=== PATIENT | male | born 1965 | race Caucasian/White ===

== ENCOUNTER 2020-09-16 14:51 | Outpatient (REF) | payer OTHER, SELFPAY ==
--- NOTE | ~2020-09-16 | XR_ITS ---
EXAMINATION: XR SHOULDER, LEFT CLINICAL INFORMATION: Pain COMPARISON: None TECHNIQUE: AP external rotation, Grashey, scapular Y, and axillary views of the left shoulder. FINDINGS: Bone alignment is normal. No acute fracture or dislocation is seen. There are old left anterior first and second rib fractures. There is question of an old left distal clavicle fracture. There is arthritis at the glenohumeral and acromioclavicular joints with small osteophytes. There is increased attenuation seen projecting over the humeral head, question representing overlying soft tissue calcification or ossification. There are dense left lung nodules probably representing calcified granulomas. XR/XR shoulder LT min 2V IMPRESSION: Arthritis at the glenohumeral and acromioclavicular joints.
== END 2020-09-16 14:52 | disposition home or self-care (01) ==
LOC: HO.XRAY 14:51
PROVIDERS: Absent Provider Pediatrics; PCP Pediatrics; Visit Provider Internal Medicine
DX: M25.512 Pain in left shoulder (principal)
CPT/HCPCS: 73030

== ENCOUNTER 2020-11-06 15:00 | Outpatient (RCR) | payer MEDICARE, SELFPAY | END 2020-12-21 09:55 | disposition home or self-care (01) | LOC: HO.PT 15:00 | PROVIDERS: PCP Internal Medicine; Visit Provider Internal Medicine | DX: M25.512 Pain in left shoulder (principal) | CPT/HCPCS: 97012; 97110; 97112; 97140; 97150; 97162 ==

== ENCOUNTER → 2021-08-04 13:25 | Outpatient (RCR) | payer MEDICARE, SELFPAY | END | disposition home or self-care (01) | LOC: HO.PTCHIC 02-06 13:01 | PROVIDERS: PCP Pediatrics; Visit Provider Physician Assistant | DX: G57.03 Lesion of sciatic nerve, bilateral lower limbs (principal); M62.838 Other muscle spasm; M19.90 Unspecified osteoarthritis, unspecified site; Z98.1 Arthrodesis status | CPT/HCPCS: 97110; 97140; 97162 ==

== ENCOUNTER 2021-11-01 10:06 | Outpatient (REF) | payer OTHER, SELFPAY ==
--- NOTE | ~2021-11-01 | US_ITS ---
EXAMINATION: US ABDOMEN COMPLETE CLINICAL INFORMATION: Clinical suspicion of pancreatitis, elevated amylase/lipase. COMPARISON: None TECHNIQUE: Real-time imaging of the abdominal viscera. FINDINGS: PANCREAS: There is mild dilatation of the main pancreatic duct measuring up to 5 mm. The pancreas is otherwise unremarkable. ABDOMINAL AORTA: Normal in caliber. INFERIOR VENA CAVA: Visualized portions are normal. LIVER: The liver echotexture is increased. The liver contour is normal. The liver is enlarged. No focal hepatic lesion. There is no intrahepatic biliary duct dilatation seen. GALLBLADDER: The gallbladder is normal in size. There is question of dependent echogenic bile versus small polyps or gallstones, the largest area measuring 3 mm. COMMON BILE DUCT: Normal in caliber measuring 0.8 cm in diameter. RIGHT KIDNEY: Normal. No hydronephrosis. No renal calculi or focal parenchymal lesions. The kidney measures 12.4 cm in maximum dimension. LEFT KIDNEY: Normal. No hydronephrosis. No renal calculi or focal parenchymal lesions. The kidney measures 11.6 cm in maximum dimension. SPLEEN: There are calcifications in the spleen. The spleen measures 10.4 cm in maximum dimension. FREE FLUID: None. US/US abdomen complete IMPRESSION: Enlarged echogenic liver. Question dependent echogenic bile versus small polyps or gallstones in the gallbladder. Dilated main pancreatic duct.
== END 2021-11-01 10:07 | disposition home or self-care (01) ==
LOC: HO.HMGCX 10:06
PROVIDERS: Visit Provider Internal Medicine
DX: K85.90 Acute pancreatitis without necrosis or infection, unspecified (principal)
CPT/HCPCS: 76700

== ENCOUNTER 2021-12-09 15:06 | Outpatient (REF) | payer OTHER, SELFPAY ==
[2021-12-09 17:32] LABS: Alanine Aminotransferase 77 U/L (0-40); Albumin Level 3.9 g/dL (3.5-5.0); Alkaline Phosphatase 85 U/L (39-117); Anion Gap 15 (12-20); Aspartate Amino Transferase 127 U/L (5-37); Bilirubin Direct 0.4 mg/dL (0.0-0.5); Bilirubin Total 0.7 mg/dL (0.0-1.0); Blood Urea Nitrogen 7 mg/dL (9-16); Calcium 9.1 mg/dL (8.4-10.2); Carbon Dioxide 30 mmol/L (22-29); Chloride 100 mmol/L (96-108); Estimated Glomerular Filt Rate > 60; Glucose Random 82 mg/dL (60-115); Potassium 4.3 mmol/L (3.3-5.1); Sodium 141 mmol/L (135-145); Total Protein 7.2 g/dL (6.5-8.0)
== END 2021-12-09 15:07 | disposition home or self-care (01) ==
LOC: HO.LAB 15:06
PROVIDERS: PCP Internal Medicine; Referring Provider Internal Medicine; Visit Provider Surgery
DX: R10.9 Unspecified abdominal pain (principal); G89.29 Other chronic pain
CPT/HCPCS: 36415; 80048; 80076; 99202

== ENCOUNTER 2021-12-28 10:50 | Outpatient (REF) | payer OTHER, SELFPAY | END 2021-12-28 10:51 | disposition home or self-care (01) | LOC: HO.CT 10:50 | PROVIDERS: PCP Internal Medicine; Visit Provider Surgery | DX: R10.9 Unspecified abdominal pain (principal); G89.29 Other chronic pain | CPT/HCPCS: 74177 ==

== ENCOUNTER → 2022-01-05 10:58 | Outpatient (BNVA) | payer OTHER, SELFPAY | PROVIDERS: PCP Internal Medicine; Visit Provider Surgery | DX: R10.9 Unspecified abdominal pain (principal); G89.29 Other chronic pain | CPT/HCPCS: 99212 ==

== ENCOUNTER 2022-04-11 12:01 | Emergency (ER) | payer OTHER, SELFPAY ==
--- NOTE | ~2022-04-11 | CT_ITS ---
EXAMINATION: CT ABDOMEN AND PELVIS WITHOUT CONTRAST CLINICAL INFORMATION: Severe diffuse abdominal pain and vomiting COMPARISON: 12/28/2021 TECHNIQUE: Multidetector volumetric imaging was performed from the lung bases through the pubic symphysis. Sagittal and coronal reformatted images were obtained on the technologist workstation. This CT examination was performed using dose optimization techniques as appropriate, variously including the following: *Automated exposure control *Adjustment of mA and/or kV according to patient size (this includes techniques or standardized protocols for targeted exams where dose is matched to indication/reason for exam; i.e. extremities or head) *Use of iterative reconstruction technique FINDINGS: The lack of intravenous contrast limits evaluation of the solid visceral organs including the liver, spleen, pancreas, and kidneys. LUNG BASES: 4 mm calcified granuloma in the posterior periphery of the right lower lobe; no imaging follow-up recommended. LIVER, GALLBLADDER, AND BILIARY TREE: Liver is diffusely hypoattenuating consistent with severe diffuse hepatic steatosis. The gallbladder is unremarkable with no evidence of radiopaque gallstones, gallbladder wall thickening, or obvious pericholecystic inflammatory changes. PANCREAS: The proximal body of the pancreas is enlarged and edematous with adjacent peripancreatic fluid and fat stranding. Lack of IV contrast limits evaluation for necrosis. SPLEEN: There are calcified granulomata within the spleen. ADRENAL GLANDS: Normal; no adrenal mass. KIDNEYS AND URETERS: Limited non-contrast evaluation is normal. No hydronephrosis, hydroureter, or calculi seen. No perinephric stranding. GASTROINTESTINAL TRACT: Small bowel and colon are non-dilated. No bowel wall thickening. No pericolonic inflammatory changes to suggest colitis or diverticulitis. Normal appendix. ABDOMINAL WALL: No hernia seen. LYMPH NODES: No pathologically enlarged lymph nodes in the abdomen or pelvis. VASCULAR: Normal caliber abdominal aorta. BLADDER: Unremarkable. PELVIC VISCERA: Unremarkable. OSSEOUS STRUCTURES: Posterior spinal fusion hardware L3-L5. Grade 1 bordering on grade 2 anterolisthesis of L5 on S1. Severe degenerative disc disease at L4-L5. Sclerosis of the bilateral sacroiliac joints. CT/CT abdomen pelvis wo IV con IMPRESSION: Edematous pancreas with adjacent fluid and fat stranding, and appearance consistent with acute interstitial pancreatitis. Severe hepatic steatosis.
--- NOTE | ~2022-04-11 | XR_ITS ---
EXAMINATION: XR CHEST CLINICAL INFORMATION: Chest pain. COMPARISON: Chest x-ray 11/16/2011 TECHNIQUE: Frontal view of the chest was obtained. FINDINGS: The lungs are hyperinflated but clear of acute process. Heart size is normal. There is mild increased bilateral pulmonary vascularity but no congestion. There are 2 small nodules adjacent to each other the largest measuring 4 mm and smaller measuring 3 mm in the left midlung region overlying the ninth posterior rib.. No gross bony abnormality seen. XR/XR chest 1V IMPRESSION: Hyperinflated lungs without acute process. 2 small nodules adjacent to each other in the left midlung region. Only one nodule seen on the previous chest x-ray 05/16/2011
[2022-04-11 12:10] VITALS: BP 190/90; BP 195/80; PULSE 54; PULSE 63; RESP 18; TEMP 36.9; O2SAT 100; BMI 26.4
--- NOTE | 2022-04-11 12:12 | ECG_ITS ---
Test Reason : Epigastric Pain Blood Pressure : / mmHG Vent. Rate : 057 BPM Atrial Rate : 057 BPM P-R Int : 136 ms QRS Dur : 086 ms QT Int : 474 ms P-R-T Axes : 036 034 045 degrees QTc Int : 461 ms Sinus bradycardia Otherwise normal ECG When compared with ECG of 30-JUL-2006 09:39, Premature atrial complexes are no longer Present Referred By: Asa Kat Electronically Signed By:ALISSA MULLEN MD
--- NOTE | 2022-04-11 12:14 | ED.ABDPAIN ---
HPI - Abdominal Pain General Chief Complaint: Abdominal Pain Stated Complaint: VOMITING,ABD PAIN PER EMS Time Seen by Provider: 04/11/22 12:06 Source: patient and EMS Mode of arrival: EMS Limitations: no limitations History of Present Illness HPI narrative: 56-year-old male came in by ambulance for evaluation of abdominal pain nausea and vomiting since last night. Patient is a daily drinker he drink last night patient think that the pain is likely related to drinking. Patient feel constipated for the past week no bowel movement but passing flatus, pain is associated with nausea and vomiting with no appetite. No fever, no chills. Patient has intermittent chronic abdominal pain was seen by Dr. Johnson in the past has negative workup for his chronic abdominal pain. Related Data Home Medications Medication Instructions Recorded Confirmed buprenorphine 8 mg-naloxone 2 mg 15 mg sublingual DAILY 12/09/21 01/05/22 sublingual film bupropion HCl 300 mg 24 hr tablet, 300 mg PO DAILY PRN 12/09/21 01/05/22 extended release gabapentin 400 mg capsule 0 mg PO 12/09/21 01/05/22 ibuprofen 600 mg tablet 600 mg PO TID PRN 12/09/21 01/05/22 ondansetron 4 mg disintegrating 0 mg PO 12/09/21 01/05/22 tablet trazodone 100 mg tablet 100 mg PO BEDTIME 12/09/21 01/05/22 Allergies Allergy/AdvReac Type Severity Reaction Status Date / Time No Known Allergies Allergy Verified 01/05/22 11:10 Review of Systems Review of Systems All other systems are reviewed and are negative Constitutional: Reports as per HPI and Reports no additional constitutional complaints Eyes: Reports as per HPI and Reports no additional eye complaints Reports system reviewed and no additional complaints, except as documented Cardiovascular: Reports as per HPI and Reports no additional cardiovascular complaints Respiratory: Reports as per HPI and Reports no additional respiratory complaints Gastrointestinal: Reports as per HPI and Reports no additional gastrointestinal complaints Genitourinary: Reports no additional female genitourinary complaints Musculoskeletal: Reports no additional musculoskeletal complaints Skin/Breast: Reports system reviewed and no additional complaints, except as docu Psychiatric: Reports no additional psychiatric complaints Endocrine: Reports no additional endocrine complaints Hematologic/Lymphatic: Reports no additional hematologic/lymphatic complaints Allergic/Immunologic: Reports no additional allergic/immunologic complaints Reports system reviewed and no additional complaints, except as documented and Reports Abnormal speech present [facility] Past Medical History Medical History Buprenorphine dependence Chronic abdominal pain Surgical History History of back surgery Social History Social History Alcohol intake: current Alcohol intake frequency: a few times a week Patient Tobacco Use Status: Never used Tobacco Advance Directives: No Advance Directives Information Provided: Yes Physical Exam ED Vital Signs: Vital Signs - 24 hr 04/11/22 12:10 04/11/22 13:23 Temperature 98.4 F Pulse Rate 63 56 Respiratory Rate 18 16 Blood Pressure 195/80 H 184/78 H Pulse Oximetry 100 99 Oxygen Delivery Method Room Air Room Air BMI result Body Mass Index 26.4 Vital signs have been reviewed as appeared to be correct. Blood pressure normal. Heart rate normal. Respiration rate normal. Temperature normal. Oxygen saturation normal. Appearance: Anxious, Alert. Oriented X3. No acute distress. Head: Normal external exam. Normocephalic. Atraumatic. No Bell signs noted. No raccoon eyes noted Eyes: PERRLA. EOMI. Conjunctiva and sclera normal. Eyelids normal. ENT: TM's Normal. Pharynx normal. Uvula midline. Moist mucous membranes. No trismus noted. No drooling noted. No muffled voice noted. Neck: Normal inspection. Neck supple. FROM. No adenopathy. Thyroid Normal. No meningeal signs. No neck mass noted. CVS: Normal heart rate and rhythm. Heart sound normal. No murmurs noted. Pulses normal throughout. Respiratory: No respiratory distress. Painless inspiration. Breath sounds normal. No wheezes/rales/rhonchi noted. Chest nontender. No accessory muscle usage noted or decreased air movement noted. Abdomen: Soft, epigastric tenderness, no rebound tenderness, no guarding. Bowel sounds normal in all 4 quadrants. No distention noted. No organomegaly noted. No visible injury noted. Back: No CVA tenderness. Full range of motion noted. Skin: Skin warm and dry. Normal skin color. Normal skin turgor. No rashes/lesions/lacerations noted. Extremities: No lower extremity edema. Extremities exhibit normal range of motion. Extremities nontender. Neuro: Oriented X 3. Cranial nerve exam: II-XII are grossly intact No motor deficit. No sensory deficit. Reflexes normal. Course Course Course Narrative: 56-year-old male with chronic alcohol use came in with abdominal pain and elevated lipase patient has uncomplicated alcoholic pancreatitis patient is on Suboxone, no narcotic was used to control the patient's name due to Suboxone, patient is showing early signs of withdrawal from alcohol will start the patient on phenobarb and admit. Reevaluation(s) Reevaluation #1: Patient feels better and able to tolerate ice chips orally without vomiting, patient will be leaving against medical advise, I explained to the patient at lengthy risk of leaving with acute pancreatitis which could be a life-threatening disease causing severe dehydration and severe abdominal pain. Especially the patient is known to be chronic alcoholic. Patient still insists to go home, patient is awake, alert, oriented x3 with no SI, patient fully understood my instruction still want to be discharged AMA. Time: 14:43 Medical Decision Making Differential Diagnosis Differential Diagnoses: The differential diagnosis associated with the presentation includes Alcoholic gastritis, pancreatitis, hepatitis, acute appendicitis, colitis, gastroenteritis. Lab Data MDM Lab Attestation statement: I reviewed the patient's lab results. 04/11/22 12:22 04/11/22 12:22 Labs: Lab Results 04/11/22 04/11/22 04/11/22 Range/Units 12:22 12:22 12:22 WBC 9.0 (4.8-10.8) X10*3/uL RBC 4.97 (4.60-5.80) X10*6/uL Hgb 16.2 (14.0-18.0) g/dl Hct 44.5 (42.0-52.0) % MCV 89.5 (80.0-98.0) fL MCH 32.6 (27.0-33.0) pg MCHC 36.4 H (31.0-36.0) g/dl RDW 11.8 (11.0-16.0) % Plt Count 187 (160-400) X10*3/uL MPV 10.1 (9.4-12.4) fL Immature Gran % (Auto) 0.3 (0.0-0.4) % Neut % (Auto) 81.9 H (45-73) % Lymph % (Auto) 8.6 L (20-40) % [place] % (Auto) 8.6 (2-11) % Eos % (Auto) 0.0 (0-4) % Baso % (Auto) 0.6 (0-2) % Lymph # (Auto) 0.8 L (1.2-4.9) X10*3/uL [place] # (Auto) 0.8 (0.1-1.2) X10*3/uL Eos # (Auto) 0.0 (0.0-0.4) X10*3/uL Baso # (Auto) 0.1 (0.0-0.2) X10*3/uL Abs Immat Gran (auto) 0.03 (0.00-0.03) X10*3/uL Absolute Neuts (auto) 7.3 (2.0-8.3) x10*3/uL Absolute Nucleated RBC 0.000 (0.0-0.012) X10*3/uL Nucleated RBC % (auto) 0.0 (0.0-0.2) /100WBC Sodium 139 (135-145) mmol/L Potassium 4.0 (3.3-5.1) mmol/L Chloride 98 (96-108) mmol/L Carbon Dioxide 23 (22-29) mmol/L Anion Gap 22 H (12-20) BUN 11 (9-16) mg/dL Creatinine 0.96 (0.5-1.4) mg/dL Estim Creat Clear Calc 95.9 Estimated GFR > 60 Random Glucose 173 H (60-115) mg/dL Calcium 9.5 (8.4-10.2) mg/dL Total Bilirubin 1.1 H (0.0-1.0) mg/dL Direct Bilirubin 0.4 (0.0-0.5) mg/dL AST 107 H (5-37) U/L ALT 60 H (0-40) U/L Alkaline Phosphatase 120 H (39-117) U/L Troponin I High Sens < 3.5 (<3.5-35.0) ng/L Total Protein 7.4 (6.5-8.0) g/dL Albumin 3.8 (3.5-5.0) g/dL Lipase 712 H (8-78) U/L COVID-19 ([facility]) (Negative) COVID-19 Clin Com 04/11/22 Range/Units 12:23 WBC (4.8-10.8) X10*3/uL RBC (4.60-5.80) X10*6/uL Hgb (14.0-18.0) g/dl Hct (42.0-52.0) % MCV (80.0-98.0) fL MCH (27.0-33.0) pg MCHC (31.0-36.0) g/dl RDW (11.0-16.0) % Plt Count (160-400) X10*3/uL MPV (9.4-12.4) fL Immature Gran % (Auto) (0.0-0.4) % Neut % (Auto) (45-73) % Lymph % (Auto) (20-40) % [place] % (Auto) (2-11) % Eos % (Auto) (0-4) % Baso % (Auto) (0-2) % Lymph # (Auto) (1.2-4.9) X10*3/uL [place] # (Auto) (0.1-1.2) X10*3/uL Eos # (Auto) (0.0-0.4) X10*3/uL Baso # (Auto) (0.0-0.2) X10*3/uL Abs Immat Gran (auto) (0.00-0.03) X10*3/uL Absolute Neuts (auto) (2.0-8.3) x10*3/uL Absolute Nucleated RBC (0.0-0.012) X10*3/uL Nucleated RBC % (auto) (0.0-0.2) /100WBC Sodium (135-145) mmol/L Potassium (3.3-5.1) mmol/L Chloride (96-108) mmol/L Carbon Dioxide (22-29) mmol/L Anion Gap (12-20) BUN (9-16) mg/dL Creatinine (0.5-1.4) mg/dL Estim Creat Clear Calc Estimated GFR Random Glucose (60-115) mg/dL Calcium (8.4-10.2) mg/dL Total Bilirubin (0.0-1.0) mg/dL Direct Bilirubin (0.0-0.5) mg/dL AST (5-37) U/L ALT (0-40) U/L Alkaline Phosphatase (39-117) U/L Troponin I High Sens (<3.5-35.0) ng/L Total Protein (6.5-8.0) g/dL Albumin (3.5-5.0) g/dL Lipase (8-78) U/L COVID-19 ([facility]) Negative (Negative) COVID-19 Clin Com See Note Independent Interpretation I performed an independent interpretation of an: CT Scan (Abdomen: Acute pancreatitis) Radiology Impression Discussion of test interpretation with radiology: I have reviewed the radiologist's reading. Tests considered The following testing was considered but not selected: Admission was considered in this case but patient is signing against medical advise and declined admission. Medications Administered Discontinued Medications Generic Name Dose Route Start Last Admin Trade Name Freq PRN Reason Stop Dose Admin Al Hydroxide/Mg Hydroxide 30 ml 04/11/22 12:12 04/11/22 12:39 Magnesium Hydrox/Alum Hydrox 30 Ml Oral.Susp PO 04/11/22 12:13 Not Given ONCE ONE Famotidine 20 mg 04/11/22 12:12 04/11/22 12:32 Famotidine/Pf 20 Mg/2 Ml Vial IVPUSH 04/11/22 12:13 20 mg ONCE ONE Administration Sodium Chloride 1,000 mls @ 999 mls/hr 04/11/22 12:06 04/11/22 12:34 Ns IV 04/11/22 13:06 999 mls/hr .Q1H1M ONE Administration Ketorolac Tromethamine 30 mg 04/11/22 12:12 04/11/22 12:32 Ketorolac Tromethamine 30 Mg/Ml Vial IVPUSH 04/11/22 12:13 30 mg ONCE ONE Administration Lorazepam 2 mg 04/11/22 12:46 04/11/22 12:52 Lorazepam 2 Mg/Ml Vial IVPUSH 04/11/22 12:47 2 mg ONCE ONE Administration Ondansetron HCl 4 mg 04/11/22 12:12 04/11/22 12:32 Ondansetron Hcl 4 Mg/2 Ml Vial IVPUSH 04/11/22 12:13 4 mg ONCE ONE Administration Discharge Plan Discharge Clinical Impression: Acute alcoholic pancreatitis, Alcohol withdrawal Patient Disposition: Left Against Medical Advice Instructions: Pancreatitis (ED), Alcohol Withdrawal (ED) Prescriptions: No Action gabapentin 400 mg capsule 0 mg PO ibuprofen 600 mg tablet 600 mg PO TID PRN bupropion HCl 300 mg tablet extended release 24 hr 300 mg PO DAILY PRN ondansetron 4 mg tablet,disintegrating 0 mg PO buprenorphine-naloxone 8-2 mg film 15 mg sublingual DAILY trazodone 100 mg tablet 100 mg PO BEDTIME Referrals: Sharon Hilton MD [Primary Care Provider] -
[2022-04-11 12:27] LABS: MANUAL DIFF FLAG NO
[2022-04-11 12:30] LABS: Basophils Absolute Auto 0.1 X10*3/uL (0.0-0.2); Basophils Percent Auto 0.6 % (0-2); Hematocrit 44.5 % (42.0-52.0); Hemoglobin 16.2 g/dl (14.0-18.0); Imm Gran Abs Auto 0.03 X10*3/uL (0.00-0.03); Imm Gran Pct Auto 0.3 % (0.0-0.4); Lymphocytes Absolute Auto 0.8 X10*3/uL (1.2-4.9); Lymphocytes Percent Auto 8.6 % (20-40); Mean Corpuscular HGB Conc 36.4 g/dl (31.0-36.0); Mean Corpuscular Hemoglobin 32.6 pg (27.0-33.0); Mean Corpuscular Volume 89.5 fL (80.0-98.0); Mean Platelet Volume 10.1 fL (9.4-12.4); Monocytes Absolute Auto 0.8 X10*3/uL (0.1-1.2); Monocytes Percent Auto 8.6 % (2-11); Neutrophils Absolute Auto 7.3 x10*3/uL (2.0-8.3); Neutrophils Percent Auto 81.9 % (45-73); Platelet Count 187 X10*3/uL (160-400); Red Blood Count 4.97 X10*6/uL (4.60-5.80); Red Cell Distribution Width 11.8 % (11.0-16.0)
[2022-04-11] MEDS: Ketorolac Tromethamine 30 MG/ML VIAL IVPUSH (12:32)
[2022-04-11] MEDS: ondansetron HCL 4 MG/2 ML VIAL IVPUSH (12:32)
[2022-04-11] MEDS: Famotidine/PF 20 MG/2 ML VIAL IVPUSH (12:32)
[2022-04-11] MEDS: 0.9 % Sodium Chloride 1,000 ML 999 ML IV (12:34)
[2022-04-11 12:45] LABS: Alanine Aminotransferase 60 U/L (0-40); Albumin Level 3.8 g/dL (3.5-5.0); Alkaline Phosphatase 120 U/L (39-117); Anion Gap 22 (12-20); Aspartate Amino Transferase 107 U/L (5-37); Bilirubin Direct 0.4 mg/dL (0.0-0.5); Bilirubin Total 1.1 mg/dL (0.0-1.0); Blood Urea Nitrogen 11 mg/dL (9-16); Calcium 9.5 mg/dL (8.4-10.2); Carbon Dioxide 23 mmol/L (22-29); Chloride 98 mmol/L (96-108); Creatinine Clr Calc Pharmacy 95.9; Estimated Glomerular Filt Rate > 60; Glucose Random 173 mg/dL (60-115); Sodium 139 mmol/L (135-145); Total Protein 7.4 g/dL (6.5-8.0)
[2022-04-11 12:48] LABS: COVID-19 Test Negative (Negative); IDNOW Serial# BCCEAD1C
[2022-04-11] MEDS: LORazepam 2 MG/ML VIAL IVPUSH (12:52)
[2022-04-11 12:53] LABS: Troponin-I High Sensitivity < 3.5 ng/L (<3.5-35.0)
[2022-04-11 12:54] LABS: Lipase 712 U/L (8-78)
[2022-04-11 13:23] VITALS: BP 184/78; PULSE 56; RESP 16; O2SAT 99
== END 2022-04-11 15:12 | disposition left against medical advice (07) ==
PROVIDERS: Emergency Provider Emergency Medicine; PCP Pediatrics
DX: K85.20 Alcohol induced acute pancreatitis without necrosis or infection (principal); F10.230 Alcohol dependence with withdrawal, uncomplicated; Y90.9 Presence of alcohol in blood, level not specified; F11.20 Opioid dependence, uncomplicated; R10.9 Unspecified abdominal pain; Z20.822 Contact with and (suspected) exposure to COVID-19
CPT/HCPCS: 36415; 71045; 74176; 80048; 80076; 83690; 84484; 85025; 87635; 93005; 96374; 96375; 99284; J1885; J2060; J2405

== ENCOUNTER 2022-04-29 11:10 | Emergency (ER) | payer OTHER, SELFPAY ==
[2022-04-29 11:14] VITALS: BP 177/85; BP 180/100; PULSE 59; PULSE 70; RESP 28; O2SAT 97; O2SAT 98; BMI 25.7
--- NOTE | 2022-04-29 11:33 | ED.NAVMDI ---
HPI - Nausea/Vomiting/Diarrhea General Chief complaint: Nausea/Vomiting/Diarrhea Stated complaint: Abd pain, N/V per EMS Time Seen by Provider: 04/29/22 11:32 Source: patient Mode of arrival: EMS Limitations: no limitations History of Present Illness HPI Narrative: patient with a history of alcoholism and heroine dependence now with nausea and vomiting MD elicited complaint: nausea and vomiting Related Data Home Medications Medication Instructions Recorded Confirmed buprenorphine 8 mg-naloxone 2 mg 15 mg sublingual DAILY 12/09/21 01/05/22 sublingual film bupropion HCl 300 mg 24 hr tablet, 300 mg PO DAILY PRN 12/09/21 01/05/22 extended release gabapentin 400 mg capsule 0 mg PO 12/09/21 01/05/22 ibuprofen 600 mg tablet 600 mg PO TID PRN 12/09/21 01/05/22 ondansetron 4 mg disintegrating 0 mg PO 12/09/21 01/05/22 tablet trazodone 100 mg tablet 100 mg PO BEDTIME 12/09/21 01/05/22 Previous Rx's Medication Instructions Recorded ondansetron 4 mg disintegrating 4 mg PO Q8H 4 days #12 tabs 04/29/22 tablet pantoprazole 40 mg tablet,delayed 40 mg PO DAILY #20 tabs 04/29/22 release (Protonix) Allergies Allergy/AdvReac Type Severity Reaction Status Date / Time No Known Allergies Allergy Verified 01/05/22 11:10 Review of Systems Review of Systems: Yes all other systems are reviewed and are negative Gastrointestinal: Gastrointestinal: Reports abdominal pain and Reports vomiting Neurologic: Denies Sensory deficit (Neuro) [facility] Past Medical History Medical History Buprenorphine dependence Chronic abdominal pain Surgical History History of back surgery Social History Social History Alcohol intake: former Patient Tobacco Use Status: Never used Tobacco Smoked in Last 30 Days: No Use of substances other than those prescribed or required for medical reasons: No Advance Directives: No Advance Directives Information Provided: No Physical Exam Vital Signs: Vital Signs: Last Vital Signs Temp 97.7 F 04/29/22 14:55 Pulse 64 04/29/22 14:55 Resp 24 H 04/29/22 14:55 BP 206/88 H 04/29/22 14:55 Pulse Ox 97 04/29/22 14:55 O2 Del Method 04/29/22 14:55 BMI result Body Mass Index 25.7 Const: Other: anxious, screaming Nutritional Appearance: average body habitus Orientation/consciousness: oriented to person and patient oriented x3 Limitations: no limitations HEENT: Head: Yes normal to inspection Ears: external ears normal General nose exam: Normal external nose present Mouth: Normal oral and palatal mucosa present and oropharynx normal Throat: Yes posterior oropharynx normal Eyes: General: appearance normal, both eyes and all related structures Neck: Other: supple Neck: Yes normal visual inspection Chest: Chest palpation & inspection: normal inspection of the chest Resp: Auscultation: clear to auscultation bilaterally Cardio: Jugular venous distension: no JVD Rate: regular rate Rhythm: regular rhythm Heart sounds: S1 normal heart sound present and S2 normal heart sound present GI: Other: soft but diffusely tender Palpation (GI): Tenderness to palpation present (GI) Auscultation: normal bowel sounds : General: Yes no CVA tenderness Back/Spine/Pelvis: Back: no CVA tenderness Skin: General skin exam: no rashes or lesions noted Neuro: General: oriented to person and patient oriented x3 Cranial nerves: Yes CN's II-XII intact bilaterally Motor exam (neuro): 5/5 motor strength present throughout Sensory Exam: No Sensory deficit (Neuro) Extrem: General: Yes normal to inspection Psych: Appearance: grossly normal Course Reevaluation(s) Reevaluation #1: still vomiting will admit Time: 14:05 Reevaluation #2: patient wants to be discharged Time: 15:49 Medications Administered Discontinued Medications Generic Name Dose Route Start Last Admin Trade Name Freq PRN Reason Stop Dose Admin Buprenorphine/Naloxone 1 film 04/29/22 13:16 04/29/22 13:26 Buprenorphine/Naloxone 8/2 Mg Film SUBLINGUAL 04/29/22 13:17 1 film ONCE ONE Administration Sodium Chloride 1,000 mls @ 999 mls/hr 04/29/22 11:45 04/29/22 14:30 Ns IVCONT 04/29/22 13:45 Infused .Q1H1M JUAN Infusion Ondansetron HCl 4 mg 04/29/22 11:39 04/29/22 11:48 Ondansetron Hcl 4 Mg/2 Ml Vial IVPUSH 04/29/22 11:40 4 mg ONCE ONE Administration Pantoprazole Sodium 40 mg 04/29/22 12:53 04/29/22 13:26 Pantoprazole Sodium 40 Mg/10 Ml Vial IVPUSH 04/29/22 12:54 40 mg ONCE ONE Administration Phenobarbital Sodium 65 mg 04/29/22 11:35 04/29/22 12:09 Phenobarbital Sodium 65 Mg/Ml Vial IVPUSH 04/29/22 11:36 Not Given ONCE ONE Phenobarbital Sodium 65 mg 04/29/22 12:00 04/29/22 12:00 Phenobarbital Sodium 130 Mg/Ml Vial IVPUSH 04/29/22 12:01 65 mg ONCE ONE Administration Phenobarbital Sodium 65 mg 04/29/22 13:45 04/29/22 13:43 Phenobarbital Sodium 130 Mg/Ml Vial IVPUSH 04/29/22 13:46 65 mg ONCE ONE Administration Phenobarbital Sodium 65 mg 04/29/22 14:45 04/29/22 14:49 Phenobarbital Sodium 130 Mg/Ml Vial IVPUSH 04/29/22 14:46 65 mg ONCE ONE Administration Medical Decision Making Differential Diagnosis alcohol withdrawal, opiate withdrawal, pancreatitis, hepatitis Admission/Observation Consideration of admission/observation: Escalation of care including admission/observation considered for withdrawal and pancreatitis Lab Data 04/29/22 11:46 04/29/22 11:46 Labs: Lab Results 04/29/22 04/29/22 Range/Units 11:46 11:46 WBC 10.3 (4.8-10.8) X10*3/uL RBC 5.11 (4.60-5.80) X10*6/uL Hgb 16.6 (14.0-18.0) g/dl Hct 46.2 (42.0-52.0) % MCV 90.4 (80.0-98.0) fL MCH 32.5 (27.0-33.0) pg MCHC 35.9 (31.0-36.0) g/dl RDW 11.5 (11.0-16.0) % Plt Count 273 D (160-400) X10*3/uL MPV 10.0 (9.4-12.4) fL Immature Gran % (Auto) 0.5 H (0.0-0.4) % Neut % (Auto) 85.2 H (45-73) % Lymph % (Auto) 8.3 L (20-40) % [place] % (Auto) 5.5 (2-11) % Eos % (Auto) 0.0 (0-4) % Baso % (Auto) 0.5 (0-2) % Lymph # (Auto) 0.9 L (1.2-4.9) X10*3/uL [place] # (Auto) 0.6 (0.1-1.2) X10*3/uL Eos # (Auto) 0.0 (0.0-0.4) X10*3/uL Baso # (Auto) 0.1 (0.0-0.2) X10*3/uL Abs Immat Gran (auto) 0.05 H (0.00-0.03) X10*3/uL Absolute Neuts (auto) 8.8 H (2.0-8.3) x10*3/uL Absolute Nucleated RBC 0.000 (0.0-0.012) X10*3/uL Nucleated RBC % (auto) 0.0 (0.0-0.2) /100WBC Sodium 137 (135-145) mmol/L Potassium 4.5 (3.3-5.1) mmol/L Chloride 97 (96-108) mmol/L Carbon Dioxide 21 L (22-29) mmol/L Anion Gap 24 H (12-20) BUN 11 (9-16) mg/dL Creatinine 0.92 (0.5-1.4) mg/dL Estim Creat Clear Calc 97.2 Estimated GFR > 60 Random Glucose 177 H (60-115) mg/dL Calcium 9.4 (8.4-10.2) mg/dL Total Bilirubin 0.8 (0.0-1.0) mg/dL AST 109 H (5-37) U/L ALT 57 H (0-40) U/L Alkaline Phosphatase 99 (39-117) U/L Total Protein 7.2 (6.5-8.0) g/dL Albumin 3.5 (3.5-5.0) g/dL Lipase 598 H (8-78) U/L Independent Historian Clinical information obtained from an independent historian. History obtained from or confirmed by: Spouse and EMS Chronic Conditions alcoholism, opiate abuse Discharge Plan Discharge Clinical Impression: Drug abuse and dependence, Alcoholism, Acute pancreatitis Patient Disposition: Home, Self-Care Instructions: Pancreatitis (ED), Abuse of Alcohol (ED), Acute Nausea and Vomiting (ED), Alcohol Dependence (ED) Prescriptions: New pantoprazole [Protonix] 40 mg tablet,delayed release (DR/EC) 40 mg PO DAILY Qty: 20 0RF ondansetron 4 mg tablet,disintegrating 4 mg PO Q8H 4 Days Qty: 12 0RF No Action gabapentin 400 mg capsule 0 mg PO ibuprofen 600 mg tablet 600 mg PO TID PRN bupropion HCl 300 mg tablet extended release 24 hr 300 mg PO DAILY PRN ondansetron 4 mg tablet,disintegrating 0 mg PO buprenorphine-naloxone 8-2 mg film 15 mg sublingual DAILY trazodone 100 mg tablet 100 mg PO BEDTIME Referrals: Sharon Hilton MD [Primary Care Provider] - 3 days
[2022-04-29] MEDS: ondansetron HCL 4 MG/2 ML VIAL IVPUSH (11:48)
[2022-04-29] MEDS: 0.9 % Sodium Chloride 1,000 ML 999 ML IVCONT ×2 (11:54)
[2022-04-29 11:55] LABS: MANUAL DIFF FLAG NO
[2022-04-29 11:57] LABS: Basophils Absolute Auto 0.1 X10*3/uL (0.0-0.2); Basophils Percent Auto 0.5 % (0-2); Hematocrit 46.2 % (42.0-52.0); Hemoglobin 16.6 g/dl (14.0-18.0); Imm Gran Abs Auto 0.05 X10*3/uL (0.00-0.03); Imm Gran Pct Auto 0.5 % (0.0-0.4); Lymphocytes Absolute Auto 0.9 X10*3/uL (1.2-4.9); Lymphocytes Percent Auto 8.3 % (20-40); Mean Corpuscular HGB Conc 35.9 g/dl (31.0-36.0); Mean Corpuscular Hemoglobin 32.5 pg (27.0-33.0); Mean Corpuscular Volume 90.4 fL (80.0-98.0); Monocytes Absolute Auto 0.6 X10*3/uL (0.1-1.2); Monocytes Percent Auto 5.5 % (2-11); Neutrophils Absolute Auto 8.8 x10*3/uL (2.0-8.3); Neutrophils Percent Auto 85.2 % (45-73); Platelet Count 273 X10*3/uL (160-400); Red Blood Count 5.11 X10*6/uL (4.60-5.80); Red Cell Distribution Width 11.5 % (11.0-16.0); White Blood Count 10.3 X10*3/uL (4.8-10.8)
[2022-04-29] MEDS: PHENobarbitaL sodium 130 MG/ML VIAL 65 MG IVPUSH ×3 (12:00→14:49)
[2022-04-29 12:33] LABS: Alanine Aminotransferase 57 U/L (0-40); Albumin Level 3.5 g/dL (3.5-5.0); Alkaline Phosphatase 99 U/L (39-117); Anion Gap 24 (12-20); Aspartate Amino Transferase 109 U/L (5-37); Bilirubin Total 0.8 mg/dL (0.0-1.0); Blood Urea Nitrogen 11 mg/dL (9-16); Calcium 9.4 mg/dL (8.4-10.2); Carbon Dioxide 21 mmol/L (22-29); Chloride 97 mmol/L (96-108); Creatinine Clr Calc Pharmacy 97.2; Estimated Glomerular Filt Rate > 60; Glucose Random 177 mg/dL (60-115); Lipase 598 U/L (8-78); Potassium 4.5 mmol/L (3.3-5.1); Sodium 137 mmol/L (135-145); Total Protein 7.2 g/dL (6.5-8.0)
[2022-04-29] MEDS: Pantoprazole Sodium 40 MG/10 ML VIAL IVPUSH (13:26)
[2022-04-29] MEDS: Buprenorphine/Naloxone 8/2 mg FILM 1 FILM SUBLINGUAL (13:26)
[2022-04-29 14:55] VITALS: BP 206/88; PULSE 64; RESP 24; TEMP 36.5; O2SAT 97
== END 2022-04-29 15:59 | disposition home or self-care (01) ==
PROVIDERS: Emergency Provider Emergency Medicine; PCP Pediatrics
DX: K85.90 Acute pancreatitis without necrosis or infection, unspecified (principal); R11.2 Nausea with vomiting, unspecified; F11.20 Opioid dependence, uncomplicated; F10.20 Alcohol dependence, uncomplicated; Y90.9 Presence of alcohol in blood, level not specified; Z79.899 Other long term (current) drug therapy
CPT/HCPCS: 36415; 80053; 83690; 85025; 96361; 96374; 96375; 96376; 99284; J2405; J2560

== ENCOUNTER 2022-08-21 21:08 | Inpatient (IN) | payer OTHER, SELFPAY ==
--- NOTE | ~2022-08-21 | CT_ITS ---
EXAMINATION: CT CHEST WITHOUT CONTRAST CLINICAL INFORMATION: Pneumothorax questioned on prior CT COMPARISON: CT abdomen/pelvis dated 08/21/2022 TECHNIQUE: Multidetector volumetric CT imaging of the chest was done. Axial MIP volume rendering provided. Sagittal and coronal reformatted images were obtained. This CT examination was performed using dose optimization techniques as appropriate, variously including the following: *Automated exposure control *Adjustment of mA and/or kV according to patient size (this includes techniques or standardized protocols for targeted exams where dose is matched to indication/reason for exam; i.e. extremities or head) *Use of iterative reconstruction technique DLP: 261 mGy-cm FINDINGS: LUNGS: No acute pneumonic process.. No pneumothorax. Scattered calcified granulomata. No suspicious pulmonary nodules. There is a single punctate noncalcified nodule in the left upper lobe on series 5, image 226. MEDIASTINUM: Normal heart size. No pericardial effusion. Calcified mediastinal and bilateral hilar lymph nodes. Imaged thyroid gland unremarkable. CORONARY ARTERY CALCIFICATION: Present. PLEURA: There is no pleural effusion. No pleural mass or thickening. AXILLA: No lymphadenopathy. UPPER ABDOMEN: Findings of acute pancreatitis as previously described. Hepatic steatosis. OSSEOUS STRUCTURES: Unremarkable. CT/CT chest wo IV con IMPRESSION: * No pneumothorax. * Evidence of prior granulomatous disease with calcified mediastinal and bilateral hilar lymph nodes as well as scattered calcified granulomata. * Coronary calcifications. * Single punctate noncalcified nodule in the left upper lobe is of doubtful clinical significance. Per the 2017 revised Fleischner Society guidelines, no routine follow up is necessarily required in low-risk patients, and consideration of [address] is recommended for patients at high-risk for the development of pulmonary neoplasm. * Acute pancreatitis and hepatic steatosis as previously described.
--- NOTE | ~2022-08-21 | US_ITS ---
EXAMINATION: US ABDOMEN LIMITED CLINICAL INFORMATION: Unremarkable quadrant pain. Abnormal CT.. COMPARISON: CT performed 08/21/2022 TECHNIQUE: Real-time imaging of the biliary tree FINDINGS: GALLBLADDER: Sludge present within the gallbladder neck. No gallbladder wall thickening or pericholecystic fluid. Sonographic Chow sign is positive, however the patient has documented pancreatitis which could also result in a positive sonographic Chow sign. COMMON BILE DUCT: Mildly dilated measuring 1.1 cm. US/US abdomen limited IMPRESSION: * Sludge present within the gallbladder neck. No gallbladder wall thickening or pericholecystic fluid to suggest cholecystitis. * Sonographic Chow sign is positive, however the patient has documented pancreatitis which could also result in a positive sonographic Chow sign. * Mildly dilated common bile duct measuring 1.1 cm. Distal common bile duct not well seen on the images submitted for review. If there is concern for choledocholithiasis, we recommend MRCP.
--- NOTE | ~2022-08-21 | CT_ITS ---
EXAMINATION: CT ABDOMEN AND PELVIS WITHOUT CONTRAST CLINICAL INFORMATION: Abdominal pain. COMPARISON: CT abdomen/pelvis 04/11/2022. TECHNIQUE: Multidetector volumetric imaging was performed from the superior aspect of the liver through the pubic symphysis. Sagittal and coronal reformatted images were obtained on the technologist's workstation. This CT examination was performed using dose optimization techniques as appropriate, variously including the following: *Automated exposure control *Adjustment of mA and/or kV according to patient size (this includes techniques or standardized protocols for targeted exams where dose is matched to indication/reason for exam; i.e. extremities or head) *Use of iterative reconstruction technique DLP: 566 mGy-cm FINDINGS: The lack of intravenous contrast limits evaluation of the solid visceral organs including the liver, spleen, pancreas, and kidneys. LUNG BASES: Multiple calcified granulomas in the included portions of the lung bases. A radiolucency along the anterior pleural space of the right middle lobe (3:1) is favored to represent an artifact, however a trace pneumothorax is not excluded. LIVER, GALLBLADDER, AND BILIARY TREE: The liver is enlarged measuring 20.5 cm craniocaudally and demonstrates decreased attenuation suggesting hepatic steatosis. Focal perfusional/fatty abnormalities noted adjacent to the fissure of the falciform ligament (2:21). No focal suspicious liver lesion in this limited noncontrast examination. Hyperattenuating content in the gallbladder neck, favored to represent bile/sludge. No calcified cholelithiasis. No significant pericholecystic inflammatory changes to suspect acute cholecystitis. No biliary ductal dilatation. PANCREAS: The pancreas is enlarged and edematous with adjacent peripancreatic fluid and fat stranding. Lack of IV contrast limits evaluation for necrosis. SPLEEN: Calcified granulomas. ADRENAL GLANDS: No adrenal mass. KIDNEYS AND URETERS: Limited noncontrast examination. No nephrolithiasis or hydronephrosis. No perinephric fat stranding. BLADDER: Partially underdistended, limiting its evaluation. No significant perivesical fat stranding. GASTROINTESTINAL TRACT: The stomach and the small bowel are nondilated. Normal appendix. Diverticulosis without pericolonic inflammatory changes. No evidence of bowel obstruction. Moderate colonic stool content. ABDOMINAL WALL: No significant hernia is appreciated. LYMPH NODES: No lymphadenopathy. VASCULAR: Limited noncontrast examination. Atherosclerotic disease. Abdominal aorta normal in caliber. PELVIC VISCERA: Trace amount of free fluid in the pelvis. OSSEOUS STRUCTURES: Posterior fusion hardware from L3 through L5. Unchanged anterolisthesis of L4 on L5. Stable compression deformity at L5. Advanced intervertebral disc height loss and facet arthropathy at L4-L5 with an interdisc spacer. Ghost tract in the left proximal femur with a stable associated radiolucent observation (3:627). Stable nonspecific focal heterogeneity of the bone marrow in the posterior right iliac bone (2:52). CT/CT abdomen pelvis wo IV con IMPRESSION: 1. Edematous pancreas with surrounding fluid and fat stranding, most suggestive of acute pancreatitis. 2. Hepatomegaly and hepatic steatosis. 3. Diverticulosis but no evidence of acute diverticulitis. 4. A radiolucency along the anterior pleural space of the right middle lobe is favored to represent an artifact, however a trace pneumothorax is not excluded. Recommend clinical correlation and if indicated further evaluation with a chest radiograph. This critical result was discussed with Madeline Eric at 08/21/2022 10:54 PM and it was ascertained that the content and urgency of the report was understood at the time of direct communication.
--- NOTE | ~2022-08-21 | MR_ITS ---
EXAMINATION: MR ABDOMEN WITHOUT CONTRAST CLINICAL INFORMATION: Pain. COMPARISON: Abdomen CT from 08/21/2022 and ultrasound from 08/22/2022. TECHNIQUE: MR imaging of the abdomen performed using coronal SSFSE T2-weighted without and with fat suppression, axial T1-weighted dual echo SPGR, axial single shot FSE T2-weighted and axial fat-suppressed single shot FSE T2-weighted sequences. The medical technologist reports that the patient refused to complete the entire examination. FINDINGS: LUNG BASES: No pulmonary consolidation or pleural effusion. LIVER: Mild hepatomegaly. Diffuse hepatic steatosis is evident on opposed phase gradient echo imaging. No focal liver lesion or intrahepatic ductal dilatation. GALLBLADDER AND BILIARY TREE: The gallbladder is physiologically distended. No evidence of cholelithiasis or gallbladder wall thickening. Common bile duct is mildly dilated; it measures up to 0.9 cm diameter and has normal smooth contour. No evidence of focal duct stricture or choledocholithiasis. PANCREAS: Peripancreatic edema is present in this patient with acute pancreatitis. No organized peripancreatic collection. No pancreatic divisum, pancreatic ductal dilatation or mass. SPLEEN: The spleen is normal in size. The calcified granulomas of the spleen are not well seen visualized on this MRI. ADRENAL GLANDS: Normal. KIDNEYS: Kidneys are normal in size. No hydronephrosis. 0.9 cm simple cyst of the upper pole of the right kidney. No renal imaging follow-up recommended. BOWEL AND PERITONEUM: No dilated bowel loops. No focal bowel wall thickening is seen within the included [id number]. Small volume of free fluid is present within the abdomen. VASCULATURE: Abdominal aorta is normal in caliber. Inferior vena cava is normal for noncontrast examination. LYMPH NODES: No pathologic sized lymph nodes in the abdomen. SKELETAL: No suspicious osseous lesions. Susceptibility artifact is produced by the instrumented posterior spinal fusion of L3-L5. MR/MR MRCP IMPRESSION: * No evidence of cholelithiasis or acute cholecystitis. * Although the common bile duct is mildly dilated (0.9 cm diameter), there is no evidence of focal duct stricture or choledocholithiasis. * Acute pancreatitis with presence of peripancreatic edema. However, no organized fluid collection. * Mild hepatomegaly and diffuse hepatic steatosis. * Small volume of abdominal free fluid is present.
[2022-08-21 21:22] VITALS: BP 140/90; BP 179/75; PULSE 64; PULSE 78; RESP 22; TEMP 36.6; O2SAT 99; BMI 25.7
--- NOTE | 2022-08-21 21:52 | PC.NURSE ---
Pt presented to ER with 10/10 abd pain and nausea/vomiting starting at 9 AM. Per EMS, emesis was coffee ground. EMS placed a 20g IV in the left AC and gave 4 mg of zofran. Pt is A&Ox4, GCS 15, cool and clammy at this time. Lab have been drawn, pt has been placed on the potline monitor, CT scan has been taken. Pt waiting to be seen at this time.
[2022-08-21 21:57] LABS: MANUAL DIFF FLAG NO
[2022-08-21 21:58] LABS: Basophils Percent Auto 0.2 % (0-2); Eosinophils Percent Auto 0.1 % (0-4); Hematocrit 44.2 % (42.0-52.0); Hemoglobin 16.1 g/dl (14.0-18.0); Imm Gran Pct Auto 0.5 % (0.0-0.4); Lymphocytes Absolute Auto 0.7 X10*3/uL (1.2-4.9); Lymphocytes Percent Auto 3.5 % (20-40); Mean Corpuscular HGB Conc 36.4 g/dl (31.0-36.0); Mean Corpuscular Hemoglobin 32.9 pg (27.0-33.0); Mean Corpuscular Volume 90.2 fL (80.0-98.0); Mean Platelet Volume 9.6 fL (9.4-12.4); Monocytes Absolute Auto 1.2 X10*3/uL (0.1-1.2); Monocytes Percent Auto 6.2 % (2-11); Neutrophils Absolute Auto 17.2 x10*3/uL (2.0-8.3); Neutrophils Percent Auto 89.5 % (45-73); Platelet Count 231 X10*3/uL (160-400); Red Cell Distribution Width 12.5 % (11.0-16.0); White Blood Count 19.2 X10*3/uL (4.8-10.8)
[2022-08-21 22:24] LABS: Alanine Aminotransferase 40 U/L (0-40); Albumin Level 3.8 g/dL (3.5-5.0); Alkaline Phosphatase 85 U/L (39-117); Anion Gap 19 (12-20); Aspartate Amino Transferase 52 U/L (5-37); Bilirubin Direct 0.4 mg/dL (0.0-0.5); Bilirubin Total 1.5 mg/dL (0.0-1.0); Blood Urea Nitrogen 9 mg/dL (9-16); Calcium 9.3 mg/dL (8.4-10.2); Carbon Dioxide 22 mmol/L (22-29); Chloride 101 mmol/L (96-108); Creatinine Clr Calc Pharmacy 95.7; Estimated Glomerular Filt Rate > 60; Glucose Random 143 mg/dL (60-115); Lipase 626 U/L (8-78); Potassium 3.5 mmol/L (3.3-5.1); Sodium 138 mmol/L (135-145); Total Protein 7.1 g/dL (6.5-8.0)
--- NOTE | 2022-08-21 23:02 | ED.ABDPAIN ---
HPI - Abdominal Pain General Chief Complaint: Abdominal Pain Stated Complaint: Abd Pain with Vomiting Time Seen by Provider: 08/21/22 21:33 Source: patient Mode of arrival: EMS History of Present Illness HPI narrative: 57-year-old male who presents via EMS for 01/03 abdominal epigastric pain that started approximately 0 900 this morning after multiple episodes of nausea and vomiting and endorsing that he was drinking alcohol yesterday. In addition, EMS reports that they noted patient had coffee-ground emesis. Related Data Home Medications Medication Instructions Recorded Confirmed buprenorphine 8 mg-naloxone 2 mg 15 mg sublingual DAILY 12/09/21 01/05/22 sublingual film bupropion HCl 300 mg 24 hr tablet, 300 mg PO DAILY PRN 12/09/21 01/05/22 extended release gabapentin 400 mg capsule 0 mg PO 12/09/21 01/05/22 ibuprofen 600 mg tablet 600 mg PO TID PRN 12/09/21 01/05/22 ondansetron 4 mg disintegrating 0 mg PO 12/09/21 01/05/22 tablet trazodone 100 mg tablet 100 mg PO BEDTIME 12/09/21 01/05/22 Previous Rx's Medication Instructions Recorded ondansetron 4 mg disintegrating 4 mg PO Q8H 4 days #12 tabs 04/29/22 tablet pantoprazole 40 mg tablet,delayed 40 mg PO DAILY #20 tabs 04/29/22 release (Protonix) Allergies Allergy/AdvReac Type Severity Reaction Status Date / Time No Known Allergies Allergy Verified 01/05/22 11:10 Review of Systems Review of Systems Pertinent positives and negatives as stated in HPI PMFSH Past Medical History Source: nursing notes reviewed Medical History Buprenorphine dependence Chronic abdominal pain Surgical History History of back surgery Social History Social History Alcohol intake: current Alcohol intake frequency: holidays/special occasions only Alcohol type: beer Patient Tobacco Use Status: Never used Tobacco Smoked in Last 30 Days: No Use of substances other than those prescribed or required for medical reasons: No Advance Directives: No Advance Directives Information Provided: No Physical Exam ED Vital Signs: Vital Signs - 24 hr 08/21/22 21:22 Temperature 97.8 F Pulse Rate 78 Respiratory Rate 22 H Blood Pressure 179/75 H Pulse Oximetry 99 Oxygen Delivery Method Room Air BMI result Body Mass Index 25.7 VITAL SIGNS: Reviewed. GENERAL: Well developed, well nourished, in no acute distress. HEAD: Normocephalic/atraumatic EYES: PERRLA, EOMI EARS: Ext canals without abnormality NOSE: Nares patent bilateral OROPHARYNX: no oral lesions noted, posterior pharynx clear NECK: Supple, no adenopathy LUNGS: Normal breath sounds. No adventitious sounds or accessory muscle use. SpO2<99> CARDIOVASCULAR: Regular rate and rhythm without noted murmurs ABDOMEN: Soft, diffuse abdominal tenderness with maximal tenderness to palpation at the epigastric area, non-distended with bowel sounds. MUSCULOSKELETAL: No tenderness, deformities, or effusions noted on gross inspection. EXTREMITIES: No cyanosis, clubbing or edema. SKIN: Inspection of the skin reveals no rashes NEUROLOGIC: Alert and oriented x 4. Strength and sensation to light touch were grossly intact x 4. Medical Decision Making Medical Decision Making MDM Narrative: 57-year-old male with history and clinical presentation after review of all investigations my interpretation is this patient has suffered from alcoholic gastritis and has acute pancreatitis with dehydration and hypomagnesemia. Patient received IV fluid hydration, Zofran, pain medication, and I discussed the case with the inpatient hospitalist who accepts admission. Although I have lower clinical suspicion for gallbladder etiology will proceed with ultrasound to further evaluate. The noted leukocytosis that is observed is stress/inflammatory related and I do not suspect acute infection. In addition, the noted elevation of the bilirubin is likely stress/alcohol related. Patient received 1 g of magnesium sulfate. Differential Diagnosis Please see the discussion above Consult Healthcare Provider Management of the patient was discussed with: Hospitalist Please see the discussion above Lab Data Please see the discussion above 08/21/22 21:53 08/21/22 21:53 Labs: Lab Results 08/21/22 08/21/22 Range/Units 21:53 21:53 WBC 19.2 H (4.8-10.8) X10*3/uL RBC 4.90 (4.60-5.80) X10*6/uL Hgb 16.1 (14.0-18.0) g/dl Hct 44.2 (42.0-52.0) % MCV 90.2 (80.0-98.0) fL MCH 32.9 (27.0-33.0) pg MCHC 36.4 H (31.0-36.0) g/dl RDW 12.5 (11.0-16.0) % Plt Count 231 (160-400) X10*3/uL MPV 9.6 (9.4-12.4) fL Immature Gran % (Auto) 0.5 H (0.0-0.4) % Neut % (Auto) 89.5 H (45-73) % Lymph % (Auto) 3.5 L (20-40) % [place] % (Auto) 6.2 (2-11) % Eos % (Auto) 0.1 (0-4) % Baso % (Auto) 0.2 (0-2) % Lymph # (Auto) 0.7 L (1.2-4.9) X10*3/uL [place] # (Auto) 1.2 (0.1-1.2) X10*3/uL Eos # (Auto) 0.0 (0.0-0.4) X10*3/uL Baso # (Auto) 0.0 (0.0-0.2) X10*3/uL Abs Immat Gran (auto) 0.10 H (0.00-0.03) X10*3/uL Absolute Neuts (auto) 17.2 H (2.0-8.3) x10*3/uL Absolute Nucleated RBC 0.000 (0.0-0.012) X10*3/uL Nucleated RBC % (auto) 0.0 (0.0-0.2) /100WBC Sodium 138 (135-145) mmol/L Potassium 3.5 D (3.3-5.1) mmol/L Chloride 101 (96-108) mmol/L Carbon Dioxide 22 (22-29) mmol/L Anion Gap 19 (12-20) BUN 9 (9-16) mg/dL Creatinine 0.95 (0.5-1.4) mg/dL Estim Creat Clear Calc 95.7 Estimated GFR > 60 Random Glucose 143 H (60-115) mg/dL Calcium 9.3 (8.4-10.2) mg/dL Magnesium 1.5 L (1.6-2.6) mg/dL Total Bilirubin 1.5 H (0.0-1.0) mg/dL Direct Bilirubin 0.4 (0.0-0.5) mg/dL AST 52 H (5-37) U/L ALT 40 (0-40) U/L Alkaline Phosphatase 85 (39-117) U/L Total Protein 7.1 (6.5-8.0) g/dL Albumin 3.8 (3.5-5.0) g/dL Lipase 626 H (8-78) U/L Independent Interpretation I performed an independent interpretation of an: EKG Radiology Impression Radiologist Impression: My interpretation is in agreement with radiology's impression. Medications Administered Generic Name Dose Route Start Last Admin Trade Name Freq PRN Reason Stop Dose Admin Sodium Chloride 2,000 mls @ 999 mls/hr 08/21/22 23:15 08/21/22 23:10 Ns IV 08/22/22 01:15 999 mls/hr .Q2H1M JUAN Administration Discontinued Medications Generic Name Dose Route Start Last Admin Trade Name Freq PRN Reason Stop Dose Admin Hydromorphone HCl 0.5 mg 08/21/22 23:03 08/21/22 23:10 Hydromorphone Hcl 0.5 Mg/0.5 Ml Syringe IVPUSH 08/21/22 23:04 0.5 mg ONCE ONE Administration Protocol Discharge Plan Discharge Clinical Impression: Alcohol use, Alcoholic gastritis, Acute pancreatitis, Dehydration, Hypomagnesemia Patient Disposition: Admitted As Inpatient
[2022-08-21] MEDS: 0.9 % Sodium Chloride 2,000 ML 999 ML IV (23:10)
[2022-08-21] MEDS: HYDROmorphone HCl 0.5 MG/0.5 ML SYRINGE IVPUSH (23:10)
[2022-08-22 00:03] LABS: Magnesium 1.5 mg/dL (1.6-2.6)
[2022-08-22 00:36] VITALS: BP 157/67; PULSE 69; RESP 17; TEMP 36.4; O2SAT 96
[2022-08-22 00:50] LABS: Appearance Urine Clear; Color Urine Dark Yellow; Glucose Urine UA Negative (Negative); Leukocyte Esterase Urine Trace (Negative); Nitrite Urine Negative (Negative); PH 6.5 (5.0-9.0); Specific Gravity - Urine >= 1.030 (1.005-1.025); UMIC TRIGGER UACC YES; Urine Blood Negative (Negative); Urine Ketones 40 mg/dL (Negative); Urine Protein 30 (1+) mg/dL (Neg-Trace)
--- NOTE | 2022-08-22 00:53 | PC.NURSE ---
Pt had an episode of brown coffe-ground emesis, post ultrasound. Pt has increased pain and nausea upon position changes.
[2022-08-22] MEDS: Magnesium Sulfate/D5W 1 GM/100 ML PIGGYBACK IV (00:58)
[2022-08-22] MEDS: HYDROmorphone HCl 0.5 MG/0.5 ML SYRINGE IVPUSH (00:58)
[2022-08-22] MEDS: ondansetron HCL 4 MG/2 ML VIAL IVPUSH ×3 (00:58→14:15)
[2022-08-22 01:00] LABS: Bacteria Urine None Seen (None Seen); Squamous Epithelial Cell Urine 0-2 /HPF (0-2); WBC Urine 0-5 /HPF (0-5)
--- NOTE | 2022-08-22 01:08 | PM.IMHP ---
History of Present Illness Date of Service: 08/22/22 Chief Complaint: Abdominal Pain This is a 57-year-old male with pertinent history of mood disorder, opioid use disorder on Suboxone, alcohol use disorder who presents to the emergency department for evaluation of abdominal pain. Patient states he had sudden onset of epigastric pain that started at 09:00 this morning. It was constant, nonradiating and without any relieving factors. Patient had multiple episodes nonbloody emesis with nausea associated with it. Had 1 episode of coffee-ground emesis. Patient endorses that he takes 3-4 drinks per day. He was drinking alcohol yesterday. Has had episodes of alcohol induced pancreatitis in the past. No history of alcohol use disorder. He denies fever, chills, chest discomfort, palpitations, shortness of breath, changes in urinary habits In the emergency department, imaging concerning for acute pancreatitis and lipase was found to be elevated Review of Systems Constitutional: Constitutional: Reports chills, Reports fatigue and Reports malaise Cardiovascular: Cardiovascular: Reports no additional cardiovascular complaints Respiratory: Respiratory: Reports no additional respiratory complaints Gastrointestinal: Gastrointestinal: Reports abdominal pain, Reports coffee ground emesis, Reports nausea and Reports vomiting Genitourinary: Genitourinary: Reports no additional male genitourinary complaints Endocrine: Endocrine: Reports fatigue PMFSH Medical History Buprenorphine dependence Chronic abdominal pain Pertinent family history: No family history of early CAD Surgical History History of back surgery Social History Household Members: None Housing: House Alcohol intake: current Alcohol intake frequency: holidays/special occasions only Alcohol type: beer Patient Tobacco Use Status: Never used Tobacco Smoked in Last 30 Days: No Use of substances other than those prescribed or required for medical reasons: Yes Substance Use Type: Marijuana Substance Use Frequency: Socially Last Used Substance: Unknown Currently Displaying Signs/Symptoms of Drug Intoxication Withdrawal: No Any prior treatment program specific to substance use: No Have you been hit, kicked, punched, or otherwise hurt by someone within the past year? If so, by whom?: No Do you feel safe in your current relationship?: Yes Is there a partner from a previous relationship who is making you feel unsafe now?: No Are you made to feel afraid or neglected: No Advance Directives: No Advance Directives Information Provided: No Do you have thoughts of harming others: None Recently lost weight without trying: No Nutrition Risks: No Nutritional Risk Meds Allergies Allergy/AdvReac Type Severity Reaction Status Date / Time No Known Allergies Allergy Verified 01/05/22 11:10 Active Medications: Current Medications Sodium Chloride (Ns) 2,000 mls @ 999 mls/hr IV .Q2H1M JUAN Stop: 08/22/22 01:15 Last Admin: 08/21/22 23:10 Dose: 999 mls/hr Home Medications Medication Instructions Recorded Confirmed Last Taken Type buprenorphine 8 mg-naloxone 2 mg 15 mg sublingual DAILY 12/09/21 01/05/22 Unknown History sublingual film bupropion HCl 300 mg 24 hr tablet, 300 mg PO DAILY PRN 12/09/21 01/05/22 Unknown History extended release gabapentin 400 mg capsule 0 mg PO 12/09/21 01/05/22 Unknown History ibuprofen 600 mg tablet 600 mg PO TID PRN 12/09/21 01/05/22 Unknown History ondansetron 4 mg disintegrating 0 mg PO 12/09/21 01/05/22 Unknown History tablet trazodone 100 mg tablet 100 mg PO BEDTIME 12/09/21 01/05/22 Unknown History Physical Exam Vital Signs and Narrative: Vital Signs: Last Vital Signs Temp 97.6 F 08/22/22 00:36 Pulse 69 08/22/22 00:36 Resp 17 08/22/22 00:36 BP 157/67 H 08/22/22 00:36 Pulse Ox 96 08/22/22 00:36 O2 Del Method Room Air 08/22/22 00:36 BMI result Body Mass Index 25.7 Middle-aged male lying in bed in mild distress Neck supple, no JVD Regular rate and rhythm, S1-S2 heard Regular breath sounds bilaterally, no wheezing or crackles appreciated Abdomen with epigastric tenderness, no guarding, no rigidity, no rebound tenderness Patient is awake, alert and oriented to self, place, time and person ; no focal motor deficit Psych: Normal mood No pedal edema Results Labs 08/21/22 21:53 08/21/22 21:53 Labs: Laboratory Results - last 24 hr 08/21/22 08/21/22 08/22/22 21:53 21:53 00:44 MCV 90.2 MCH 32.9 MCHC 36.4 H RDW 12.5 Plt Count 231 MPV 9.6 Immature Gran % (Auto) 0.5 H Neut % (Auto) 89.5 H Lymph % (Auto) 3.5 L [place] % (Auto) 6.2 Eos % (Auto) 0.1 Baso % (Auto) 0.2 Lymph # (Auto) 0.7 L [place] # (Auto) 1.2 Eos # (Auto) 0.0 Baso # (Auto) 0.0 Abs Immat Gran (auto) 0.10 H Absolute Neuts (auto) 17.2 H Absolute Nucleated RBC 0.000 Nucleated RBC % (auto) 0.0 Anion Gap 19 Estim Creat Clear Calc 95.7 Estimated GFR > 60 Random Glucose 143 H Calcium 9.3 Magnesium 1.5 L Total Bilirubin 1.5 H Direct Bilirubin 0.4 AST 52 H ALT 40 Alkaline Phosphatase 85 Total Protein 7.1 Albumin 3.8 Lipase 626 H Urine Color Dark Yellow Urine Appearance Clear Urine pH 6.5 Ur Specific [place] >= 1.030 H Urine Protein 30 (1+) H Urine Glucose (UA) Negative Urine Ketones 40 Urine Blood Negative Urine Nitrite Negative Ur Leukocyte Esterase Trace H Urine RBC 3-5 H Urine WBC 0-5 Ur Squamous Epith Cells 0-2 Urine Bacteria None Seen Hyaline Casts 6-10 Imaging Radiologist's Impressions: Impressions Abdomen/Pelvis CT 08/21/22 21:48 IMPRESSION: 1. Edematous pancreas with surrounding fluid and fat stranding, most suggestive of acute pancreatitis. 2. Hepatomegaly and hepatic steatosis. 3. Diverticulosis but no evidence of acute diverticulitis. 4. A radiolucency along the anterior pleural space of the right middle lobe is favored to represent an artifact, however a trace pneumothorax is not excluded. Recommend clinical correlation and if indicated further evaluation with a chest radiograph. This critical result was discussed with Madeline Eric at 08/21/2022 10:54 PM and it was ascertained that the content and urgency of the report was understood at the time of direct communication. Chest CT 08/22/22 00:15 IMPRESSION: * No pneumothorax. * Evidence of prior granulomatous disease with calcified mediastinal and bilateral hilar lymph nodes as well as scattered calcified granulomata. * Coronary calcifications. * Single punctate noncalcified nodule in the left upper lobe is of doubtful clinical significance. Per the 2017 revised Fleischner Society guidelines, no routine follow up is necessarily required in low-risk patients, and consideration of [address] is recommended for patients at high-risk for the development of pulmonary neoplasm. * Acute pancreatitis and hepatic steatosis as previously described. Assessment and Plan (1) Acute pancreatitis: Status: Acute Plan This is a 57-year-old male with pertinent history of mood disorder, opioid use disorder on Suboxone, alcohol use disorder who presents to the emergency department for evaluation of abdominal pain. #. Acute pancreatitis. Will admit patient and continue IV fluid resuscitation. IV opioid p.r.n. pain relief. NPO for bowel rest. Does have sludge within gallbladder neck and mildly dilated common bile duct. Consulting general surgery for possible cholecystectomy before discharge and obtaining MRCP #. Coffee-ground emesis. Administered IV Protonix. Consulting GI. Patient NPO as above #. Alcohol use disorder. Administering IV thiamine. Addiction team consulted. Monitor CIWA #. Hypomagnesemia due to alcohol use disorder. Repleted #. Mood disorder. Continue home mood stabilizers #. Opioid use disorder on Suboxone Med rec pending DVT prophylaxis: SCDs NPO Full code Admit as inpatient and will require two night minimum hospital stay for treatment of acute pancreatitis. Specialist consult pending Time Spent With Patient Time: Total time managing care of this patient today ____ minutes. Quality Stroke Does the patient have a stroke diagnosis?: No VTE Prior VTE?: No VTE Risk Level:: Medical - moderate - high VTE Device Contraindication: N/A - Device Ordered VTE Drug Contraindication: Treatment Not Indicated
--- NOTE | 2022-08-22 01:09 | PC.NURSE ---
Pt resting on his right side, reporting 9/10 pain in his upper abdomen. Pt stated he feels like he has to burp but if he burps, he'll throw up. Pt medicated per MAR.
[2022-08-22 01:45] LABS: Ethanol < 10 mg/dL
[2022-08-22] MEDS: Enoxaparin Sodium 40 MG/0.4 ML SYRINGE SUBCUT (01:45)
--- NOTE | 2022-08-22 01:54 | PC.NURSE ---
I attempted to call report at [phone]. RN stated she will call back in 10 minutes.
[2022-08-22] MEDS: Morphine Sulfate 4 MG/ML CARTRIDGE IVPUSH ×6 (02:31→23:34)
[2022-08-22 02:39] VITALS: BMI 26.5
[2022-08-22 04:38] VITALS: BP 171/77; PULSE 78; RESP 18; TEMP 38.5; O2SAT 97
[2022-08-22] MEDS: HYDROmorphone HCl 1 MG/ML SYRINGE IVPUSH (04:43)
[2022-08-22] MEDS: 0.9 % Sodium Chloride Flush 3 ML SYRINGE IVFLUSH ×2 (04:44→23:34)
[2022-08-22 06:27] LABS: MANUAL DIFF FLAG NO
[2022-08-22 06:37] LABS: Basophils Percent Auto 0.1 % (0-2); Hematocrit 43.2 % (42.0-52.0); Hemoglobin 15.2 g/dl (14.0-18.0); Imm Gran Abs Auto 0.06 X10*3/uL (0.00-0.03); Imm Gran Pct Auto 0.4 % (0.0-0.4); Lymphocytes Percent Auto 6.3 % (20-40); Mean Corpuscular HGB Conc 35.2 g/dl (31.0-36.0); Mean Corpuscular Hemoglobin 32.5 pg (27.0-33.0); Mean Corpuscular Volume 92.3 fL (80.0-98.0); Mean Platelet Volume 10.3 fL (9.4-12.4); Monocytes Absolute Auto 0.8 X10*3/uL (0.1-1.2); Monocytes Percent Auto 5.3 % (2-11); Neutrophils Absolute Auto 13.8 x10*3/uL (2.0-8.3); Neutrophils Percent Auto 87.9 % (45-73); Platelet Count 206 X10*3/uL (160-400); Red Blood Count 4.68 X10*6/uL (4.60-5.80); Red Cell Distribution Width 12.7 % (11.0-16.0); White Blood Count 15.8 X10*3/uL (4.8-10.8)
[2022-08-22] MEDS: 0.9 % Sodium Chloride 1,000 ML 200 ML IVCONT ×2 (06:44→14:00)
[2022-08-22] MEDS: Pantoprazole Sodium 40 MG/10 ML VIAL 80 MG IVPUSH (07:00)
[2022-08-22 07:03] LABS: Anion Gap 13 (12-20); Blood Urea Nitrogen 7 mg/dL (9-16); Calcium 8.6 mg/dL (8.4-10.2); Carbon Dioxide 25 mmol/L (22-29); Chloride 106 mmol/L (96-108); Creatinine Clr Calc Pharmacy 110.9; Estimated Glomerular Filt Rate > 60; Glucose Random 118 mg/dL (60-115); Sodium 140 mmol/L (135-145)
[2022-08-22 08:03] VITALS: BP 160/78; PULSE 53; RESP 20; TEMP 36.1; O2SAT 97
--- NOTE | 2022-08-22 08:37 | PHA.MEDREC ---
MED REC COMPLETE, SPOKE WITH PATIENT AND COMPARED WITH INSURANCE CLAIM HISTORY Pharmacy Consult ? Medication Reconciliation Pharmacy has completed the medication reconciliation.
--- NOTE | 2022-08-22 09:06 | P.CONGS_ITS ---
History of Present Illness Consult details Consult date: 08/22/22 Narrative: 57-year-old male admitted yesterday for acute alcoholic pancreatitis. He says that he had onset of severe epigastric pain yesterday. He says that this was constant. He admits to daily heavy alcohol use, especially vodka. He denies any fever or chills. He describe some nausea. He denies any bloody stools. He also has a history of narcotic abuse and is on Buprenorphine. Review of Systems Constitutional: Constitutional: Denies chills and Denies fever(s) Cardiovascular: Cardiovascular: Denies chest pain, Denies dyspnea and Denies dyspnea on exertion Respiratory: Respiratory: Denies cough, Denies dyspnea and Denies dyspnea on exertion Gastrointestinal: Gastrointestinal: Denies hematochezia and Denies change in bowel habits Genitourinary: Genitourinary: Denies hematuria and Denies difficulty urinating Musculoskeletal: Musculoskeletal: Denies back pain and Denies limited range of motion Neurologic: Denies focal weakness and Denies convulsions Psychiatric: Psychiatric: Reports anxiety, Denies depression and Denies mood swings PMFSH Past Medical History Medical History Buprenorphine dependence Chronic abdominal pain Surgical History Surgical History History of back surgery Social History Social History Household Members: None Housing: House Alcohol intake: current Alcohol intake frequency: holidays/special occasions only Alcohol type: beer Patient Tobacco Use Status: Never used Tobacco Substance Use Type: Marijuana service: No Current occupational status: unemployed Meds Allergies Allergy/AdvReac Type Severity Reaction Status Date / Time No Known Allergies Allergy Verified 01/05/22 11:10 Active Medications: Current Medications Acetaminophen (Acetaminophen 325 Mg Tablet) 650 mg PO Q6H PRN PRN Reason: Pain, Mild (Pain Scale 1-3) Amlodipine Besylate (Amlodipine Besylate 5 Mg Tablet) 5 mg PO DAILY JUAN; Protocol Sodium Chloride (Ns) 1,000 mls @ 200 mls/hr IVCONT .Q5H JUAN Stop: 08/22/22 15:29 Last Admin: 08/22/22 06:44 Dose: 200 mls/hr Thiamine HCl 100 mg/ Sodium (Chloride) 101 mls @ 202 mls/hr IV DAILY JUAN Melatonin (Melatonin 3 Mg Tablet) 6 mg PO BEDTIME PRN PRN Reason: Insomnia Morphine Sulfate (Morphine Sulfate 4 Mg/Ml Cartridge) 4 mg IVPUSH Q4H PRN; Protocol PRN Reason: Pain, Severe (Pain Scale 7-10) Last Admin: 08/22/22 06:40 Dose: 4 mg Ondansetron HCl (Ondansetron Hcl 4 Mg/2 Ml Vial) 4 mg IVPUSH Q8H PRN PRN Reason: Nausea and Vomiting Pharmacy Consult (Consult Rx Perform Med Rec) 1 each MISCELLANE ONCE PRN PRN Reason: Consult order Pharmacy Consult (Consult Rx Etoh Phenob Po Only) 1 each MISCELLANE ONCE PRN; Protocol PRN Reason: Consult order Phenobarbital 200 mg/Phenobarbital 30 mg/Phenobarbital 15 mg 245 mg PO Q3H [facility]; Protocol Stop: 08/22/22 15:01 Phenobarbital (Phenobarbital 30 Mg Tablet) 60 mg PO BID [facility]; Protocol Stop: 08/24/22 09:01 Phenobarbital (Phenobarbital 30 Mg Tablet) 30 mg PO BID [facility] Stop: 08/26/22 09:01 Phenobarbital (Phenobarbital 30 Mg Tablet) 30 mg PO DAILY [facility]; Protocol Stop: 08/28/22 09:01 Sodium Chloride (0.9 % Sodium Chloride Flush 3 Ml Syringe) [facility] Last Admin: 08/22/22 04:44 Dose: 3 ml Home Medications Medication Instructions Recorded Confirmed Last Taken Type bupropion HCl 300 mg 24 hr tablet, 300 mg PO DAILY 12/09/21 08/22/22 Unknown History extended release gabapentin 400 mg capsule 800 mg PO TID PRN Alcohol 12/09/21 08/22/22 Unknown History Withdrawal trazodone 100 mg tablet 100 mg PO BEDTIME 12/09/21 08/22/22 Unknown History buprenorphine 4 mg-naloxone 1 mg 1 film buccal Q24H 08/22/22 08/22/22 Unknown History sublingual film ondansetron 4 mg disintegrating 4 mg PO Q8H PRN Nausea And Vomiting 08/22/22 08/22/22 Unknown History tablet Physical Exam Vital Signs: Vital Signs: Last Vital Signs Temp 97.0 F 08/22/22 08:03 Pulse 53 05/29/23 08:03 Resp 20 08/22/22 08:03 BP 160/78 H 08/22/22 08:03 Pulse Ox 97 08/22/22 08:03 O2 Del Method Room Air 08/22/22 08:03 BMI result Body Mass Index 26.5 Const: General: comfortable and no acute distress Orientation/con sciousness: patient oriented x3 Neck: Neck: Yes no lymphadenopathy Resp: Auscultation: clear to auscultation bilaterally Cardio: Rhythm: regular rhythm GI: Other: tender on the upper abdomen Inspection: No distended Palpation (GI): Soft to palpation, Tenderness to palpation present (GI) and no guarding Neuro: General: patient oriented x3 Results Labs 08/22/22 05:57 08/22/22 05:57 Labs: Abnormal lab results 08/21/22 08/21/22 08/22/22 Range/Units 21:53 21:53 00:44 WBC 19.2 H (4.8-10.8) X10*3/uL MCHC 36.4 H (31.0-36.0) g/dl Immature Gran % (Auto) 0.5 H (0.0-0.4) % Neut % (Auto) 89.5 H (45-73) % Lymph % (Auto) 3.5 L (20-40) % Lymph # (Auto) 0.7 L (1.2-4.9) X10*3/uL Abs Immat Gran (auto) 0.10 H (0.00-0.03) X10*3/uL Absolute Neuts (auto) 17.2 H (2.0-8.3) x10*3/uL BUN (9-16) mg/dL Random Glucose 143 H (60-115) mg/dL Magnesium 1.5 L (1.6-2.6) mg/dL Total Bilirubin 1.5 H (0.0-1.0) mg/dL AST 52 H (5-37) U/L Lipase 626 H (8-78) U/L Ur Specific [place] >= 1.030 H (1.005-1.025) Urine Protein 30 (1+) H (Neg-Trace) mg/dL Ur Leukocyte Esterase Trace H (Negative) Urine RBC 3-5 H (0-2) /HPF 05/29/23 05/29/23 Range/Units 05:57 05:57 WBC 15.8 H (4.8-10.8) X10*3/uL MCHC (31.0-36.0) g/dl Immature Gran % (Auto) (0.0-0.4) % Neut % (Auto) 87.9 H (45-73) % Lymph % (Auto) 6.3 L (20-40) % Lymph # (Auto) 1.0 L (1.2-4.9) X10*3/uL Abs Immat Gran (auto) 0.06 H (0.00-0.03) X10*3/uL Absolute Neuts (auto) 13.8 H (2.0-8.3) x10*3/uL BUN 7 L (9-16) mg/dL Random Glucose 118 H (60-115) mg/dL Magnesium (1.6-2.6) mg/dL Total Bilirubin (0.0-1.0) mg/dL AST (5-37) U/L Lipase (8-78) U/L Ur Specific [place] (1.005-1.025) Urine Protein (Neg-Trace) mg/dL Ur Leukocyte Esterase (Negative) Urine RBC (0-2) /HPF Short CBC 08/21/22 08/22/22 Range/Units 21:53 05:57 WBC 19.2 H 15.8 H (4.8-10.8) X10*3/uL Hgb 16.1 15.2 (14.0-18.0) g/dl Hct 44.2 43.2 (42.0-52.0) % Plt Count 231 206 (160-400) X10*3/uL BMP 08/21/22 08/22/22 21:53 05:57 Sodium 138 140 Potassium 3.5 D 4.0 Chloride 101 106 Carbon Dioxide 22 25 BUN 9 7 L Creatinine 0.95 0.82 Calcium 9.3 8.6 D Liver Function 08/21/22 Range/Units 21:53 Total Bilirubin 1.5 H (0.0-1.0) mg/dL Direct Bilirubin 0.4 (0.0-0.5) mg/dL AST 52 H (5-37) U/L ALT 40 (0-40) U/L Alkaline Phosphatase 85 (39-117) U/L Albumin 3.8 (3.5-5.0) g/dL Urine 08/22/22 Range/Units 00:44 Urine Color Dark Yellow Urine Appearance Clear Urine pH 6.5 (5.0-9.0) Ur Specific [place] >= 1.030 H (1.005-1.025) Urine Protein 30 (1+) H (Neg-Trace) mg/dL Urine Glucose (UA) Negative (Negative) mg/dL All other labs normal. Laboratory Results WBC 15.8 X10*3/uL (4.8-10.8) H 08/22/22 05:57 RBC 4.68 X10*6/uL (4.60-5.80) 08/22/22 05:57 Hgb 15.2 g/dl (14.0-18.0) 08/22/22 05:57 Hct 43.2 % (42.0-52.0) 08/22/22 05:57 MCV 92.3 fL (80.0-98.0) 08/22/22 05:57 MCH 32.5 pg (27.0-33.0) 08/22/22 05:57 MCHC 35.2 g/dl (31.0-36.0) 08/22/22 05:57 RDW 12.7 % (11.0-16.0) 08/22/22 05:57 Plt Count 206 X10*3/uL (160-400) 08/22/22 05:57 MPV 10.3 fL (9.4-12.4) 08/22/22 05:57 Immature Gran % (Auto) 0.4 % (0.0-0.4) 08/22/22 05:57 Neut % (Auto) 87.9 % (45-73) H 08/22/22 05:57 Lymph % (Auto) 6.3 % (20-40) L 08/22/22 05:57 [place] % (Auto) 5.3 % (2-11) 08/22/22 05:57 Eos % (Auto) 0.0 % (0-4) 08/22/22 05:57 Baso % (Auto) 0.1 % (0-2) 08/22/22 05:57 Lymph # (Auto) 1.0 X10*3/uL (1.2-4.9) L 08/22/22 05:57 [place] # (Auto) 0.8 X10*3/uL (0.1-1.2) 08/22/22 05:57 Eos # (Auto) 0.0 X10*3/uL (0.0-0.4) 08/22/22 05:57 Baso # (Auto) 0.0 X10*3/uL (0.0-0.2) 08/22/22 05:57 Abs Immat Gran (auto) 0.06 X10*3/uL (0.00-0.03) H 08/22/22 05:57 Absolute Neuts (auto) 13.8 x10*3/uL (2.0-8.3) H 08/22/22 05:57 Absolute Nucleated RBC 0.000 X10*3/uL (0.0-0.012) 08/22/22 05:57 Nucleated RBC % (auto) 0.0 /100WBC (0.0-0.2) 08/22/22 05:57 Sodium 140 mmol/L (135-145) 08/22/22 05:57 Potassium 4.0 mmol/L (3.3-5.1) 08/22/22 05:57 Chloride 106 mmol/L (96-108) 08/22/22 05:57 Carbon Dioxide 25 mmol/L (22-29) 08/22/22 05:57 Anion Gap 13 (12-20) 08/22/22 05:57 BUN 7 mg/dL (9-16) L 08/22/22 05:57 Creatinine 0.82 mg/dL (0.5-1.4) 08/22/22 05:57 Estim Creat Clear Calc 110.9 08/22/22 05:57 Estimated GFR > 60 08/22/22 05:57 Random Glucose 118 mg/dL (60-115) H 08/22/22 05:57 Calcium 8.6 mg/dL (8.4-10.2) D 08/22/22 05:57 Magnesium 2.0 mg/dL (1.6-2.6) 08/22/22 05:57 Total Bilirubin 1.5 mg/dL (0.0-1.0) H 08/21/22 21:53 Direct Bilirubin 0.4 mg/dL (0.0-0.5) 08/21/22 21:53 AST 52 U/L (5-37) H 08/21/22 21:53 ALT 40 U/L (0-40) 08/21/22 21:53 Alkaline Phosphatase 85 U/L (39-117) 08/21/22 21:53 Total Protein 7.1 g/dL (6.5-8.0) 08/21/22 21:53 Albumin 3.8 g/dL (3.5-5.0) 08/21/22 21:53 Lipase 626 U/L (8-78) H 08/21/22 21:53 Urine Color Dark Yellow 08/22/22 00:44 Urine Appearance Clear 08/22/22 00:44 Urine pH 6.5 (5.0-9.0) 08/22/22 00:44 Ur Specific [place] >= 1.030 (1.005-1.025) H 08/22/22 00:44 Urine Protein 30 (1+) mg/dL (Neg-Trace) H 08/22/22 00:44 Urine Glucose (UA) Negative mg/dL (Negative) 08/22/22 00:44 Urine Ketones 40 mg/dL (Negative) 08/22/22 00:44 Urine Blood Negative (Negative) 08/22/22 00:44 Urine Nitrite Negative (Negative) 08/22/22 00:44 Ur Leukocyte Esterase Trace (Negative) H 08/22/22 00:44 Urine RBC 3-5 /HPF (0-2) H 08/22/22 00:44 Urine WBC 0-5 /HPF (0-5) 08/22/22 00:44 Ur Squamous Epith Cells 0-2 /HPF (0-2) 08/22/22 00:44 Urine Bacteria None Seen (None Seen) 08/22/22 00:44 Hyaline Casts 6-10 /LPF (0-2) 08/22/22 00:44 Ethyl Alcohol < 10 mg/dL 08/22/22 01:18 Impressions Abdomen/Pelvis CT 08/21/22 21:48 IMPRESSION: 1. Edematous pancreas with surrounding fluid and fat stranding, most suggestive of acute pancreatitis. 2. Hepatomegaly and hepatic steatosis. 3. Diverticulosis but no evidence of acute diverticulitis. 4. A radiolucency along the anterior pleural space of the right middle lobe is favored to represent an artifact, however a trace pneumothorax is not excluded. Recommend clinical correlation and if indicated further evaluation with a chest radiograph. This critical result was discussed with Madeline Eric at 08/21/2022 10:54 PM and it was ascertained that the content and urgency of the report was understood at the time of direct communication. Chest CT 08/22/22 00:15 IMPRESSION: * No pneumothorax. * Evidence of prior granulomatous disease with calcified mediastinal and bilateral hilar lymph nodes as well as scattered calcified granulomata. * Coronary calcifications. * Single punctate noncalcified nodule in the left upper lobe is of doubtful clinical significance. Per the 2017 revised Fleischner Society guidelines, no routine follow up is necessarily required in low-risk patients, and consideration of [address] is recommended for patients at high-risk for the development of pulmonary neoplasm. * Acute pancreatitis and hepatic steatosis as previously described. Abdomen Ultrasound 08/22/22 00:41 IMPRESSION: * Sludge present within the gallbladder neck. No gallbladder wall thickening or pericholecystic fluid to suggest cholecystitis. * Sonographic Chow sign is positive, however the patient has documented pancreatitis which could also result in a positive sonographic Chow sign. * Mildly dilated common bile duct measuring 1.1 cm. Distal common bile duct not well seen on the images submitted for review. If there is concern for choledocholithiasis, we recommend MRCP. Assessment and Plan (1) Acute pancreatitis: Status: Acute he was admitted for upper abdominal pain. I have reviewed his CAT scan and this is considered with alcoholic pancreatitis, with note of edema and fluid. There are no gallstones noted on imaging studies. I agree with supportive therapy for now with IV fluids, and pain management. He should be on precautions for alcohol withdrawal. I discussed with the patient the above. He seems to understand situation at this time. He does state that he is planning on alcohol cessation after this episode. We will follow along while he is in the hospital. Time Spent With Patient Time: Total time managing care of this patient today ____ minutes. Procedures Date of Service Date of Service: 08/26/22
[2022-08-22] MEDS: Thiamine HCL 100 MG in 0.9 % Sodium Chloride 100 ML 202 MG IV (09:31)
[2022-08-22] MEDS: amLODIPine Besylate 5 MG TABLET PO (09:35)
[2022-08-22] MEDS: PHENobarbitaL sodium 130 MG/ML IM ONCE 319 MG IM (11:39)
[2022-08-22] MEDS: Famotidine/PF 20 MG/2 ML VIAL IVPUSH ×2 (11:40→19:51)
--- NOTE | 2022-08-22 12:39 | P.PNIM_ITS ---
Subjective Subjective Date of Service: 08/22/22 Physical Exam Vital Signs: Vital Signs: Last Vital Signs Temp 97.0 F 08/22/22 08:03 Pulse 53 08/22/22 08:03 Resp 20 08/22/22 08:03 BP 160/78 H 08/22/22 08:03 Pulse Ox 97 08/22/22 08:03 O2 Del Method Room Air 08/22/22 08:03 BMI result Body Mass Index 26.5 Objective Data Active Medications Acetaminophen (Acetaminophen 325 Mg Tablet) 650 mg PO Q6H PRN PRN Reason: Pain, Mild (Pain Scale 1-3) Amlodipine Besylate (Amlodipine Besylate 5 Mg Tablet) 5 mg PO DAILY [facility]; Protocol Last Admin: 08/22/22 09:35 Dose: 5 mg Documented By: MANJULA Famotidine (Famotidine/Pf 20 Mg/2 Ml Vial) 20 mg IVPUSH BID [facility] Last Admin: 08/22/22 11:40 Dose: 20 mg Documented By: MANJULA Sodium Chloride (Ns) 1,000 mls @ 200 mls/hr IVCONT .Q5H [facility] Stop: 08/22/22 15:29 Last Admin: 08/22/22 06:44 Dose: 200 mls/hr Documented By: ANSHU Thiamine HCl 100 mg/ Sodium (Chloride) 101 mls @ 202 mls/hr IV DAILY [facility] Last Infusion: 08/22/22 10:24 Dose: 0 mls/hr Documented By: MANJULA Melatonin (Melatonin 3 Mg Tablet) 6 mg PO BEDTIME PRN PRN Reason: Insomnia Morphine Sulfate (Morphine Sulfate 4 Mg/Ml Cartridge) 4 mg IVPUSH Q4H PRN; Protocol PRN Reason: Pain, Severe (Pain Scale 7-10) Last Admin: 08/22/22 11:39 Dose: 4 mg Documented By: MANJULA Ondansetron HCl (Ondansetron Hcl 4 Mg/2 Ml Vial) 4 mg IVPUSH Q6H PRN PRN Reason: Nausea and Vomiting Pharmacy Consult (Consult Rx Perform Med Rec) 1 each MISCELLANE ONCE PRN PRN Reason: Consult order Pharmacy Consult (Consult Rx Etoh Phenob Po Only) 1 each MISCELLANE ONCE PRN; Protocol PRN Reason: Consult order Phenobarbital (Phenobarbital 30 Mg Tablet) 60 mg PO BID [facility] Stop: 08/24/22 21:01 Phenobarbital (Phenobarbital 30 Mg Tablet) 30 mg PO BID [facility] Stop: 08/26/22 21:01 Phenobarbital (Phenobarbital 30 Mg Tablet) 30 mg PO DAILY [facility] Stop: 08/28/22 09:01 Phenobarbital Sodium (Phenobarbital Sodium 130 Mg/Ml Vial Im Q3hx2) 240 mg IM 1400,1700 [facility] Stop: 08/22/22 17:01 Sodium Chloride (0.9 % Sodium Chloride Flush 3 Ml Syringe) 3 ml IVFLUSH QSHIFT [facility] Last Admin: 08/22/22 04:44 Dose: 3 ml Documented By: ANSHU Labs 08/22/22 05:57 08/22/22 05:57 Labs: Laboratory Results - last 24 hr 08/21/22 08/21/22 08/22/22 21:53 21:53 00:44 MCV 90.2 MCH 32.9 MCHC 36.4 H RDW 12.5 Plt Count 231 MPV 9.6 Immature Gran % (Auto) 0.5 H Neut % (Auto) 89.5 H Lymph % (Auto) 3.5 L [place] % (Auto) 6.2 Eos % (Auto) 0.1 Baso % (Auto) 0.2 Lymph # (Auto) 0.7 L [place] # (Auto) 1.2 Eos # (Auto) 0.0 Baso # (Auto) 0.0 Abs Immat Gran (auto) 0.10 H Absolute Neuts (auto) 17.2 H Absolute Nucleated RBC 0.000 Nucleated RBC % (auto) 0.0 Anion Gap 19 Estim Creat Clear Calc 95.7 Estimated GFR > 60 Random Glucose 143 H Calcium 9.3 Magnesium 1.5 L Total Bilirubin 1.5 H Direct Bilirubin 0.4 AST 52 H ALT 40 Alkaline Phosphatase 85 Total Protein 7.1 Albumin 3.8 Lipase 626 H Urine Color Dark Yellow Urine Appearance Clear Urine pH 6.5 Ur Specific [place] >= 1.030 H Urine Protein 30 (1+) H Urine Glucose (UA) Negative Urine Ketones 40 Urine Blood Negative Urine Nitrite Negative Ur Leukocyte Esterase Trace H Urine RBC 3-5 H Urine WBC 0-5 Ur Squamous Epith Cells 0-2 Urine Bacteria None Seen Hyaline Casts 6-10 Ethyl Alcohol 08/22/22 08/22/22 08/22/22 01:18 05:57 05:57 MCV 92.3 MCH 32.5 MCHC 35.2 RDW 12.7 Plt Count 206 MPV 10.3 Immature Gran % (Auto) 0.4 Neut % (Auto) 87.9 H Lymph % (Auto) 6.3 L [place] % (Auto) 5.3 Eos % (Auto) 0.0 Baso % (Auto) 0.1 Lymph # (Auto) 1.0 L [place] # (Auto) 0.8 Eos # (Auto) 0.0 Baso # (Auto) 0.0 Abs Immat Gran (auto) 0.06 H Absolute Neuts (auto) 13.8 H Absolute Nucleated RBC 0.000 Nucleated RBC % (auto) 0.0 Anion Gap 13 Estim Creat Clear Calc 110.9 Estimated GFR > 60 Random Glucose 118 H Calcium 8.6 D Magnesium Total Bilirubin Direct Bilirubin AST ALT Alkaline Phosphatase Total Protein Albumin Lipase Urine Color Urine Appearance Urine pH Ur Specific [place] Urine Protein Urine Glucose (UA) Urine Ketones Urine Blood Urine Nitrite Ur Leukocyte Esterase Urine RBC Urine WBC Ur Squamous Epith Cells Urine Bacteria Hyaline Casts Ethyl Alcohol < 10 08/22/22 05:57 MCV MCH MCHC RDW Plt Count MPV Immature Gran % (Auto) Neut % (Auto) Lymph % (Auto) [place] % (Auto) Eos % (Auto) Baso % (Auto) Lymph # (Auto) [place] # (Auto) Eos # (Auto) Baso # (Auto) Abs Immat Gran (auto) Absolute Neuts (auto) Absolute Nucleated RBC Nucleated RBC % (auto) Anion Gap Estim Creat Clear Calc Estimated GFR Random Glucose Calcium Magnesium 2.0 Total Bilirubin Direct Bilirubin AST ALT Alkaline Phosphatase Total Protein Albumin Lipase Urine Color Urine Appearance Urine pH Ur Specific [place] Urine Protein Urine Glucose (UA) Urine Ketones Urine Blood Urine Nitrite Ur Leukocyte Esterase Urine RBC Urine WBC Ur Squamous Epith Cells Urine Bacteria Hyaline Casts Ethyl Alcohol Assessment and Plan (1) Alcoholic gastritis: Status: Acute Plan 57-year-old male with pertinent history of mood disorder, opioid use disorder on Suboxone, alcohol use disorder who presents to the emergency department for evaluation of abdominal pain. Acute pancreatitis.? continue IV fluid resuscitation.? IV opioid p.r.n. pain relief.? IV pepcid NPO for bowel rest.? Seen by general surgery> no surgical intervention at this time Coffee-ground emesis. likely some degree of gastritis Administered IV Protonix.? GI consult pending NPO Alcohol use disorder.? Administering IV thiamine.? Addiction team consulted.? phenobarb protocol Monitor CIWA Hypomagnesemia due to alcohol use disorder.? Repleted Mood disorder.? Continue home mood stabilizers Opioid use disorder on Suboxone DVT prophylaxis:? SCDs Attending Dr. Reynoso NPO Full code continued hospital stay for treatment of acute pancreatitis.? Specialist consult pending Time Spent With Patient Time: Total time managing care of this patient today ____ minutes. Quality Stroke Does the patient have a stroke diagnosis?: No VTE Prior VTE?: No VTE Risk Level:: Medical - moderate - high VTE Device Contraindication: N/A - Device Ordered VTE Drug Contraindication: Treatment Not Indicated
[2022-08-22] MEDS: PHENobarbitaL sodium 130 MG/ML VIAL IM Q3Hx2 240 MG IM ×2 (14:08→17:14)
--- NOTE | 2022-08-22 14:52 | MHC.CM.PN ---
CM ATTEMPTED TO MEET W/PT HOWEVER PT OFF UNIT FOR MRI, CM TO REVISIT.
[2022-08-22 15:31] VITALS: BP 174/83; PULSE 71; RESP 18; TEMP 37.1; O2SAT 96
--- NOTE | 2022-08-22 17:04 | PM.EVENT ---
Event Note Date of Service: 08/22/22 Event Note: GI Consult-Full note dictated Imp/Recs: 1. Pancreatitis. I suspect this is due to EtOH given the clinical history. I doubt a biliary source of pancreatitis given just minimally elevated LFT's, most likely from EtOH. Clinically stable with improving symptoms, although still having some abdominal discomfort. Does not appear toxic and CT is without any worrisome findings. Continue supportive care with IV fluids and analgesics. F/U labs. I agree with obtaining the MRCP to R/O a CBD stone/sludge given report of dilated CBD on the U/S. He had the MRCP but could not complete the exam so we'll see if they can see get any information from it. If not, I would follow things clinically and hold off on ERCP. If the MRCP needs to be repeated he would need some sedation. 2. Report of coffee grounds emesis and he describes intermittent dysphagia to pills and solids. Suspect esophagitis/gastritis, but need to R/O significant esophageal disease such as a stricture or neoplasm given his risk factor of EtOH use. I would recommend an EGD with possible dilation tomorrow with me or Dr. Young. Full consent obtained from him for this, including risks of bleeding and perforation. Continue PPI. F/U Hgb. I advised patient of the need to eliminate alcohol residential and he is aware of that as well. Discussed the above plan with patient in detail and he is currently comfortable with that. Thanks Time Spent With Patient Time: Total time managing care of this patient today ____ minutes.
--- NOTE | 2022-08-22 17:19 | MHC.SHP ---
Pre-Procedural Eval Section A Date of Service: 08/23/22 The patient is an INPATIENT: Yes The History & Physical has been completed within 30 days and I have reviewed it.: Yes Section B Chief Complaint: Abdominal Pain Allergies: Allergies Allergy/AdvReac Type Severity Reaction Status Date / Time No Known Allergies Allergy Verified 01/05/22 11:10 Plan I have reviewed the history and physical and performed a pertinent physical examination on my patient. No changes have occurred unless specified. Time Spent With Patient Time: Total time managing care of this patient today ____ minutes.
[2022-08-22 19:22] LABS: CDiff Gene PCR NEGATIVE (Negative)
[2022-08-22] MEDS: traZODone HCL 100 MG TABLET PO (19:51)
[2022-08-22] MEDS: Melatonin 3 MG TABLET 6 MG PO (19:51)
[2022-08-22] MEDS: Gabapentin 400 MG CAPSULE 800 MG PO (19:53)
--- NOTE | 2022-08-22 20:35 | CONS_ITS ---
DATE OF SERVICE: 08/22/2022 REASON FOR CONSULTATION: Pancreatitis, coffee-grounds emesis, and dysphagia. HISTORY OF PRESENT ILLNESS: This has been obtained from the patient and the medical record. The patient is a 57-year-old male with a history of alcohol abuse and previous pancreatitis, who presents yesterday with the onset of abdominal pain, nausea, and vomiting. He describes multiple episodes of vomiting, some of which had some coffee-grounds material, but no bright red blood nor blood clots. The patient had been drinking up until the admission. The patient appears to have had an episode of pancreatitis earlier this year during an ER visit in April, but was not admitted. He describes episodes of pancreatitis prior to that as well. He denies any history of liver disease in relation to his alcohol abuse as far as he knows. Prior to the development of his pain yesterday, he reports he was feeling fairly well from a GI standpoint. He does have intermittent reflux and describes intermittent dysphagia to pills and solid food that requires him to drink water to have the food or pills go down. He denies any weight loss nor anorexia. He has never had an upper endoscopy. He did have a colonoscopy about 8 years ago that was negative by Dr. Altman in [place]. He does not take any medications such as a daily PPI nor H2 amara at home. Since admission here, he does report that his abdominal pain has improved, although he is still having some discomfort. He has been able to tolerate some liquids. He did begin having some loose bowel movements here, but without melena nor hematochezia. He reports that prior to becoming ill, his bowel movements had been fairly normal at home without any bleeding. He denies any recent signs of jaundice. He denies any weight loss. His appetite has usually been good. He does not use any chronic NSAIDs. He smokes occasional marijuana but denies any other drug use. He is on Suboxone in relation to a distant history of heroin use from which he has been abstinent for about a dozen years by his report. MEDICATIONS: At home, Suboxone, bupropion, gabapentin, trazodone. His medications here in the hospital include IV famotidine, amlodipine, morphine p.r.n., Zofran p.r.n., phenobarbital, and thiamine. PAST MEDICAL HISTORY: He has had back surgeries, surgical repair of a broken hip, surgical repair of a broken right lower leg, and foot surgery. He has chronic back pain. He denies any history of medical problems such as heart disease, diabetes, or stroke. SOCIAL HISTORY: He is single. He does not smoke cigarettes. He smokes occasional marijuana. Alcohol abuse. He does not work and is on disability. Former drug abuse as above. FAMILY HISTORY: Noncontributory. REVIEW OF SYSTEMS: CONSTITUTIONAL: Up until becoming acutely ill yesterday, he reports he was feeling fairly well. Appetite had been good. SKIN: No rash. No pruritus. CARDIAC: No chest pain. PULMONARY: No cough. No hemoptysis. GI: As above. URINARY: No dysuria. No hematuria. NEUROLOGIC: No headache or seizures. PSYCHIATRIC: Mood disorder according to the medical record. PHYSICAL EXAMINATION: GENERAL: He is pleasant, alert, well-appearing male. He is in no distress. SKIN: Warm and dry. Nonjaundiced. Anicteric sclerae. NECK: Supple. CHEST: Clear. CARDIAC: S1, S2. ABDOMEN: Soft, nondistended with normal bowel sounds. He does have some upper abdominal tenderness to palpation without palpable mass, rebound, or guarding. EXTREMITIES: Without edema. NEUROLOGICAL: He is alert and oriented. LABORATORY DATA: Normal electrolytes. BUN 7, creatinine 0.8. Magnesium 2.0. LFTs on admission, total bilirubin 1.5, direct bilirubin 0.4, AST 52, ALT 40, alkaline phosphatase 85, albumin 3.8. Lipase 626 on admission. Lipase of 598 back in April. His white blood cell count on admission was 19.2 and today is 15.8. Hemoglobin 16.1 on admission, 15.2 today. Platelets 206,000. His alcohol level was nondetectable on admission. He did have an abdominal ultrasound describing some sludge in the gallbladder but no sign of cholecystitis. No gallstones are described. The bile duct measured 1.[address] of his abdomen and pelvis describes some hepatomegaly and fatty liver, but without any liver mass. There was no sign of any biliary obstruction. The pancreas was consistent with pancreatitis with some enlargement and edema with adjacent peripancreatic fluid and fat stranding. There was no obvious necrosis, although there was no IV contrast. There was no splenomegaly nor ascites. He did have a CT of his chest to rule out pneumothorax and this was negative in that regard. There was no acute mediastinal disease nor pulmonary disease. He did have a MRCP. The result is pending, but he describes that he was only able to be in the scan for relatively short time as he became claustrophobic and agitated. IMPRESSION: The patient is a 57-year-old male with history of alcohol abuse, presenting with acute pancreatitis most likely due to alcohol. I doubt this represents a biliary source of pancreatitis given just the minimally elevated LFTs, which most likely are from alcohol consumption. I think an MRCP is a good idea given the finding of sludge in the gallbladder and the somewhat dilated bile duct on the ultrasound. If the MRCP is not able to give information regarding the bile duct due to an incomplete exam, then I would not recommend an ERCP at this point. I would recommend observation. If there is any concern about biliary disease, then I would recommend a repeat MRCP with sedation. My suspicion for biliary disease is low. I suspect the mildly dilated bile duct on the ultrasound was probably from pancreatic head edema from the pancreatitis. I would otherwise continue supportive care and check followup laboratories in the morning including liver profile and lipase. In regard to the report of coffee-ground emesis and intermittent dysphagia, I did advise the patient I would recommend upper endoscopy while he is here to rule out significant esophagitis, gastritis, and esophageal disease such as esophageal stricture or even neoplasm given his risk factor of chronic alcohol use. I advised him that if need be, we could perform balloon dilation at that time. The procedure will be done with monitored anesthesia care. The procedure will be done either by myself or Dr. Young. Full consent is obtained for the upper endoscopy with possible dilation, including risks of bleeding and perforation. In the meantime, I would continue his acid suppression and followup hemoglobin tomorrow. I did review with the patient the need to eliminate alcohol completely from his lifestyle long-term and he is aware of that as well. This has all been discussed in detail with the patient and he is currently comfortable with the plan. Thanks for consultation. MD ÓSCAR Alba/MARCO / [phone] ZANE
[2022-08-22 23:11] VITALS: BP 118/65; PULSE 70; RESP 20; TEMP 37.7; O2SAT 96
[2022-08-23] MEDS: Morphine Sulfate 4 MG/ML CARTRIDGE IVPUSH ×3 (03:27→12:57)
[2022-08-23 06:57] LABS: MANUAL DIFF FLAG NO
[2022-08-23 06:59] LABS: Basophils Percent Auto 0.4 % (0-2); Eosinophils Absolute Auto 0.3 X10*3/uL (0.0-0.4); Eosinophils Percent Auto 2.9 % (0-4); Hematocrit 35.7 % (42.0-52.0); Hemoglobin 12.7 g/dl (14.0-18.0); Imm Gran Abs Auto 0.04 X10*3/uL (0.00-0.03); Imm Gran Pct Auto 0.4 % (0.0-0.4); Lymphocytes Absolute Auto 1.5 X10*3/uL (1.2-4.9); Lymphocytes Percent Auto 15.7 % (20-40); Mean Corpuscular HGB Conc 35.6 g/dl (31.0-36.0); Mean Corpuscular Hemoglobin 33.2 pg (27.0-33.0); Mean Corpuscular Volume 93.2 fL (80.0-98.0); Mean Platelet Volume 10.1 fL (9.4-12.4); Monocytes Absolute Auto 0.6 X10*3/uL (0.1-1.2); Monocytes Percent Auto 5.8 % (2-11); Neutrophils Absolute Auto 7.3 x10*3/uL (2.0-8.3); Neutrophils Percent Auto 74.8 % (45-73); Platelet Count 143 X10*3/uL (160-400); Red Blood Count 3.83 X10*6/uL (4.60-5.80); Red Cell Distribution Width 12.8 % (11.0-16.0); White Blood Count 9.7 X10*3/uL (4.8-10.8)
[2022-08-23 07:18] LABS: Alanine Aminotransferase 23 U/L (0-40); Alkaline Phosphatase 53 U/L (39-117); Aspartate Amino Transferase 37 U/L (5-37); Bilirubin Direct 0.3 mg/dL (0.0-0.5); Bilirubin Total 1.1 mg/dL (0.0-1.0); Magnesium 1.7 mg/dL (1.6-2.6); Total Protein 5.3 g/dL (6.5-8.0)
[2022-08-23 07:19] LABS: Blood Urea Nitrogen 4 mg/dL (9-16); Calcium 8.2 mg/dL (8.4-10.2); Creatinine Clr Calc Pharmacy 119.7; Estimated Glomerular Filt Rate > 60; Glucose Random 126 mg/dL (60-115)
[2022-08-23 07:26] LABS: Anion Gap 11 (12-20); Carbon Dioxide 25 mmol/L (22-29); Chloride 104 mmol/L (96-108); Lipase 538 U/L (8-78); Potassium 2.9 mmol/L (3.3-5.1); Sodium 137 mmol/L (135-145)
[2022-08-23] MEDS: Thiamine HCL 100 MG in 0.9 % Sodium Chloride 100 ML 202 MG IV (07:59)
[2022-08-23 08:00] VITALS: BP 169/80; PULSE 73; RESP 16; TEMP 36.9; O2SAT 95
[2022-08-23] MEDS: Potassium Chloride ER 20 MEQ TAB.ER.PRT 40 MEQ PO (08:01)
[2022-08-23] MEDS: PHENobarbitaL 30 MG TABLET 60 MG PO (08:01)
[2022-08-23] MEDS: Famotidine/PF 20 MG/2 ML VIAL IVPUSH (08:02)
[2022-08-23] MEDS: buPROPion HCl XL 300 MG TAB.ER.24H PO (08:02)
[2022-08-23] MEDS: amLODIPine Besylate 5 MG TABLET PO (08:02)
[2022-08-23] MEDS: 0.9 % Sodium Chloride Flush 3 ML SYRINGE IVFLUSH (08:03)
[2022-08-23] MEDS: Magnesium Sulfate/H2O 2 GM/50 ML PIGGYBACK IV (08:31)
--- NOTE | 2022-08-23 09:10 | MHC.CM.PN ---
PT REPORTS HE LIVES ALONE AND IS INDEPENDENT WITH CARE HE HAS NO DME AND NO HOME SERVICES PT DECLINES TO COMPLETE A HCP PCP: [facility] IMM DELIVERED DCP: HOME NO SERVICES VIA PRIVATE TRANSPORT
--- NOTE | 2022-08-23 11:51 | P.DS_ITS ---
DS: Providers Provider Date of Service: 08/23/22 Date of admission: 08/22/22 01:06 Primary care physician: Sharon Hilton MD Consults: 08/22/22 05:24 Consult to Gastroenterology Routine Consulting Provider: Patrick Mendez Reason for consultation: coffee ground emesis 08/22/22 05:25 Addiction Medicine Routine Consulting Provider: Addiction Covering Reason for consultation: alcohol use disorder 08/22/22 05:33 Consult to General Surgery Routine Consulting Provider: [facility] [place] [facility] [place] [facility] Reason for consultation: Gallbladder sludge and acute pancreatitis DS: Diagnosis Discharge Diagnosis (1) Alcoholic gastritis: Status: Acute DS: Summary Hospital Course Hospital Course: HP as per admitting provider. This is a 57-year-old male with pertinent history of mood disorder, opioid use disorder on Suboxone, alcohol use disorder who presents to the emergency department for evaluation of abdominal pain.? Patient states he had sudden onset of epigastric pain that started at 09:00 this mornin g.? It was constant, nonradiating and without any relieving factors.? Patient had multiple episodes nonbloody emesis with nausea associated with it.? Had 1 episode of coffee-ground emesis.? Patient endorses that he takes 3-4 drinks per day.? He was drinking alcohol yesterday.? Has had episodes of alcohol induced pancreatitis in the past.? No history of alcohol use disorder.? He denies fever, chills, chest discomfort, palpitations, shortness of breath, changes in urinary habits. In the emergency department, imaging concerning for acute pancreatitis and lipase was found to be elevated LEFT AGAINST MEDICAL ADVISE. Alert and oriented x3, aware that he did not complete treatment for pancreatitis and admitted to still having abdominal pain radiating to his back. His potassium was also low at 2.9 and he declined to stay for redraw. he is aware of the consequence of leaving and agreed to sign out AMA Acute pancreatitis.?treated with IV fluids, pain medications, IV pepcid, bowel rest. Seen by general surgery>MRCP not showing acute cholecystitis. no surgical intervention at this time Hypokalemia. 2.9 repleted. declined to have recheck Coffee-ground emesis. hx of heavy alcohol use. ERCP ordered as per GI, patient declined to go through with procedure. Requested a full diet Alcohol use disorder.?Treated with IV thiamine, phenobarbitol protocol. Patient should stop drinking alcohol. Hypomagnesemia. due to alcohol use disorder.?Repleted Mood disorder.?Continue home mood stabilizers Opioid use disorder on Suboxone Time Spent with Patient Time attestation: Total time managing care of this patient today ____ minutes. Discharge coordination time: Greater than 30 minutes Quality: Safe Use of Opioids Does Pt have an Active Cancer Diagnosis on the Problem List?: No Quality: Stroke Does the patient have a stroke diagnosis?: No Physical Exam Vital Signs: Vital Signs: Last Vital Signs Temp 98.5 F 08/23/22 08:00 Pulse 73 08/23/22 08:00 Resp 16 08/23/22 08:00 BP 169/80 H 08/23/22 08:00 Pulse Ox 95 08/23/22 08:00 O2 Del Method Room Air 08/23/22 08:00 BMI result Body Mass Index 26.5 Left AMA DS: Data Data Completed and Pending Labs on day of discharge: Laboratory Results - last 24 hr 08/22/22 08/23/22 08/23/22 17:30 06:38 06:38 WBC RBC Hgb Hct MCV MCH MCHC RDW Plt Count MPV Immature Gran % (Auto) Neut % (Auto) Lymph % (Auto) [place] % (Auto) Eos % (Auto) Baso % (Auto) Lymph # (Auto) [place] # (Auto) Eos # (Auto) Baso # (Auto) Abs Immat Gran (auto) Absolute Neuts (auto) Absolute Nucleated RBC Nucleated RBC % (auto) Sodium 137 Potassium 2.9 L D Chloride 104 Carbon Dioxide 25 Anion Gap 11 L BUN 4 L Creatinine 0.76 Estim Creat Clear Calc 119.7 Estimated GFR > 60 Random Glucose 126 H Calcium 8.2 L Magnesium 1.7 Total Bilirubin 1.1 H Direct Bilirubin 0.3 AST 37 ALT 23 Alkaline Phosphatase 53 Total Protein 5.3 L Albumin 3.0 L Lipase 538 H C. difficile Tox B Gene NEGATIVE 08/23/22 06:38 WBC 9.7 RBC 3.83 L Hgb 12.7 L Hct 35.7 L MCV 93.2 MCH 33.2 H MCHC 35.6 RDW 12.8 Plt Count 143 L D MPV 10.1 Immature Gran % (Auto) 0.4 Neut % (Auto) 74.8 H Lymph % (Auto) 15.7 L [place] % (Auto) 5.8 Eos % (Auto) 2.9 Baso % (Auto) 0.4 Lymph # (Auto) 1.5 [place] # (Auto) 0.6 Eos # (Auto) 0.3 Baso # (Auto) 0.0 Abs Immat Gran (auto) 0.04 H Absolute Neuts (auto) 7.3 Absolute Nucleated RBC 0.000 Nucleated RBC % (auto) 0.0 Sodium Potassium Chloride Carbon Dioxide Anion Gap BUN Creatinine Estim Creat Clear Calc Estimated GFR Random Glucose Calcium Magnesium Total Bilirubin Direct Bilirubin AST ALT Alkaline Phosphatase Total Protein Albumin Lipase C. difficile Tox B Gene Discharge Plan Discharge Anticipated Discharge Date/Time: 08/23/22 13:10 Patient Disposition: Left Against Medical Advice Discharge Diagnosis: Pancreatitis hypokalemia Referrals: Sharon Hilton MD [Primary Care Provider] - 1 Week Discharge Medications: New amlodipine 5 mg Tablet 5 mg PO DAILY Qty: 30 0RF Protocol: Hold for SBP< HOLD for SBP < : 90 Continued buprenorphine-naloxone 4-1 mg Film 1 film BUCCAL Q24H Rx Instructions: place 1 strip/tab under (each) side of tongue ondansetron 4 mg tablet,disintegrating 4 mg PO Q8H PRN (Reason: Nausea And Vomiting) gabapentin 400 mg capsule 800 mg PO TID PRN (Reason: Alcohol Withdrawal) bupropion HCl 300 mg tablet extended release 24 hr 300 mg PO DAILY trazodone 100 mg tablet 100 mg PO BEDTIME Discharge Orders: Discharge Order (Routine); Ordered 08/23/22 Ordered By: Cleopatra Nava Diet: Advance to usual diet Activity on Discharge: As tolerated Care Plan Goals: Stop drinking alcohol Health Concerns: Pancreatitis hypokalemia Plan of Treatment: Left against medical advice Take all medications as prescribed Follow up with primary care provider as needed Assessment: See discharge summary
--- NOTE | 2022-08-23 12:20 | HO.ADDICT_ITS ---
History of Present Illness Date of Service: 08/23/2022 Chief Complaint: Abdominal Pain Reason for Consult: AUD HPI Narrative: Patient currently medically admitted with pancreatitis secondary to alcohol use. Seen in room 462, awake, alert, grimacing during interview. Patient reporting he is just going to stop . 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 He is engaged in treatment at [facility]. 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 Thank you anyway Interview concluded. Review of Systems Constitutional: Reports as per HPI Diagnostics Vital Signs (24Hr): Vital Signs - 24 hr 08/22/22 15:31 08/22/22 23:11 08/23/22 08:00 Temperature 98.8 F 99.8 F 98.5 F Pulse Rate 71 70 73 Respiratory Rate 18 20 16 Blood Pressure 174/83 H 118/65 169/80 H Pulse Oximetry 96 96 95 Oxygen Delivery Method Room Air Room Air Room Air BMI result Body Mass Index 26.5 Labs 08/23/22 06:38 08/23/22 06:38 Labs: Laboratory Results - last 48 hr 08/21/22 08/21/22 08/22/22 21:53 21:53 00:44 WBC 19.2 H RBC 4.90 Hgb 16.1 Hct 44.2 MCV 90.2 MCH 32.9 MCHC 36.4 H RDW 12.5 Plt Count 231 MPV 9.6 Immature Gran % (Auto) 0.5 H Neut % (Auto) 89.5 H Lymph % (Auto) 3.5 L [place] % (Auto) 6.2 Eos % (Auto) 0.1 Baso % (Auto) 0.2 Lymph # (Auto) 0.7 L [place] # (Auto) 1.2 Eos # (Auto) 0.0 Baso # (Auto) 0.0 Abs Immat Gran (auto) 0.10 H Absolute Neuts (auto) 17.2 H Absolute Nucleated RBC 0.000 Nucleated RBC % (auto) 0.0 Sodium 138 Potassium 3.5 D Chloride 101 Carbon Dioxide 22 Anion Gap 19 BUN 9 Creatinine 0.95 Estim Creat Clear Calc 95.7 Estimated GFR > 60 Random Glucose 143 H Calcium 9.3 Magnesium 1.5 L Total Bilirubin 1.5 H Direct Bilirubin 0.4 AST 52 H ALT 40 Alkaline Phosphatase 85 Total Protein 7.1 Albumin 3.8 Lipase 626 H Urine Color Dark Yellow Urine Appearance Clear Urine pH 6.5 Ur Specific [place] >= 1.030 H Urine Protein 30 (1+) H Urine Glucose (UA) Negative Urine Ketones 40 Urine Blood Negative Urine Nitrite Negative Ur Leukocyte Esterase Trace H Urine RBC 3-5 H Urine WBC 0-5 Ur Squamous Epith Cells 0-2 Urine Bacteria None Seen Hyaline Casts 6-10 Ethyl Alcohol C. difficile Tox B Gene 08/22/22 08/22/22 08/22/22 01:18 05:57 05:57 WBC 15.8 H RBC 4.68 Hgb 15.2 Hct 43.2 MCV 92.3 MCH 32.5 MCHC 35.2 RDW 12.7 Plt Count 206 MPV 10.3 Immature Gran % (Auto) 0.4 Neut % (Auto) 87.9 H Lymph % (Auto) 6.3 L [place] % (Auto) 5.3 Eos % (Auto) 0.0 Baso % (Auto) 0.1 Lymph # (Auto) 1.0 L [place] # (Auto) 0.8 Eos # (Auto) 0.0 Baso # (Auto) 0.0 Abs Immat Gran (auto) 0.06 H Absolute Neuts (auto) 13.8 H Absolute Nucleated RBC 0.000 Nucleated RBC % (auto) 0.0 Sodium 140 Potassium 4.0 Chloride 106 Carbon Dioxide 25 Anion Gap 13 BUN 7 L Creatinine 0.82 Estim Creat Clear Calc 110.9 Estimated GFR > 60 Random Glucose 118 H Calcium 8.6 D Magnesium Total Bilirubin Direct Bilirubin AST ALT Alkaline Phosphatase Total Protein Albumin Lipase Urine Color Urine Appearance Urine pH Ur Specific [place] Urine Protein Urine Glucose (UA) Urine Ketones Urine Blood Urine Nitrite Ur Leukocyte Esterase Urine RBC Urine WBC Ur Squamous Epith Cells Urine Bacteria Hyaline Casts Ethyl Alcohol < 10 C. difficile Tox B Gene 08/22/22 08/22/22 08/23/22 05:57 17:30 06:38 WBC RBC Hgb Hct MCV MCH MCHC RDW Plt Count MPV Immature Gran % (Auto) Neut % (Auto) Lymph % (Auto) [place] % (Auto) Eos % (Auto) Baso % (Auto) Lymph # (Auto) [place] # (Auto) Eos # (Auto) Baso # (Auto) Abs Immat Gran (auto) Absolute Neuts (auto) Absolute Nucleated RBC Nucleated RBC % (auto) Sodium 137 Potassium 2.9 L D Chloride 104 Carbon Dioxide 25 Anion Gap 11 L BUN 4 L Creatinine 0.76 Estim Creat Clear Calc 119.7 Estimated GFR > 60 Random Glucose 126 H Calcium 8.2 L Magnesium 2.0 Total Bilirubin Direct Bilirubin AST ALT Alkaline Phosphatase Total Protein Albumin Lipase Urine Color Urine Appearance Urine pH Ur Specific [place] Urine Protein Urine Glucose (UA) Urine Ketones Urine Blood Urine Nitrite Ur Leukocyte Esterase Urine RBC Urine WBC Ur Squamous Epith Cells Urine Bacteria Hyaline Casts Ethyl Alcohol C. difficile Tox B Gene NEGATIVE 08/23/22 08/23/22 06:38 06:38 WBC 9.7 RBC 3.83 L Hgb 12.7 L Hct 35.7 L MCV 93.2 MCH 33.2 H MCHC 35.6 RDW 12.8 Plt Count 143 L D MPV 10.1 Immature Gran % (Auto) 0.4 Neut % (Auto) 74.8 H Lymph % (Auto) 15.7 L [place] % (Auto) 5.8 Eos % (Auto) 2.9 Baso % (Auto) 0.4 Lymph # (Auto) 1.5 [place] # (Auto) 0.6 Eos # (Auto) 0.3 Baso # (Auto) 0.0 Abs Immat Gran (auto) 0.04 H Absolute Neuts (auto) 7.3 Absolute Nucleated RBC 0.000 Nucleated RBC % (auto) 0.0 Sodium Potassium Chloride Carbon Dioxide Anion Gap BUN Creatinine Estim Creat Clear Calc Estimated GFR Random Glucose Calcium Magnesium 1.7 Total Bilirubin 1.1 H Direct Bilirubin 0.3 AST 37 ALT 23 Alkaline Phosphatase 53 Total Protein 5.3 L Albumin 3.0 L Lipase 538 H Urine Color Urine Appearance Urine pH Ur Specific [place] Urine Protein Urine Glucose (UA) Urine Ketones Urine Blood Urine Nitrite Ur Leukocyte Esterase Urine RBC Urine WBC Ur Squamous Epith Cells Urine Bacteria Hyaline Casts Ethyl Alcohol C. difficile Tox B Gene Imaging Radiology Impressions: ITS Impressions Abdomen/Pelvis CT 08/21/22 21:48 IMPRESSION: 1. Edematous pancreas with surrounding fluid and fat stranding, most suggestive of acute pancreatitis. 2. Hepatomegaly and hepatic steatosis. 3. Diverticulosis but no evidence of acute diverticulitis. 4. A radiolucency along the anterior pleural space of the right middle lobe is favored to represent an artifact, however a trace pneumothorax is not excluded. Recommend clinical correlation and if indicated further evaluation with a chest radiograph. This critical result was discussed with Madeline Eric at 08/21/2022 10:54 PM and it was ascertained that the content and urgency of the report was understood at the time of direct communication. Chest CT 08/22/22 00:15 IMPRESSION: * No pneumothorax. * Evidence of prior granulomatous disease with calcified mediastinal and bilateral hilar lymph nodes as well as scattered calcified granulomata. * Coronary calcifications. * Single punctate noncalcified nodule in the left upper lobe is of doubtful clinical significance. Per the 2017 revised Fleischner Society guidelines, no routine follow up is necessarily required in low-risk patients, and consideration of [address] is recommended for patients at high-risk for the development of pulmonary neoplasm. * Acute pancreatitis and hepatic steatosis as previously described. Abdomen Ultrasound 08/22/22 00:41 IMPRESSION: * Sludge present within the gallbladder neck. No gallbladder wall thickening or pericholecystic fluid to suggest cholecystitis. * Sonographic Chow sign is positive, however the patient has documented pancreatitis which could also result in a positive sonographic Chow sign. * Mildly dilated common bile duct measuring 1.1 cm. Distal common bile duct not well seen on the images submitted for review. If there is concern for choledocholithiasis, we recommend MRCP. Cholangiopancreatography MRI 08/22/22 13:38 IMPRESSION: * No evidence of cholelithiasis or acute cholecystitis. * Although the common bile duct is mildly dilated (0.9 cm diameter), there is no evidence of focal duct stricture or choledocholithiasis. * Acute pancreatitis with presence of peripancreatic edema. However, no organized fluid collection. * Mild hepatomegaly and diffuse hepatic steatosis. * Small volume of abdominal free fluid is present. Mental Status Exam Mental Status Exam Patient Appearance: Appropriate Level of Consciousness: Awake and Alert Patient Behavior: Guarded Affect Description: Blunted Judgement: Fair Medications Medications Current Medications Acetaminophen (Acetaminophen 325 Mg Tablet) 650 mg PO Q6H PRN PRN Reason: Pain, Mild (Pain Scale 1-3) Amlodipine Besylate (Amlodipine Besylate 5 Mg Tablet) 5 mg PO DAILY JUAN; Protocol Last Admin: 08/23/22 08:02 Dose: 5 mg Buprenorphine/Naloxone (Buprenorphine/Naloxone 4/1 Mg Film) 1 film BUCCAL DAILY JUAN Last Admin: 08/23/22 08:02 Dose: Not Given Bupropion HCl (Bupropion Hcl Xl 300 Mg Tab.Er.24h) 300 mg PO DAILY [facility] Last Admin: 08/23/22 08:02 Dose: 300 mg Famotidine (Famotidine/Pf 20 Mg/2 Ml Vial) 20 mg IVPUSH BID [facility] Last Admin: 08/23/22 08:02 Dose: 20 mg Gabapentin (Gabapentin 400 Mg Capsule) 800 mg PO TID PRN PRN Reason: Alcohol Withdrawal Last Admin: 08/22/22 19:53 Dose: 800 mg Thiamine HCl 100 mg/ Sodium (Chloride) 101 mls @ 202 mls/hr IV DAILY [facility] Last Infusion: 08/23/22 08:32 Dose: Infused Melatonin (Melatonin 3 Mg Tablet) 6 mg PO BEDTIME PRN PRN Reason: Insomnia Last Admin: 08/22/22 19:51 Dose: 6 mg Morphine Sulfate (Morphine Sulfate 4 Mg/Ml Cartridge) 4 mg IVPUSH Q4H PRN; Protocol PRN Reason: Pain, Severe (Pain Scale 7-10) Last Admin: 08/23/22 08:06 Dose: 4 mg Ondansetron HCl (Ondansetron Hcl 4 Mg/2 Ml Vial) 4 mg IVPUSH Q6H PRN PRN Reason: Nausea and Vomiting Last Admin: 08/22/22 14:15 Dose: 4 mg Pharmacy Consult (Consult Rx Perform Med Rec) 1 each MISCELLANE ONCE PRN PRN Reason: Consult order Pharmacy Consult (Consult Rx Etoh Phenob Po Only) 1 each MISCELLANE ONCE PRN; P rotocol PRN Reason: Consult order Phenobarbital (Phenobarbital 30 Mg Tablet) 60 mg PO BID [facility] Stop: 08/24/22 21:01 Last Admin: 08/23/22 08:01 Dose: 60 mg Phenobarbital (Phenobarbital 30 Mg Tablet) 30 mg PO BID [facility] Stop: 08/26/22 21:01 Phenobarbital (Phenobarbital 30 Mg Tablet) 30 mg PO DAILY [facility] Stop: 08/28/22 09:01 Sodium Chloride (0.9 % Sodium Chloride Flush 3 Ml Syringe) 3 ml IVFLUSH QSHIFT [facility] Last Admin: 08/23/22 08:03 Dose: 3 ml Trazodone HCl (Trazodone Hcl 100 Mg Tablet) 100 mg PO BEDTIME [facility] Last Admin: 08/22/22 19:51 Dose: 100 mg Allergies Allergies Allergy/AdvReac Type Severity Reaction Status Date / Time No Known Allergies Allergy Verified 01/05/22 11:10 Assessment & Plan Assessment & Plan (1) Alcohol use: Status: Acute Code(s): Z78.9 - Other specified health status Assessment and Plan: * unable to gather pertinent history to determine AUD * encouraged patient to follow up with [facility] provider Total time managing care of this patient today _15___ minutes. PMFSH Past Medical History Medical History Buprenorphine dependence Chronic abdominal pain Surgical History Surgical History History of back surgery Social History Social History Household Members: None Housing: House Alcohol intake: current Alcohol intake frequency: holidays/special occasions only Alcohol type: beer Patient Tobacco Use Status: Never used Tobacco Substance Use Type: Marijuana service: No Current occupational status: unemployed
--- NOTE | 2022-08-23 13:15 | MHC.CM.PN ---
CM met with Patient at bedside. Patient states that he has a ride picking him up at 2:45 PM; CM confirmed with [employer]PERATOR/Cleopatra that this will be AMA.
== END 2022-08-23 14:31 | disposition left against medical advice (07) | DRG 439 ==
LOC: HO.ED 23:41 → HO.EDOVER 08-22 01:15 → HO.IMC 08-22 01:46
PROVIDERS: Internal Medicine; Admitting Provider Student in an Organized Health Care Education/Training Program; Emergency Provider Student in an Organized Health Care Education/Training Program; PCP Pediatrics; Visit Provider Nurse Practitioner Acute Care
DX: K85.20 Alcohol induced acute pancreatitis without necrosis or infection (principal); F11.20 Opioid dependence, uncomplicated; E87.6 Hypokalemia; K29.70 Gastritis, unspecified, without bleeding; E83.42 Hypomagnesemia; F10.10 Alcohol abuse, uncomplicated; F39 Unspecified mood [affective] disorder; Z79.899 Other long term (current) drug therapy
CPT/HCPCS: 36415; 71250; 74176; 74181; 76705; 80048; 80076; 80307; 81001; 83690; 83735; 85025; 87493; 99285; J1170; J1650; J2270; J2405; J2560; J3411; J3475

== ENCOUNTER 2022-11-06 17:06 | Inpatient (IN) | payer OTHER, SELFPAY ==
[2022-11-06] VITALS (9 sets, daily range): BP systolic 163–192; BP diastolic 67–97; PULSE 49–67; RESP 14–26; TEMP 36.5–36.8; O2SAT 93–98; BMI 27.0
--- NOTE | 2022-11-06 | ECG_ITS ---
Test Reason : ABD PAIN Blood Pressure : / mmHG Vent. Rate : 050 BPM Atrial Rate : 050 BPM P-R Int : 132 ms QRS Dur : 076 ms QT Int : 484 ms P-R-T Axes : 052 042 038 degrees QTc Int : 441 ms Sinus bradycardia Otherwise normal ECG When compared with ECG of 11-APR-2022 13:12, No significant change was found Referred By: Generic ED Physician Electronically Signed By:ALISSA MULLEN MD
--- NOTE | ~2022-11-06 | CT_ITS ---
EXAMINATION: CT ABDOMEN AND PELVIS WITH CONTRAST CLINICAL INFORMATION: Pancreatitis with question of pseudocyst COMPARISON: Ultrasound abdomen 08/22/2022, CT abdomen pelvis 08/21/2022, MRCP 08/22/2022 TECHNIQUE: Multidetector volumetric images were obtained from the superior aspect of the liver through the pubic symphysis following administration 85 mL of Omnipaque 350 intravenous contrast. Sagittal and coronal reformatted images were obtained on the technologist's workstation. Oral contrast: No This CT examination was performed using dose optimization techniques as appropriate, variously including the following: *Automated exposure control *Adjustment of mA and/or kV according to patient size (this includes techniques or standardized protocols for targeted exams where dose is matched to indication/reason for exam; i.e. extremities or head) *Use of iterative reconstruction technique DLP: 758 mGy-cm FINDINGS: LUNG BASES: The visualized lung bases are unremarkable. LIVER, GALLBLADDER, AND BILIARY TREE: The liver is enlarged at almost 21 cm in cephalocaudad dimension and demonstrates decreased attenuation consistent with hepatic steatosis. A focal perfusional abnormalities again noted adjacent to the falciform ligament (2:19). No worrisome focal hepatic lesion or intrahepatic biliary ductal dilatation is present. The common bile duct is again noted to be mildly dilated at 1 cm. The gallbladder is unremarkable with no evidence of radiopaque gallstones, gallbladder wall thickening, or obvious pericholecystic inflammatory changes. PANCREAS: Edematous changes are present surrounding the pancreas most prominent in the tail and body. No discrete drainable fluid collections are seen. When comparison is made to the prior CT exam, appearances are slightly worse. SPLEEN: Punctate splenic granulomas are present. ADRENAL GLANDS: Unremarkable. KIDNEYS AND URETERS: The kidneys are normal in size, shape, and attenuation. No hydronephrosis, hydroureter, or calculi seen. No perinephric stranding. BLADDER: Unremarkable. GASTROINTESTINAL TRACT: The small and large bowel are unremarkable. The appendix is unremarkable. ABDOMINAL WALL: No significant hernia is appreciated. LYMPH NODES: Normal. VASCULAR: Unremarkable. PELVIC VISCERA: The prostate and seminal vesicles are unremarkable. OSSEOUS STRUCTURES: Again noted is posterior fusion hardware from L3 through L5 and unchanged anterolisthesis of L4 on L5 and compression deformity at L5. Mixed sclerotic and lytic area in the posterior right iliac bone is unchanged (2:59). CT/CT abdomen pelvis w IV con IMPRESSION: 1. Findings consistent with acute pancreatitis. No drainable fluid collections are seen. Similar findings were present in July 2022 and findings appears minimally worse on today's study. 2. Incidental note made of an enlarged fatty liver and mild dilatation of the common bile duct at 1 cm along with other findings described above Fleischner guidelines were followed.
[2022-11-06 17:27] LABS: MANUAL DIFF FLAG NO
[2022-11-06 17:29] LABS: Basophils Absolute Auto 0.1 X10*3/uL (0.0-0.2); Basophils Percent Auto 0.4 % (0-2); Eosinophils Percent Auto 0.2 % (0-4); Hemoglobin 17.2 g/dl (14.0-18.0); Imm Gran Abs Auto 0.04 X10*3/uL (0.00-0.03); Imm Gran Pct Auto 0.3 % (0.0-0.4); Lymphocytes Absolute Auto 2.6 X10*3/uL (1.2-4.9); Lymphocytes Percent Auto 22.1 % (20-40); Mean Corpuscular HGB Conc 37.4 g/dl (31.0-36.0); Mean Corpuscular Hemoglobin 33.5 pg (27.0-33.0); Mean Corpuscular Volume 89.7 fL (80.0-98.0); Mean Platelet Volume 9.6 fL (9.4-12.4); Monocytes Absolute Auto 0.6 X10*3/uL (0.1-1.2); Monocytes Percent Auto 5.2 % (2-11); Neutrophils Absolute Auto 8.6 x10*3/uL (2.0-8.3); Neutrophils Percent Auto 71.8 % (45-73); Platelet Count 236 X10*3/uL (160-400); Red Blood Count 5.13 X10*6/uL (4.60-5.80); Red Cell Distribution Width 12.6 % (11.0-16.0)
--- NOTE | 2022-11-06 17:47 | PC.NURSE ---
pt arrived via ambulance, upon arrival patient pulled IV out. Bleeding controlled. Pt placed on monitor, second IV placed, blood work obtained, EKG obtained. Pt demanding pain medications. this RN educated the patient that the doctor has to see the patient first in order to get medications. Pt demanding this RN to get him blankets because he is cold. Pt provided with a blanket. Pt refusing to get temperature taken under tongue
[2022-11-06] MEDS: ondansetron HCL 4 MG/2 ML VIAL IVPUSH ×2 (18:05→19:50)
--- NOTE | 2022-11-06 18:14 | ED_ITS ---
HPI - Abdominal Pain General Chief Complaint: Abdominal Pain Stated Complaint: ABD PAIN VOMITING HYPERTENSIVE Time Seen by Provider: 11/06/22 18:06 Source: patient Mode of arrival: EMS Limitations: no limitations History of Present Illness HPI narrative: Patient's history of recurrent pancreatitis with history of alcohol use been drinking for last 1 week noticed pain for last 2 days got worse today with vomiting and nausea unable to eat much Related Data Home Medications Medication Instructions Recorded Confirmed bupropion HCl 300 mg 24 hr tablet, 300 mg PO DAILY 12/09/21 11/06/22 extended release gabapentin 400 mg capsule 800 mg PO TID PRN Alcohol 12/09/21 11/06/22 Withdrawal trazodone 100 mg tablet 100 mg PO BEDTIME 12/09/21 11/06/22 buprenorphine 4 mg-naloxone 1 mg 1 film buccal Q24H 08/22/22 11/06/22 sublingual film ondansetron 4 mg disintegrating 4 mg PO Q8H PRN Nausea And Vomiting 08/22/22 11/06/22 tablet Allergies Allergy/AdvReac Type Severity Reaction Status Date / Time No Known Allergies Allergy Verified 11/06/22 17:27 Review of Systems Review of Systems Yes all other systems are reviewed and are negative [facility] Past Medical History Medical History Buprenorphine dependence Chronic abdominal pain Surgical History History of back surgery Social History Social History Household Members: None Housing: House Alcohol intake: current Alcohol intake frequency: a few times a week Alcohol type: beer Patient Tobacco Use Status: Never used Tobacco Smoked in Last 30 Days: No Use of substances other than those prescribed or required for medical reasons: No Substance Use Type: Marijuana Advance Directives: No Advance Directives Information Provided: No Nutrition Risks: No Nutritional Risk service: No Current occupational status: unemployed Physical Exam ED Vital Signs: Vital Signs - 24 hr 11/06/22 17:24 11/06/22 17:28 11/06/22 17:42 Temperature 97.7 F Pulse Rate 54 52 49 L Respiratory Rate 26 H 26 H Blood Pressure 192/92 H 163/67 H Pulse Oximetry 98 97 Oxygen Delivery Method Room Air Room Air 11/06/22 18:37 11/06/22 18:50 11/06/22 19:20 Temperature Pulse Rate 54 58 65 Respiratory Rate 16 20 16 Blood Pressure 173/79 H 167/70 H Pulse Oximetry 97 93 96 Oxygen Delivery Method Room Air Room Air Room Air 11/06/22 19:56 11/06/22 20:50 11/06/22 22:49 Temperature 98.2 F 98.1 F Pulse Rate 67 65 67 Respiratory Rate 18 14 17 Blood Pressure 178/77 H 181/96 H 168/82 H Pulse Oximetry 96 97 98 Oxygen Delivery Method Room Air Room Air Room Air BMI result Body Mass Index 27.0 Appearance: Alert. Oriented X3. In moderate distress Eyes: PERRLA, No Nystagmus ENT: Pharynx normal. Oral Mucosa moist Neck: Normal inspection. Neck supple. CVS: Normal heart rate and rhythm. Pulses normal. Respiratory: No respiratory distress. Equal air entry bilateral, no wheezing/rales/rhonchi Abdomen: Soft , tenderness mid abdomen with guarding no rebound tenderness. Bowel sounds are present, no mass palpable, no CVA tenderness Skin: Skin warm and dry. Normal skin color. Normal skin turgor. Extremities: No lower extremity edema. No calf tenderness Neuro: Oriented X 3. No motor deficit. Medical Decision Making Medical Decision Making MDM Narrative: Patient with alcoholic pancreatitis with elevated lipase CT scan showed inflammation around the pancreas no drainable fluid. Will admit patient for uncomplicated pancreatitis secondary to alcohol use Differential Diagnosis Differential Diagnoses: The differential diagnosis associated with the presentation includes Pancreatitis/gastritis/SBO Consult Healthcare Provider Management of the patient was discussed with: Hospitalist Lab Data [facility] Lab Attestation statement: I reviewed the patient's lab results. 11/06/22 17:23 11/06/22 17:23 Labs: Lab Results 11/06/22 11/06/22 Range/Units 17:23 17:23 WBC 12.0 H (4.8-10.8) X10*3/uL RBC 5.13 D (4.60-5.80) X10*6/uL Hgb 17.2 D (14.0-18.0) g/dl Hct 46.0 D (42.0-52.0) % MCV 89.7 (80.0-98.0) fL MCH 33.5 H (27.0-33.0) pg MCHC 37.4 H (31.0-36.0) g/dl RDW 12.6 (11.0-16.0) % Plt Count 236 D (160-400) X10*3/uL MPV 9.6 (9.4-12.4) fL Immature Gran % (Auto) 0.3 (0.0-0.4) % Neut % (Auto) 71.8 (45-73) % Lymph % (Auto) 22.1 (20-40) % [place] % (Auto) 5.2 (2-11) % Eos % (Auto) 0.2 (0-4) % Baso % (Auto) 0.4 (0-2) % Lymph # (Auto) 2.6 (1.2-4.9) X10*3/uL [place] # (Auto) 0.6 (0.1-1.2) X10*3/uL Eos # (Auto) 0.0 (0.0-0.4) X10*3/uL Baso # (Auto) 0.1 (0.0-0.2) X10*3/uL Abs Immat Gran (auto) 0.04 H (0.00-0.03) X10*3/uL Absolute Neuts (auto) 8.6 H (2.0-8.3) x10*3/uL Absolute Nucleated RBC 0.000 (0.0-0.012) X10*3/uL Nucleated RBC % (auto) 0.0 (0.0-0.2) /100WBC Sodium 142 (135-145) mmol/L Potassium 4.0 D (3.3-5.1) mmol/L Chloride 102 (96-108) mmol/L Carbon Dioxide 18 L (22-29) mmol/L Anion Gap 26 H (12-20) BUN 6 L (9-16) mg/dL Creatinine 0.95 (0.5-1.4) mg/dL Estim Creat Clear Calc 95.7 Estimated GFR > 60 Random Glucose 160 H (60-115) mg/dL Calcium 10.0 D (8.4-10.2) mg/dL Total Bilirubin 1.4 H (0.0-1.0) mg/dL Direct Bilirubin 0.3 (0.0-0.5) mg/dL AST 61 H (5-37) U/L ALT 42 H (0-40) U/L Alkaline Phosphatase 121 H (39-117) U/L Total Protein 8.1 H (6.5-8.0) g/dL Albumin 4.2 (3.5-5.0) g/dL Triglycerides 1233 mg/dL Lipase 292 H (8-78) U/L Ethyl Alcohol < 10 mg/dL Radiology Impression Discussion of test interpretation with radiology: I have reviewed the radiologist's reading. Radiologist Impression: CT/CT abdomen pelvis w IV con IMPRESSION: 1.? Findings consistent with acute pancreatitis. No drainable fluid collections are seen. Similar findings were present in July 2022 and findings appears minimally worse on today's study. 2.? Incidental note made of an enlarged fatty liver and mild dilatation of the common bile duct at 1 cm along with other findings described above ? Fleischner guidelines were followe Medications Administered Generic Name Dose Route Start Last Admin Trade Name Freq PRN Reason Stop Dose Admin Lactated Ringer's 1,000 mls @ 200 mls/hr 11/06/22 23:45 11/07/22 00:25 Lr IVCONT 200 mls/hr .Q5H JUAN Administration Morphine Sulfate 4 mg 11/06/22 23:47 11/07/22 00:25 Morphine Sulfate 4 Mg/Ml Cartridge IVPUSH 4 mg Q4H PRN Administration Pain, Severe (Pain Scale 7-10) Protocol Ondansetron HCl 4 mg 11/06/22 23:47 11/07/22 00:25 Ondansetron Hcl 4 Mg/2 Ml Vial IVPUSH 4 mg Q8H PRN Administration Nausea and Vomiting Sodium Chloride 3 ml 11/07/22 00:00 11/07/22 00:25 0.9 % Sodium Chloride Flush 3 Ml Syringe IVFLUSH Not Given QSHIFT JUAN Discontinued Medications Generic Name Dose Route Start Last Admin Trade Name Freq PRN Reason Stop Dose Admin Famotidine 20 mg 11/06/22 19:38 11/06/22 19:50 Famotidine/Pf 20 Mg/2 Ml Vial IVPUSH 11/06/22 19:39 20 mg ONCE ONE Administration Hydromorphone HCl 2 mg 11/06/22 22:17 11/06/22 22:40 Hydromorphone Hcl 2 Mg/Ml Vial IVPUSH 11/06/22 22:18 2 mg ONCE ONE Administration Protocol Sodium Chloride 1,000 mls @ 999 mls/hr 11/06/22 18:15 11/06/22 19:20 Ns IV 11/06/22 19:15 Infused .Q1H1M ONE Infusion Sodium Chloride 1,000 mls @ 999 mls/hr 11/06/22 20:44 11/06/22 22:03 Ns IV 11/06/22 21:44 Infused .Q1H1M ONE Infusion Iohexol 100 ml 11/06/22 22:08 11/06/22 22:08 Iohexol 350 Mg/Ml 100 Ml Infus..Btl IV 11/06/22 22:09 85 ml ONCE ONE Administration Lorazepam 2 mg 11/06/22 18:24 11/06/22 18:30 Lorazepam 2 Mg/Ml Vial IVPUSH 11/06/22 18:25 2 mg ONCE ONE Administration Morphine Sulfate 4 mg 11/06/22 18:24 11/06/22 18:30 Morphine Sulfate 4 Mg/Ml Cartridge IVPUSH 11/06/22 18:25 4 mg ONCE ONE Administration Protocol Morphine Sulfate 4 mg 11/06/22 19:38 11/06/22 19:50 Morphine Sulfate 4 Mg/Ml Cartridge IVPUSH 11/06/22 19:39 4 mg ONCE ONE Administration Protocol Ondansetron HCl 4 mg 11/06/22 18:02 11/06/22 18:05 Ondansetron Hcl 4 Mg/2 Ml Vial IVPUSH 11/06/22 18:03 4 mg ONCE ONE Administration Ondansetron HCl 4 mg 11/06/22 19:38 11/06/22 19:50 Ondansetron Hcl 4 Mg/2 Ml Vial IVPUSH 11/06/22 19:39 4 mg ONCE ONE Administration Discharge Plan Discharge Clinical Impression: Acute pancreatitis Patient Disposition: Admitted As Inpatient
[2022-11-06 18:19] LABS: Alanine Aminotransferase 42 U/L (0-40); Albumin Level 4.2 g/dL (3.5-5.0); Alkaline Phosphatase 121 U/L (39-117); Anion Gap 26 (12-20); Aspartate Amino Transferase 61 U/L (5-37); Bilirubin Direct 0.3 mg/dL (0.0-0.5); Bilirubin Total 1.4 mg/dL (0.0-1.0); Blood Urea Nitrogen 6 mg/dL (9-16); Carbon Dioxide 18 mmol/L (22-29); Chloride 102 mmol/L (96-108); Creatinine Clr Calc Pharmacy 95.7; Estimated Glomerular Filt Rate > 60; Ethanol < 10 mg/dL; Glucose Random 160 mg/dL (60-115); Lipase 292 U/L (8-78); Sodium 142 mmol/L (135-145); Total Protein 8.1 g/dL (6.5-8.0)
[2022-11-06] MEDS: 0.9 % Sodium Chloride 1,000 ML 999 ML IV ×2 (18:19→20:49)
--- NOTE | 2022-11-06 18:27 | PC.NURSE ---
Pt vomited green bile, medicated with Zofran. Pt very fidgety and restless, unable to sit still. MD at bedside
[2022-11-06] MEDS: LORazepam 2 MG/ML VIAL IVPUSH (18:30)
[2022-11-06] MEDS: Morphine Sulfate 4 MG/ML CARTRIDGE IVPUSH ×2 (18:30→19:50)
--- NOTE | 2022-11-06 18:50 | PC.NURSE ---
pt sleeping. respirations even and unlabored.
--- NOTE | 2022-11-06 18:56 | PC.NURSE ---
pt medicated per MAY, now resting comfortably no apparent distress at this time
[2022-11-06] MEDS: Famotidine/PF 20 MG/2 ML VIAL IVPUSH (19:50)
[2022-11-06] MEDS: iohexoL 350 MG/ML 100 ML INFUS..BTL IV (22:08)
[2022-11-06] MEDS: HYDROmorphone HCl 2 MG/ML VIAL IVPUSH (22:40)
[2022-11-06 23:25] LABS: Triglycerides 1233 mg/dL
--- NOTE | 2022-11-06 23:49 | PM.IMHP ---
History of Present Illness Date of Service: 11/06/22 Chief Complaint: abdominal pain 57-year-old male with past medical history of alcohol abuse, history of pancreatitis, comes into the hospital with epigastric abdominal pain that started today. Pain is 10/10, radiating to the back, constant, associated with significant nausea, some diarrhea, no fever or chills, no chest pain, no shortness of breath, no urinary symptoms and no lower extremity edema. Patient reports he drinks about 3 hard liquor the day, last drink was 1 day ago. Reports a history of withdrawals. On arrival to the ED patient hemodynamically stable with slightly elevated BP Labs are significant for WBC count of 12, bicarb of 18, AST of 61, ALT of 42, alk-phos of 121, lipase of 292, urine drug screen positive for opioids, and marijuana Abdomen pelvic CT shows findings consistent with acute pancreatitis, enlarged fatty liver and mild dilatation of the common bile duct consistent with hepatic steatosis, Triglycerides pending Review of Systems Review of Systems: Yes all other systems are reviewed and are negative [facility] Medical History Alcohol use Buprenorphine dependence Chronic abdominal pain History of pancreatitis Surgical History History of back surgery Social History Household Members: None Housing: House Alcohol intake: current Alcohol intake frequency: a few times a week Alcohol type: beer Patient Tobacco Use Status: Never used Tobacco Smoked in Last 30 Days: No Use of substances other than those prescribed or required for medical reasons: No Substance Use Type: Marijuana Advance Directives: No Advance Directives Information Provided: No Nutrition Risks: No Nutritional Risk service: No Current occupational status: unemployed Meds Allergies Allergy/AdvReac Type Severity Reaction Status Date / Time No Known Allergies Allergy Verified 11/06/22 17:27 Home Medications Medication Instructions Recorded Confirmed Last Taken Type bupropion HCl 300 mg 24 hr tablet, 300 mg PO DAILY 12/09/21 11/06/22 11/05/22 History extended release gabapentin 400 mg capsule 800 mg PO TID PRN Alcohol 12/09/21 11/06/22 11/05/22 History Withdrawal trazodone 100 mg tablet 100 mg PO BEDTIME 12/09/21 11/06/22 11/05/22 History buprenorphine 4 mg-naloxone 1 mg 1 film buccal Q24H 08/22/22 11/06/22 11/03/22 History sublingual film ondansetron 4 mg disintegrating 4 mg PO Q8H PRN Nausea And Vomiting 08/22/22 11/06/22 Unknown History tablet Physical Exam Vital Signs and Narrative: Vital Signs: Last Vital Signs Temp 98.1 F 11/06/22 22:49 Pulse 67 11/06/22 22:49 Resp 17 11/06/22 22:49 BP 168/82 H 11/06/22 22:49 Pulse Ox 98 11/06/22 22:49 O2 Del Method Room Air 11/06/22 22:49 BMI result Body Mass Index 27.0 Const: Other: Ill appear General: cooperative Orientation/consciousness: patient oriented x3 Eyes: General: appearance normal, both eyes and all related structures Pupils: Equal, round and reactive pupils present Resp: Effort & Inspection: normal respiratory effort Auscultation: clear to auscultation bilaterally Cardio: Rate: regular rate Rhythm: regular rhythm GI: Other: Tenderness in the epigastric region, some rebound and guarding Palpation (GI): Soft to palpation Auscultation: normal bowel sounds Skin: General skin exam: no rashes or lesions noted Neuro: General: patient oriented x3 Cranial nerves: Yes Equal, round and reactive pupils present Cognition (Neuro): normal cognition Extrem: General: Yes normal to inspection and Yes no pedal edema Results Labs 11/06/22 17:23 11/06/22 17:23 Labs: Laboratory Results - last 24 hr 11/06/22 11/06/22 17:23 17:23 MCV 89.7 MCH 33.5 H MCHC 37.4 H RDW 12.6 Plt Count 236 D MPV 9.6 Immature Gran % (Auto) 0.3 Neut % (Auto) 71.8 Lymph % (Auto) 22.1 [place] % (Auto) 5.2 Eos % (Auto) 0.2 Baso % (Auto) 0.4 Lymph # (Auto) 2.6 [place] # (Auto) 0.6 Eos # (Auto) 0.0 Baso # (Auto) 0.1 Abs Immat Gran (auto) 0.04 H Absolute Neuts (auto) 8.6 H Absolute Nucleated RBC 0.000 Nucleated RBC % (auto) 0.0 Anion Gap 26 H Estim Creat Clear Calc 95.7 Estimated GFR > 60 Random Glucose 160 H Calcium 10.0 D Total Bilirubin 1.4 H Direct Bilirubin 0.3 AST 61 H ALT 42 H Alkaline Phosphatase 121 H Total Protein 8.1 H Albumin 4.2 Triglycerides 1233 Lipase 292 H Ethyl Alcohol < 10 Assessment and Plan (1) Acute pancreatitis: Qualifiers: Pancreatitis type: alcohol induced Acute pancreatitis complication: no infection or necrosis Qualified Code(s): K85.20 - Alcohol induced acute pancreatitis without necrosis or infection Status: Acute (2) Alcohol abuse with withdrawal: Status: Acute Plan 57-year-old male past medical history of alcohol abuse presents the hospital with complaints of epigastric abdominal pain found to have acute pancreatitis # acute pancreatitis - coulee secondary to alcohol abuse - question of 1 cm dilation of CBD - triglycerides pending - at this time waiting for triglycerides but will start him on IV fluids, pain control, NPO # alcohol abuse with withdrawal - started on phenobarb protocol - once able to take p.o. can start him on supplement thiamine and folic acid DVT prophylaxis: Lovenox Given patient's need for IV hydration in the setting of acute pancreatitis patient require minimum 2 nights inpatient hospital stay for further management and monitoring Time Spent With Patient Time: Total time managing care of this patient today ____ minutes. Quality Stroke Does the patient have a stroke diagnosis?: No VTE Prior VTE?: No VTE Risk Level:: Medical - moderate - high VTE Device Contraindication: Treatment Not Indicated VTE Drug Contraindication: N/A - Med Ordered
[2022-11-07] VITALS (10 sets, daily range): BP systolic 135–169; BP diastolic 62–88; PULSE 20–89; RESP 12–20; TEMP 36.6–37.2; O2SAT 93–98
[2022-11-07] MEDS: Morphine Sulfate 4 MG/ML CARTRIDGE IVPUSH ×2 (00:25→05:33)
[2022-11-07] MEDS: Lactated Ringers 1,000 ML 200 ML IVCONT (00:25)
[2022-11-07] MEDS: ondansetron HCL 4 MG/2 ML VIAL IVPUSH (00:25)
[2022-11-07 02:52] LABS: Amphetamine Screen Urine Not Detected (Not Detect); Barbiturates, Urine Not Detected (Not Detect); Benzodiazepines Screen Urine Not Detected (Not Detect); Cannabinoid Screen Urine POSITIVE (Not Detect); Cocaine Screen Urine Not Detected (Not Detect); Fentanyl, urine Not Detected (Not Detect); Opiate Screen Urine POSITIVE (Not Detect); Phencyclidine Screen Urine Not Detected (Not Detect)
[2022-11-07 02:59] LABS: Appearance Urine Clear; Color Urine Yellow; Glucose Urine UA Negative (Negative); Leukocyte Esterase Urine Negative (Negative); Nitrite Urine Negative (Negative); PH 5.5 (5.0-9.0); Specific Gravity - Urine >= 1.030 (1.005-1.025); Urine Blood Negative (Negative); Urine Ketones Negative (Negative); Urine Protein Negative (Neg-Trace)
--- NOTE | 2022-11-07 03:00 | PC.NURSE ---
Late Entry: pt reporting continues nausea, MD Hernandez aware, order for compazine in at this time
--- NOTE | 2022-11-07 03:01 | PC.NURSE ---
pt reporting nausea, MD Ewelina caro
[2022-11-07] MEDS: Prochlorperazine Edisylate 10 MG/2 ML VIAL 5 MG IVPUSH (03:21)
[2022-11-07 04:00] LABS: Glucose, Whole Blood 160 mg/dL (60-115)
[2022-11-07] MEDS: PHENobarbitaL sodium 130 MG/ML IM ONCE 320 MG IM (04:05)
--- NOTE | 2022-11-07 04:12 | PM.EVENT ---
Documented by User: Rica Bush NP 11/07/22 04:17 Event Note Date of Service: 11/07/22 Event Note: 57-year-old male past medical history of alcohol abuse admitted for acute pancreatitis found to have hypertriglyceridemia, transferred to ICU for further management with insulin gtt. Time Spent With Patient Time: Total time managing care of this patient today ____ minutes. Documented by User: Damion Flores MD 11/07/22 13:26 Event Note Date of Service: 11/07/22
[2022-11-07] MEDS: Dextrose 5 % and Lactated Ring 1,000 ML 200 ML IVCONT ×2 (04:22→08:42)
[2022-11-07] MEDS: Insulin Regular/NS 100 UNIT/100 ML PLAST..BAG 9 UNIT IVCONT (04:28)
--- NOTE | 2022-11-07 04:37 | PC.NURSE ---
Verbal order via ICU PA, start insulin drip at 9u/hr (9ml/hr), instead of per glucose guidelines. Insulin drip has been started. Patient has two IV access points 20g IV in LW and 22g in RH. Insulin going through 22g and D5LR going through 20g Pt is alert and oriented x4, endorsing 6/10 pain in abdomen, respirations equal and unlabored, skin pwd, speaking in clear full sentences, aware of plan to move to ICU for further monitoring
[2022-11-07 05:32] LABS: Glucose, Whole Blood 144 mg/dL (60-115)
[2022-11-07 06:15] LABS: Glucose, Whole Blood 92 mg/dL (60-115)
--- NOTE | 2022-11-07 06:28 | PC.NURSE ---
This RN brought patient to ICU at 0600. Assisted with patient transfer. Since ICU nurse was tied up in another room, this RN took patients blood glucose. Result of 92 was obtained, Orthodontist Vice President PA aware, verbal order for this RN to stop insulin infusion and to re-check in one hour. This RN paused the insulin at 0614, PA and RN are aware
[2022-11-07] MEDS: 0.9 % Sodium Chloride Flush 3 ML SYRINGE IVFLUSH (06:54)
[2022-11-07] MEDS: PHENobarbitaL sodium 130 MG/ML VIAL IM Q3Hx2 240 MG IM ×2 (06:54→09:34)
[2022-11-07 07:14] LABS: Glucose, Whole Blood 113 mg/dL (60-115)
[2022-11-07 07:24] LABS: VBG Base Excess 1.8 mmol/L; VBG HCO3 26 mmol/L (22-26); VBG pCO2 39 mmHg; VBG pH 7.42 (7.32-7.43); VBG pO2 62 mmHg
[2022-11-07 07:42] LABS: MANUAL DIFF FLAG NO
[2022-11-07 07:50] LABS: Basophils Percent Auto 0.2 % (0-2); Eosinophils Percent Auto 0.1 % (0-4); Hematocrit 41.1 % (42.0-52.0); Imm Gran Pct Auto 0.6 % (0.0-0.4); Lymphocytes Absolute Auto 1.3 X10*3/uL (1.2-4.9); Lymphocytes Percent Auto 7.6 % (20-40); Mean Corpuscular HGB Conc 36.5 g/dl (31.0-36.0); Mean Corpuscular Hemoglobin 33.6 pg (27.0-33.0); Mean Corpuscular Volume 92.2 fL (80.0-98.0); Mean Platelet Volume 10.6 fL (9.4-12.4); Monocytes Absolute Auto 1.3 X10*3/uL (0.1-1.2); Monocytes Percent Auto 7.9 % (2-11); Neutrophils Absolute Auto 13.9 x10*3/uL (2.0-8.3); Neutrophils Percent Auto 83.6 % (45-73); Platelet Count 200 X10*3/uL (160-400); Red Blood Count 4.46 X10*6/uL (4.60-5.80); Red Cell Distribution Width 12.9 % (11.0-16.0); White Blood Count 16.6 X10*3/uL (4.8-10.8)
[2022-11-07 08:07] LABS: Glucose, Whole Blood 151 mg/dL (60-115)
[2022-11-07] MEDS: Enoxaparin Sodium 40 MG/0.4 ML SYRINGE SUBCUT (08:43)
[2022-11-07 08:44] LABS: Albumin Level 3.7 g/dL (3.5-5.0); Magnesium 1.6 mg/dL (1.6-2.6); Phosphorus 1.8 mg/dL (2.7-4.5)
[2022-11-07 09:11] LABS: Glucose, Whole Blood 162 mg/dL (60-115)
[2022-11-07 09:18] LABS: Anion Gap 14 (12-20); Blood Urea Nitrogen 6 mg/dL (9-16); Calcium 9.2 mg/dL (8.4-10.2); Carbon Dioxide 25 mmol/L (22-29); Chloride 105 mmol/L (96-108); Creatinine Clr Calc Pharmacy 105.8; Estimated Glomerular Filt Rate > 60; Glucose Random 115 mg/dL (60-115); Potassium 3.2 mmol/L (3.3-5.1); Sodium 141 mmol/L (135-145)
[2022-11-07 10:03] LABS: Glucose, Whole Blood 186 mg/dL (60-115)
[2022-11-07] MEDS: dexmedeTOMIDidine HCL/NS 400 MCG/100 ML INFUS..BTL 23.25 MCG IVCONT (10:06)
[2022-11-07 10:27] LABS: Venous Blood Gas Refer to POC result
[2022-11-07] MEDS: Midazolam HCl/PF 2 MG/2 ML VIAL IVPUSH ×2 (10:40→13:06)
--- NOTE | 2022-11-07 10:40 | MHC.CM.PN ---
This lyric writer attempted to meet with pt x2- unable to completed CM assessment d/t pt agitation. Will attempt later in day.
[2022-11-07 11:09] LABS: Glucose, Whole Blood 140 mg/dL (60-115)
--- NOTE | 2022-11-07 11:23 | PHA.MEDREC ---
Pharmacy Consult ? Medication Reconciliation Pharmacy has completed the medication reconciliation. reviewed med rec done by nursing and confirmed suboxone with patient.
[2022-11-07 12:04] LABS: Glucose, Whole Blood 137 mg/dL (60-115)
[2022-11-07 13:25] LABS: Glucose, Whole Blood 124 mg/dL (60-115)
--- NOTE | 2022-11-07 13:26 | PM.CCPN ---
Subjective Subjective Date of Service: 11/07/22 Interval History: 57-year-old gentleman with underlying history of alcohol abuse, recent admission for pancreatitis, opioid dependence admitted on 11/06/2022 with acute pancreatitis and alcohol withdrawal, initially to general medical [facility]. However, laboratory studies showed significant hypertriglyceridemia and patient was started on insulin drip and transferred to the intensive care unit. Overnight with waxing and waning delirium tremens symptoms, now requiring Precedex drip. Critical Care Time (minutes): 0 Physical Exam Vital Signs: Vital Signs: Last Vital Signs Temp 98.5 F 11/07/22 12:00 Pulse 53 11/07/22 13:00 Resp 20 11/07/22 13:00 BP 169/88 H 11/07/22 13:00 Pulse Ox 94 11/07/22 13:00 O2 Del Method Room Air 11/07/22 13:00 BMI result Body Mass Index 27.0 Const: General: no acute distress, alert and awake Eyes: Sclerae: sclerae normal EOM: EOMs intact bilaterally Neck: Neck: Yes no lymphadenopathy, Yes trachea midline and Yes supple Resp: Effort & Inspection: normal respiratory effort and no respiratory distress Auscultation: clear to auscultation bilaterally Cardio: Rate: regular rate Rhythm: regular rhythm Heart sounds: no gallops, no murmurs and no rubs GI: Palpation (GI): Soft to palpation and Other GI palpation findings present ( Nontender) Auscultation: normal bowel sounds Extrem: General: Yes no pedal edema, No clubbing and No cyanosis Objective Data Labs 11/07/22 07:18 11/07/22 07:18 Labs: Laboratory Results - last 24 hr 11/06/22 11/06/22 11/07/22 17:23 17:23 02:35 WBC 12.0 H RBC 5.13 D Hgb 17.2 D Hct 46.0 D MCV 89.7 MCH 33.5 H MCHC 37.4 H RDW 12.6 Plt Count 236 D MPV 9.6 Immature Gran % (Auto) 0.3 Neut % (Auto) 71.8 Lymph % (Auto) 22.1 [place] % (Auto) 5.2 Eos % (Auto) 0.2 Baso % (Auto) 0.4 Lymph # (Auto) 2.6 [place] # (Auto) 0.6 Eos # (Auto) 0.0 Baso # (Auto) 0.1 Abs Immat Gran (auto) 0.04 H Absolute Neuts (auto) 8.6 H Absolute Nucleated RBC 0.000 Nucleated RBC % (auto) 0.0 VBG pH VBG pCO2 VBG pO2 VBG HCO3 VBG O2 Saturation VBG Base Excess Sodium 142 Potassium 4.0 D Chloride 102 Carbon Dioxide 18 L Anion Gap 26 H BUN 6 L Creatinine 0.95 Estim Creat Clear Calc 95.7 Estimated GFR > 60 POC Glucose Random Glucose 160 H Calcium 10.0 D Phosphorus Magnesium Total Bilirubin 1.4 H Direct Bilirubin 0.3 AST 61 H ALT 42 H Alkaline Phosphatase 121 H Total Protein 8.1 H Albumin 4.2 Triglycerides 1233 Lipase 292 H Urine Color Urine Appearance Urine pH Ur Specific [place] Urine Protein Urine Glucose (UA) Urine Ketones Urine Blood Urine Nitrite Ur Leukocyte Esterase Urine Opiates Screen POSITIVE H Urine Fentanyl Screen Not Detected Ur Barbiturates Screen Not Detected Ur Phencyclidine Scrn Not Detected Ur Amphetamines Screen Not Detected U Benzodiazepines Scrn Not Detected Urine Cocaine Screen Not Detected U Marijuana (THC) Screen POSITIVE H Ethyl Alcohol < 10 11/07/22 11/07/22 11/07/22 02:35 03:55 05:26 WBC RBC Hgb Hct MCV MCH MCHC RDW Plt Count MPV Immature Gran % (Auto) Neut % (Auto) Lymph % (Auto) [place] % (Auto) Eos % (Auto) Baso % (Auto) Lymph # (Auto) [place] # (Auto) Eos # (Auto) Baso # (Auto) Abs Immat Gran (auto) Absolute Neuts (auto) Absolute Nucleated RBC Nucleated RBC % (auto) VBG pH VBG pCO2 VBG pO2 VBG HCO3 VBG O2 Saturation VBG Base Excess Sodium Potassium Chloride Carbon Dioxide Anion Gap BUN Creatinine Estim Creat Clear Calc Estimated GFR POC Glucose 160 H 144 H Random Glucose Calcium Phosphorus Magnesium Total Bilirubin Direct Bilirubin AST ALT Alkaline Phosphatase Total Protein Albumin Triglycerides Lipase Urine Color Yellow Urine Appearance Clear Urine pH 5.5 Ur Specific [place] >= 1.030 H Urine Protein Negative Urine Glucose (UA) Negative Urine Ketones Negative Urine Blood Negative Urine Nitrite Negative Ur Leukocyte Esterase Negative Urine Opiates Screen Urine Fentanyl Screen Ur Barbiturates Screen Ur Phencyclidine Scrn Ur Amphetamines Screen U Benzodiazepines Scrn Urine Cocaine Screen U Marijuana (THC) Screen Ethyl Alcohol 11/07/22 11/07/22 11/07/22 06:11 07:08 07:14 WBC RBC Hgb Hct MCV MCH MCHC RDW Plt Count MPV Immature Gran % (Auto) Neut % (Auto) Lymph % (Auto) [place] % (Auto) Eos % (Auto) Baso % (Auto) Lymph # (Auto) [place] # (Auto) Eos # (Auto) Baso # (Auto) Abs Immat Gran (auto) Absolute Neuts (auto) Absolute Nucleated RBC Nucleated RBC % (auto) VBG pH 7.42 VBG pCO2 39 VBG pO2 62 VBG HCO3 26 VBG O2 Saturation 91.0 VBG Base Excess 1.8 Sodium Potassium Chloride Carbon Dioxide Anion Gap BUN Creatinine Estim Creat Clear Calc Estimated GFR POC Glucose 92 113 Random Glucose Calcium Phosphorus Magnesium Total Bilirubin Direct Bilirubin AST ALT Alkaline Phosphatase Total Protein Albumin Triglycerides Lipase Urine Color Urine Appearance Urine pH Ur Specific [place] Urine Protein Urine Glucose (UA) Urine Ketones Urine Blood Urine Nitrite Ur Leukocyte Esterase Urine Opiates Screen Urine Fentanyl Screen Ur Barbiturates Screen Ur Phencyclidine Scrn Ur Amphetamines Screen U Benzodiazepines Scrn Urine Cocaine Screen U Marijuana (THC) Screen Ethyl Alcohol 11/07/22 11/07/22 11/07/22 07:18 07:18 07:18 WBC 16.6 H RBC 4.46 L Hgb 15.0 Hct 41.1 L MCV 92.2 MCH 33.6 H MCHC 36.5 H RDW 12.9 Plt Count 200 MPV 10.6 Immature Gran % (Auto) 0.6 H Neut % (Auto) 83.6 H Lymph % (Auto) 7.6 L [place] % (Auto) 7.9 Eos % (Auto) 0.1 Baso % (Auto) 0.2 Lymph # (Auto) 1.3 [place] # (Auto) 1.3 H Eos # (Auto) 0.0 Baso # (Auto) 0.0 Abs Immat Gran (auto) 0.10 H Absolute Neuts (auto) 13.9 H Absolute Nucleated RBC 0.000 Nucleated RBC % (auto) 0.0 VBG pH VBG pCO2 VBG pO2 VBG HCO3 VBG O2 Saturation VBG Base Excess Sodium 141 Potassium 3.2 L Chloride 105 Carbon Dioxide 25 Anion Gap 14 BUN 6 L Creatinine 0.86 Estim Creat Clear Calc 105.8 Estimated GFR > 60 POC Glucose Random Glucose 115 Calcium 9.2 D Phosphorus 1.8 L Magnesium 1.6 Total Bilirubin Direct Bilirubin AST ALT Alkaline Phosphatase Total Protein Albumin 3.7 Triglycerides Lipase Urine Color Urine Appearance Urine pH Ur Specific [place] Urine Protein Urine Glucose (UA) Urine Ketones Urine Blood Urine Nitrite Ur Leukocyte Esterase Urine Opiates Screen Urine Fentanyl Screen Ur Barbiturates Screen Ur Phencyclidine Scrn Ur Amphetamines Screen U Benzodiazepines Scrn Urine Cocaine Screen U Marijuana (THC) Screen Ethyl Alcohol 11/07/22 11/07/22 11/07/22 08:01 09:07 10:00 WBC RBC Hgb Hct MCV MCH MCHC RDW Plt Count MPV Immature Gran % (Auto) Neut % (Auto) Lymph % (Auto) [place] % (Auto) Eos % (Auto) Baso % (Auto) Lymph # (Auto) [place] # (Auto) Eos # (Auto) Baso # (Auto) Abs Immat Gran (auto) Absolute Neuts (auto) Absolute Nucleated RBC Nucleated RBC % (auto) VBG pH VBG pCO2 VBG pO2 VBG HCO3 VBG O2 Saturation VBG Base Excess Sodium Potassium Chloride Carbon Dioxide Anion Gap BUN Creatinine Estim Creat Clear Calc Estimated GFR POC Glucose 151 H 162 H 186 H Random Glucose Calcium Phosphorus Magnesium Total Bilirubin Direct Bilirubin AST ALT Alkaline Phosphatase Total Protein Albumin Triglycerides Lipase Urine Color Urine Appearance Urine pH Ur Specific [place] Urine Protein Urine Glucose (UA) Urine Ketones Urine Blood Urine Nitrite Ur Leukocyte Esterase Urine Opiates Screen Urine Fentanyl Screen Ur Barbiturates Screen Ur Phencyclidine Scrn Ur Amphetamines Screen U Benzodiazepines Scrn Urine Cocaine Screen U Marijuana (THC) Screen Ethyl Alcohol 11/07/22 11/07/22 11/07/22 11:06 12:01 13:22 WBC RBC Hgb Hct MCV MCH MCHC RDW Plt Count MPV Immature Gran % (Auto) Neut % (Auto) Lymph % (Auto) [place] % (Auto) Eos % (Auto) Baso % (Auto) Lymph # (Auto) [place] # (Auto) Eos # (Auto) Baso # (Auto) Abs Immat Gran (auto) Absolute Neuts (auto) Absolute Nucleated RBC Nucleated RBC % (auto) VBG pH VBG pCO2 VBG pO2 VBG HCO3 VBG O2 Saturation VBG Base Excess Sodium Potassium Chloride Carbon Dioxide Anion Gap BUN Creatinine Estim Creat Clear Calc Estimated GFR POC Glucose 140 H 137 H 124 H Random Glucose Calcium Phosphorus Magnesium Total Bilirubin Direct Bilirubin AST ALT Alkaline Phosphatase Total Protein Albumin Triglycerides Lipase Urine Color Urine Appearance Urine pH Ur Specific [place] Urine Protein Urine Glucose (UA) Urine Ketones Urine Blood Urine Nitrite Ur Leukocyte Esterase Urine Opiates Screen Urine Fentanyl Screen Ur Barbiturates Screen Ur Phencyclidine Scrn Ur Amphetamines Screen U Benzodiazepines Scrn Urine Cocaine Screen U Marijuana (THC) Screen Ethyl Alcohol Progress Note: A&P Assessment and plan (1) Alcohol abuse with withdrawal: Status: Acute (2) Acute pancreatitis: Status: Acute Plan Assessment: 57-year-old gentleman admitted with alcoholic pancreatitis with hypertriglyceridemia and delirium tremens Plan: Neuro: Delirium tremens, titrate off Precedex drip as tolerated. Cardiac: No acute issues. Pulmonary: No acute issues. Renal: No acute issues. Endo: Recurrent acute pancreatitis secondary to alcohol is min hypertriglyceridemia. Continue on insulin drip until triglycerides under 1000. GI: Acute pancreatitis with CT abdomen showing no drainable fluid collection. ID: No acute issues Heme/Onc: No acute issues. Psych: No acute issues. Miscellaneous: No acute issues. Prophylaxis: Heparin Diet: NPO Quality Stroke Does the patient have a stroke diagnosis?: No VTE Prior VTE?: No VTE Risk Level:: Medical - moderate - high VTE Device Contraindication: Treatment Not Indicated VTE Drug Contraindication: N/A - Med Ordered
--- NOTE | 2022-11-07 14:10 | P.DS_ITS ---
DS: Providers Provider Date of Service: 11/07/22 Date of admission: 11/06/22 23:47 Primary care physician: Unknown Physician DS: Diagnosis Discharge Diagnosis (1) Alcohol abuse with withdrawal: Status: Acute (2) Acute pancreatitis: Status: Acute (3) Hypertriglyceridemia: Status: Acute DS: Summary Hospital Course Hospital Course: 57-year-old gentleman with underlying history of alcohol abuse, recent admission for pancreatitis, opioid dependence admitted on 11/06/2022 with acute pancreatitis and alcohol withdrawal, initially to general medical [facility]. However, laboratory studies showed significant hypertriglyceridemia and patient was started on insulin drip and transferred to the intensive care unit. Patient cantankerous with care and requested to leave against medical advice. patient has been explained that he could secondary to under treated pancreatitis and alcohol withdrawal. Patient verbalized understanding and decided to leave against medical advice. Time Spent with Patient Time attestation: Total time managing care of this patient today ____ minutes. Discharge coordination time: Less than 30 minutes Quality: Safe Use of Opioids Does Pt have an Active Cancer Diagnosis on the Problem List?: No Quality: Stroke Does the patient have a stroke diagnosis?: No Physical Exam Vital Signs: Vital Signs: Last Vital Signs Temp 98.5 F 11/07/22 12:00 Pulse 53 11/07/22 13:00 Resp 20 11/07/22 13:00 BP 169/88 H 11/07/22 13:00 Pulse Ox 94 11/07/22 13:00 O2 Del Method Room Air 11/07/22 13:00 BMI result Body Mass Index 27.0 Const: General: no acute distress, alert and awake Eyes: Sclerae: sclerae normal EOM: EOMs intact bilaterally Neck: Neck: Yes no lymphadenopathy, Yes trachea midline and Yes supple Resp: Effort & Inspection: normal respiratory effort and no respiratory distress Auscultation: clear to auscultation bilaterally Cardio: Rate: regular rate Rhythm: regular rhythm Heart sounds: no gallops, no murmurs and no rubs GI: Palpation (GI): Soft to palpation and Other GI palpation findings present ( Nontender) Auscultation: normal bowel sounds Extrem: General: Yes no pedal edema, No clubbing and No cyanosis DS: Data Data Completed and Pending Labs on day of discharge: Laboratory Results - last 24 hr 11/06/22 11/06/22 11/07/22 17:23 17:23 02:35 WBC 12.0 H RBC 5.13 D Hgb 17.2 D Hct 46.0 D MCV 89.7 MCH 33.5 H MCHC 37.4 H RDW 12.6 Plt Count 236 D MPV 9.6 Immature Gran % (Auto) 0.3 Neut % (Auto) 71.8 Lymph % (Auto) 22.1 [place] % (Auto) 5.2 Eos % (Auto) 0.2 Baso % (Auto) 0.4 Lymph # (Auto) 2.6 [place] # (Auto) 0.6 Eos # (Auto) 0.0 Baso # (Auto) 0.1 Abs Immat Gran (auto) 0.04 H Absolute Neuts (auto) 8.6 H Absolute Nucleated RBC 0.000 Nucleated RBC % (auto) 0.0 VBG pH VBG pCO2 VBG pO2 VBG HCO3 VBG O2 Saturation VBG Base Excess Sodium 142 Potassium 4.0 D Chloride 102 Carbon Dioxide 18 L Anion Gap 26 H BUN 6 L Creatinine 0.95 Estim Creat Clear Calc 95.7 Estimated GFR > 60 POC Glucose Random Glucose 160 H Calcium 10.0 D Phosphorus Magnesium Total Bilirubin 1.4 H Direct Bilirubin 0.3 AST 61 H ALT 42 H Alkaline Phosphatase 121 H Total Protein 8.1 H Albumin 4.2 Triglycerides 1233 Lipase 292 H Urine Color Urine Appearance Urine pH Ur Specific [place] Urine Protein Urine Glucose (UA) Urine Ketones Urine Blood Urine Nitrite Ur Leukocyte Esterase Urine Opiates Screen POSITIVE H Urine Fentanyl Screen Not Detected Ur Barbiturates Screen Not Detected Ur Phencyclidine Scrn Not Detected Ur Amphetamines Screen Not Detected U Benzodiazepines Scrn Not Detected Urine Cocaine Screen Not Detected U Marijuana (THC) Screen POSITIVE H Ethyl Alcohol < 10 11/07/22 11/07/22 11/07/22 02:35 03:55 05:26 WBC RBC Hgb Hct MCV MCH MCHC RDW Plt Count MPV Immature Gran % (Auto) Neut % (Auto) Lymph % (Auto) [place] % (Auto) Eos % (Auto) Baso % (Auto) Lymph # (Auto) [place] # (Auto) Eos # (Auto) Baso # (Auto) Abs Immat Gran (auto) Absolute Neuts (auto) Absolute Nucleated RBC Nucleated RBC % (auto) VBG pH VBG pCO2 VBG pO2 VBG HCO3 VBG O2 Saturation VBG Base Excess Sodium Potassium Chloride Carbon Dioxide Anion Gap BUN Creatinine Estim Creat Clear Calc Estimated GFR POC Glucose 160 H 144 H Random Glucose Calcium Phosphorus Magnesium Total Bilirubin Direct Bilirubin AST ALT Alkaline Phosphatase Total Protein Albumin Triglycerides Lipase Urine Color Yellow Urine Appearance Clear Urine pH 5.5 Ur Specific [place] >= 1.030 H Urine Protein Negative Urine Glucose (UA) Negative Urine Ketones Negative Urine Blood Negative Urine Nitrite Negative Ur Leukocyte Esterase Negative Urine Opiates Screen Urine Fentanyl Screen Ur Barbiturates Screen Ur Phencyclidine Scrn Ur Amphetamines Screen U Benzodiazepines Scrn Urine Cocaine Screen U Marijuana (THC) Screen Ethyl Alcohol 11/07/22 11/07/22 11/07/22 06:11 07:08 07:14 WBC RBC Hgb Hct MCV MCH MCHC RDW Plt Count MPV Immature Gran % (Auto) Neut % (Auto) Lymph % (Auto) [place] % (Auto) Eos % (Auto) Baso % (Auto) Lymph # (Auto) [place] # (Auto) Eos # (Auto) Baso # (Auto) Abs Immat Gran (auto) Absolute Neuts (auto) Absolute Nucleated RBC Nucleated RBC % (auto) VBG pH 7.42 VBG pCO2 39 VBG pO2 62 VBG HCO3 26 VBG O2 Saturation 91.0 VBG Base Excess 1.8 Sodium Potassium Chloride Carbon Dioxide Anion Gap BUN Creatinine Estim Creat Clear Calc Estimated GFR POC Glucose 92 113 Random Glucose Calcium Phosphorus Magnesium Total Bilirubin Direct Bilirubin AST ALT Alkaline Phosphatase Total Protein Albumin Triglycerides Lipase Urine Color Urine Appearance Urine pH Ur Specific [place] Urine Protein Urine Glucose (UA) Urine Ketones Urine Blood Urine Nitrite Ur Leukocyte Esterase Urine Opiates Screen Urine Fentanyl Screen Ur Barbiturates Screen Ur Phencyclidine Scrn Ur Amphetamines Screen U Benzodiazepines Scrn Urine Cocaine Screen U Marijuana (THC) Screen Ethyl Alcohol 11/07/22 11/07/22 11/07/22 07:18 07:18 07:18 WBC 16.6 H RBC 4.46 L Hgb 15.0 Hct 41.1 L MCV 92.2 MCH 33.6 H MCHC 36.5 H RDW 12.9 Plt Count 200 MPV 10.6 Immature Gran % (Auto) 0.6 H Neut % (Auto) 83.6 H Lymph % (Auto) 7.6 L [place] % (Auto) 7.9 Eos % (Auto) 0.1 Baso % (Auto) 0.2 Lymph # (Auto) 1.3 [place] # (Auto) 1.3 H Eos # (Auto) 0.0 Baso # (Auto) 0.0 Abs Immat Gran (auto) 0.10 H Absolute Neuts (auto) 13.9 H Absolute Nucleated RBC 0.000 Nucleated RBC % (auto) 0.0 VBG pH VBG pCO2 VBG pO2 VBG HCO3 VBG O2 Saturation VBG Base Excess Sodium 141 Potassium 3.2 L Chloride 105 Carbon Dioxide 25 Anion Gap 14 BUN 6 L Creatinine 0.86 Estim Creat Clear Calc 105.8 Estimated GFR > 60 POC Glucose Random Glucose 115 Calcium 9.2 D Phosphorus 1.8 L Magnesium 1.6 Total Bilirubin Direct Bilirubin AST ALT Alkaline Phosphatase Total Protein Albumin 3.7 Triglycerides Lipase Urine Color Urine Appearance Urine pH Ur Specific [place] Urine Protein Urine Glucose (UA) Urine Ketones Urine Blood Urine Nitrite Ur Leukocyte Esterase Urine Opiates Screen Urine Fentanyl Screen Ur Barbiturates Screen Ur Phencyclidine Scrn Ur Amphetamines Screen U Benzodiazepines Scrn Urine Cocaine Screen U Marijuana (THC) Screen Ethyl Alcohol 11/07/22 11/07/22 11/07/22 08:01 09:07 10:00 WBC RBC Hgb Hct MCV MCH MCHC RDW Plt Count MPV Immature Gran % (Auto) Neut % (Auto) Lymph % (Auto) [place] % (Auto) Eos % (Auto) Baso % (Auto) Lymph # (Auto) [place] # (Auto) Eos # (Auto) Baso # (Auto) Abs Immat Gran (auto) Absolute Neuts (auto) Absolute Nucleated RBC Nucleated RBC % (auto) VBG pH VBG pCO2 VBG pO2 VBG HCO3 VBG O2 Saturation VBG Base Excess Sodium Potassium Chloride Carbon Dioxide Anion Gap BUN Creatinine Estim Creat Clear Calc Estimated GFR POC Glucose 151 H 162 H 186 H Random Glucose Calcium Phosphorus Magnesium Total Bilirubin Direct Bilirubin AST ALT Alkaline Phosphatase Total Protein Albumin Triglycerides Lipase Urine Color Urine Appearance Urine pH Ur Specific [place] Urine Protein Urine Glucose (UA) Urine Ketones Urine Blood Urine Nitrite Ur Leukocyte Esterase Urine Opiates Screen Urine Fentanyl Screen Ur Barbiturates Screen Ur Phencyclidine Scrn Ur Amphetamines Screen U Benzodiazepines Scrn Urine Cocaine Screen U Marijuana (THC) Screen Ethyl Alcohol 11/07/22 11/07/22 11/07/22 11:06 12:01 13:22 WBC RBC Hgb Hct MCV MCH MCHC RDW Plt Count MPV Immature Gran % (Auto) Neut % (Auto) Lymph % (Auto) [place] % (Auto) Eos % (Auto) Baso % (Auto) Lymph # (Auto) [place] # (Auto) Eos # (Auto) Baso # (Auto) Abs Immat Gran (auto) Absolute Neuts (auto) Absolute Nucleated RBC Nucleated RBC % (auto) VBG pH VBG pCO2 VBG pO2 VBG HCO3 VBG O2 Saturation VBG Base Excess Sodium Potassium Chloride Carbon Dioxide Anion Gap BUN Creatinine Estim Creat Clear Calc Estimated GFR POC Glucose 140 H 137 H 124 H Random Glucose Calcium Phosphorus Magnesium Total Bilirubin Direct Bilirubin AST ALT Alkaline Phosphatase Total Protein Albumin Triglycerides Lipase Urine Color Urine Appearance Urine pH Ur Specific [place] Urine Protein Urine Glucose (UA) Urine Ketones Urine Blood Urine Nitrite Ur Leukocyte Esterase Urine Opiates Screen Urine Fentanyl Screen Ur Barbiturates Screen Ur Phencyclidine Scrn Ur Amphetamines Screen U Benzodiazepines Scrn Urine Cocaine Screen U Marijuana (THC) Screen Ethyl Alcohol Discharge Plan Discharge Patient Disposition: Left Against Medical Advice Discharge Diagnosis: Acute pancreatitis, alcohol withdrawal. Referrals: Physician,Unknown J [Primary Care Provider] - 1 Week Discharge Medications: No Action buprenorphine-naloxone 4-1 mg Film 1 film BUCCAL Q24H Rx Instructions: place 1 strip/tab under (each) side of tongue ondansetron 4 mg tablet,disintegrating 4 mg PO Q8H PRN (Reason: Nausea And Vomiting) gabapentin 400 mg capsule 800 mg PO TID PRN (Reason: Alcohol Withdrawal) bupropion HCl 300 mg tablet extended release 24 hr 300 mg PO DAILY trazodone 100 mg tablet 100 mg PO BEDTIME Discharge Orders: Discharge Order (Routine); Ordered 11/07/22 Ordered By: Damion Flores Care Plan Goals: Patient left against medical advice. Health Concerns: Ongoing pancreatitis and alcohol withdrawal. Plan of Treatment: Patient left against medical advice. Assessment: Ongoing pancreatitis and alcohol withdrawal.
--- NOTE | 2022-11-07 14:45 | PC.NURSE ---
Assumed care of patient 06:35 Pt insulin gtt paused per protocol. 07:00 POC 113, continued to hold per protocol. 0800 POC 151, insulin gtt resumed @1unit/hr and titrated per protocol with Q1H POC glucose checks. 07:00-10:00 Pheno protocol continued with IM doses of 240 mg pheno x2. Pt CIWA 11. 10:30 Patient states he wants to leave the hospital. Education provided on insulin gtt and health status of high triglycerides and pancreatitis. Pt became increasingly agitated, yelling get out of here. Security called. 10:40 Per MD, pt given 2 mg versed IVP once. Positive effect, RN assisted pt to lay down in bed. Precedex gtt started @1. Pt resting comfortably, decreased CIWA score 10:40-13:00 13:06 RN attempted to add additional IV access for pt. Pt refused IV. Pt became agitated and states he wants to leave the hospital, asked to be disconnected from lines. PRN versed 2mg given IVP. MD notified. Per MD states precedex paused. Insulin gtt paused. 14:00 Pt signed AMA form, education provided. 14:15 Pt escorted via wheel chair to main exit by security.
--- NOTE | 2022-11-08 14:07 | PC.NURSE ---
Medication discrepancy resolved per [employer] [facility] Event. This RN was contacted regarding a missing medication administration. Versed 2mg IVP given once per MD verbal order at bedside 11/07/22 at 10:40 for patient agitation and restlessness, witnessed by 2nd RN. Versed 2mg vial was obtained via override in [facility]. Med not scanned at this time due to waiting for provider order to be entered in MAR. See previous nurse note from 01/07/23. 01/08/23 14:10 discrepancy fixed by reflecting PRN Versed 2mg IVP was administered at 10:40 for this patient.
== END 2022-11-07 14:15 | disposition left against medical advice (07) | DRG 642 ==
LOC: HO.ED 18:06 → HO.EDOVER 23:50 → HO.ICU 11-07 03:35
PROVIDERS: Nurse Practitioner Family; Admitting Provider Internal Medicine; Emergency Provider Internal Medicine; Visit Provider Internal Medicine Pulmonary Disease
DX: E78.1 Pure hyperglyceridemia (principal); K85.20 Alcohol induced acute pancreatitis without necrosis or infection; F10.139 Alcohol abuse with withdrawal, unspecified; F11.20 Opioid dependence, uncomplicated; K76.0 Fatty (change of) liver, not elsewhere classified; K83.8 Other specified diseases of biliary tract; Z87.891 Personal history of nicotine dependence; Z79.899 Other long term (current) drug therapy
CPT/HCPCS: 36415; 74177; 80048; 80053; 80307; 81003; 82040; 82248; 82803; 82947; 83690; 83735; 84100; 84478; 85025; 93005; 99285; J1170; J1650; J2060; J2250; J2270; J2405; J2560; Q9967

== ENCOUNTER → 2022-11-06 17:38 | Outpatient (BNV) | payer OTHER, SELFPAY | PROVIDERS: Admitting Provider Internal Medicine; Emergency Provider Internal Medicine; Visit Provider Internal Medicine Cardiovascular Disease | DX: R00.1 Bradycardia, unspecified (principal) | CPT/HCPCS: 93010 ==

== ENCOUNTER → 2022-11-06 23:47 | Outpatient (BNV) | payer OTHER, SELFPAY | PROVIDERS: Admitting Provider Internal Medicine; Emergency Provider Internal Medicine; Visit Provider Internal Medicine | DX: K85.20 Alcohol induced acute pancreatitis without necrosis or infection (principal); F10.139 Alcohol abuse with withdrawal, unspecified | CPT/HCPCS: 99223 ==

== ENCOUNTER → 2022-11-06 23:47 | Outpatient (BNV) | payer OTHER, SELFPAY | PROVIDERS: Admitting Provider Internal Medicine; Emergency Provider Internal Medicine; Visit Provider Internal Medicine Pulmonary Disease | DX: K85.20 Alcohol induced acute pancreatitis without necrosis or infection (principal); F10.139 Alcohol abuse with withdrawal, unspecified; E78.1 Pure hyperglyceridemia | CPT/HCPCS: 99238 ==

== ENCOUNTER 2023-05-30 17:54 | Inpatient (IN) | payer OTHER, SELFPAY ==
--- NOTE | ~2023-05-30 | XR_ITS ---
EXAMINATION: XR CHEST CLINICAL INFORMATION: Chest pain COMPARISON: 04/11/22 TECHNIQUE: Frontal portable view of the chest was obtained. FINDINGS: Devices overlie the patient. No hilar mass. No edema. There are scattered calcified nodules. There is no pleural fluid or pneumothorax. XR/XR chest 1V IMPRESSION: No pneumonia or edema.
--- NOTE | ~2023-05-30 | CT_ITS ---
EXAMINATION: CT ABDOMEN AND PELVIS WITH CONTRAST CLINICAL INFORMATION: Abdominal pain, nausea, vomiting, history of alcohol use. COMPARISON: CT abdomen/pelvis 11/06/2022. TECHNIQUE: Multidetector volumetric images were obtained from the superior aspect of the liver through the pubic symphysis following administration 85 mL of Omnipaque 350 intravenous contrast. Sagittal and coronal reformatted images were obtained on the technologist's workstation. Oral contrast: No This CT examination was performed using dose optimization techniques as appropriate, variously including the following: *Automated exposure control *Adjustment of mA and/or kV according to patient size (this includes techniques or standardized protocols for targeted exams where dose is matched to indication/reason for exam; i.e. extremities or head) *Use of iterative reconstruction technique DLP: 636 mGy-cm FINDINGS: LUNG BASES: No focal consolidation or pleural effusion. Scattered calcified granulomas. LIVER, GALLBLADDER, AND BILIARY TREE: Enlarged liver measuring 21 cm craniocaudally with decreased parenchymal attenuation consistent with hepatic steatosis. There is suggestion of a subtle nodular contour of the liver best visualized on coronal images, that raises concern for underlying cirrhosis. Redemonstration of a few regions of low attenuation with no mass effect adjacent to the fissure of the falciform ligament and gallbladder fossa, favoring to represent areas of differential focal fatty infiltration. A discrete liver mass is not seen, although evaluation is limited in view of the degree of hepatic steatosis. No calcified cholelithiasis. No significant gallbladder wall thickening or pericholecystic inflammatory changes to suspect acute cholecystitis. Stable nonspecific extrahepatic biliary ductal dilatation, common bile duct measures up to 1 cm. No significant intrahepatic biliary ductal dilatation. PANCREAS: Diffuse peripancreatic fat stranding/free fluid most consistent with acute pancreatitis. The main pancreatic duct is mildly dilated up to 0.5 cm, slightly increased compared to most recent prior. No organized collection. No foci of air. No significant parenchymal or peripancreatic heterogeneity to suspect necrosis at this time. SPLEEN: Again noted granulomas. ADRENAL GLANDS: Unremarkable. KIDNEYS AND URETERS: The kidneys are normal in size, shape, and attenuation. Too small to characterize cortical hypodensity in the upper right kidney (8:90) favored to represent a simple cyst for which no imaging follow-up is recommended. No hydronephrosis, hydroureter, or calculi seen. No perinephric stranding. BLADDER: Unremarkable. GASTROINTESTINAL TRACT: The stomach and the small bowel are nondilated. Normal appendix. Colonic diverticulosis without significant pericolonic inflammatory changes. No evidence of bowel obstruction. ABDOMINAL WALL: No significant hernia is appreciated. LYMPH NODES: No lymphadenopathy. VASCULAR: Moderate to severe atherosclerotic disease. Normal caliber abdominal aorta. Main portal vein is patent. PELVIC VISCERA: Unremarkable. OSSEOUS STRUCTURES: Posterior fusion hardware from L3 through L5 with interdisc spacer at L4-L5. Stable ventral body fracture at L5 with unchanged approximately 0.8 cm of retropulsion into the spinal canal. Ghost tract in the left femur from prior hardware. Stable mixed lucent and sclerotic osseous lesion in the posterior right iliac bone (3:56). CT/CT abdomen pelvis w IV con IMPRESSION: 1. Edematous pancreas with surrounding inflammatory changes most consistent with acute interstitial pancreatitis. 2. Slightly increased nonspecific dilatation of the main pancreatic duct which could represent sequela of chronic pancreatitis. Further characterization with abdominal MRI pancreas protocol/MRCP would be beneficial for evaluation of stricture, internal calculi or any other obstructive abnormality. 3. Hepatomegaly and hepatic steatosis with suggestion of a subtle nodular contour of the liver raising the possibility of underlying cirrhosis. Further evaluation for HCC at the time of imaging of the pancreatic MRI is recommended.
[2023-05-30 18:13] VITALS: BP 142/106; BP 186/98; PULSE 63; PULSE 65; RESP 18; TEMP 36.4; O2SAT 100; O2SAT 99; BMI 26.6
--- NOTE | 2023-05-30 18:23 | ECG_ITS ---
Test Reason : NAUSEA/VOMITING Blood Pressure : / mmHG Vent. Rate : 060 BPM Atrial Rate : 060 BPM P-R Int : 144 ms QRS Dur : 072 ms QT Int : 458 ms P-R-T Axes : 028 030 030 degrees QTc Int : 458 ms Normal sinus rhythm Normal ECG When compared with ECG of 06-NOV-2022 17:38, No significant change was found Referred By: Leonel Ernst Electronically Signed By:Keith Camacho
[2023-05-30] MEDS: HYDROmorphone HCl 1 MG/ML SYRINGE IVPUSH ×3 (18:37→22:31)
[2023-05-30] MEDS: diphenhydrAMINE HCL 50 MG/ML VIAL 25 MG IVPUSH ×2 (18:39→22:30)
[2023-05-30] MEDS: 0.9 % Sodium Chloride 1,000 ML 999 ML IV (18:44)
[2023-05-30] MEDS: Metoclopramide HCl 10 MG/2 ML VIAL IVPUSH (18:46)
[2023-05-30 19:34] VITALS: BP 164/73; PULSE 62; RESP 16; TEMP 36.6; O2SAT 97
[2023-05-30 19:36] LABS: MANUAL DIFF FLAG NO
[2023-05-30 19:38] LABS: Basophils Percent Auto 0.3 % (0-2); Hematocrit 44.1 % (42.0-52.0); Hemoglobin 16.3 g/dl (14.0-18.0); Imm Gran Abs Auto 0.03 X10*3/uL (0.00-0.03); Imm Gran Pct Auto 0.3 % (0.0-0.4); Lymphocytes Absolute Auto 0.5 X10*3/uL (1.2-4.9); Lymphocytes Percent Auto 3.9 % (20-40); Mean Corpuscular Hemoglobin 33.3 pg (27.0-33.0); Mean Corpuscular Volume 90.2 fL (80.0-98.0); Mean Platelet Volume 9.9 fL (9.4-12.4); Monocytes Absolute Auto 0.7 X10*3/uL (0.1-1.2); Neutrophils Absolute Auto 10.7 x10*3/uL (2.0-8.3); Neutrophils Percent Auto 89.5 % (45-73); Platelet Count 178 X10*3/uL (160-400); Red Blood Count 4.89 X10*6/uL (4.60-5.80); Red Cell Distribution Width 12.5 % (11.0-16.0); White Blood Count 11.9 X10*3/uL (4.8-10.8)
--- NOTE | 2023-05-30 19:40 | MHC.EDTECH ---
PATIENT WAS BIBA FROM HOME ,PATIENT WAS CHANGE INTO HOSPITAL [facility] ,VITALS TAKEN ,BLOOD DRAWN AND RSV/COVID TAKEN AND SENT TO LAB ,EKG TAKEN AND WAS READ BY PROVIDER ,PATIENT WAS HOOKED UP TO SERVICE DESK SPECIALIST .
[2023-05-30 19:46] LABS: Partial Thromboplastin Time 27.9 SEC (26.0-36.8)
--- NOTE | 2023-05-30 19:50 | ED.ABDPAIN ---
HPI - Abdominal Pain General Chief Complaint: Nausea/Vomiting/Diarrhea Stated Complaint: N/V/CP PER EMS Time Seen by Provider: 05/30/23 17:58 Source: patient Mode of arrival: ambulatory Limitations: no limitations History of Present Illness HPI narrative: 57-year-old male with a history of pancreatitis, alcohol use disorder, buprenorphine dependence, chronic abdominal pain who presents emergency department for evaluation of abdominal pain, chest pain, nausea, vomiting and hematemesis. Patient states that he does drink alcohol and that he had at least 5 years and 2 nips of whiskey yesterday with his last drink being at 21:00 hours yesterday. Today he developed abdominal pain with nausea and vomiting. He states that he vomited multiple times and after several episodes of vomiting he did vomit up bright red blood, proximally 1/2-1 cup full of blood. He states that he has severe abdominal pain in the points to his epigastric area when asked to localize the pain. He states that it feels similar to his pancreatitis pain that he has had in the past. Patient had subjective fever and chills, he denied rhinorrhea, sore throat, cough, , shortness of breath or dyspnea on exertion. Patient states that he has never had delirium tremors or alcohol withdrawal seizures but he does get tremulous when he stops drinking. Paramedics did give the patient Zofran 4 mg IV, aspirin 324 mg to chew and 1 nitroglycerin sublingually prior to coming to the emergency department Related Data Home Medications Medication Instructions Recorded Confirmed bupropion HCl 300 mg 24 hr tablet, 300 mg PO DAILY 12/09/21 11/06/22 extended release gabapentin 400 mg capsule 800 mg PO TID PRN Alcohol 12/09/21 11/06/22 Withdrawal trazodone 100 mg tablet 100 mg PO BEDTIME 12/09/21 11/06/22 buprenorphine 4 mg-naloxone 1 mg 1 film buccal Q24H 08/22/22 11/06/22 sublingual film ondansetron 4 mg disintegrating 4 mg PO Q8H PRN Nausea And Vomiting 08/22/22 11/06/22 tablet Allergies Allergy/AdvReac Type Severity Reaction Status Date / Time No Known Allergies Allergy Verified 11/06/22 17:27 Review of Systems Review of Systems Yes all other systems are reviewed and are negative [facility] Past Medical History [facility] Narrative: Social history: He denies tobacco use. He does smoke cigarettes daily. He denies drug use. Medical History Alcohol use Buprenorphine dependence Chronic abdominal pain History of pancreatitis Surgical History History of back surgery Social History Social History Household Members: None Housing: Apartment Do you presently have visiting nurse or other home services: No Alcohol intake: current Alcohol intake frequency: 3 or more drinks per day Alcohol type: beer and hard liquor Patient Tobacco Use Status: Former Tobacco user Tobacco use type: Cigarette Smoked in Last 30 Days: No e-Cigarette/Vaping Use: Never Used Second Hand Smoke Exposure: No Use of substances other than those prescribed or required for medical reasons: No Substance Use Type: Marijuana and Other Advance Directives: No Advance Directives Information Provided: No service: No Current occupational status: unemployed Physical Exam ED Vital Signs: Vital Signs - 24 hr 05/30/23 18:13 05/30/23 19:34 05/30/23 21:45 Temperature 97.5 F 97.8 F 97.8 F Pulse Rate 63 62 73 Respiratory Rate 18 16 16 Blood Pressure 142/106 H 164/73 H 169/74 H Pulse Oximetry 99 97 97 Oxygen Delivery Method Room Air Room Air Room Air BMI result Body Mass Index 26.6 Vital signs revealed an elevated blood pressure of 142/106 otherwise unremarkable Exam: General: Awake, with active nausea and vomiting, appears to be in distress secondary to his abdominal pain Head: Normocephalic, atraumatic EENT: PERRL, Lids normal, sclera normal, conjunctiva normal, nose normal , ears normal, throat without erythema or exudates Neck: Supple, no adenopathy Lung: breath sounds symmetric, no wheezing, rales or rhonchi Chest: symmetric movement, nontender Heart: regular rate and rhythm, normal S1, S2 no murmurs or rubs Abdomen: soft, moderate to severe epigastric tenderness, moderate diffuse abdominal tenderness, nondistended, normal bowel sounds Extremities: no deformities, moves all extremities symmetrically Neuro: Awake, alert, oriented, normal speech, cranial nerves intact, moves all extremities symmetrically Medical Decision Making Medical Decision Making MDM Narrative: 57-year-old male with a history of pancreatitis, alcohol use disorder, buprenorphine dependence, chronic abdominal pain who presents emergency department for evaluation of abdominal pain, chest pain, nausea, vomiting and hematemesis with symptoms starting this morning. Patient reports 1 episode of hematemesis after multiple episodes of vomiting, he estimated approximate 1/2-1 cup of bright red blood in his emesis. Patient continues to drink alcohol and was drinking yesterday his last drink being at 19:00 hours. Patient states his pain feels similar to his pancreatitis pain. Vital signs revealed an elevated blood pressure. Patient was actively vomiting while he was in the emergency department. Exam did reveal moderate to severe epigastric tenderness as well as moderate diffuse abdominal tenderness. Differential diagnosis: ?Includes but is not limited to pancreatitis, gastritis, esophagitis, Alesha-Mendez tear, electrolyte abnormalities, anemia Following evaluation was ordered: CBC, CMP, lactic acid, lipase, ethanol level, troponin, BNP, urinalysis, COVID-19, influenza, RSV, EKG, chest x-ray one view, CT scan abdomen pelvis with IV and oral contrast Patient was initially treated with the following: IV insert, normal saline x1 L, Dilaudid 1 mg IV, Benadryl 25 mg IV, Zofran 4 mg IV Course: 22:02 Patient required a 2nd dose of Dilaudid 1 mg IV for pain and Reglan 10 mg with 25 mg of Benadryl IV for persistent nausea. My interpretation patient's laboratory evaluation is as follows: CBC was normal. AST, ALT and alkaline phosphatase were elevated 95, 83 and 128. Glucose elevated 136. Lactic acid elevated 2.4. Lipase was elevated at 377 which is 4-[address] scan of the abdomen pelvis with IV contrast is consistent with acute on chronic pancreatitis with possible cirrhosis of the liver. Patient will need to be admitted for further management of his pancreatitis I did discuss admission over tiger text with the covering hospitalist, Dr. Inderjit Wilkinson and the patient will be admitted for further management. Lab Data 05/30/23 19:28 05/30/23 19:28 Labs: Lab Results 05/30/23 05/30/23 Range/Units 19:28 21:44 WBC 11.9 H (4.8-10.8) X10*3/uL RBC 4.89 (4.60-5.80) X10*6/uL Hgb 16.3 (14.0-18.0) g/dl Hct 44.1 (42.0-52.0) % MCV 90.2 (80.0-98.0) fL MCH 33.3 H (27.0-33.0) pg MCHC 37.0 H (31.0-36.0) g/dl RDW 12.5 (11.0-16.0) % Plt Count 178 (160-400) X10*3/uL MPV 9.9 (9.4-12.4) fL Immature Gran % (Auto) 0.3 (0.0-0.4) % Neut % (Auto) 89.5 H (45-73) % Lymph % (Auto) 3.9 L (20-40) % [place] % (Auto) 6.0 (2-11) % Eos % (Auto) 0.0 (0-4) % Baso % (Auto) 0.3 (0-2) % Lymph # (Auto) 0.5 L (1.2-4.9) X10*3/uL [place] # (Auto) 0.7 (0.1-1.2) X10*3/uL Eos # (Auto) 0.0 (0.0-0.4) X10*3/uL Baso # (Auto) 0.0 (0.0-0.2) X10*3/uL Abs Immat Gran (auto) 0.03 (0.00-0.03) X10*3/uL Absolute Neuts (auto) 10.7 H (2.0-8.3) x10*3/uL Absolute Nucleated RBC 0.000 (0.0-0.012) X10*3/uL Nucleated RBC % (auto) 0.0 (0.0-0.2) /100WBC APTT 27.9 (26.0-36.8) SEC Sodium 138 (135-145) mmol/L Potassium 3.7 (3.3-5.1) mmol/L Chloride 102 (96-108) mmol/L Carbon Dioxide 27 (22-29) mmol/L Anion Gap 13 (12-20) BUN 6 L (9-16) mg/dL Creatinine 0.89 (0.5-1.4) mg/dL Estim Creat Clear Calc 102.2 Estimated GFR > 60 Random Glucose 136 H (60-115) mg/dL Lactic Acid 2.4 H* (0.5-2.0) mmol/L Lactic Acid F/U @ 2Hr 1.2 (0.5-2.0) mmol/L Calcium 9.4 (8.4-10.2) mg/dL Total Bilirubin 1.2 H (0.0-1.0) mg/dL AST 95 H (5-37) U/L ALT 83 H (0-40) U/L Alkaline Phosphatase 128 H (39-117) U/L Troponin I High Sens < 2.7 (<3.5-35.0) ng/L B-Natriuretic Peptide 77 (<100) pg/mL Total Protein 7.2 (6.5-8.0) g/dL Albumin 3.9 (3.5-5.0) g/dL Lipase 377 H (8-78) U/L Ethyl Alcohol < 10 mg/dL Influenza Type A (PCR) NEGATIVE (Negative) Influenza Type B (PCR) NEGATIVE (Negative) RSV RNA Qual (PCR) NEGATIVE (Negative) SARS-CoV-2 RNA (RT-PCR) NEGATIVE (Negative) Independent Interpretation I performed an independent interpretation of an: Plain X-Ray Interpretation: My interpretation patient's one-view chest x-ray is as follows: No acute disease My interpretation patient's 12 EKG done at 19:08 hours is as follows: Normal sinus rhythm rate of 60, normal NM interval, QRS duration QTC interval, no ST segment elevation, no ST segment depression, no significant T-wave abnormalities, no PACs, no PVCs-this is a normal EKG Radiology Impression Discussion of test interpretation with radiology: I have reviewed the radiologist's reading. Radiologist Impression: CT abdomen pelvis w IV con IMPRESSION: 1. Edematous pancreas with surrounding inflammatory changes most consistent with acute interstitial pancreatitis. 2. Slightly increased nonspecific dilatation of the main pancreatic duct which could represent sequela of chronic pancreatitis. Further characterization with abdominal MRI pancreas protocol/MRCP would be beneficial for evaluation of stricture, internal calculi or any other obstructive abnormality. 3. Hepatomegaly and hepatic steatosis with suggestion of a subtle nodular contour of the liver raising the possibility of underlying cirrhosis. Further evaluation for HCC at the time of imaging of the pancreatic MRI is recommended. Dictated By: Radha Rubio Medications Administered Discontinued Medications Generic Name Dose Route Start Last Admin Trade Name Freq PRN Reason Stop Dose Admin Diphenhydramine HCl 25 mg 05/30/23 18:29 05/30/23 18:39 Diphenhydramine Hcl 50 Mg/Ml Vial IVPUSH 05/30/23 18:30 25 mg ONCE ONE Administration Hydromorphone HCl 1 mg 05/30/23 18:29 05/30/23 18:37 Hydromorphone Hcl 1 Mg/Ml Syringe IVPUSH 05/30/23 18:30 1 mg ONCE STA Administration Protocol Hydromorphone HCl 1 mg 05/30/23 19:59 05/30/23 20:05 Hydromorphone Hcl 1 Mg/Ml Syringe IVPUSH 05/30/23 20:00 1 mg ONCE STA Administration Protocol Sodium Chloride 1,000 mls @ 999 mls/hr 05/30/23 18:23 05/30/23 20:01 Ns IV 05/30/23 19:23 Infused .Q1H1M STA Infusion Iohexol 100 ml 05/30/23 20:35 05/30/23 20:35 Iohexol 350 Mg/Ml 100 Ml Infus..Btl IV 05/30/23 20:36 85 ml ONCE ONE Administration Metoclopramide HCl 10 mg 05/30/23 18:29 05/30/23 18:46 Metoclopramide Hcl 10 Mg/2 Ml Vial IVPUSH 05/30/23 18:30 10 mg ONCE STA Administration Critical Care Time Critical Care Time Critical Care Time: Yes Total Critical Care Time: 45 Attestation: Critical Care: The patient was critically ill with a high probability of imminent or life threatening deterioration. I spent greater than 30 minutes of discontinuous time evaluating the patient,delivering critical care at the bedside, discussing and evaluating pertinent data with consultants. Critical care time does not include time spent performing separately billable procedures or teaching. Total time spent performing critical care was 45 minutes. Discharge Plan Discharge Patient Disposition: Admitted As Inpatient Prescriptions: No Action buprenorphine-naloxone 4-1 mg Film 1 film BUCCAL Q24H Rx Instructions: place 1 strip/tab under (each) side of tongue ondansetron 4 mg tablet,disintegrating 4 mg PO Q8H PRN (Reason: Nausea And Vomiting) gabapentin 400 mg capsule 800 mg PO TID PRN (Reason: Alcohol Withdrawal) bupropion HCl 300 mg tablet extended release 24 hr 300 mg PO DAILY trazodone 100 mg tablet 100 mg PO BEDTIME
[2023-05-30 19:58] LABS: B Type Natriuretic Peptide 77 pg/mL (<100)
[2023-05-30 20:07] LABS: Alanine Aminotransferase 83 U/L (0-40); Albumin Level 3.9 g/dL (3.5-5.0); Alkaline Phosphatase 128 U/L (39-117); Anion Gap 13 (12-20); Aspartate Amino Transferase 95 U/L (5-37); Bilirubin Total 1.2 mg/dL (0.0-1.0); Blood Urea Nitrogen 6 mg/dL (9-16); Calcium 9.4 mg/dL (8.4-10.2); Carbon Dioxide 27 mmol/L (22-29); Chloride 102 mmol/L (96-108); Creatinine Clr Calc Pharmacy 102.2; Estimated Glomerular Filt Rate > 60; Ethanol < 10 mg/dL; Glucose Random 136 mg/dL (60-115); Potassium 3.7 mmol/L (3.3-5.1); Sodium 138 mmol/L (135-145); Total Protein 7.2 g/dL (6.5-8.0); Troponin-I High Sensitivity < 2.7 ng/L (<3.5-35.0)
[2023-05-30 20:16] LABS: Influenza A PCR NEGATIVE (Negative); Influenza B PCR NEGATIVE (Negative); Resp Syncy Virus RNA Qual PCR NEGATIVE (Negative); SARS COV2 PCR INHOUSE NEGATIVE (Negative)
[2023-05-30 20:22] LABS: Lipase 377 U/L (8-78)
[2023-05-30] MEDS: iohexoL 350 MG/ML 100 ML INFUS..BTL IV (20:35)
[2023-05-30 21:34] LABS: Reflex Lactate? Lactic Acid Added
[2023-05-30 21:45] VITALS: BP 169/74; PULSE 73; RESP 16; TEMP 36.6; O2SAT 97
--- NOTE | 2023-05-30 21:46 | MHC.EDTECH ---
2200 vitals taken and 2nd lactic acid drawn and sent to lab .
[2023-05-30 22:02] LABS: ~Lactic Acid-LAB USE ONLY 1.2 mmol/L (0.5-2.0)
[2023-05-30] MEDS: ondansetron HCL 4 MG/2 ML VIAL IVPUSH (22:30)
[2023-05-30] MEDS: Lactated Ringers 1,000 ML 150 ML IVCONT (22:31)
[2023-05-30] MEDS: Lactated Ringers 1,000 ML 999 ML IV (22:32)
--- NOTE | 2023-05-30 22:55 | PM.IMHP ---
History of Present Illness Date of Service: 05/30/23 Attending physician on admission: Calvin Wilkinson Chief Complaint: Abdominal pain Josh Emery is a 57 years old man with past medical history is significant for alcohol abuse, opioid dependence on Suboxone and previous episode of pancreatitis presents to the emergency department complaining of upper abdominal pain associated with multiple events of violent vomiting. He had an event of bloody vomiting (bright red blood). He denies diarrhea, fever or chills. He did not report any headache, palpitations or dizziness. He denies shortness or breath, cough or chest pain. He drinks daily (about 4 alcoholic drinks -last 1 was last night). He denied tobacco smoking or illicit drug use. He has not been using new medications. In the ED, he was found to have mild tachycardia and elevated blood pressure, last BP is 176/89. Blood workup is remarkable for mild leukocytosis, 11.9. Lipase is 377. LFTs are elevated. Lipase was initially elevated 2.9 with normalized after IV fluids given. Viral testing for influenza, COVID-19 RSV is negative. ED tx: NS 1 L bolus, Dilaudid (3 mg IV total), Reglan 10 mg IV, Benadryl 50 mg IV, Zofran 4 mg IV Review of Systems Review of Systems: All 12 systems were reviewed and normal except as noted in HPI. [facility] Medical History Alcohol use Buprenorphine dependence Chronic abdominal pain History of pancreatitis Surgical History History of back surgery Social History Household Members: None Housing: Apartment Do you presently have visiting nurse or other home services: No Alcohol intake: current Alcohol intake frequency: 3 or more drinks per day Alcohol type: beer and hard liquor Patient Tobacco Use Status: Former Tobacco user Tobacco use type: Cigarette Smoked in Last 30 Days: No e-Cigarette/Vaping Use: Never Used Second Hand Smoke Exposure: No Use of substances other than those prescribed or required for medical reasons: No Substance Use Type: Marijuana and Other Advance Directives: No Advance Directives Information Provided: No service: No Current occupational status: unemployed Meds Allergies Allergy/AdvReac Type Severity Reaction Status Date / Time No Known Allergies Allergy Verified 11/06/22 17:27 Active Medications: Current Medications Heparin Sodium (Porcine) (Heparin Sodium,Porcine 5,000 Unit/Ml Vial) 5,000 unit SUBCUT Q8H [facility] Hydromorphone HCl (Hydromorphone Hcl 1 Mg/Ml Syringe) 1 mg IVPUSH Q4H PRN; Protocol PRN Reason: Pain, Severe (Pain Scale 7-10) Lactated Ringer's (Lr) 1,000 mls @ 150 mls/hr IVCONT .Q6H40M [facility] Last Admin: 05/30/23 22:31 Dose: 150 mls/hr Lactated Ringer's (Lr) 1,000 mls @ 999 mls/hr IV .Q1H1M [facility] Stop: 05/30/23 23:30 Last Admin: 05/30/23 22:32 Dose: 999 mls/hr Thiamine HCl 100 mg/ Sodium (Chloride) 101 mls @ 202 mls/hr IV DAILY [facility] Ondansetron HCl (Ondansetron Hcl 4 Mg/2 Ml Vial) 4 mg IVPUSH Q6H PRN PRN Reason: Nausea and Vomiting Pantoprazole Sodium (Pantoprazole Sodium 40 Mg/10 Ml Vial) 40 mg IVPUSH BID [facility] Sodium Chloride (0.9 % Sodium Chloride Flush 3 Ml Syringe) 3 ml IVFLUSH QSHIFT [facility] Home Medications Medication Instructions Recorded Confirmed Last Taken Type bupropion HCl 300 mg 24 hr tablet, 300 mg PO DAILY 12/09/21 11/06/22 11/05/22 History extended release gabapentin 400 mg capsule 800 mg PO TID PRN Alcohol 12/09/21 11/06/22 11/05/22 History Withdrawal trazodone 100 mg tablet 100 mg PO BEDTIME 12/09/21 11/06/22 11/05/22 History buprenorphine 4 mg-naloxone 1 mg 1 film buccal Q24H 08/22/22 11/06/22 11/03/22 History sublingual film ondansetron 4 mg disintegrating 4 mg PO Q8H PRN Nausea And Vomiting 08/22/22 11/06/22 Unknown History tablet Physical Exam Vital Signs and Narrative: Vital Signs: Last Vital Signs Temp 97.8 F 05/30/23 21:45 Pulse 73 03/05/24 21:45 Resp 16 05/30/23 21:45 BP 169/74 H 05/30/23 21:45 Pulse Ox 97 05/30/23 21:45 O2 Del Method Room Air 05/30/23 21:45 BMI result Body Mass Index 26.6 Constitutional - Awake and Alert, No apparent distress. Cooperative. HEENT - Pupils equally round, normal sclerae. Dry oral mucosa. Heart - tachycardia. Regular rhythm. No murmurs. Lungs - Normal lung expansion, Normal respiratory effort, No respiratory distress, CTA bilaterally Gastrointestinal - +BS; no distention. Epigastrium: Tenderness with rebound. Extremities - no calf tenderness bilaterally, no swelling Musculoskeletal - Normal inspection, normal ROM Skin - Warm/Dry Neurological - Alert & oriented x3. No focal weakness grossly noted. Normal speech. Psychological - Appropriate affect Results Labs 05/30/23 19:28 05/30/23 19:28 Labs: Laboratory Results - last 24 hr 05/30/23 05/30/23 19:28 21:44 MCV 90.2 MCH 33.3 H MCHC 37.0 H RDW 12.5 Plt Count 178 MPV 9.9 Immature Gran % (Auto) 0.3 Neut % (Auto) 89.5 H Lymph % (Auto) 3.9 L [place] % (Auto) 6.0 Eos % (Auto) 0.0 Baso % (Auto) 0.3 Lymph # (Auto) 0.5 L [place] # (Auto) 0.7 Eos # (Auto) 0.0 Baso # (Auto) 0.0 Abs Immat Gran (auto) 0.03 Absolute Neuts (auto) 10.7 H Absolute Nucleated RBC 0.000 Nucleated RBC % (auto) 0.0 APTT 27.9 Anion Gap 13 Estim Creat Clear Calc 102.2 Estimated GFR > 60 Random Glucose 136 H Lactic Acid 2.4 H* Lactic Acid F/U @ 2Hr 1.2 Calcium 9.4 Total Bilirubin 1.2 H AST 95 H ALT 83 H Alkaline Phosphatase 128 H Troponin I High Sens < 2.7 B-Natriuretic Peptide 77 Total Protein 7.2 Albumin 3.9 Lipase 377 H Ethyl Alcohol < 10 Influenza Type A (PCR) NEGATIVE Influenza Type B (PCR) NEGATIVE RSV RNA Qual (PCR) NEGATIVE SARS-CoV-2 RNA (RT-PCR) NEGATIVE Imaging Radiologist's Impressions: Impressions Chest X-Ray 05/30/23 19:05 IMPRESSION: No pneumonia or edema. Abdomen/Pelvis CT 05/30/23 20:42 IMPRESSION: 1. Edematous pancreas with surrounding inflammatory changes most consistent with acute interstitial pancreatitis. 2. Slightly increased nonspecific dilatation of the main pancreatic duct which could represent sequela of chronic pancreatitis. Further characterization with abdominal MRI pancreas protocol/MRCP would be beneficial for evaluation of stricture, internal calculi or any other obstructive abnormality. 3. Hepatomegaly and hepatic steatosis with suggestion of a subtle nodular contour of the liver raising the possibility of underlying cirrhosis. Further evaluation for HCC at the time of imaging of the pancreatic MRI is recommended. Assessment and Plan (1) Alcohol use disorder: Status: Acute (2) Alcoholic gastritis: Qualifiers: Chronicity: acute Status: Acute (3) Acute pancreatitis: Qualifiers: Acute pancreatitis complication: no infection or necrosis Pancreatitis type: alcohol induced Qualified Code(s): K85.20 - Alcohol induced acute pancreatitis without necrosis or infection Status: Acute (4) Hematemesis of fresh blood: Status: Acute Plan Josh Emery is a 57 years old man admitted with: Alcoholic pancreatitis likely associated with acute gastritis. Admit to hospitalist service. Keep NPO. Continue IV hydration. Pain control with Dilaudid IV. Antiemetic therapy IV as needed. Protonix 40 mg IV twice daily Continue to monitor LFTs. Check CRP. Alcohol abuse. [facility] protocol. Thiamine IV. Folic acid and multivitamins when able to take p.o. Social work/case management consult. Hematemesis, likely Alesha-Mendez tear, esophagitis. No hx of portal hypertension/varices. Continue Protonix 40 mg IV twice daily. Monitor H&H. GI consult. Lactic acidosis likely secondary to alcohol abuse. Resolved. Opiate dependence. Continue Suboxone. DVT prophylaxis: heparin subcut Code status: Full Patient will need hospitalization for at least 2 midnight for alcoholic pancreatitis treatment with IV fluids, IV pain medications as well as antiemetic therapy. Quality Stroke Does the patient have a stroke diagnosis?: No VTE Prior VTE?: No VTE Risk Level:: Medical - moderate - high VTE Device Contraindication: Treatment Not Indicated VTE Drug Contraindication: N/A - Med Ordered
[2023-05-30 23:02] VITALS: BP 176/89; PULSE 101; RESP 18; TEMP 36.4; O2SAT 98
[2023-05-30] MEDS: Thiamine HCL 100 MG in 0.9 % Sodium Chloride 100 ML 202 MG IV (23:15)
[2023-05-30] MEDS: Pantoprazole Sodium 40 MG/10 ML VIAL IVPUSH (23:15)
[2023-05-30 23:23] LABS: Lactic Acid 2.4 mmol/L (0.5-2.0)
[2023-05-30 23:24] LABS: Appearance Urine Clear; Color Urine Yellow; Glucose Urine UA Negative (Negative); Leukocyte Esterase Urine Negative (Negative); Nitrite Urine Negative (Negative); PH 8.5 (5.0-9.0); Specific Gravity - Urine >= 1.030 (1.005-1.025); Urine Blood Negative (Negative); Urine Ketones Trace mg/dL (Negative); Urine Protein Negative (Neg-Trace)
[2023-05-30 23:31] LABS: Amphetamine Screen Urine Not Detected (Not Detect); Barbiturates, Urine Not Detected (Not Detect); Benzodiazepines Screen Urine Not Detected (Not Detect); Cannabinoid Screen Urine POSITIVE (Not Detect); Cocaine Screen Urine Not Detected (Not Detect); Fentanyl, urine Not Detected (Not Detect); Opiate Screen Urine Not Detected (Not Detect); Phencyclidine Screen Urine Not Detected (Not Detect)
--- NOTE | 2023-05-30 23:34 | MHC.EDTECH ---
Patient awake talking on his cell Phone ,urine sample collected and repeated blood drawn and sent to lab ,Patient belonging list done ,Patient refused to change his jeans ,This pct offer patient to change into hospital pants ,but Patient refused ,RN Jovanna aware .
[2023-05-30 23:44] LABS: Lipase 408 U/L (8-78)
[2023-05-31] VITALS (7 sets, daily range): BP systolic 168–221; BP diastolic 84–99; PULSE 57–73; RESP 12–16; TEMP 36.3–37; O2SAT 96–98
[2023-05-31] MEDS: HYDROmorphone HCl 1 MG/ML SYRINGE IVPUSH ×7 (03:05→23:19)
[2023-05-31] MEDS: Lactated Ringers 1,000 ML 150 ML IVCONT ×3 (04:59→19:44)
--- NOTE | 2023-05-31 05:10 | PC.NURSE ---
pt comes in with alcohol induced pancreatitis acute and chronic per CT scan. Pancreatic MRI recommended. wbc-11.9 lactic 2.4, lipase 377. Pt last drink was yesterday 3/4 in the afternoon and states drinks 5-6 beers a night . Pt denies ever withdrawing however placed on CIWA and scoring 0. Pt is NPO and has Dilaudid for pain PRN q 4 hours. Casemgnt/ social service, GI consult. 20 in L hand.
[2023-05-31] MEDS: ondansetron HCL 4 MG/2 ML VIAL IVPUSH ×3 (06:28→20:15)
[2023-05-31 06:45] LABS: MANUAL DIFF FLAG NO
[2023-05-31 06:48] LABS: Basophils Percent Auto 0.2 % (0-2); Eosinophils Percent Auto 0.3 % (0-4); Hematocrit 42.8 % (42.0-52.0); Hemoglobin 15.5 g/dl (14.0-18.0); Imm Gran Abs Auto 0.05 X10*3/uL (0.00-0.03); Imm Gran Pct Auto 0.4 % (0.0-0.4); Lymphocytes Absolute Auto 1.1 X10*3/uL (1.2-4.9); Lymphocytes Percent Auto 9.4 % (20-40); Mean Corpuscular HGB Conc 36.2 g/dl (31.0-36.0); Mean Corpuscular Hemoglobin 33.7 pg (27.0-33.0); Mean Platelet Volume 10.4 fL (9.4-12.4); Monocytes Absolute Auto 0.9 X10*3/uL (0.1-1.2); Monocytes Percent Auto 8.1 % (2-11); Neutrophils Absolute Auto 9.3 x10*3/uL (2.0-8.3); Neutrophils Percent Auto 81.6 % (45-73); Platelet Count 175 X10*3/uL (160-400); Red Cell Distribution Width 12.7 % (11.0-16.0); White Blood Count 11.3 X10*3/uL (4.8-10.8)
[2023-05-31 07:08] LABS: Alanine Aminotransferase 64 U/L (0-40); Albumin Level 3.4 g/dL (3.5-5.0); Alkaline Phosphatase 117 U/L (39-117); Anion Gap 11 (12-20); Aspartate Amino Transferase 72 U/L (5-37); Bilirubin Total 1.1 mg/dL (0.0-1.0); Blood Urea Nitrogen 6 mg/dL (9-16); Calcium 8.7 mg/dL (8.4-10.2); Carbon Dioxide 27 mmol/L (22-29); Chloride 104 mmol/L (96-108); Creatinine Clr Calc Pharmacy 112.3; Estimated Glomerular Filt Rate > 60; Glucose Random 113 mg/dL (60-115); Magnesium 1.8 mg/dL (1.6-2.6); Potassium 3.6 mmol/L (3.3-5.1); Sodium 138 mmol/L (135-145); Total Protein 6.5 g/dL (6.5-8.0)
[2023-05-31] MEDS: Pantoprazole Sodium 40 MG/10 ML VIAL IVPUSH ×2 (07:39→21:18)
[2023-05-31] MEDS: Heparin Sodium,Porcine 5,000 UNIT/ML VIAL 5000 UNIT SUBCUT ×2 (07:39→17:00)
[2023-05-31] MEDS: Thiamine HCL 100 MG in 0.9 % Sodium Chloride 100 ML 202 MG IV (07:40)
--- NOTE | 2023-05-31 08:52 | PHA.MEDREC ---
Pharmacy Consult ? Medication Reconciliation Pharmacy has completed the medication reconciliation. Confirmed medications with patient and through claim history. Patient reports that he takes 8mg Suboxone in the morning and 4mg Suboxone in the evening. Also reports that he has not taken the Suboxone since Monday but it is still a current prescription for him.
--- NOTE | 2023-05-31 09:21 | HO.PM.IMPN ---
Subjective Subjective Date of Service: 05/31/23 Interval History: Seen and evaluated this morning complaining of pain scoring 11 on CIWA no more hematemesis for 24 hours stable H&H Review of Systems Review of Systems: Yes all other systems are reviewed and are negative Physical Exam Vital Signs: Vital Signs: Last Vital Signs Temp 97.4 F 05/31/23 07:54 Pulse 62 05/31/23 07:54 Resp 12 05/31/23 07:54 BP 197/98 H 05/31/23 07:54 Pulse Ox 96 05/31/23 07:54 O2 Del Method Room Air 05/31/23 07:54 BMI result Body Mass Index 26.6 Const: Other: Constitutional : Awake, interactive, not in distress Neck : Normal inspection, Supple Cardiovascular : RRR, no JVP, no lower extremity edema Respiratory : good bilateral air entry, no crackles, wheezes or rhonchi Gastrointestinal: soft, lax, Normal bowel sounds, epigastric tenderness Skin : Warm, Dry Neurological : Alert & oriented x3, No focal deficit , CN 2-12 within normal, mildly anxious Objective Data Active Medications Heparin Sodium (Porcine) (Heparin Sodium,Porcine 5,000 Unit/Ml Vial) 5,000 unit SUBCUT Q8H FORMERLY [facility], 1928–1983 Last Admin: 05/31/23 07:39 Dose: 5,000 unit Documented By: LUZ Hydromorphone HCl (Hydromorphone Hcl 1 Mg/Ml Syringe) 1 mg IVPUSH Q4H PRN; Protocol PRN Reason: Pain, Severe (Pain Scale 7-10) Last Admin: 05/31/23 07:35 Dose: 1 mg Documented By: LUZ Lactated Ringer's (Lr) 1,000 mls @ 150 mls/hr IVCONT .Q6H40M FOR[facility]LY [facility], 1928–1983 Last Admin: 05/31/23 04:59 Dose: 150 mls/hr Documented By: VIVIAN Thiamine HCl 100 mg/ Sodium (Chloride) 101 mls @ 202 mls/hr IV DAILY FORMERLY [facility], [facility]–1983 Last Admin: 05/31/23 07:40 Dose: 202 mls/hr Documented By: LUZ Ondansetron HCl (Ondansetron Hcl 4 Mg/2 Ml Vial) 4 mg IVPUSH Q6H PRN PRN Reason: Nausea and Vomiting Last Admin: 03/06/24 06:28 Dose: 4 mg Documented By: VIVIAN Pantoprazole Sodium (Pantoprazole Sodium 40 Mg/10 Ml Vial) 40 mg IVPUSH BID FOR[facility]LY [facility], 1928–1983 Last Admin: 05/31/23 07:39 Dose: 40 mg Documented By: LUZ Pharmacy Consult (Consult Rx Etoh Phenob Im/Po) 1 each MISCELLANE ONCE PRN; Protocol PRN Reason: Consult order Sodium Chloride (0.9 % Sodium Chloride Flush 3 Ml Syringe) 3 ml IVFLUSH QSHIFT FOR[facility], [facility]1983 Last Admin: 05/31/23 07:50 Dose: Not Given Documented By: LUZ Non-Admin Reason: IV Running Labs 05/31/23 05:38 05/31/23 05:38 Labs: Laboratory Results - last 24 hr 05/30/23 05/30/23 05/30/23 19:28 21:44 23:12 MCV 90.2 MCH 33.3 H MCHC 37.0 H RDW 12.5 Plt Count 178 MPV 9.9 Immature Gran % (Auto) 0.3 Neut % (Auto) 89.5 H Lymph % (Auto) 3.9 L [place] % (Auto) 6.0 Eos % (Auto) 0.0 Baso % (Auto) 0.3 Lymph # (Auto) 0.5 L [place] # (Auto) 0.7 Eos # (Auto) 0.0 Baso # (Auto) 0.0 Abs Immat Gran (auto) 0.03 Absolute Neuts (auto) 10.7 H Absolute Nucleated RBC 0.000 Nucleated RBC % (auto) 0.0 APTT 27.9 Anion Gap 13 Estim Creat Clear Calc 102.2 Estimated GFR > 60 Random Glucose 136 H Lactic Acid 2.4 H* Lactic Acid F/U @ 2Hr 1.2 Calcium 9.4 Magnesium Total Bilirubin 1.2 H AST 95 H ALT 83 H Alkaline Phosphatase 128 H Troponin I High Sens < 2.7 B-Natriuretic Peptide 77 Total Protein 7.2 Albumin 3.9 Lipase 377 H Urine Color Yellow Urine Appearance Clear Urine pH 8.5 Ur Specific [place] >= 1.030 H Urine Protein Negative Urine Glucose (UA) Negative Urine Ketones Trace Urine Blood Negative Urine Nitrite Negative Ur Leukocyte Esterase Negative Urine Opiates Screen Not Detected Urine Fentanyl Screen Not Detected Ur Barbiturates Screen Not Detected Ur Phencyclidine Scrn Not Detected Ur Amphetamines Screen Not Detected U Benzodiazepines Scrn Not Detected Urine Cocaine Screen Not Detected U Marijuana (THC) Screen POSITIVE H Ethyl Alcohol < 10 Influenza Type A (PCR) NEGATIVE Influenza Type B (PCR) NEGATIVE RSV RNA Qual (PCR) NEGATIVE SARS-CoV-2 RNA (RT-PCR) NEGATIVE 05/30/23 05/31/23 23:16 05:38 MCV 93.0 MCH 33.7 H MCHC 36.2 H RDW 12.7 Plt Count 175 MPV 10.4 Immature Gran % (Auto) 0.4 Neut % (Auto) 81.6 H Lymph % (Auto) 9.4 L [place] % (Auto) 8.1 Eos % (Auto) 0.3 Baso % (Auto) 0.2 Lymph # (Auto) 1.1 L [place] # (Auto) 0.9 Eos # (Auto) 0.0 Baso # (Auto) 0.0 Abs Immat Gran (auto) 0.05 H Absolute Neuts (auto) 9.3 H Absolute Nucleated RBC 0.000 Nucleated RBC % (auto) 0.0 APTT Anion Gap 11 L Estim Creat Clear Calc 112.3 Estimated GFR > 60 Random Glucose 113 Lactic Acid Lactic Acid F/U @ 2Hr Calcium 8.7 D Magnesium 1.8 Total Bilirubin 1.1 H AST 72 H ALT 64 H Alkaline Phosphatase 117 Troponin I High Sens B-Natriuretic Peptide Total Protein 6.5 Albumin 3.4 L Lipase 408 H Urine Color Urine Appearance Urine pH Ur Specific [place] Urine Protein Urine Glucose (UA) Urine Ketones Urine Blood Urine Nitrite Ur Leukocyte Esterase Urine Opiates Screen Urine Fentanyl Screen Ur Barbiturates Screen Ur Phencyclidine Scrn Ur Amphetamines Screen U Benzodiazepines Scrn Urine Cocaine Screen U Marijuana (THC) Screen Ethyl Alcohol Influenza Type A (PCR) Influenza Type B (PCR) RSV RNA Qual (PCR) SARS-CoV-2 RNA (RT-PCR) Assessment and Plan (1) Alesha-Mendez tear: Status: Acute (2) Hematemesis of fresh blood: Status: Acute (3) Acute pancreatitis: Status: Acute (4) Alcohol abuse with withdrawal: Status: Acute Plan Josh Emery is a 57 years old man admitted with: # Alcoholic pancreatitis likely associated with acute gastritis. Keep NPO. Continue IV hydration. Dilaudid IV. Antiemetic therapy IV as needed. Protonix 40 mg IV twice daily Continue to monitor LFTs.. # Alcohol abuse and withdrawal. [facility] protocol. Thiamine IV. Folic acid and multivitamins when able to take p.o. Social work/case management consult. # Hematemesis, likely Alesha-Mendez tear, esophagitis. No hx of portal hypertension/varices. Continue Protonix 40 mg IV twice daily. Monitor H&H. GI consult. # Lactic acidosis likely secondary to alcohol abuse. Resolved. # Opiate dependence. Continue Suboxone. DVT prophylaxis: heparin subcut Code status: Full Patient will need hospitalization for at least 2 midnight for alcoholic pancreatitis treatment with IV fluids, IV pain medications as well as antiemetic therapy. Quality Stroke Does the patient have a stroke diagnosis?: No VTE Prior VTE?: No VTE Risk Level:: Medical - moderate - high VTE Device Contraindication: Treatment Not Indicated VTE Drug Contraindication: N/A - Med Ordered
--- NOTE | 2023-05-31 09:41 | PC.NURSE ---
patient becoming increasingly agitated, patient redirected and educated on appropriate behaviors while in the hospital, patient appears to be starting to go into alcohol WD, CIWA 11, inpatient provider notified. patient has hx of alcohol DTs. patient moved closer to nurses station for safety. patient on tele monitor, LR running at 150 ml/hr. patient in hospital bed for comfort. respirations equal and unlabored, skin cool, clammy but intact.
[2023-05-31] MEDS: PHENobarbitaL sodium 65 MG/ML VIAL 288 MG IM (10:14)
[2023-05-31] MEDS: Gabapentin 400 MG CAPSULE PO ×3 (10:15→21:18)
--- NOTE | 2023-05-31 10:58 | MHC.CM.PN ---
PT REPORTS HE LIVES ALONE AND IS INDEPENDENT WITH CARE HE HAS NO DME AND NO SERVICES PT DECLINES TO COMPLETE A HCP PCP: HEYDI SERRANO IMM DELIVERED DCP: HOME NO SERVICES PT UNSURE IF HE WILL HAVE A RIDE
[2023-05-31] MEDS: amLODIPine Besylate 5 MG TABLET PO (13:09)
[2023-05-31] MEDS: hydrALAZINE HCl 20 MG/ML VIAL 10 MG IVPUSH (13:11)
[2023-05-31] MEDS: HYDROmorphone HCl 0.5 MG/0.5 ML SYRINGE IVPUSH (14:04)
[2023-05-31] MEDS: PHENobarbitaL sodium 65 MG/ML VIAL 216 MG IM ×2 (14:17→16:54)
--- NOTE | 2023-05-31 14:39 | PC.NURSE ---
patient resting quietly in bed, phenobarb protocal started and medicated per mar, patient states he does not feel like he has as severe withdrawal symptoms, patients primary concern is pain management. respirations equal and unlabored
--- NOTE | 2023-05-31 19:16 | PC.NURSE ---
this rn assumed care of pt. pt ambulated to bathroom with steady gait, pt reporting constant abdominal pain without relief. pt sitting in stretcher, no acute distress noted.
--- NOTE | 2023-05-31 19:46 | PC.NURSE ---
pt lactated ringer begun at this time, 150ml/hr.
--- NOTE | 2023-05-31 20:19 | PC.NURSE ---
pt medciated per mar for 10/10 bilateral rib pain. pt reporting nausea at this time and given zofran.
[2023-05-31] MEDS: PHENobarbitaL 30 MG TABLET 60 MG PO (21:17)
[2023-05-31] MEDS: traZODone HCL 100 MG TABLET PO (21:18)
[2023-06-01] MEDS: HYDROmorphone HCl 1 MG/ML SYRINGE IVPUSH ×4 (02:20→14:54)
[2023-06-01] MEDS: ondansetron HCL 4 MG/2 ML VIAL IVPUSH ×3 (02:34→14:54)
[2023-06-01] MEDS: Lactated Ringers 1,000 ML 150 ML IVCONT ×3 (03:14→10:32)
[2023-06-01 03:21] LABS: Glucose, Whole Blood 93 mg/dL (60-115)
--- NOTE | 2023-06-01 04:20 | PC.NURSE ---
pt allowed to sleep, respirations even and unlabored.
[2023-06-01 05:25] LABS: PLT CLUMP 1; Red Cell Distribution Width 12.6 % (11.0-16.0)
--- NOTE | 2023-06-01 05:25 | PC.NURSE ---
pt reporting he no longer wants to be NPO, explained importance and aware. reports waiting for AM labs to result.
[2023-06-01 05:26] LABS: Hematocrit 41.4 % (42.0-52.0); Mean Corpuscular HGB Conc 36.2 g/dl (31.0-36.0); Mean Corpuscular Hemoglobin 33.2 pg (27.0-33.0); Mean Corpuscular Volume 91.6 fL (80.0-98.0); Red Blood Count 4.52 X10*6/uL (4.60-5.80)
[2023-06-01 05:28] LABS: Platelet Count 136 X10*3/uL (160-400); White Blood Count 8.9 X10*3/uL (4.8-10.8)
[2023-06-01 05:41] LABS: Anion Gap 13 (12-20); Blood Urea Nitrogen 5 mg/dL (9-16); Calcium 8.7 mg/dL (8.4-10.2); Carbon Dioxide 26 mmol/L (22-29); Chloride 99 mmol/L (96-108); Creatinine Clr Calc Pharmacy 131.8; Estimated Glomerular Filt Rate > 60; Glucose Random 92 mg/dL (60-115); Potassium 3.8 mmol/L (3.3-5.1); Sodium 134 mmol/L (135-145)
[2023-06-01 07:08] LABS: Lipase 680 U/L (8-78)
[2023-06-01 08:28] VITALS: BP 186/151; PULSE 73; RESP 18; TEMP 37.1; O2SAT 98
[2023-06-01] MEDS: Thiamine HCL 100 MG in 0.9 % Sodium Chloride 100 ML 200 MG IV (08:29)
[2023-06-01] MEDS: Pantoprazole Sodium 40 MG/10 ML VIAL IVPUSH (08:30)
[2023-06-01] MEDS: amLODIPine Besylate 10 MG TABLET PO (08:31)
[2023-06-01] MEDS: Gabapentin 400 MG CAPSULE PO ×2 (08:31→14:53)
[2023-06-01] MEDS: 0.9 % Sodium Chloride Flush 3 ML SYRINGE IVFLUSH (08:31)
[2023-06-01] MEDS: PHENobarbitaL 30 MG TABLET 60 MG PO (08:31)
[2023-06-01 09:16] VITALS: BP 158/96; PULSE 72; RESP 20; TEMP 36.2; O2SAT 97
[2023-06-01] MEDS: buPROPion HCl XL 300 MG TAB.ER.24H PO (09:25)
[2023-06-01 10:58] VITALS: BP 158/82; PULSE 71; RESP 18; TEMP 36.5; O2SAT 97
--- NOTE | 2023-06-01 13:49 | P.EN_ITS ---
Event Note Date of Service: 06/01/23 Event Note: GI Consult-Full note dictated Imp/Recs: 1. Very limited UGI bleed in the setting of a lot of N/V/retching in relation to his EtOH-induced pancreatitis. This is very c/w a Alesha Mendez tear. I did offer to have him undergo an EGD in relation to this, as well as his underlying probable cirrhosis, but he refused. I would continue his PPI and follow his Hgb. 2. EtOH-induced pancreatitis and cirrhosis. 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 I would keep him NPO for at least another 24 hours, continue supportive care, and follow up labs in the AM. Based on his CT results, I would obtain a MRI with MRCP for maximal visualization of the pancreas, biliary tree, and the liver. D/W patient in detail and he is comfortable with this plan. Thanks Time Spent With Patient Time: Total time managing care of this patient today ____ minutes.
--- NOTE | 2023-06-01 14:39 | MHC.CM.PN ---
Patient has been medically cleared for dc to home today, self care. Last IMM addressed yesterday.
--- NOTE | 2023-06-01 14:55 | P.DS_ITS ---
DS: Providers Provider Date of Service: 06/01/23 Date of admission: 05/30/23 22:46 Primary care physician: Sharon Hilton MD Consults: 05/30/23 23:17 Consult to Gastroenterology Routine Consulting Provider: Patrick Mendez Reason for consultation: Alcoholic pancreatitis, hematemesis (possible Alesha-Mendez tear) 06/01/23 07:49 Addiction Medicine Routine Consulting Provider: Addiction Covering Reason for consultation: Alcohol abuse for eval and rec. DS: Diagnosis Discharge Diagnosis (1) Alesha-Mendez tear: Status: Acute (2) Hematemesis of fresh blood: Status: Acute (3) Acute pancreatitis: Status: Acute (4) Alcohol abuse with withdrawal: Status: Acute (5) Alcohol use disorder: Status: Acute DS: Summary Hospital Course Hospital Course: Admission note HPI Josh Emery is a 57 years old man with past medical history is significant for alcohol abuse, opioid dependence on Suboxone and previous episode of pancreatitis presents to the emergency department complaining of upper abdominal pain associated with multiple events of violent vomiting. He had an event of bloody vomiting (bright red blood). He denies diarrhea, fever or chills. He did not report any headache, palpitations or dizziness. He denies shortness or breath, cough or chest pain. He drinks daily (about 4 alcoholic drinks -last 1 was last night). He denied tobacco smoking or illicit drug use. He has not been using new medications. In the ED, he was found to have mild tachycardia and elevated blood pressure, last BP is 176/89. Blood workup is remarkable for mild leukocytosis, 11.9. Lipase is 377. LFTs are elevated. Lipase was initially elevated 2.9 with normalized after IV fluids given. Viral testing for influenza, COVID-19 RSV is negative. ED tx: NS 1 L bolus, Dilaudid (3 mg IV total), Reglan 10 mg IV, Benadryl 50 mg IV, Zofran 4 mg IV Hospital course # Alcoholic pancreatitis likely associated with acute gastritis with Lactic acidosis likely secondary to alcohol abuse. The patient was admitted for IV hydration and pain control with Dilaudid IV along with Antiemetic therapy IV as needed with good response over the course of hospital stay as he tolerated diet well with no reported nausea or vomiting. # Hx Alcohol abuse and withdrawal. Started on Phenobarbital protocol with good response along with supplement with Thiamine IV with fair response over hospital stay as he was able to ambulate steadily on his feet. advised for complete abstinence from alcohol and to take Thiamine supplement at home. # Hematemesis, No recurrence of same incident for 48 hours inpatient. likely Alesha-Mendez tear, esophagitis or gastritis. started on Protonix 40 mg IV twice daily. and evaluated by clock and watch assembler dr Mendez who recommended EGD which the patient refused. he also suggested an MRCP but the patient refused doing it stating he can not lay on his back. will be discharged home on Omeprazole. can follow with GI as outpatient as needed. We advise you complete abstinence from alcohol Take Thiamine as prescribed Omeprazole daily Start Amlodipine 10 mg daily for hypertension; monitor blood pressure readings for 1 week and review with your PCP for further adjustments Time Attestation Discharge Coordination Time (in mins): 42 Quality: Safe Use of Opioids Does Pt have an Active Cancer Diagnosis on the Problem List?: No Quality: Stroke Does the patient have a stroke diagnosis?: No Physical Exam Vital Signs: Vital Signs: Last Vital Signs Temp 97.7 F 06/01/23 10:58 Pulse 71 06/01/23 10:58 Resp 18 06/01/23 10:58 BP 158/82 H 06/01/23 10:58 Pulse Ox 97 06/01/23 10:58 O2 Del Method Room Air 06/01/23 10:58 BMI result Body Mass Index 26.6 Const: Other: Constitutional : Awake, interactive, not in distress Neck : Normal inspection, Supple Cardiovascular : RRR, no JVP, no lower extremity edema Respiratory : good bilateral air entry, no crackles, wheezes or rhonchi Gastrointestinal: soft, lax, Normal bowel sounds, no epigastric tenderness Skin : Warm, Dry Neurological : Alert & oriented x3, No focal deficit DS: Data Data Completed and Pending Completed studies during hospitalization [Text1]: Procedures Detoxification Services for Substance Abuse Treatment (11/06/22) Labs on day of discharge: Laboratory Results - last 24 hr 06/01/23 06/01/23 03:17 05:04 WBC 8.9 RBC 4.52 L Hgb 15.0 Hct 41.4 L MCV 91.6 MCH 33.2 H MCHC 36.2 H RDW 12.6 Plt Count 136 L MPV 10.0 Absolute Nucleated RBC 0.000 Nucleated RBC % (auto) 0.0 Sodium 134 L Potassium 3.8 Chloride 99 Carbon Dioxide 26 Anion Gap 13 BUN 5 L Creatinine 0.69 Estim Creat Clear Calc 131.8 Estimated GFR > 60 POC Glucose 93 Random Glucose 92 Calcium 8.7 Lipase 680 H Imaging Chest x-ray: Radiologist's impression: ITS Impressions Chest X-Ray 05/30/23 19:05 IMPRESSION: No pneumonia or edema. Abdomen/Pelvis CT 05/30/23 20:42 IMPRESSION: 1. Edematous pancreas with surrounding inflammatory changes most consistent with acute interstitial pancreatitis. 2. Slightly increased nonspecific dilatation of the main pancreatic duct which could represent sequela of chronic pancreatitis. Further characterization with abdominal MRI pancreas protocol/MRCP would be beneficial for evaluation of stricture, internal calculi or any other obstructive abnormality. 3. Hepatomegaly and hepatic steatosis with suggestion of a subtle nodular contour of the liver raising the possibility of underlying cirrhosis. Further evaluation for HCC at the time of imaging of the pancreatic MRI is recommended. Discharge Plan Discharge Anticipated Discharge Date/Time: 06/01/23 14:32 Patient Disposition: Home, Self-Care Discharge Diagnosis: Acute pancreatitis Alcohol abuse and withdrawal Referrals: Sharon Hilton MD [Primary Care Provider] - 1 Week Discharge Medications: New amlodipine 10 mg Tablet 10 mg PO DAILY Qty: 30 0RF Protocol: Hold for SBP< HOLD for SBP < : 90 thiamine HCl (vitamin B1) 100 mg tablet 100 mg PO DAILY Qty: 90 0RF omeprazole 40 mg capsule,delayed release(DR/EC) 40 mg PO DAILY Qty: 90 0RF Continued buprenorphine-naloxone 8-2 mg film 1 film sublingual DAILY ondansetron 4 mg tablet,disintegrating 4 mg PO Q8H PRN (Reason: Nausea And Vomiting) Qty: 20 0RF buprenorphine-naloxone 4-1 mg Film 1 film BUCCAL QPM Rx Instructions: place 1 strip/tab under (each) side of tongue gabapentin 400 mg capsule 800 mg PO TID PRN (Reason: Alcohol Withdrawal) bupropion HCl 300 mg tablet extended release 24 hr 300 mg PO DAILY trazodone 100 mg tablet 100 mg PO BEDTIME Discharge Orders: Discharge Order (Routine); Ordered 06/01/23 Ordered By: Aidan Campos Diet: Advance to usual diet Activity on Discharge: As tolerated Stand Alone Forms: Patient Portal Discharge page Care Plan Goals: Read below Health Concerns: Read below Plan of Treatment: Read below Assessment: We advise you complete abstinence from alcohol Take Thiamine as prescribed Omeprazole daily Start Amlodipine 10 mg daily for hypertension; monitor blood pressure readings for 1 week and review with your PCP for further adjustments
[2023-06-01 17:04] LABS: CRP High Sensitivity 3.3 mg/L
--- NOTE | 2023-06-01 22:08 | CONS_ITS ---
DATE OF SERVICE: 06/01/2023 REASON FOR CONSULTATION: Pancreatitis and hematemesis. HISTORY OF PRESENT ILLNESS: The patient is a 57-year-old male I met in July of 2022 for evaluation of pancreatitis. He unfortunately has a longstanding history of alcohol abuse and has continued to do so. When I saw him in July of 2022, he was admitted for pancreatitis. We had recommended an upper endoscopy at that time for evaluation of some dysphagia, but he ultimately left against medical advice. He was readmitted here earlier this week for recurrent abdominal pain and vomiting. He describes that he continues to drink alcohol daily. When his pain started 2 days ago he had associated nausea and vomiting. He describes a lot of retching and violent vomiting. After several episodes of that, he did have vomiting associated with 1 small blood clot. However, he had no further bleeding since then. He denies any coffee-grounds emesis. Since being in the ER, he has had no further vomiting. He denies any sign of melena nor hematochezia, but he still has abdominal pain in relation to his pancreatitis. He does not smoke cigarettes. He has not been experiencing any dysphagia, nor significant heartburn. MEDICATIONS: At home include; bupropion, gabapentin, trazodone, Suboxone, Zofran. His current medications include; amlodipine, bupropion, gabapentin, subcu heparin, hydralazine, Dilaudid p.r.n., IV Protonix, phenobarbital, thiamine, and trazodone. PAST MEDICAL HISTORY: Chronic alcohol abuse with associated pancreatitis. He denies any history of OR, stroke or diabetes. He has had back surgeries, surgery on his left broken hip, surgery on his right leg and foot surgery. He does have chronic back pain as well. SOCIAL HISTORY: He is single. He does not smoke. Chronic alcohol abuse as above. FAMILY HISTORY: Noncontributory. REVIEW OF SYSTEMS: CONSTITUTIONAL: He describes a fairly good appetite and he was feeling fairly well up until becoming acutely ill 2 days ago. CARDIAC: No chest pain. PULMONARY: No cough or hemoptysis. GI: As above. URINARY: No dysuria. No hematuria. NEUROLOGIC: No headache or seizures. PHYSICAL EXAMINATION: GENERAL: The patient is a pleasant, alert, comfortable appearing male. SKIN: Warm and dry. Anicteric sclerae. NECK: Supple without lymphadenopathy. CHEST: Clear. CARDIAC: Normal S1, S2. ABDOMEN: Soft, nondistended with normal bowel sounds. He does have some mild diffuse tenderness without palpable mass nor organomegaly. EXTREMITIES: Without edema. NEUROLOGIC: He is alert and oriented. LABORATORY DATA: Hemoglobin on admission was 16.3 and repeat this morning was 15.0. MCV 92, platelets 136,000. Laboratories on admission revealed normal chemistries and renal function. Total bilirubin was 1.2, AST 95, ALT 83, alkaline phosphatase 128, albumin 3.9, and lipase 377. Laboratories from today revealed a lipase of 680 and normal electrolytes. He had a CT scan of the abdomen and pelvis on the day of admission describing hepatomegaly and probable cirrhosis. There were some areas of low attenuation, but no definitive mass. The pancreas had changes consistent with pancreatitis and a mildly dilated pancreatic duct of 5 mm. There is no description of GI tract abnormality, ascites, nor splenomegaly. IMPRESSION: In regard to the patient's acute pancreatitis, this seems to be stable. However, he does continue to have some abdominal pain and his lipase has risen. The remainder of his abdominal exam is benign with good bowel sounds and he is passing flatus. However, I would recommend keeping him n.p.o. for at least another 24 hours and repeating his laboratories tomorrow before advancing the diet just to be sure things are stable and his pancreatitis has not worsened. We did have a detailed discussion today with him in regard to his need to abstain from alcohol long-term. We also reviewed the underlying liver disease and his alcohol use as well, and again the need to remain abstinent long-term. Lastly, the single episode of the small amount of hematemesis seems very consistent with a transient bleed, in relation to a Alesha-Mendez tear, in relation to his vomiting and retching. I did talk to him about an upper endoscopy to inspect both for that and any esophageal varices due to his liver disease, but at this point he refused that. I would recommend continuing his PPI. Once his diet is advanced, he can be switched to an oral PPI. I would recommend an eventual MRI with MRCP for further evaluation of the liver and pancreatic duct as well. He did have a very limited MRCP in July of 2022, which was negative for any obvious abnormalities such as common duct stone, or a pancreatic or liver mass. This has all been discussed in detail with the patient and he is comfortable with the plan. Thank you for the consultation. MD ÓSCAR Alba/MARCO / [id number] MTDD
== END 2023-06-01 15:30 | disposition home or self-care (01) | DRG 438 ==
LOC: HO.ED 22:32 → HO.EDOVER 22:56 → HO.IMC 06-01 07:47
PROVIDERS: Admitting Provider Internal Medicine; Emergency Provider Emergency Medicine Emergency Medical Services; PCP Pediatrics; Visit Provider Student in an Organized Health Care Education/Training Program
DX: K85.20 Alcohol induced acute pancreatitis without necrosis or infection (principal); K22.6 Gastro-esophageal laceration-hemorrhage syndrome; K29.21 Alcoholic gastritis with bleeding; F11.20 Opioid dependence, uncomplicated; E87.20 Acidosis, unspecified; K70.30 Alcoholic cirrhosis of liver without ascites; F10.10 Alcohol abuse, uncomplicated; Z20.822 Contact with and (suspected) exposure to COVID-19; Z87.891 Personal history of nicotine dependence; Z79.899 Other long term (current) drug therapy
CPT/HCPCS: 0241U; 36415; 71045; 74177; 80048; 80053; 80307; 81003; 82947; 83605; 83690; 83735; 83880; 84484; 85025; 85027; 85730; 86141; 93005; 99285; C9113; J0360; J1170; J1200; J1644; J2405; J2560; J2765; J3411; J7120; Q9967

== ENCOUNTER → 2023-05-30 18:23 | Outpatient (BNV) | payer OTHER, SELFPAY | PROVIDERS: Admitting Provider Internal Medicine; Emergency Provider Emergency Medicine Emergency Medical Services; PCP Pediatrics; Visit Provider Internal Medicine Cardiovascular Disease | DX: R11.2 Nausea with vomiting, unspecified (principal) | CPT/HCPCS: 93010 ==

== ENCOUNTER → 2023-05-30 22:46 | Outpatient (BNV) | payer OTHER, SELFPAY | PROVIDERS: Admitting Provider Internal Medicine; Emergency Provider Emergency Medicine Emergency Medical Services; PCP Pediatrics; Visit Provider Internal Medicine | DX: K22.6 Gastro-esophageal laceration-hemorrhage syndrome (principal); K92.0 Hematemesis; K85.20 Alcohol induced acute pancreatitis without necrosis or infection; F10.139 Alcohol abuse with withdrawal, unspecified | CPT/HCPCS: 99223; 99233; 99239 ==

== ENCOUNTER 2023-12-09 15:59 | Outpatient (REF) | payer OTHER, SELFPAY ==
--- NOTE | ~2023-12-09 | MR_ITS ---
EXAMINATION: MR LUMBAR SPINE WITHOUT AND WITH CONTRAST CLINICAL INFORMATION: Low back pain with bilateral lower extremity radiation. COMPARISON: CT abdomen targeting the lumbar spine from 05/30/2023. TECHNIQUE: Multiplanar, multisequence imaging was obtained. Intravenous contrast: Gadavist 9 mL. FINDINGS: VERTEBRAL BODIES AND PARASPINAL STRUCTURES: The patient is status post posterior lumbar fusion with hardware instrumentation from the L3 to the L5 levels with interbody prosthesis at the L4-L5 level. Solid arthrodesis delineated on prior CT imaging. Anterior subluxation at L4-L5 is stable with chronic postlaminectomy changes. There are no compression fractures visible. Mild leftward lumbar spinal curvature evident. No paraspinal soft tissue fluid collections are seen. There are partial fusion changes across the sacroiliac joints. CONUS MEDULLARIS AND CAUDA EQUINE: The distal cord, conus tip, and cauda equina nerve roots appear normal, though are somewhat obscured by hardware artifacts. No pathologic enhancement is identified. SPINAL LEVELS: L1-L2: Mild diffuse disc bulge small central disc protrusion with hypertrophic facet arthropathy resulting in mild central canal stenosis. No significant foraminal narrowing. L2-L3: Mild posterior subluxation and broad-based disc bulge with a superimposed central disc protrusion, exuberant facet arthropathy, and thickening of the ligamentum flavum resulting in high-grade central canal stenosis and thecal sac compression. Severe left foraminal narrowing with mild distortion of the exiting left L2 nerve root. L3-L4: Mild posterior subluxation and exuberant facet arthropathy and mild central canal stenosis. Disc bulge and endplate spurring with mild bilateral foraminal encroachment. At the level of the superior endplate of L4, there is moderate canal narrowing and thecal sac distortion due to hypertrophic bony changes in the articular processes posteriorly. L4-L5: Anterolisthesis and decompressive laminectomy with facet arthropathy and interbody prostheses in place. Significant foraminal narrowing due to osseous encroachment, as on prior CT imaging. L5-S1: Significant facet arthropathy with a retrolisthesis, posterior disc bulge, and endplate spurring resulting in mild central canal stenosis. Moderate to severe foraminal narrowing, worse on the right side with bulging disc and osseous spurring distorting the exiting right L5 nerve root. MR/MR lumbar spine wo/w con IMPRESSION: Severe junctional central canal stenosis at the L2-L3 level with thecal sac distortion. Significant left foraminal narrowing and compression of the left L2 nerve root. Status post posterior lumbar instrumentation fusion from the L3 through the L5 levels with interbody fusion changes at L4-L5 where there is a stable anterolisthesis and significant bilateral foraminal narrowing due to bony encroachment. Exuberant facet arthropathy and mild central canal stenosis at the L3-L4 level with moderate narrowing of the central canal at the level of the superior endplate of L4 due to hypertrophic bony changes in the articular processes. Moderate to severe foraminal narrowing, more so on the right side at the L5-S1 level with bulging disc and significant facet arthropathy distorting the exiting right L5 nerve root. Electronically signed by: Lorenzo Gomez MD 12/12/2023 03:27 PM EDT
[2023-12-09] MEDS: gadobutroL 10 ML VIAL IVPUSH (16:54)
== END 2023-12-09 16:00 | disposition home or self-care (01) ==
LOC: HO.MRI 15:59
PROVIDERS: PCP Pediatrics; Visit Provider Internal Medicine
DX: M48.061 Spinal stenosis, lumbar region without neurogenic claudication (principal)
CPT/HCPCS: 72158; A9585

== ENCOUNTER 2024-05-07 14:00 | Outpatient (RCR) | payer OTHER, SELFPAY | END 2024-05-09 13:14 | disposition home or self-care (01) | LOC: HO.PTCHIC 14:00 | PROVIDERS: PCP Pediatrics; Visit Provider Pediatrics | DX: M54.2 Cervicalgia (principal) | CPT/HCPCS: 97110; 97162 ==

== ENCOUNTER 2024-06-20 14:58 | Outpatient (REF) | payer OTHER, SELFPAY ==
[2024-06-20 18:00] LABS: MANUAL DIFF FLAG NO
[2024-06-20 18:04] LABS: Basophils Percent Auto 0.6 % (0-2); Eosinophils Absolute Auto 0.1 X10*3/uL (0.0-0.4); Eosinophils Percent Auto 1.2 % (0-4); Hematocrit 42.1 % (42.0-52.0); Hemoglobin 14.9 g/dl (14.0-18.0); Imm Gran Abs Auto 0.02 X10*3/uL (0.00-0.03); Imm Gran Pct Auto 0.3 % (0.0-0.4); Lymphocytes Absolute Auto 1.5 X10*3/uL (1.2-4.9); Lymphocytes Percent Auto 22.9 % (20-40); Mean Corpuscular HGB Conc 35.4 g/dl (31.0-36.0); Mean Corpuscular Hemoglobin 33.3 pg (27.0-33.0); Mean Platelet Volume 10.9 fL (9.4-12.4); Monocytes Absolute Auto 0.6 X10*3/uL (0.1-1.2); Monocytes Percent Auto 9.2 % (2-11); Neutrophils Absolute Auto 4.2 x10*3/uL (2.0-8.3); Neutrophils Percent Auto 65.8 % (45-73); Platelet Count 213 X10*3/uL (160-400); Red Blood Count 4.48 X10*6/uL (4.60-5.80); Red Cell Distribution Width 12.4 % (11.0-16.0); White Blood Count 6.4 X10*3/uL (4.8-10.8)
[2024-06-20 18:23] LABS: Anion Gap 11 (12-20); Blood Urea Nitrogen 6 mg/dL (9-16); Calcium 9.3 mg/dL (8.4-10.2); Carbon Dioxide 32 mmol/L (22-29); Chloride 102 mmol/L (96-108); Estimated Glomerular Filt Rate > 60; Glucose Random 89 mg/dL (60-115); Lipase 12 U/L (8-78); Potassium 4.1 mmol/L (3.3-5.1); Sodium 141 mmol/L (135-145)
[2024-06-20 18:40] LABS: TSH reflex Free T4 0.85 uIU/mL (0.32-4.0)
[2024-06-20 18:50] LABS: Folate 3.8 ng/mL (> or = 4.0); Prostate Specific Antigen Scr 1.04 ng/mL (<0.05-4.0); Vitamin B12 204 pg/mL (200-900)
== END 2024-06-20 14:59 | disposition home or self-care (01) ==
LOC: HO.CHCLDS 14:58
PROVIDERS: Visit Provider Pediatrics
DX: R35.1 Nocturia (principal); F10.20 Alcohol dependence, uncomplicated; Z12.5 Encounter for screening for malignant neoplasm of prostate
CPT/HCPCS: 36415; 80048; 82607; 82746; 83690; 84153; 84443; 85025

== ENCOUNTER 2024-09-27 16:07 | Inpatient (IN) | payer OTHER, SELFPAY ==
[2024-09-27] VITALS (8 sets, daily range): BP systolic 132–220; BP diastolic 70–180; PULSE 56–80; RESP 14–20; TEMP 36.4–37.2; O2SAT 95–99; BMI 26.4; BMI 26.5
--- NOTE | ~2024-09-27 | CT_ITS ---
CLINICAL HISTORY: abd pain CT abdomen and pelvis with contrast Comparison: CT/SR - CT ABDOMEN PELVIS W IV CON - 05/30/23 20:26 EST Findings: No consolidation or effusion. Spleen is normal in size. There are punctate calcifications within the spleen consistent with granulomata. There is diffuse fatty infiltration of the liver. Gallbladder, adrenal glands, and kidneys are unremarkable. No hydronephrosis. There is diffuse stranding around the pancreatic head and proximal body of the pancreas. There are punctate calcifications within the inferior head of the pancreas. No peripancreatic fluid collection or abscess. Pancreatic gland enhances throughout. No bowel obstruction, pneumoperitoneum, or pneumatosis. Abdominal aorta is normal caliber. Pelvic contents unremarkable. Normal appendix. L3 through L5 posterior fusion. Intervertebral disc fusion at L4-5. IMPRESSION: Interstitial edematous pancreatitis. Diffuse fatty infiltration of the liver. This document has been electronically signed by: Nabeel Escamilla MD on 09/27/2024 19:04:29
--- NOTE | 2024-09-27 16:24 | ED_ITS ---
HPI - General Adult General Chief complaint: Abdominal Pain Stated complaint: extrem pain all over, n/v 100mcg fentanyl Time Seen by Provider: 09/27/24 16:24 Source: patient and EMS Mode of arrival: EMS Limitations: no limitations History of Present Illness ED Provider: Yun Diaz PA-C HPI narrative: Patient is a 59 year old assigned male at with a history of buprenorphine dependence, chronic abdominal pain, alcohol use, and pancreatitis presenting to the emergency department today with abdominal pain, nausea, and vomiting. Patient states that he drank alcohol a couple of days ago and he has been having abdominal pain, nausea, and vomiting since 10pm on 09/26/2024. Patient denies any dizziness, lightheadedness, fever, chills, blurry vision, double vision, loss of vision, chest pain, difficulty breathing, shortness of breath, back pain, night sweats, pain with urination, increased urinary frequency, increased urinary urgency, blood in his urine or stool, syncope or a near syncopal episode, recent trauma or falls, bowel incontinence, bladder incontinence, or any other complaints at this time. Onset (ago): hour(s) Location: abdomen Relieving factors: none Exacerbating factors: none Associated symptoms: nausea/vomiting Treatments prior to arrival: none Related Data Home Medications ?Medication ?Instructions ?Recorded ?Confirmed bupropion HCl 300 mg 24 hr tablet, 300 mg PO DAILY 05/31/23 extended release gabapentin 400 mg capsule 800 mg PO TID PRN Alcohol 05/31/23 Withdrawal trazodone 100 mg tablet 100 mg PO BEDTIME 12/09/21 0 05/31/23 buprenorphine 4 mg-naloxone 1 mg 1 film buccal QPM 05/31/23 sublingual film buprenorphine 8 mg-naloxone 2 mg 1 film sublingual SHERICE LY 05/31/23 05/31/23 sublingual film Previous Rx's ?Medication ?Instructions ?Recorded amlodipine 10 mg tablet 10 mg PO DAILY #30 tabs 10/17 omeprazole 40 mg capsule,delayed 40 mg PO DAILY #90 ca ps 06/01/23 release ondansetron 4 mg disintegrating 4 mg PO Q8H PRN Nausea And 06/01/23 tablet Vomiting #20 tabs thiamine HCl (vitamin B1) 100 mg 100 mg PO DAILY #90 t abs 06/01/23 tablet Allergies Allergy/AdvReac Type Severity Reaction Status Date / Time No Known Allergies Allergy Verified 09/27/24 16:21 Review of Systems 2 Constitutional: Constitutional: Reports no additional constitutional complaints, Denies chills, Denies fever(s) and Denies night sweats Eyes: Eyes: Reports no additional eye complaints, Denies blurry vision, Denies change in vision, Denies diplopia, Denies eye discharge, Denies loss of vision and Denies eye pain ENT: Denies dizziness Cardiovascular: Cardiovascular: Reports no additional cardiovascular complaints, Denies chest pain, Denies lightheadedness, Denies Loss of Consciousness and Denies dyspnea Respiratory: Respiratory: Reports no additional respiratory complaints and Denies dyspnea Gastrointestinal: Gastrointestinal: Reports no additional gastrointestinal complaints, Reports abdominal pain, Denies melena, Denies hematochezia, Denies change in bowel habits, Denies change in stool character, Reports nausea and Reports vomiting Genitourinary: Genitourinary: Reports no additional male genitourinary complaints, Denies hematuria, Denies oliguria, Denies difficulty urinating, Denies dysuria, Denies urinary frequency, Denies urinary hesitancy, Denies urinary incontinence and Denies urinary urgency Musculoskeletal: Musculoskeletal: Reports no additional musculoskeletal complaints, Denies numbness and Denies tingling Neurologic: Denies dizziness, Denies loss of vision, Denies numbness and Denies tingling Psychiatric: Psychiatric: Reports no additional psychiatric complaints Endocrine: Endocrine: Reports no additional endocrine complaints Hematologic/Lymphatic: Hematologic/Lymphatic: Reports no additional hematologic/lymphatic complaints Allergic/Immunologic: Allergic/Immunologic: Reports no additional allergic/immunologic complaints [facility] Past Medical History Attestation statement: The following information was validated with the patient. Source: old records reviewed and nursing notes reviewed Medical History Alcohol use disorder History of pancreatitis Alcohol use Buprenorphine dependence Chronic abdominal pain Surgical History History of back surgery Social History Social History Household Members: None Housing: Apartment Do you presently have visiting nurse or other home services: No Alcohol intake: current Alcohol intake frequency: a few times a month Alcohol type: beer and hard liquor Patient Tobacco Use Status: Former Tobacco user Tobacco use type: Cigarette Smoked in Last 30 Days: No e-Cigarette/Vaping Use: Never Used Second Hand Smoke Exposure: No Use of substances other than those prescribed or required for medical reasons: No Substance Use Type: Marijuana and Other Advance Directives: No Advance Directives Information Provided: No Do you have a plan to hurt others: No Plan service: No Current occupational status: unemployed Physical Exam ED Vital Signs: Vital Signs - 24 hr 09/27/24 16:20 09/27/24 17:08 09/27/24 18:30 Temperature 98.3 F Pulse Rate 56 78 74 Respiratory Rate 16 14 14 Blood Pressure 193/76 H 132/103 H 178/96 H Pulse Oximetry 98 95 99 Oxygen Delivery Method Room Air Room Air Room Air BMI result Body Mass Index 26.4 Const General: cooperative, no acute distress, alert and awake Nutritional Appearance: well nourished Orientation/consciousness: patient oriented x3 HENMT Head: Yes normal to inspection and Yes atraumatic Ears: hearing grossly normal bilaterally and external ears normal General nose exam: Normal external nose present, no nasal discharge noted and no epistaxis Face and sinus: Yes normal facial exam, No abrasion and No laceration Mouth: Normal oral and palatal mucosa present, no drooling and no muffled voice Eyes General: appearance normal, both eyes and all related structures Periorbital: periorbital findings normal Eyelids: Yes eyelids normal Conjunctivae: conjunctivae normal Pupils: Equal, round and reactive pupils present EOM: EOMs intact bilaterally Neck Neck: Yes normal visual inspection, Yes full ROM and Yes no lymphadenopathy Resp Effort & Inspection: normal respiratory effort and able to speak in complete sentences GI Palpation (GI): Soft to palpation, not firm, Tenderness to palpation present (GI), no guarding and not rigid Neuro General: patient oriented x3, moves all extremities and CN's II-XI intact bilaterally Cranial nerves: Yes Equal, round and reactive pupils present Cognition (Neuro): normal cognition Extrem General: Yes normal to inspection, Yes full ROM and Yes capillary refill normal Psych Appearance: grossly normal Mental Status: mental status grossly normal Affect: normal affect Attitude: cooperative Thought process: Normal thought process present Thought content: Normal thought content present Insight: Good insight present (Psych) Medications Administered Generic Name Dose Route Start Last Admin Trade Name Freq PRN Reason Stop Dose Admin Enoxaparin Sodium 40 mg 09/27/24 20:00 09/27/24 19:32 Enoxaparin Sodium 40 Mg/0.4 Ml Syringe SUBCUT Not Given Q24H JUAN Gabapentin 300 mg 09/27/24 21:00 09/27/24 19:32 Gabapentin 300 Mg Capsule PO Not Given TID JUAN Magnesium Sulfate 2 gm in 50 mls @ 25 mls/hr 09/27/24 17:57 09/27/24 18:29 Magnesium Sulfate/H2o IV 09/27/24 19:56 25 mls/hr ONCE ONE Administration Sodium Chloride 1,000 mls @ 999 mls/hr 09/27/24 18:45 09/27/24 18:53 Ns IV 09/27/24 19:45 999 mls/hr .Q1H1M JUAN Administration Dextrose/Sodium Chloride 1,000 mls @ 100 mls/hr 09/27/24 19:15 09/27/24 19:32 D51/2ns IVCONT 100 mls/hr .Q10H JUAN Administration Discontinued Medications Generic Name Dose Route Start Last Admin Trade Name Frank PRN Reason Stop Dose Admin Diazepam 5 mg 09/27/24 17:01 09/27/24 17:05 Diazepam 10 Mg/2 Ml Cartridge IVPUSH 09/27/24 17:02 5 mg STAT STA Administration Droperidol 1.25 mg 09/27/24 17:01 09/27/24 17:05 Droperidol 5 Mg/2 Ml Vial IVPUSH 09/27/24 17:02 1.25 mg ONCE ONE Administration Gabapentin 600 mg 09/27/24 19:25 09/27/24 19:30 Gabapentin 600 Mg Tablet PO 09/27/24 19:26 600 mg ONCE ONE Administration Hydromorphone HCl 1 mg 09/27/24 16:24 09/27/24 16:46 Hydromorphone Hcl 1 Mg/Ml Syringe IVPUSH 09/27/24 16:25 1 mg ONCE ONE Administration Protocol Hydromorphone HCl 1 mg 09/27/24 18:22 09/27/24 18:29 Hydromorphone Hcl 1 Mg/Ml Syringe IVPUSH 09/27/24 18:23 1 mg ONCE ONE Administration Protocol Iohexol 85 ml 09/27/24 18:21 09/27/24 18:21 Iohexol 350 Mg/Ml 100 Ml Infus..Btl IV 09/27/24 18:22 85 ml ONCE ONE Administration Metoclopramide HCl 10 mg 09/27/24 16:24 09/27/24 16:46 Metoclopramide Hcl 10 Mg/2 Ml Vial IVPUSH 09/27/24 16:25 10 mg ONCE ONE Administration Medical Decision Making Medical Decision Making [facility] Narrative: Patient is a 59 year old assigned male at with a history of buprenorphine dependence, chronic abdominal pain, alcohol use, and pancreatitis presenting to the emergency department today with abdominal pain, nausea, and vomiting. Patient's physical exam was as noted in the physical exam portion of this note. Patient's blood work showed an elevated WBC count of 12.2 and lipase of 437. Patient's EKG showed a prolonged QTC. Patient's CT abd/pelvis showed evidence of pancreatitis. I explained my physical exam findings as well as all test results to the patient. I answered all questions asked by the patient. Patient received IV dilaudid, fluids, Magnesium, valium, droperidol, reglan, and PO gabapentin which, upon re-evaluation, he stated it helped his pain some. I spoke with the hospitalist team who agreed to admission.Patient verbalized agreement and understanding with this treatment plan and admission. Differential Diagnosis Differential Diagnoses: The differential diagnosis associated with the presentation includes Pancreatitis Acute on chronic abdominal pain Nausea Vomiting Admission/Observation Consideration of admission/observation: Escalation of care including admission/observation considered Patient admitted as noted in the MDM Rationale portion of this note. Consult Healthcare Provider Management of the patient was discussed with: Hospitalist (agreed to admission as noted in the MDM Rationale portion of this note. ) Lab Data [facility] Lab Attestation statement: I reviewed the patient's lab results. My interpretation of these results are in the MDM Rationale portion of this note. 09/27/24 16:43 09/27/24 16:43 Labs: Lab Results 09/27/24 Range/Units 16:43 WBC 12.2 H (4.8-10.8) X10*3/uL RBC 5.19 (4.60-5.80) X10*6/uL Hgb 16.8 (14.0-18.0) g/dl Hct 45.1 (42.0-52.0) % MCV 86.9 (80.0-98.0) fL MCH 32.4 (27.0-33.0) pg MCHC 37.3 H (31.0-36.0) g/dl RDW 11.6 (11.0-16.0) % Plt Count 226 (160-400) X10*3/uL MPV 9.8 (9.4-12.4) fL Immature Gran % (Auto) 0.3 (0.0-0.4) % Neut % (Auto) 88.9 H (45-73) % Lymph % (Auto) 5.9 L (20-40) % [place] % (Auto) 4.6 (2-11) % Eos % (Auto) 0.1 (0-4) % Baso % (Auto) 0.2 (0-2) % Lymph # (Auto) 0.7 L (1.2-4.9) X10*3/uL [place] # (Auto) 0.6 (0.1-1.2) X10*3/uL Eos # (Auto) 0.0 (0.0-0.4) X10*3/uL Baso # (Auto) 0.0 (0.0-0.2) X10*3/uL Abs Immat Gran (auto) 0.04 H (0.00-0.03) X10*3/uL Absolute Neuts (auto) 10.9 H (2.0-8.3) x10*3/uL Absolute Nucleated RBC 0.000 (0.0-0.012) X10*3/uL Nucleated RBC % (auto) 0.0 (0.0-0.2) /100WBC PT 12.2 (10.9-12.4) SEC INR 1.1 (0.9-1.1) Sodium 140 (135-145) mmol/L Potassium 4.3 (3.3-5.1) mmol/L Chloride 100 (96-108) mmol/L Carbon Dioxide 23 (22-29) mmol/L Anion Gap 21 H (12-20) BUN 10 (9-16) mg/dL Creatinine 1.04 (0.5-1.4) mg/dL Estim Creat Clear Calc 85.3 Estimated GFR > 60 Random Glucose 157 H (60-115) mg/dL Calcium 9.4 (8.4-10.2) mg/dL Magnesium 1.7 (1.6-2.6) mg/dL Total Bilirubin 1.3 H (0.0-1.0) mg/dL AST 77 H (5-37) U/L ALT 57 H (0-40) U/L Alkaline Phosphatase 100 (39-117) U/L Troponin I High Sens 7.0 D (<3.5-35.0) ng/L Total Protein 8.0 (6.5-8.0) g/dL Albumin 4.4 (3.5-5.0) g/dL Lipase 437 H (8-78) U/L Influenza Type A (PCR) NEGATIVE (Negative) Influenza Type B (PCR) NEGATIVE (Negative) RSV RNA Qual (PCR) NEGATIVE (Negative) SARS-CoV-2 RNA (RT-PCR) NEGATIVE (Negative) Independent Interpretation I performed an independent interpretation of an: EKG and CT Scan Interpretation: My interpretation is in agreement with the radiologist's impression of this imaging study. L Report Number: [id number]: Total DLP = 569.00 mGy-cm CLINICAL HISTORY: abd pain CT abdomen and pelvis with contrast Comparison: CT/SR - CT ABDOMEN PELVIS W IV CON - 05/30/23 20:26 EST Findings: No consolidation or effusion. Spleen is normal in size. There are punctate calcifications within the spleen consistent with granulomata. There is diffuse fatty infiltration of the liver. Gallbladder, adrenal glands, and kidneys are unremarkable. No hydronephrosis. There is diffuse stranding around the pancreatic head and proximal body of the pancreas. There are punctate calcifications within the inferior head of the pancreas. No peripancreatic fluid collection or abscess. Pancreatic gland enhances throughout. No bowel obstruction, pneumoperitoneum, or pneumatosis. Abdominal aorta is normal caliber. Pelvic contents unremarkable. Normal appendix. L3 through L5 posterior fusion. Intervertebral disc fusion at L4-5. IMPRESSION: Interstitial edematous pancreatitis. Diffuse fatty infiltration of the liver. This document has been electronically signed by: Nabeel Escamilla MD on 09/27/2024 19:04:29 Dictated By: Nabeel Escamilla MD Signed By: Electronically signed by Nabeel Escamilla MD 09/27/24 [id number] I independently interpreted this EKG and am in agreement with the below findings: Vent. Rate: 58 BPM Atrial Rate: 58 BPM P-R Int: 134 ms QRS Dur: 80 ms QT Int: 578 ms P-R-T Axes: 68 30 56 degrees QTcB Int: 567 ms Sinus bradycardia Prolonged QT When compared with ECG of 30-May-2023 19:08, QT has lengthened DD/ [id number] Radiology Impression Discussion of test interpretation with radiology: I have reviewed the radiologist's reading. Independent Historian Clinical information obtained from an independent historian. History obtained from or confirmed by: EMS (EMS provided additional history and confirmed the history provided by the patient. ) Critical Care Time Critical Care Time Critical Care Time: Yes Total Critical Care Time: 48 Attestation: I spent 48 minutes of Critical Care Time with this patient. This does not include time spent on separately reported billable procedures. Discharge Plan Discharge Clinical Impression: Pancreatitis Patient Disposition: Admitted As Inpatient Interventions: Admission Worksheet (ED) Last Done: 09/27/24 19:17
--- NOTE | 2024-09-27 16:25 | ECG_ITS ---
Test Reason : ABD PAIN Blood Pressure : */* mmHG Vent. Rate : 58 BPM Atrial Rate : 58 BPM P-R Int : 134 ms QRS Dur : 80 ms QT Int : 578 ms P-R-T Axes : 68 30 56 degrees QTcB Int : 567 ms Sinus bradycardia Prolonged QT Abnormal ECG When compared with ECG of 30-May-2023 19:08, QT has lengthened Referred By: Yun Diaz Electronically Signed By: ALISSA MULLEN MD
--- NOTE | 2024-09-27 16:37 | MHC.EDTECH ---
Vanessa Tapia stated to walk to be medicated to complete the task assigned, RN aware to notify me when pt is medicated.
[2024-09-27 16:47] LABS: MANUAL DIFF FLAG NO
[2024-09-27 16:48] LABS: Hematocrit 45.1 % (42.0-52.0); Hemoglobin 16.8 g/dl (14.0-18.0); Imm Gran Abs Auto 0.04 X10*3/uL (0.00-0.03); Imm Gran Pct Auto 0.3 % (0.0-0.4); Lymphocytes Absolute Auto 0.7 X10*3/uL (1.2-4.9); Mean Corpuscular HGB Conc 37.3 g/dl (31.0-36.0); Mean Corpuscular Hemoglobin 32.4 pg (27.0-33.0); Mean Corpuscular Volume 86.9 fL (80.0-98.0); NRBC Abs Auto 0.000 X10*3/uL (0.0-0.012); NRBC Pct Auto 0.0 /100WBC (0.0-0.2); Platelet Count 226 X10*3/uL (160-400); Red Blood Count 5.19 X10*6/uL (4.60-5.80); White Blood Count 12.2 X10*3/uL (4.8-10.8)
[2024-09-27 16:53] LABS: INTERNATIONAL NORM RATIO 1.1 (0.9-1.1); Prothrombin Time 12.2 SEC (10.9-12.4)
[2024-09-27] MEDS: diazePAM 10 MG/2 ML CARTRIDGE 5 MG IVPUSH ×2 (17:05→19:58)
[2024-09-27 17:06] LABS: Alanine Aminotransferase 57 U/L (0-40); Albumin Level 4.4 g/dL (3.5-5.0); Alkaline Phosphatase 100 U/L (39-117); Anion Gap 21 (12-20); Aspartate Amino Transferase 77 U/L (5-37); Blood Urea Nitrogen 10 mg/dL (9-16); Calcium 9.4 mg/dL (8.4-10.2); Carbon Dioxide 23 mmol/L (22-29); Chloride 100 mmol/L (96-108); Creatinine Clr Calc Pharmacy 85.3; Estimated Glomerular Filt Rate > 60; Magnesium 1.7 mg/dL (1.6-2.6); Potassium 4.3 mmol/L (3.3-5.1); Sodium 140 mmol/L (135-145); Total Protein 8.0 g/dL (6.5-8.0)
[2024-09-27 17:11] LABS: Troponin-I High Sensitivity 7.0 ng/L (<3.5-35.0)
[2024-09-27 17:13] LABS: Lipase 437 U/L (8-78)
[2024-09-27 17:26] LABS: Resp Syncy Virus RNA Qual PCR NEGATIVE (Negative); SARS COV2 PCR INHOUSE NEGATIVE (Negative)
[2024-09-27] MEDS: iohexoL 350 MG/ML 100 ML INFUS..BTL 85 ML IV (18:21)
[2024-09-27] MEDS: Magnesium Sulfate/H2O 2 GM/50 ML PIGGYBACK IV (18:29)
--- NOTE | 2024-09-27 18:56 | PC.NURSE ---
Patient hostile and argumentative with staff, demanding water and pain meds constantly, yelling out profanity at will. Patient told by provider Yun he cannot have anything to drink at this time d/t possible need of surgery/ waiting for CT to result. Patient complaining about comfort of stretcher. Informed patient that he is in the process of being admitted to the hospital, apologized for the lack of comfort on the stretcher, informed patient constantly yelling profanity is not an acceptable behavior. Patient verbalized understanding.
--- NOTE | 2024-09-27 19:09 | PM.IMHP ---
History of Present Illness Date of Service: 09/27/24 Chief Complaint: abd pain 59-year-old male with a past medical history of alcohol use disorder, opiate dependence on buprenorphine, history of pancreatitis; presented to the hospital with a chief complaint of abdominal pain. Patient reports over the past 2-3 days he has been having abdominal pain located in the epigastrium, some nausea and vomiting. Denies any blood in the vomitus. Reports he has been drinking alcohol-last drink was about 2 days ago. Denies any chest pain or palpitations. Denies any urinary symptoms. Review of all other systems is negative except mentioned above ER course: Per ER team, patient noted abdominal tenderness; no guarding or rigidity; lipase elevated to 437; has mild transaminitis-similar to prior numbers. CT abdomen pelvis showed interstitial edematous pancreatitis. [facility] Medical History Alcohol use disorder History of pancreatitis Alcohol use Buprenorphine dependence Chronic abdominal pain Surgical History History of back surgery Social History Household Members: None Housing: Apartment Do you presently have visiting nurse or other home services: No Alcohol intake: current Alcohol intake frequency: a few times a month Alcohol type: beer and hard liquor Patient Tobacco Use Status: Former Tobacco user Tobacco use type: Cigarette Smoked in Last 30 Days: No e-Cigarette/Vaping Use: Never Used Second Hand Smoke Exposure: No Use of substances other than those prescribed or required for medical reasons: No Substance Use Type: Marijuana and Other Have you been hit, kicked, punched, or otherwise hurt by someone within the past year? If so, by whom?: No Do you feel safe in your current relationship?: No Current Relationship Is there a partner from a previous relationship who is making you feel unsafe now?: No Are you made to feel afraid or neglected: No Advance Directives: No Advance Directives Information Provided: No Do you have a plan to hurt others: No Plan Recently lost weight without trying: No How much weight loss: Not applicable Eating poorly because of decreased appetite: No Nutrition screen score: 0 Nutrition Risks: No Nutritional Risk Poor oral hygiene: No service: No Current occupational status: unemployed Meds Allergies Allergy/AdvReac Type Severity Reaction Status Date / Time No Known Allergies Allergy Verified 09/27/24 16:21 Active Medications: Current Medications Magnesium Sulfate (Magnesium Sulfate/H2o) 2 gm in 50 mls @ 25 mls/hr IV ONCE ONE Stop: 09/27/24 19:56 Last Admin: 09/27/24 18:29 Dose: 25 mls/hr Sodium Chloride (Ns) 1,000 mls @ 999 mls/hr IV .Q1H1M JUAN Stop: 09/27/24 19:45 Last Admin: 09/27/24 18:53 Dose: 999 mls/hr Home Medications ?Medication ?Instructions ?Recorded ?Confirmed ?Last Taken ?Type bupropion HCl 300 mg 24 hr tablet, 300 mg PO DAILY 12/09/21 05/31/23 11/05/22 History extended release gabapentin 400 mg capsule 800 mg PO TID PRN Alcohol 12/09/21 05/31/23 11/05/22 History Withdrawal trazodone 100 mg tablet 100 mg PO BEDTIME 12/09/21 05/31/23 11/05/22 History buprenorphine 4 mg-naloxone 1 mg 1 film buccal QPM 08/22/22 05/31/23 05/27/23 History sublingual film buprenorphine 8 mg-naloxone 2 mg 1 film sublingual TID 05/31/23 05/31/23 05/27/23 History sublingual film clobetasol 0.05 % topical ointment 1 appl topical 2XW 09/28/24 Unknown History cyanocobalamin (vitamin B-12) 1,000 mcg IM QMONTH 09/28/24 09/28/24 Unknown History 1,000 mcg/mL injection solution folic acid 1 mg tablet 1 mg PO DAILY 09/28/24 Unknown History hydrocortisone 2.5 % topical cream 1 appl topical BID 09/28/24 Unknown History sennosides 8.6 mg-docusate sodium 1 tab PO DAILY 09/28/24 Unknown History 50 mg tablet (Stimulant Laxative Plus) Physical Exam Vital Signs and Narrative: Vital Signs: Last Vital Signs Temp 98.3 F 09/27/24 16:20 Pulse 74 09/27/24 18:30 Resp 14 09/27/24 18:30 BP 178/96 H 09/27/24 18:30 Pulse Ox 99 09/27/24 18:30 O2 Del Method Room Air 09/27/24 18:30 BMI result Body Mass Index 26.4 Gen: Appears be in no acute distress HEENT: NCAT, Moist mucosa. Pulmonary: Vesicular breath sounds, fair air entry CVS: Normal S1-S2 Abdomen: BS+, Soft, tender in the epigastrium Extremities: Warm well perfused Neuro: Alert and awake. Results Labs 09/28/24 06:34 09/28/24 06:34 Labs: Laboratory Results - last 24 hr 09/27/24 16:43 MCV 86.9 MCH 32.4 MCHC 37.3 H RDW 11.6 Plt Count 226 MPV 9.8 Immature Gran % (Auto) 0.3 Neut % (Auto) 88.9 H Lymph % (Auto) 5.9 L [place] % (Auto) 4.6 Eos % (Auto) 0.1 Baso % (Auto) 0.2 Lymph # (Auto) 0.7 L [place] # (Auto) 0.6 Eos # (Auto) 0.0 Baso # (Auto) 0.0 Abs Immat Gran (auto) 0.04 H Absolute Neuts (auto) 10.9 H Absolute Nucleated RBC 0.000 Nucleated RBC % (auto) 0.0 PT 12.2 INR 1.1 Anion Gap 21 H Estim Creat Clear Calc 85.3 Estimated GFR > 60 Random Glucose 157 H Calcium 9.4 Magnesium 1.7 Total Bilirubin 1.3 H AST 77 H ALT 57 H Alkaline Phosphatase 100 Troponin I High Sens 7.0 D Total Protein 8.0 Albumin 4.4 Lipase 437 H Influenza Type A (PCR) NEGATIVE Influenza Type B (PCR) NEGATIVE RSV RNA Qual (PCR) NEGATIVE SARS-CoV-2 RNA (RT-PCR) NEGATIVE Assessment and Plan (1) Pancreatitis: Qualifiers: Pancreatitis type: other Acute pancreatitis complication: unspecified Chronicity: acute Qualified Code(s): K85.80 - Other acute pancreatitis without necrosis or infection Status: Acute Plan 59-year-old male with a past medical history of alcohol use disorder, opiate dependence on buprenorphine, history of pancreatitis; presented to the hospital with a chief complaint of abdominal pain. Noted to have acute pancreatitis. Acute pancreatitis: Likely in setting of alcohol use. Patient has prior history of pancreatitis. CT abdomen pelvis showed acute interstitial pancreatitis. Pain control IV fluids Advanced diet as tolerated Alcohol use disorder: Monitor on CIWA protocol. Thiamine folate and multivitamins. Opiate dependence: Patient on buprenorphine-to be resumed once confirmed by pharmacy in a.m.. Med reconciliation: We will continue home medications pending med reconciliation by pharmacy in a.m.. DVT prophylaxis: Lovenox Code status: Full code Quality Stroke Does the patient have a stroke diagnosis?: No VTE Prior VTE?: No VTE Risk Level:: Medical - moderate - high VTE Device Contraindication: Treatment Not Indicated VTE Drug Contraindication: N/A - Med Ordered
[2024-09-27] MEDS: Dextrose 5 % and 0.45 % NaCl 1,000 ML 100 ML IVCONT (19:32)
--- NOTE | 2024-09-27 19:56 | MHC.EDTECH ---
This pct assumed care of Patient at 1844 ,vitals taken ,RN Vanessa aware of Patient high blood Pressure ,Patient was moved into a hospital bed for comfort ,Patient belongings list done ,Patient refused to change out of his clothing and shoes ,RN gordo
--- NOTE | 2024-09-28 03:03 | PC.NURSE ---
at 0247 patient had 10 beats of VTach, was sleeping at that time. Dr Davalos notified.
[2024-09-28 03:10] VITALS: BP 125/93; PULSE 71; RESP 18; TEMP 36.7; O2SAT 95
[2024-09-28 04:27] LABS: Appearance Urine Clear; Glucose Urine UA Negative (Negative); PH 5.5 (5.0-9.0); Specific Gravity - Urine 1.025 (1.005-1.025)
[2024-09-28] MEDS: Dextrose 5 % and 0.45 % NaCl 1,000 ML 100 ML IVCONT (05:27)
[2024-09-28 06:49] LABS: MANUAL DIFF FLAG NO
[2024-09-28 07:15] VITALS: BP 145/80; PULSE 65; RESP 17; TEMP 36.3; O2SAT 95
[2024-09-28 07:20] LABS: Hematocrit 41.6 % (42.0-52.0); Hemoglobin 15.2 g/dl (14.0-18.0); Imm Gran Abs Auto 0.05 X10*3/uL (0.00-0.03); Imm Gran Pct Auto 0.4 % (0.0-0.4); Lymphocytes Absolute Auto 1.3 X10*3/uL (1.2-4.9); Mean Corpuscular HGB Conc 36.5 g/dl (31.0-36.0); Mean Corpuscular Hemoglobin 32.3 pg (27.0-33.0); Mean Corpuscular Volume 88.3 fL (80.0-98.0); NRBC Abs Auto 0.000 X10*3/uL (0.0-0.012); NRBC Pct Auto 0.0 /100WBC (0.0-0.2); Platelet Count 172 X10*3/uL (160-400); Red Blood Count 4.71 X10*6/uL (4.60-5.80); White Blood Count 11.5 X10*3/uL (4.8-10.8)
[2024-09-28 07:51] LABS: Alanine Aminotransferase 43 U/L (0-40); Albumin Level 3.7 g/dL (3.5-5.0); Alkaline Phosphatase 82 U/L (39-117); Anion Gap 13 (12-20); Aspartate Amino Transferase 55 U/L (5-37); Blood Urea Nitrogen 7 mg/dL (9-16); Calcium 8.3 mg/dL (8.4-10.2); Carbon Dioxide 25 mmol/L (22-29); Chloride 103 mmol/L (96-108); Creatinine Clr Calc Pharmacy 98.6; Estimated Glomerular Filt Rate > 60; Potassium 3.4 mmol/L (3.3-5.1); Sodium 138 mmol/L (135-145); Total Protein 6.5 g/dL (6.5-8.0)
--- NOTE | 2024-09-28 08:08 | PM.DS ---
DS: Providers Provider Date of Service: 09/28/24 Date of admission: 09/27/24 19:07 Date of discharge: 09/28/24 Primary care physician: Sharon Hilton MD DS: Summary Hospital Course Hospital Course: from initial hpi: 59-year-old male with a past medical history of alcohol use disorder, opiate dependence on buprenorphine, history of pancreatitis; presented to the hospital with a chief complaint of abdominal pain. Patient reports over the past 2-3 days he has been having abdominal pain located in the epigastrium, some nausea and vomiting. Denies any blood in the vomitus. Reports he has been drinking alcohol-last drink was about 2 days ago. Denies any chest pain or palpitations. Denies any urinary symptoms. Review of all other systems is negative except mentioned above ER course: Per ER team, patient noted abdominal tenderness; no guarding or rigidity; lipase elevated to 437; has mild transaminitis-similar to prior numbers. CT abdomen pelvis showed interstitial edematous pancreatitis. hospital course: Patient was admitted for acute alcoholic pancreatitis. Was treated with IV fluids and pain meds. Course also complicated by alcohol dependence with withdrawal. Patient has decided to leave against medical advice. He was able to demonstrate understanding of the risks of doing so including from alcohol withdrawal and worsening of pancreatitis with alcohol use. For opiate dependence we will continue on Suboxone. Time Attestation Discharge Coordination Time (in mins): 34 Quality: Safe Use of Opioids Does Pt have an Active Cancer Diagnosis on the Problem List?: No Quality: Stroke Does the patient have a stroke diagnosis?: No Physical Exam Vital Signs: Vital Signs: Last Vital Signs Temp 97.4 F 09/28/24 07:15 Pulse 65 09/28/24 07:15 Resp 17 09/28/24 07:15 BP 145/80 H 09/28/24 07:15 Pulse Ox 95 09/28/24 07:15 O2 Del Method Room Air 09/28/24 07:15 BMI result Body Mass Index 26.5 General: AO X 3, anxious Resp: CTA bilateral, no accessory muscles used CVS: S1,S2,RRR GI: soft, mild tender, non distended Neuro: motor grossly intact, alert, tremulous Psych: appropriate insight DS: Data Data Completed and Pending Completed studies during hospitalization [Text1]: Procedures Detoxification Services for Substance Abuse Treatment (11/06/22) Labs on day of discharge: Laboratory Results - last 24 hr 09/27/24 09/28/24 09/28/24 16:43 04:09 06:34 WBC 12.2 H 11.5 H RBC 5.19 4.71 Hgb 16.8 15.2 Hct 45.1 41.6 L MCV 86.9 88.3 MCH 32.4 32.3 MCHC 37.3 H 36.5 H RDW 11.6 11.7 Plt Count 226 172 MPV 9.8 10.5 Immature Gran % (Auto) 0.3 0.4 Neut % (Auto) 88.9 H 77.5 H Lymph % (Auto) 5.9 L 11.4 L [place] % (Auto) 4.6 9.8 Eos % (Auto) 0.1 0.6 Baso % (Auto) 0.2 0.3 Lymph # (Auto) 0.7 L 1.3 [place] # (Auto) 0.6 1.1 Eos # (Auto) 0.0 0.1 Baso # (Auto) 0.0 0.0 Abs Immat Gran (auto) 0.04 H 0.05 H Absolute Neuts (auto) 10.9 H 8.9 H Absolute Nucleated RBC 0.000 0.000 Nucleated RBC % (auto) 0.0 0.0 PT 12.2 INR 1.1 Sodium 140 138 Potassium 4.3 3.4 D Chloride 100 103 Carbon Dioxide 23 25 Anion Gap 21 H 13 BUN 10 7 L Creatinine 1.04 0.90 Estim Creat Clear Calc 85.3 98.6 Estimated GFR > 60 > 60 Random Glucose 157 H 148 H Calcium 9.4 8.3 L D Magnesium 1.7 Total Bilirubin 1.3 H 1.1 H AST 77 H 55 H ALT 57 H 43 H Alkaline Phosphatase 100 82 Troponin I High Sens 7.0 D Total Protein 8.0 6.5 Albumin 4.4 3.7 Lipase 437 H Urine Color Yellow Urine Appearance Clear Urine pH 5.5 Ur Specific [place] 1.025 Urine Protein Negative Urine Glucose (UA) Negative Urine Ketones Negative Urine Blood Negative Urine Nitrite Negative Ur Leukocyte Esterase Negative Influenza Type A (PCR) NEGATIVE Influenza Type B (PCR) NEGATIVE RSV RNA Qual (PCR) NEGATIVE SARS-CoV-2 RNA (RT-PCR) NEGATIVE Discharge Plan Discharge Anticipated Discharge Date/Time: 09/28/24 08:06 Patient Disposition: Left Against Medical Advice Discharge Diagnosis: etoh withdrawal, pancreatitis Referrals: Sharon Hilton MD [Primary Care Provider, Medical] - 1 Week Discharge Medications: No Action buprenorphine-naloxone 8-2 mg film 1 film sublingual TID amlodipine 10 mg Tablet 10 mg PO DAILY Qty: 30 0RF Protocol: Hold for SBP< HOLD for SBP < : 90 thiamine HCl (vitamin B1) 100 mg tablet 100 mg PO DAILY Qty: 90 0RF omeprazole 40 mg capsule,delayed release(DR/EC) 40 mg PO DAILY Qty: 90 0RF ondansetron 4 mg tablet,disintegrating 4 mg PO Q8H PRN (Reason: Nausea And Vomiting) Qty: 20 0RF buprenorphine-naloxone 4-1 mg Film 1 film BUCCAL QPM Rx Instructions: place 1 strip/tab under (each) side of tongue sennosides-docusate sodium [Stimulant Laxative Plus] 8.6-50 mg tablet 1 tab PO DAILY cyanocobalamin (vitamin B-12) 1,000 mcg/mL solution 1,000 mcg IM QMONTH folic acid 1 mg tablet 1 mg PO DAILY hydrocortisone 2.5 % cream 1 appl topical BID clobetasol 0.05 % ointment 1 appl topical 2XW gabapentin 400 mg capsule 800 mg PO TID PRN (Reason: Alcohol Withdrawal) bupropion HCl 300 mg tablet extended release 24 hr 300 mg PO DAILY trazodone 100 mg tablet 100 mg PO BEDTIME Discharge Orders: Discharge Order (Routine); Ordered 09/28/24 Ordered By: Devon Lewis Diet: Advance to usual diet Activity on Discharge: As tolerated Print Language: Bahamian Care Plan Goals: recovery Health Concerns: etoh withdrawal, pancreatitis Plan of Treatment: at risk for from alcohol withdrawal, if continue to drink alcohol will worsen pancreatitis recommend staying in hospital to complete treatment Assessment: see above
--- NOTE | 2024-09-28 08:22 | PC.NURSE ---
Pt agitated this am swearing wanting to leave asking for pain medication. Per pt even if to get more pain medication plans to leave ama. Dr Lewis notiifed at bedside to speak with patient about risks of leaving ama, Pt able to understand risk of leaving. Per Dr Lewis ok to give dilaudid IV prior to leaving for pain. Pt medicated per MD order. IV and tele removed pt states I left multiple times prior AMA Pt signed form and was transported off unit via wheelchair to [facility].
--- NOTE | 2024-09-28 10:22 | MHC.CM.PN ---
Patient left the hospital AMA prior to being seen by case management.
== END 2024-09-28 08:28 | disposition left against medical advice (07) | DRG 439 ==
LOC: HO.ED 19:17 → HO.EDOVER 19:33 → HO.IMC 21:15 → HO.S3 21:43 → HO.IMC 21:45
PROVIDERS: Physician Assistant Medical; Admitting Provider Hospitalist; Emergency Provider Emergency Medicine Emergency Medical Services; PCP Pediatrics; Visit Provider Internal Medicine
DX: K85.20 Alcohol induced acute pancreatitis without necrosis or infection (principal); F11.20 Opioid dependence, uncomplicated; F10.10 Alcohol abuse, uncomplicated; Z20.822 Contact with and (suspected) exposure to COVID-19; Z79.899 Other long term (current) drug therapy
CPT/HCPCS: 36415; 74177; 80053; 81003; 83690; 83735; 84484; 85025; 85610; 87637; 93005; 99285; J1171; J1790; J2765; J3360; J3475; Q9967

== ENCOUNTER → 2024-09-27 16:25 | Outpatient (BNV) | payer OTHER, SELFPAY | PROVIDERS: Admitting Provider Hospitalist; Emergency Provider Emergency Medicine Emergency Medical Services; PCP Pediatrics; Visit Provider Internal Medicine Cardiovascular Disease | DX: R00.1 Bradycardia, unspecified (principal) | CPT/HCPCS: 93010 ==

== ENCOUNTER → 2024-09-27 17:46 | Outpatient (BNV) | payer OTHER, SELFPAY | PROVIDERS: Admitting Provider Hospitalist; Emergency Provider Emergency Medicine Emergency Medical Services; PCP Pediatrics; Visit Provider Radiology Diagnostic Radiology | DX: K85.90 Acute pancreatitis without necrosis or infection, unspecified (principal); K83.8 Other specified diseases of biliary tract | CPT/HCPCS: 74177 ==

== ENCOUNTER → 2024-09-27 19:07 | Outpatient (BNV) | payer OTHER, SELFPAY | PROVIDERS: Admitting Provider Hospitalist; Emergency Provider Emergency Medicine Emergency Medical Services; PCP Pediatrics; Visit Provider Internal Medicine | DX: K85.80 Other acute pancreatitis without necrosis or infection (principal) | CPT/HCPCS: 99223; 99239 ==

== ENCOUNTER 2024-10-01 19:08 | Inpatient (IN) | payer OTHER, SELFPAY ==
--- NOTE | ~2024-10-01 | CT_ITS ---
CLINICAL HISTORY: pancreatitis CT abdomen and pelvis with contrast Comparison: CT/SR - CT ABDOMEN PELVIS W IV CON - 09/27/24 18:16 EDT Findings: Calcified granulomas in the lungs. Calcified granulomas in the spleen. Hepatomegaly with steatosis Regional hypoattenuation noted along the falciform region of the liver, likely focal fatty deposition. Distended gallbladder. Improving pancreatitis with decreasing peripancreatic inflammatory changes. No peripancreatic collections. Prominent main pancreatic duct and extrahepatic bile ducts measuring 6 mm and 10 mm respectively. No obvious bile or pancreatic duct stones. Thickening of the left adrenal gland, nonspecific. No urolithiasis. Large colonic stool burden proximally. Mildly diffuse small bowel mural thickening with mucosal hyperemia. Distal colon demonstrates mural thickening more so at the sigmoid level. No bowel obstruction. Fat containing inguinal hernias. Circumferential bladder wall thickening. Osteo PSF hardware at L3-L5 grade 1 anterolisthesis at L4-L5. Osteopenia with diffuse multilevel spondylosis. IMPRESSION: 1. Improving pancreatitis. 2. Pancreatic and biliary ductal dilatation without obstructive stone identified. This may be further evaluated with MRCP/ERCP. 3. Circumferential bladder wall thickening may be related to degree of underdistention or mild cystitis. 4. Question mildly diffuse enteritis and distal colitis. This document has been electronically signed by: Ashish Maya MD on 10/02/2024 02:14:33
--- NOTE | ~2024-10-01 | MR_ITS ---
EXAMINATION: MRCP HISTORY: abd pain, duct dilation COMPARISON: Comparison is made with the prior examination dated 08/22/2022. Correlation is also made with a CT of the abdomen with contrast performed earlier in the day. TECHNIQUE: Axial gradient echo in and out of phase T1, axial T2 and fat suppressed T2, and coronal haste T2 with fat saturation images were obtained through the abdomen. 3D MRCP Reconstructed images and thick slab imaging of the biliary tree were obtained. FINDINGS: There is mild loss of signal intensity within the liver on opposed phase imaging, compatible with steatosis. There is mild intrahepatic biliary ductal dilatation, particularly in the left lobe. The gallbladder is distended. There may be tiny intraluminal calculi. The common bile duct is dilated, measuring up to 12 mm in diameter. There is tapering of the common bile duct at the ampulla. No filling defects are identified. There is moderate dilatation of the pancreatic duct. These findings were present on the prior MRI although they are more prominent on the current study. Minimal peripancreatic inflammatory stranding is seen consistent with the history of acute pancreatitis. There is no peripancreatic loculated fluid collection. The spleen, adrenals, and left kidney are unremarkable. There is a 10 mm cyst at the upper pole of the right kidney. No retroperitoneal lymphadenopathy or ascites is identified in the upper abdomen. The patient is status post lower lumbar fusion. MR/MR MRCP IMPRESSION: 1. Resolving acute pancreatitis. 2. Intra and extrahepatic biliary ductal dilatation with dilatation of the common bile duct and pancreatic duct. No intraluminal filling defects are identified to suggest choledocholithiasis. 3. Hepatic steatosis. 4. Possible cholelithiasis. Electronically signed by: Patrick Welch MD 10/02/2024 03:47 PM EDT
[2024-10-01 19:19] VITALS: BP 171/123; PULSE 82; RESP 18; TEMP 36.4; O2SAT 95; BMI 25.4
--- NOTE | 2024-10-01 19:22 | ECG_ITS ---
Test Reason : ABD PAIN Blood Pressure : */* mmHG Vent. Rate : 67 BPM Atrial Rate : 67 BPM P-R Int : 144 ms QRS Dur : 78 ms QT Int : 422 ms P-R-T Axes : 49 20 32 degrees QTcB Int : 445 ms Normal sinus rhythm Septal infarct , age undetermined Abnormal ECG When compared with ECG of 27-Sep-2024 17:14, Septal infarct is now Present QT has shortened Referred By: Pankaj Kong Electronically Signed By: Keith Camacho
--- NOTE | 2024-10-01 19:23 | ED.GENADULT ---
HPI - General Adult General Chief complaint: Abdominal Pain Stated complaint: Abd pain Time Seen by Provider: 10/01/24 22:06 Source: patient Mode of arrival: ambulatory Limitations: no limitations History of Present Illness ED Provider: HPI narrative: Patient's history of hypertriglyceridemia and alcohol use with a history of recurrent pancreatitis still drinks alcohol comes here for abdominal pain which started last week patient was seen here 3 days ago 09/27 admitted and patient's left against medical advice next day comes back as patient is still having the abdominal pain with distention with nausea unable to eat much patient is a last drink on 09/26 Related Data Home Medications ?Medication ?Instructions ?Recorded ?Confirmed bupropion HCl 300 mg 24 hr tablet, 300 mg PO DAILY 12/09/21 10/02/24 extended release gabapentin 400 mg capsule 800 mg PO TID PRN Alcohol 12/09/21 10/02/24 Withdrawal trazodone 100 mg tablet 100 mg PO BEDTIME 12/09/21 10/02/24 cyanocobalamin (vitamin B-12) 1,000 mcg IM QMONTH 09/28/24 10/02/24 1,000 mcg/mL injection solution folic acid 1 mg tablet 1 mg PO DAILY 09/28/24 10/02/24 hydrocortisone 2.5 % topical cream 1 appl topical BID 09/28/24 10/02/24 sennosides 8.6 mg-docusate sodium 1 tab PO DAILY 09/28/24 10/02/24 50 mg tablet (Stimulant Laxative Plus) Previous Rx's ?Medication ?Instructions ?Recorded thiamine HCl (vitamin B1) 100 mg 100 mg PO DAILY #90 tabs 06/01/23 tablet Allergies Allergy/AdvReac Type Severity Reaction Status Date / Time No Known Allergies Allergy Verified 10/01/24 19:23 Review of Systems Review of Systems: Yes all other systems are reviewed and are negative [facility] Past Medical History Medical History (Updated 10/02/24 @ 16:50 by Tasha August CNP) Alcohol use disorder History of pancreatitis Alcohol use Buprenorphine dependence Chronic abdominal pain Surgical History History of back surgery Social History Social History Household Members: None Household Members Other:: lives with dog Housing: Apartment Do you presently have visiting nurse or other home services: No Alcohol intake: current Alcohol intake frequency: a few times a month Alcohol type: beer and hard liquor Comment: Pt refusing bed alarms and seizure pads Patient Tobacco Use Status: Tobacco use Unknown Tobacco use type: Cigarette Smoked in Last 30 Days: No e-Cigarette/Vaping Use: Never Used Second Hand Smoke Exposure: No Use of substances other than those prescribed or required for medical reasons: No Substance Use Type: Marijuana and Other Currently Displaying Signs/Symptoms of Drug Intoxication Withdrawal: No Have you been hit, kicked, punched, or otherwise hurt by someone within the past year? If so, by whom?: No Do you feel safe in your current relationship?: No Current Relationship Is there a partner from a previous relationship who is making you feel unsafe now?: No Are you made to feel afraid or neglected: No Advance Directives: No Advance Directives Information Provided: No Do you have a plan to hurt others: No Plan Recently lost weight without trying: Yes How much weight loss: 2-13 pounds Eating poorly because of decreased appetite: Yes Nutrition screen score: 4 Nutrition Risks: Difficulty chewing service: No Current occupational status: unemployed Physical Exam ED Vital Signs: Vital Signs - 24 hr 10/01/24 19:19 10/01/24 22:39 10/02/24 01:01 Temperature 97.5 F Pulse Rate 82 72 Respiratory Rate 18 18 16 Blood Pressure 171/123 H 197/96 H Pulse Oximetry 95 95 Oxygen Delivery Method Room Air Room Air BMI result Body Mass Index 25.4 Appearance: Alert. Oriented X3. In moderate distress Eyes: PERRLA, No Nystagmus ENT: Pharynx normal. Oral Mucosa moist Neck: Normal inspection. Neck supple. CVS: Normal heart rate and rhythm. Pulses normal. Respiratory: No respiratory distress. Equal air entry bilateral, no wheezing/rales/rhonchi Abdomen: Soft and diffuse tenderness mid abdomen with sluggish bowels, no mass palpable, no CVA tenderness Skin: Skin warm and dry. Normal skin color. Normal skin turgor. Extremities: No lower extremity edema. No calf tenderness Neuro: Oriented X 3. No motor deficit. No sensory deficit.No cerebellar signs , cranial nerves II-XII intact Course Course Course Narrative: RME: 59-year-old male presents to for pancreatitis flare-up. Patient has history of pancreatitis been ED for epigastric abdominal pain not generalized sharp stabbing radiating to the back. Labs EKG ordered Medications Administered Discontinued Medications Generic Name Dose Route Start Last Admin Trade Name Frank PRN Reason Stop Dose Admin Acetaminophen 975 mg 10/02/24 13:45 10/02/24 15:28 Acetaminophen 325 Mg Tablet PO Not Given Q8H JUAN Diazepam 5 mg 10/02/24 03:35 10/02/24 03:43 Diazepam 10 Mg/2 Ml Cartridge IVPUSH 10/02/24 03:36 5 mg STAT STA Administration Enoxaparin Sodium 40 mg 10/02/24 02:30 10/02/24 03:05 Enoxaparin Sodium 40 Mg/0.4 Ml Syringe SUBCUT 40 mg BEDTIME JUAN Administration Hydromorphone HCl 1 mg 10/02/24 12:23 10/02/24 13:41 Hydromorphone Hcl 1 Mg/Ml Syringe IVPUSH 10/02/24 12:24 1 mg ONCE ONE Administration Protocol Hydromorphone HCl 0.5 mg 10/02/24 13:41 10/02/24 15:35 Hydromorphone Hcl 0.5 Mg/0.5 Ml Syringe IVPUSH 10/02/24 13:42 0.5 mg ONCE ONE Administration Protocol Sodium Chloride 1,000 mls @ 999 mls/hr 10/01/24 22:26 10/02/24 02:46 Ns IV 10/01/24 23:26 Infused .Q1H1M ONE Infusion Lactated Ringer's 1,000 mls @ 100 mls/hr 10/02/24 02:30 10/02/24 15:40 Lr IVCONT 10/02/24 12:29 Infused .Q10H JUAN Infusion Iohexol 85 ml 10/02/24 00:07 10/02/24 00:08 Iohexol 350 Mg/Ml 100 Ml Infus..Btl IV 10/02/24 00:08 85 ml ONCE ONE Administration Morphine Sulfate 4 mg 10/01/24 22:26 10/01/24 22:39 Morphine Sulfate 4 Mg/Ml Cartridge IVPUSH 10/01/24 22:27 4 mg ONCE ONE Administration Protocol Morphine Sulfate 4 mg 10/02/24 00:39 10/02/24 01:01 Morphine Sulfate 4 Mg/Ml Cartridge IVPUSH 10/02/24 00:40 4 mg ONCE ONE Administration Protocol Morphine Sulfate 4 mg 10/02/24 02:29 10/02/24 10:45 Morphine Sulfate 4 Mg/Ml Cartridge IVPUSH 4 mg Q4H PRN Administration Pain, Severe (Pain Scale 7-10) Protocol Ondansetron HCl 4 mg 10/01/24 22:26 10/01/24 22:39 Ondansetron Hcl 4 Mg/2 Ml Vial IVPUSH 10/01/24 22:27 4 mg ONCE ONE Administration Ondansetron HCl 4 mg 10/02/24 02:29 10/02/24 03:16 Ondansetron Hcl 4 Mg/2 Ml Vial IVPUSH 4 mg Q8H PRN Administration Nausea and Vomiting Phenobarbital Sodium 320 mg 10/02/24 09:00 10/02/24 09:52 Phenobarbital Sodium 130 Mg/Ml Im Once IM 10/02/24 09:01 320 mg ONCE ONE Administration Protocol Phenobarbital Sodium 240 mg 10/02/24 12:00 10/02/24 15:27 Phenobarbital Sodium 130 Mg/Ml Vial Im Q3hx2 IM 10/02/24 15:01 240 mg Q3H JUAN Administration Protocol Sodium Chloride 3 ml 10/02/24 08:00 10/02/24 08:23 0.9 % Sodium Chloride Flush 3 Ml Syringe IVFLUSH Not Given QSHIFT [facility] Medical Decision Making Medical Decision Making [facility] Narrative: Patient's hypertriglyceridemia and alcohol use with recurrent pancreatitis will admit patient for pain control and IV hydration Differential Diagnosis Differential Diagnoses: The differential diagnosis associated with the presentation includes Admission/Observation Consideration of admission/observation: Escalation of care including admission/observation considered Consult Healthcare Provider Management of the patient was discussed with: Hospitalist Lab Data [facility] Lab Attestation statement: I reviewed the patient's lab results. 10/02/24 04:01 10/02/24 09:03 Labs: Lab Results 10/01/24 10/01/24 Range/Units 20:15 22:38 WBC 8.6 (4.8-10.8) X10*3/uL RBC 4.61 (4.60-5.80) X10*6/uL Hgb 15.0 (14.0-18.0) g/dl Hct 40.8 L (42.0-52.0) % MCV 88.5 (80.0-98.0) fL MCH 32.5 (27.0-33.0) pg MCHC 36.8 H (31.0-36.0) g/dl RDW 11.7 (11.0-16.0) % Plt Count 202 (160-400) X10*3/uL MPV 9.8 (9.4-12.4) fL Immature Gran % (Auto) 0.3 (0.0-0.4) % Neut % (Auto) 64.4 (45-73) % Lymph % (Auto) 21.3 (20-40) % [place] % (Auto) 10.6 (2-11) % Eos % (Auto) 2.7 (0-4) % Baso % (Auto) 0.7 (0-2) % Lymph # (Auto) 1.8 (1.2-4.9) X10*3/uL [place] # (Auto) 0.9 (0.1-1.2) X10*3/uL Eos # (Auto) 0.2 (0.0-0.4) X10*3/uL Baso # (Auto) 0.1 (0.0-0.2) X10*3/uL Abs Immat Gran (auto) 0.03 (0.00-0.03) X10*3/uL Absolute Neuts (auto) 5.5 (2.0-8.3) x10*3/uL Absolute Nucleated RBC 0.000 (0.0-0.012) X10*3/uL Nucleated RBC % (auto) 0.0 (0.0-0.2) /100WBC Sodium 137 (135-145) mmol/L Potassium 3.9 (3.3-5.1) mmol/L Chloride 99 (96-108) mmol/L Carbon Dioxide 28 (22-29) mmol/L Anion Gap 14 (12-20) BUN 7 L (9-16) mg/dL Creatinine 0.88 (0.5-1.4) mg/dL Estim Creat Clear Calc 100.8 Estimated GFR > 60 Random Glucose 104 (60-115) mg/dL Calcium 9.4 D (8.4-10.2) mg/dL Total Bilirubin 0.8 (0.0-1.0) mg/dL AST 58 H (5-37) U/L ALT 53 H (0-40) U/L Alkaline Phosphatase 71 (39-117) U/L Troponin I High Sens 5.2 (<3.5-35.0) ng/L Total Protein 7.6 (6.5-8.0) g/dL Albumin 4.4 (3.5-5.0) g/dL Triglycerides 127 (<150) mg/dL Lipase 339 H (8-78) U/L Independent Interpretation I performed an independent interpretation of an: CT Scan Discharge Plan Discharge Clinical Impression: Acute appendicitis Patient Disposition: Admitted As Inpatient Interventions: Admission Worksheet (ED) Last Done: 10/02/24 05:07 Discharge Date/Time: 10/02/24 05:51
[2024-10-01 20:20] LABS: MANUAL DIFF FLAG NO
[2024-10-01 20:32] LABS: Hematocrit 40.8 % (42.0-52.0); Hemoglobin 15.0 g/dl (14.0-18.0); Imm Gran Abs Auto 0.03 X10*3/uL (0.00-0.03); Imm Gran Pct Auto 0.3 % (0.0-0.4); Lymphocytes Absolute Auto 1.8 X10*3/uL (1.2-4.9); Mean Corpuscular HGB Conc 36.8 g/dl (31.0-36.0); Mean Corpuscular Hemoglobin 32.5 pg (27.0-33.0); Mean Corpuscular Volume 88.5 fL (80.0-98.0); NRBC Abs Auto 0.000 X10*3/uL (0.0-0.012); NRBC Pct Auto 0.0 /100WBC (0.0-0.2); Platelet Count 202 X10*3/uL (160-400); Red Blood Count 4.61 X10*6/uL (4.60-5.80); White Blood Count 8.6 X10*3/uL (4.8-10.8)
[2024-10-01 20:37] LABS: Alanine Aminotransferase 53 U/L (0-40); Albumin Level 4.4 g/dL (3.5-5.0); Alkaline Phosphatase 71 U/L (39-117); Anion Gap 14 (12-20); Aspartate Amino Transferase 58 U/L (5-37); Blood Urea Nitrogen 7 mg/dL (9-16); Calcium 9.4 mg/dL (8.4-10.2); Carbon Dioxide 28 mmol/L (22-29); Chloride 99 mmol/L (96-108); Creatinine Clr Calc Pharmacy 100.8; Estimated Glomerular Filt Rate > 60; Potassium 3.9 mmol/L (3.3-5.1); Sodium 137 mmol/L (135-145); Total Protein 7.6 g/dL (6.5-8.0)
[2024-10-01 20:41] LABS: Troponin-I High Sensitivity 5.2 ng/L (<3.5-35.0)
[2024-10-01 20:43] LABS: Lipase 339 U/L (8-78)
--- OUTSIDE RECORDS SUMMARY | 2024-10-01 22:15 | XMS_ITS | Clinical Summary ---
Author Organization [address] [facility] Address [address] [place] [address] Phone Care Team Providers Care Vascular Manager Name Role Phone Sharon Hilton MD Primary Care Provider [phone] Allergies No known active allergies Medications acetaminophen (TYLENOL) 500 mg tablet Take 1 Tablet by mouth every 6 hours as needed. Active gabapentin (NEURONTIN) 400 mg capsule TAKE TWO CAPSULES THREE TIMES DAILY NEEDED 10/27/2023 Active omeprazole (PriLOSEC) [address] capsule TAKE ONE CAPSULE DAILY Active senna-docusate (PERICOLACE) 8.6-50 mg per tablet Take 1 Tablet by mouth. 12/06/2023 12/06/19 25 Active POLYETHYLENE GLYCOL 3350 ORAL Mix 1 cap full in 4 oz of juice or water and drink daily 12/06/2023 Active oxyCODONE (ROXICODONE) 5 mg immediate release tablet 1-2 tabs PO Q6-8h hr prn severe pain Active amLODIPine (NORVASC) 10 mg tablet Take 1 tablet (10 mg total) by mouth 1 (one) time each day. Active buPROPion XL (WELLBUTRIN XL) 300 mg 24 hr tablet Take 1 tablet (300 mg total) by mouth 1 (one) time each day. Active docusate sodium (COLACE) 100 mg capsule TAKE ONE CAPSULE TWICE DAILY FOR 10 DAYS Active Mobic 15 mg tablet Take 1 tablet (15 mg total) by mouth daily. 10/02/2023 10/02/19 25 Active traZODone (DESYREL) 100 mg tablet Take 1 tablet (100 mg total) by mouth. 09/22/2023 Active buprenorphine-n aloxone (SUBOXONE) 8-2 mg per SL film DISSOLVE 1 FILM UNDER THE TONGUE DAILY Active ondansetron (ZOFRAN) 4 mg tablet Take 1 tablet (4 mg total) by mouth every 8 (eight) hours if needed. 02/19/2024 Active Active Problems Problem Noted Date Diagnosed Date Neck pain 02/23/2024 Assessment & Plan (02/23/2024 2:00 PM EST): Mr. Franklin has had episodes of neck pain flaring up over the years but this current episode has gotten significantly worse in the past week and he is quite miserable. He has a difficult time looking over his left shoulder. The x-rays show multilevel DDD with endplate spurring and facet arthropathy though I do not see severe foraminal stenosis. This can be reviewed at the pain management but I would then obtain a cervical MRI if no progress is made. Lumbar stenosis with neurogenic claudication Assessment & Plan (02/23/2024 1:57 PM EST): I discussed the x-rays with Mr. Franklin and the Coflex is holding in good position. He is not describing any hip or groin pain and is walking with a cane. I think I can infer that some part of this got better with surgery. It is the persistent sacral pain and coccydynia that bothers him every day. He is sitting on pillows but I suggested a donut may be better for him. He receives a limited number of 5 mg oxycodone every week and he states that taking 1 at a time does nothing for him but 2 at a time will take the edge off. Unfortunately, that means that his prescription runs out early every week. I am going to refer him to pain management where they may have more options for treatment and he would be willing to enter a pain contract if necessary. Degeneration of intervertebr al disc of lumbar region with discogenic back pain 11/24/2023 Overview (01/18/2024): Last Assessment & Plan: Mr. Franklin is 2 days status post L2-3 decompression with placement of a Coflex fixation device. He came in today because of some concerns about his incision. He has been having some bleeding and wanted it checked out. He had a lot of pain yesterday but feels much better today. He still has incisional pain that is significant. He denies any fevers, shakes, or chills. He is able to stand on his toes and his heels and he walks gingerly but without difficulty. Examination of his incision revealed that it was closed with indu. There was no erythema and no heat emanating from the incision. There was a little bit of bleeding from the cephalad pole of the incision. I placed a compression dressing and gave him some materials so he could change the dressing tomorrow. He will follow-up with us at his regularly scheduled visit next week. Elevated BP without diagnosis of hypertension Alcohol-induced acute pancreatitis 05/02/2022 Hypertensive disorder 11/17/2021 Pancreatitis 09/22/2021 Tendinitis of right elbow 07/14/2017 Anxiety 02/07/2017 Cheilitis 11/03/2016 Tobacco use disorder, continuous 11/25/2011 Depression, recurrent ([facility] V24) 11/02/2011 Opioid type dependence, cont inuous ([facility] V24, [facility] V28) 06/28/2011 Immunizations Name Administration Dates Next Due COVID-19 (Moderna/Spikevax) 12yo and older 01/12/2022 Influenza Quadravalent, MDCK , 0.5ml, preservative free (Flucelvax) 6mo and older 02/27/2021 Influenza trivalent, 0.5mL, preservative free (Fluarix; FluLaval; Fluzone) ages 6mo and older (Afluria) 3 years and older 12/06/2023,12/27/2022,01/10/2022,2019,01/28/2019,06/04/2018,12/13/2016,1 05/10/2015,04/06/2015,01/23/2013, 013 Influenza trivalent, with preservative (Fluzone; Afluria) 6mo and older 01/23/2014 Tdap Tetanus diptheria acell ular pertussis (Boostrix; Adacel) 7yo and older 03/09/2016 Zoster recombinant (Shingrix ) 19yo and older 04/18/2022,02/15/2022 Surgical History Surgery Date Site/Laterality Comments OTHER SURGICAL HISTORY 01/2013 PROCEDURE: HISTORY OTHER; COMMENT: Revision L4-5 fusion with placement of internal bone growth stimulator, Dr. Espinoza OTHER SURGICAL HISTORY 01/2014 PROCEDURE: HISTORY OTHER; COMMENT: Bone growth stimulator removed, Dr. Espinoza BACK SURGERY 04/2016 PROCEDURE: HISTORICAL BACK SURGERY; COMMENT: L3-4 decompression, exploration and fusion extension L3-5, Dr. Eid BACK SURGERY 06/20/2017 PROCEDURE: HISTORICAL BACK SURGERY; COMMENT: Exploration and revision of L3-5 fusion, Dr. Eid. OTHER SURGICAL HISTORY 2003 Right PROCEDURE: HISTORY OTHER; COMMENT: tibia fracture ORIF OTHER SURGICAL HISTORY 2003 Right PROCEDURE: HISTORY OTHER; COMMENT: foot surgery (injury to toes) BACK SURGERY 01/01/2024 PROCEDURE: HISTORICAL BACK SURGERY; COMMENT: L2-3 decompression and placement of Coflex device, Dr. Eid Medical History Medical History Date Comments Depression DX:Depression Arthritis DX:Arthritis Joint pain DX:Joint pain Leg pain DX:Leg pain IBS (irritable bowel syndrome) D X:IBS (irritable bowel syndrome) History of rib fracture DX:Histo ry of rib fracture; COMMENT: multiple fractures, also as child fx right arm, tailbone, etc Social History Tobacco Use Types Packs/Day Years Used Date Smoking Tobacco: Former Cigarettes Q uit: 03/27/2008 Smokeless Tobacco: Never Sex and Gender Information Value Date Recorded Sex Assigned at Male 02/23/2024 12:29 PM EST Legal Sex Male 11:59 PM EST Gender Identity Male 02/23/2024 12:29 PM EST Sexual Orientation Straight 02/23/2024 12 :29 PM EST Obstetrics History Last Filed Vital Signs Vital Sign Reading Time Taken Comments Blood Pressure - - Pulse - - Temperature - - Respiratory Rate - - Oxygen Saturation - - Inhaled Oxygen Concentration - - Weight 93 kg (205 lb) 01/11/2024 11:18 AM EDT Height 185.4 cm (6' 1 ) 01/11/2024 11:18 AM EDT Body Mass Index 27.05 01/11/2024 11:18 AM EDT Plan of Treatment Upcoming Encounters Date Type Department Care Team (Late st Contact Info) Description 10/30/2024 1:30 PM EDT Consult Orthopedic Surgery - [place] [address] [facility] [address] [place] [id number] Anders Owens, DPM [address] [facility] [place] [address] [place] [address] Health Maintenance Due Date Last Done Comments Hepatitis A Vaccines (1 of 2 - Risk 2-dose series) 06/15/1983 Pneumococcal Vaccine: 50+ Years (1 of 1 - PCV) 2014 Cholesterol Screening (Lipid Panel) 02/27/2022 Colorectal Cancer Screening: Colonoscopy 02/27/2022 Medicare Annual Wellness Visit 02/27/2022 Social Influencers of Health Screening 02/27/2022 COVID-19 Vaccine ( season) 2023 01/12/2022, 02/27/2021, 08/06/2020, Additional history exists Hypertension/CHF/CAD Annual BMP Blood Test 05/29/2024 05/30/2023 Depression Screening 06/15/2024 06/16/2023 Influenza Vaccine (#1) 2024 , 12/27/2022, 01/10/2022, Additional history exists DTaP,Tdap,and Td Vaccines (2 - Td or Tdap) 03/09/2026 03/09/2016 RSV Immunization Adult Patients (1 - 1-dose 75+ series) 06/15/2039 HIV Screening Completed 09/21/2021, 09/21/2021 Hepatitis C Screening Completed 09/21/2021 Zoster Vaccines Completed 04/18/2022, 02/15/2022 HIB Vaccines Aged Out No longer eligi ble based on patient's age to complete this topic HPV Vaccines Aged Out No longer eligi ble based on patient's age to complete this topic Hepatitis B Vaccines Aged Out No long er eligible based on patient's age to complete this topic IPV Vaccines Aged Out No longer eligi ble based on patient's age to complete this topic MMR Vaccines Aged Out No longer eligi ble based on patient's age to complete this topic Meningococcal ACWY Vaccine Aged Out N o longer eligible based on patient's age to complete this topic Meningococcal B Vaccine Aged Out No l onger eligible based on patient's age to complete this topic Pneumococcal Vaccine: Pediatrics (0 to 5 Years) and At-Risk Patients (6 to 49 Years) Aged Out No longer eligible based on patient's age to complete this topic RSV Immunization Patients Under 20 months Aged Out No longer eligible based on patient's age to complete this topic Varicella Vaccines Aged Out No longer eligible based on patient's age to complete this topic Procedures Procedure Name Priority Date/Time Associated Diagnosis Comments ANNUAL BMP BLOOD TEST Routine 05/30/2023 HEPATITIS C SCREENING Routine 09/21/2021 HIV SCREENING Routine 09/21/2021 from Last 3 Months or Most Recently Relevant to Health Maintenance Results * Annual BMP Blood Test (05/30/2023) Annual BMP Blood Test Abstracted [facility] Provider MD HEALTH MAINTENANCE Final Result * HIV Screening (09/21/2021) Pathologist [facility] HIV Screening Abstracted [facility] Provider MD HEALTH MAINTENANCE Final Result * Hepatitis C Screening (09/21/2021) Pathologist [facility] Hepatitis C Screening Abstracted [facility] Provider MD HEALTH MAINTENANCE Final Result from Last 3 Months or Most Recently Relevant to Health Maintenance Insurance [facility] MEDICARE Member Subscriber Plan / Payer (Ef fective 2018-Present) Name:Josh Franklin Relation to Subscriber:Self Name:Josh Franklin Payer ID:[id number] Group ID:[id number] Type:Not on file Address: [address] [place] [address] Care Teams Vascular Manager Relationship Specialty Start Date End Date Sharon Hilton MD [address] [place] [phone] PCP - General Pediatrics 04/14/16
--- OUTSIDE RECORDS SUMMARY | 2024-10-01 22:16 | XMS_ITS | Clinical Summary ---
Author Organization [facility] Address [address] [place] [address] Care Team Providers Care Business Administration Program Chair Name Role Phone Sharon Hilton MD Primary Care Provider [phone] Social History Tobacco Use Types Packs/Day Years Used Date Smoking Tobacco: Never Assessed Sex and Gender Information Value Date Recorded Sex Assigned at Not on file Gender Identity Not on file Sexual Orientation Not on file Job Start Date Occupation Industry Not on file Not on file Not on file Plan of Treatment Health Maintenance Due Date Last Done Comments Hepatitis C Screening 1964 COVID-19 Vaccine (#1) 1964 Depression Screening 1976 Preventative Health Evaluation 1982 DTap / Tdap / Td (1 - Tdap) 06/15/1983 Colon Cancer Screening (Colonoscopy) 2009 Shingrix-Zoster Vaccine (1 of 2) 2014 Influenza Vaccine (#1) 2024 RSV Adult > 60+ Yrs or Pregn ant (1 - 1-dose 75+ series) 06/15/2039 Hepatitis B Vaccines Aged Out No long er eligible based on patient's age to complete this topic Pneumococcal Vaccine Aged Out No long er eligible based on patient's age to complete this topic RSV Ped < 20 months Aged Out No longe r eligible based on patient's age to complete this topic Care Teams Business Administration Program Chair Relationship Specialty Start Date End Date Sharon Hilton MD [address] [place] [address] PCP - General Pediatrics 04/14/16
--- OUTSIDE RECORDS SUMMARY | 2024-10-01 22:16 | XMS_ITS | Data Portability ---
Author Organization [facility], [facility] Address [address] [place] [address] Care Team Providers Care Interpretive Naturalist Name Role Phone HIM [facility] OTHER [facility] OTHER Assessment Encounter Date Assessment Date Assessment LastModified by Organization Details LastModified Time 07/28/2023 07/28/2023 I provided real -time medical direction via phone for this encounter and was available for additional phone-based assistance as needed. I have reviewed and agree with the Assessment and Plan as documented by the Safety Equipment Testing Specialist. Patient given the opportunity to ask questions. Our service contacted for an assessment of: ? tick bite As per above, patient had the pictures associated with this visit and then found ticks crawling on him but not attached. States the middle section was red then became a lower elwha and then filled into a blood blister. Not painful. Denies h/o Lyme disease. Per hogshead mat assembler on the scene, [place], see up loaded pictures. Impression: ? Tick bites as he found ticks crawling on him but never found a tick at the ? bite site that is up-loaded in the pictures. Additionally the ? target-lesion is small and quickly evolves into a blood blister. And there was no tick found embedded into the bite, nor a head present. Plan: Out of an abundance of caution, will treat for Lyme proph with Doxy 200 mg times one. He is in an area that typically sees an increased incidence of Lyme therefore offered to have him keep Doxy at home to be used with bites within 72 hours and we reviewed red flags and incdication for usage. We discussed the diagnostic uncertainty of home visits and the risk associated with this. In this case, the patient and I felt this to be an acceptable and reasonable amount of risk given the benefit of avoiding an ED visit. We discussed the need to seek care urgently/emergentl y in the setting of any new or worsening serious symptoms, particularly fever chills lightheadedness altered mental status [email or web address] Not available 07/28/2023 20:53:55 Plan of Treatment Reminders Order Date Submit Date Provider Last Modified By Organization Details Last Modified Time Details Appointments None recorded. Lab None recorded. Referral None recorded. Procedures None recorded. Surgeries None recorded. Imaging None recorded. Medication Orders doxycycline hyclate 100 mg capsule 2023 024 [facility], [address] [place] [address], [place], [place], [phone], 15:11:03 Patient TargetsNo targets recorded. Patient InstructionsNo instructions recorded. Reason for Referral None Reported. Medical Equipment None Reported. Medications Name Sig Start Date Stop Date Status Note LastModified by Organization Details LastModified Time betamethason e valerate 0.1 % topical ointment APPLY TO THE AFFECTED AREA(S) TWICE DAILY IN THE MORNING AND AT BEDTIME FOR dryness active Not Available Not Available Not Available doxycycline hyclate 100 mg capsule Take 2 capsule(s) as needed by oral route as directed for 1 day. active Not Available Not Available N ot Available ketoconazole 2 % shampoo APPLY TO DRY SCALP FOR 10 MINUTES, lather AND FOLLOWING with moisturizin g shampoo TWICE A WEEK, USE DAILY as a face wash active Not Available Not Available No t Available ondansetron HCl 4 mg tablet TAKE ONE TABLET BY MOUTH EVERY EIGHT HOURS NEEDED FOR NAUSEA AND VOMITING active Not Available Not Available No t Available gabapentin 400 mg capsule TAKE TWO CAPSULES THREE TIMES DAILY NEEDED active Not Available Not Available No t Available thiamine HCl (vitamin B1) 100 mg tablet TAKE 1 TABLET DAILY active Not Available Not Available No t Available Enema Disposable 19 gram-7 gram/118 mL USE ONE ENEMA RECTALLY DIRECTED active Not Available Not Available No t Available omeprazole 40 mg capsule,mayelin yed release TAKE ONE CAPSULE DAILY active Not Available Not Available No t Available trazodone 100 mg tablet TAKE ONE TABLET BY MOUTH AT BEDTIME active Not Available Not Available No t Available amlodipine 10 mg tablet TAKE ONE TABLET DAILY active Not Available Not Available No t Available econazole nitrate 1 % topical cream APPLY TO THE AFFECTED AREA(S) ON face TWICE DAILY active Not Available Not Available No t Available docusate sodium 100 mg capsule TAKE ONE CAPSULE TWICE DAILY FOR 10 DAYS active Not Available Not Available Not Available hydrocortiso ne 2.5 % topical cream APPLY TO THE AFFECTED AREA(S) TWICE DAILY active Not Available Not Available Not Available ondansetron 4 mg disintegrati ng tablet PLACE ONE TABLET ON TONGUE EVERY 8 HOURS NEEDED FOR NAUSEA AND VOMITING active Not Available Not Available No t Available bupropion HCl XL 300 mg 24 hr tablet, extended release TAKE ONE TABLET EVERY DAY active Not Available Not Available No t Available fluocinolone 0.01 % scalp oil and shower cap Apply to scalp twice a week active Not Available Not Available No t Available buprenorphin e 8 mg-naloxone 2 mg sublingual film DISSOLVE 1 FILM UNDER THE TONGUE DAILY active Not Available Not Available No t Available buprenorphin e 4 mg-naloxone 1 mg sublingual film DISSOLVE 1 FILM UNDER THE TONGUE DAILY active Not Available Not Available No t Available Vitals Date Recorded Heart rate Respiratory rate Oxygen saturation Oxygen saturation in Arterial blood by Pulse oximetry Body temperature Systolic And Diastolic Provider Name and Address Organization Details Last Updated DateTime 4 86 /min 16 /min 98 % 98 % 97.3 [degF] 150/94 mm[Hg] Not Available [facility] - production 4 20:42:53 Social History None recorded. Functional Status None recorded. Mental Status None recorded. Family History Nothing Reported. Medical History No medical history recorded. Past Encounters Encounter ID Performer Location Encounter Start Date Encounter Closed Date Diagnosis/Indication Diagnosis SNOMED-CT Code Diagnosis ICD10 Code Diagnosis Note [id number] Petty Finch MD [facility] [address] [place] [phone] 07/28/2023 20:42:40 07/26/2024 11:14:24 Bite of tick [id number] W57.XXXA Health Concerns Section Related Observation LastModified by Organization Detai ls LastModified Time None Recorded Concern Status LastModified by Organization Details LastModified Time None Recorded Advance Directives Directive None Recorded Payers Insurance Date Sequence Insurance Name Policy Number Policy Siu Covered Member ID Siu Member ID Guarantor Name 07/26/2024 1 [facility] - DOS ON OR AFTER 2022 - DUAL ELIGIBLE - CARE HOME OPTIONS AND ONE CARE (MEDICARE REPLACEMENT/ADV ANTAGE - HMO) Josh Franklin [id number] Josh Franklin Notes Date Note Type Note Provider Name and Address Organization Details Recorded Time 07/28/2023 text/html HPI: Hx; PancreatitisNoted tick on skin 4 days ago. Not imbedded when noted. Has two separate areas on back of calf that are red getting larger by the day with bulls eye appearance as described by patient. No noted attached tick to those areas. Now with warmth and tenderness to both calves. ...................... ...................... ...................... ...................... ...................... ...................... ......... [facility] Nurse Triage Notes (Deborah Rebollar): Comments: CRC RN DID NOT NEED FURTHER INFO ...................... ...................... ...................... ...................... ...................... ...................... ......... Safety Equipment Testing Specialist Note From Glenn Corbett: Dispatched to the call address for a patient who believed he had tick bites. pt. was found alert and oriented x3 walking around apartment. pt. noted two small red tang bilaterally on both his shins indicated by two red tang that changed appearance over the last day and started 3 days ago. pt. noted he would occasionally walk the dog by the siegel and that he found a larger tick on him but noted it was not embedded in his skin on either leg. pt. denied any symptoms. pt. vitals assessed. [facility] contacted and photos sent with vitals. pt. denied any fever, pain, tenderness, chest pain, dizziness, blurred vision, headache, abd pain, nvd. [facility] noted the potential for lyme disease and ordered 200 mg on time dose of Doxycycline PO and would call in a prescription to have at his house for any further potential exposures to insect bites. pt. was advised of possible side effects and red flag warnings and instructed that if he noticed another bite he had 3 days to take the medication or else it would be ineffective.all times are approx.report completed by lele corbett. ...................... ...................... ...................... ...................... ...................... ...................... ......... Disposition: Fulfilled Petty Finch MD [address] [facility],[address], [place], [address], [facility] [employer] 07/28/2023 20:56:59
[2024-10-01 22:39] VITALS: BP 197/96; PULSE 72; RESP 18; O2SAT 95
[2024-10-01 23:00] LABS: Triglycerides 127 mg/dL (<150)
[2024-10-02] VITALS (8 sets, daily range): BP systolic 155–188; BP diastolic 82–95; PULSE 59–71; RESP 16–20; TEMP 36.6; O2SAT 95–97; BMI 25.7
[2024-10-02] MEDS: iohexoL 350 MG/ML 100 ML INFUS..BTL 85 ML IV (00:08)
--- NOTE | 2024-10-02 02:30 | PM.IMHP ---
History of Present Illness Date of Service: 10/02/24 Chief Complaint: Abdominal pain This is a 59-year-old male with pertinent history of alcohol use disorder with history of alcoholic pancreatitis, opiate use disorder on Suboxone, mood disorder, hypertension who presents to the emergency department for evaluation of abdominal pain. Patient was admitted on 09/27 with a acute alcoholic pancreatitis but left AMA on 09/28. Patient returns due to ongoing abdominal pain. States he has constant epigastric pain which radiates to the back and which is without any relieving factors. Also is having associated nausea. Denies alcohol use since he left AMA on 09/28. No concern for alcohol withdrawal. Denies vomiting, fever or chills. No chest pain, palpitations, shortness of breath, changes in urinary or bowel habits. In the emergency department, lipase found to be elevated and imaging concerning for acute pancreatitis. Review of Systems Constitutional: Constitutional: Reports weakness Cardiovascular: Cardiovascular: Reports no additional cardiovascular complaints Respiratory: Respiratory: Reports no additional respiratory complaints Gastrointestinal: Gastrointestinal: Reports abdominal pain and Reports nausea Neurologic: Reports weakness [facility] Medical History Alcohol use disorder History of pancreatitis Alcohol use Buprenorphine dependence Chronic abdominal pain Pertinent family history: No family history of early CAD Surgical History History of back surgery Social History Household Members: None Housing: Apartment Do you presently have visiting nurse or other home services: No Alcohol intake: current Alcohol intake frequency: a few times a month Alcohol type: beer and hard liquor Patient Tobacco Use Status: Former Tobacco user Tobacco use type: Cigarette Smoked in Last 30 Days: No e-Cigarette/Vaping Use: Never Used Second Hand Smoke Exposure: No Use of substances other than those prescribed or required for medical reasons: No Substance Use Type: Marijuana and Other Advance Directives: No Advance Directives Information Provided: No service: No Current occupational status: unemployed Meds Allergies Allergy/AdvReac Type Severity Reaction Status Date / Time No Known Allergies Allergy Verified 10/01/24 19:23 Home Medications ?Medication ?Instructions ?Recorded ?Confirmed ?Last Taken ?Type bupropion HCl 300 mg 24 hr tablet, 300 mg PO DAILY 12/09/21 05/31/23 11/05/22 History extended release gabapentin 400 mg capsule 800 mg PO TID PRN Alcohol 12/09/21 05/31/23 11/05/22 History Withdrawal trazodone 100 mg tablet 100 mg PO BEDTIME 12/09/21 05/31/23 11/05/22 History buprenorphine 4 mg-naloxone 1 mg 1 film buccal QPM 08/22/22 05/31/23 05/27/23 History sublingual film buprenorphine 8 mg-naloxone 2 mg 1 film sublingual TID 05/31/23 05/31/23 05/27/23 History sublingual film clobetasol 0.05 % topical ointment 1 appl topical 2XW 09/28/24 Unknown History cyanocobalamin (vitamin B-12) 1,000 mcg IM QMONTH 09/28/24 09/28/24 Unknown History 1,000 mcg/mL injection solution folic acid 1 mg tablet 1 mg PO DAILY 09/28/24 Unknown History hydrocortisone 2.5 % topical cream 1 appl topical BID 09/28/24 Unknown History sennosides 8.6 mg-docusate sodium 1 tab PO DAILY 09/28/24 Unknown History 50 mg tablet (Stimulant Laxative Plus) Physical Exam Vital Signs and Narrative: Vital Signs: Last Vital Signs Temp 97.5 F 10/01/24 19:19 Pulse 72 10/01/24 22:39 Resp 16 10/02/24 01:01 BP 197/96 H 10/01/24 22:39 Pulse Ox 95 10/01/24 22:39 O2 Del Method Room Air 10/01/24 22:39 BMI result Body Mass Index 25.4 Middle-aged male lying in bed in no distress Neck supple, no JVD Regular rate and rhythm, S1-S2 heard Regular breath sounds bilaterally, no wheezing or crackles appreciated Abdomen with epigastric tenderness, no rigidity Patient is awake, alert and oriented to self, place, time and person ; no focal motor deficit Psych: Normal mood No pedal edema Results Labs 10/01/24 20:15 10/01/24 20:15 Labs: Laboratory Results - last 24 hr 10/01/24 10/01/24 20:15 22:38 MCV 88.5 MCH 32.5 MCHC 36.8 H RDW 11.7 Plt Count 202 MPV 9.8 Immature Gran % (Auto) 0.3 Neut % (Auto) 64.4 Lymph % (Auto) 21.3 [place] % (Auto) 10.6 Eos % (Auto) 2.7 Baso % (Auto) 0.7 Lymph # (Auto) 1.8 [place] # (Auto) 0.9 Eos # (Auto) 0.2 Baso # (Auto) 0.1 Abs Immat Gran (auto) 0.03 Absolute Neuts (auto) 5.5 Absolute Nucleated RBC 0.000 Nucleated RBC % (auto) 0.0 Anion Gap 14 Estim Creat Clear Calc 100.8 Estimated GFR > 60 Random Glucose 104 Calcium 9.4 D Total Bilirubin 0.8 AST 58 H ALT 53 H Alkaline Phosphatase 71 Total Protein 7.6 Albumin 4.4 Triglycerides 127 Lipase 339 H Assessment and Plan (1) Pancreatitis: Qualifiers: Acute pancreatitis complication: unspecified Chronicity: acute Pancreatitis type: other Qualified Code(s): K85.80 - Other acute pancreatitis without necrosis or infection Status: Acute Plan This is a 59-year-old male with pertinent history of alcohol use disorder with history of alcoholic pancreatitis, opiate use disorder on Suboxone, mood disorder, hypertension who presents to the emergency department for evaluation of abdominal pain. #. Acute alcoholic pancreatitis: Will admit patient with IV opioids p.r.n. due to ongoing intractable abdominal pain. Clear liquid diet and advance as tolerated. Continue IV crystalloid resuscitation. Triglyceride levels normal #. Alcohol use disorder: Monitor CIWA. Continue thiamine and folic acid #. Hypertension: On amlodipine #. Mood disorder: Continue home mood stabilizers Med rec pending DVT prophylaxis: Lovenox Full code Admit as inpatient and will require two night minimum hospital stay for management of acute pancreatitis with IV opioids (as above), which is not possible in a lesser acute setting. Quality Stroke Does the patient have a stroke diagnosis?: No VTE Prior VTE?: No VTE Risk Level:: Medical - moderate - high VTE Device Contraindication: Treatment Not Indicated VTE Drug Contraindication: N/A - Med Ordered
[2024-10-02] MEDS: Lactated Ringers 1,000 ML 100 ML IVCONT (03:06)
[2024-10-02] MEDS: diazePAM 10 MG/2 ML CARTRIDGE 5 MG IVPUSH (03:43)
[2024-10-02 04:24] LABS: MANUAL DIFF FLAG NO
[2024-10-02 04:26] LABS: Hematocrit 37.8 % (42.0-52.0); Hemoglobin 13.5 g/dl (14.0-18.0); Imm Gran Abs Auto 0.02 X10*3/uL (0.00-0.03); Imm Gran Pct Auto 0.3 % (0.0-0.4); Lymphocytes Absolute Auto 1.5 X10*3/uL (1.2-4.9); Mean Corpuscular HGB Conc 35.7 g/dl (31.0-36.0); Mean Corpuscular Hemoglobin 32.1 pg (27.0-33.0); Mean Corpuscular Volume 89.8 fL (80.0-98.0); NRBC Abs Auto 0.000 X10*3/uL (0.0-0.012); NRBC Pct Auto 0.0 /100WBC (0.0-0.2); Platelet Count 180 X10*3/uL (160-400); Red Blood Count 4.21 X10*6/uL (4.60-5.80); White Blood Count 7.7 X10*3/uL (4.8-10.8)
[2024-10-02 04:42] LABS: Anion Gap 14 (12-20); Blood Urea Nitrogen 6 mg/dL (9-16); Calcium 8.7 mg/dL (8.4-10.2); Carbon Dioxide 25 mmol/L (22-29); Chloride 102 mmol/L (96-108); Creatinine Clr Calc Pharmacy 115.2; Estimated Glomerular Filt Rate > 60; Potassium 3.9 mmol/L (3.3-5.1); Sodium 137 mmol/L (135-145)
--- NOTE | 2024-10-02 06:47 | PC.NURSE ---
New admission, pt reporting 8/10 abdominal and back pain. bp elevated 188/94, hr 59. also Ciwa scores a 4. Morphine not due yet, Dr. Anderson made aware, ok to give dose early per Dr. Anderson.
--- NOTE | 2024-10-02 07:46 | P.PNIM_ITS ---
Subjective Subjective Date of Service: 10/02/24 Physical Exam 2 Vital Signs: Vital Signs: Last Vital Signs Temp 97.8 F 10/02/24 06:07 Pulse 59 10/02/24 06:07 Resp 18 10/02/24 06:45 BP 188/94 H 10/02/24 06:07 Pulse Ox 97 10/02/24 06:07 O2 Del Method Room Air 10/02/24 06:07 BMI result Body Mass Index 25.7 Objective Data Active Medications Acetaminophen (Acetaminophen 325 Mg Tablet) 650 mg PO Q6H PRN PRN Reason: Pain, Mild 1-3,fever,headache Calcium Carbonate (Calcium Carbonate 750 Mg Tab.Chew) 750 mg PO Q4H PRN PRN Reason: Heartburn Enoxaparin Sodium (Enoxaparin Sodium 40 Mg/0.4 Ml Syringe) 40 mg SUBCUT BEDTIME [facility] Last Admin: 10/02/24 03:05 Dose: 40 mg Documented By: MOISÉS Lactated Ringer's (Lr) 1,000 mls @ 100 mls/hr IVCONT .Q10H [facility] Stop: 10/02/24 12:29 Last Admin: 10/02/24 03:06 Dose: 100 mls/hr Documented By: MOISÉS Magnesium Hydroxide (Milk Of Magnesia 30 Ml Oral.Susp) 30 ml PO DAILY PRN PRN Reason: Constipation Melatonin (Melatonin 3 Mg Tablet) 6 mg PO BEDTIME PRN PRN Reason: Insomnia Morphine Sulfate (Morphine Sulfate 4 Mg/Ml Cartridge) 4 mg IVPUSH Q4H PRN; Protocol PRN Reason: Pain, Severe (Pain Scale 7-10) Last Admin: 10/02/24 06:45 Dose: 4 mg Documented By: AMMY Comments: Per Dr. Justin rudolph to give dose early Ondansetron HCl (Ondansetron Hcl 4 Mg/2 Ml Vial) 4 mg IVPUSH Q8H PRN PRN Reason: Nausea and Vomiting Last Admin: 10/02/24 03:16 Dose: 4 mg Documented By: MOISÉS Sodium Chloride (0.9 % Sodium Chloride Flush 3 Ml Syringe) 3 ml IVFLUSH QSHIFT [facility] Labs 10/02/24 04:01 10/02/24 04:01 Labs: Laboratory Results - last 24 hr 10/01/24 10/01/24 10/02/24 20:15 22:38 04:01 MCV 88.5 89.8 MCH 32.5 32.1 MCHC 36.8 H 35.7 RDW 11.7 11.6 Plt Count 202 180 MPV 9.8 10.0 Immature Gran % (Auto) 0.3 0.3 Neut % (Auto) 64.4 64.3 Lymph % (Auto) 21.3 18.8 L Will % (Auto) 10.6 13.0 H Eos % (Auto) 2.7 3.0 Baso % (Auto) 0.7 0.6 Lymph # (Auto) 1.8 1.5 Will # (Auto) 0.9 1.0 Eos # (Auto) 0.2 0.2 Baso # (Auto) 0.1 0.1 Abs Immat Gran (auto) 0.03 0.02 Absolute Neuts (auto) 5.5 5.0 Absolute Nucleated RBC 0.000 0.000 Nucleated RBC % (auto) 0.0 0.0 Anion Gap 14 14 Estim Creat Clear Calc 100.8 115.2 Estimated GFR > 60 > 60 Random Glucose 104 103 Calcium 9.4 D 8.7 D Total Bilirubin 0.8 AST 58 H ALT 53 H Alkaline Phosphatase 71 Total Protein 7.6 Albumin 4.4 Triglycerides 127 Lipase 339 H Quality Stroke Does the patient have a stroke diagnosis?: No VTE Prior VTE?: No VTE Risk Level:: Medical - moderate - high VTE Device Contraindication: Treatment Not Indicated VTE Drug Contraindication: N/A - Med Ordered
--- NOTE | 2024-10-02 08:30 | PC.NURSE ---
Pt refusing bed alarm and seizure pads (per [facility] protocol) - aware
--- NOTE | 2024-10-02 09:35 | PHA.MEDREC ---
Pharmacy Consult ? Medication Reconciliation Pharmacy has completed the medication reconciliation. Spoke to patient who knew medications.
[2024-10-02] MEDS: PHENobarbitaL sodium 130 MG/ML IM ONCE 320 MG IM (09:52)
[2024-10-02 10:33] LABS: INTERNATIONAL NORM RATIO 1.1 (0.9-1.1); Prothrombin Time 12.9 SEC (10.9-12.4)
[2024-10-02 10:36] LABS: Alanine Aminotransferase 52 U/L (0-40); Albumin Level 4.1 g/dL (3.5-5.0); Alkaline Phosphatase 73 U/L (39-117); Anion Gap 11 (12-20); Aspartate Amino Transferase 67 U/L (5-37); Blood Urea Nitrogen 7 mg/dL (9-16); Calcium 8.9 mg/dL (8.4-10.2); Carbon Dioxide 28 mmol/L (22-29); Chloride 102 mmol/L (96-108); Creatinine Clr Calc Pharmacy 112.3; Estimated Glomerular Filt Rate > 60; Magnesium 2.1 mg/dL (1.6-2.6); Potassium 3.9 mmol/L (3.3-5.1); Sodium 137 mmol/L (135-145); Total Protein 7.2 g/dL (6.5-8.0)
[2024-10-02] MEDS: PHENobarbitaL sodium 130 MG/ML VIAL IM Q3Hx2 240 MG IM ×2 (12:18→15:27)
--- NOTE | 2024-10-02 12:33 | MHC.CM.PN ---
PATIENT LIVES ALONE WITH HIS DOG. HE USES NO DME OR VNA SERVICES. [facility]LY [facility] IS OFFERING MEALS ON WHEELS AND HOME THERAPY, WHICH PATIENT REPORTS INTEREST IN. NO HCP ON FILE AND PATIENT IS NOT INTERESTED AT THIS TIME. IMM 10/02 IN CHART.
[2024-10-02 14:12] LABS: Folate 14.5 ng/mL (> or = 4.0); Vitamin B12 856 pg/mL (200-900)
--- NOTE | 2024-10-02 15:43 | PC.NURSE ---
Pt refusing Tele
--- NOTE | 2024-10-02 16:39 | P.DS_ITS ---
DS: Providers Provider Date of Service: 10/02/24 Date of admission: 10/02/24 01:36 Date of discharge: 10/02/24 Primary care physician: Sharon Hilton MD Consults: 10/02/24 06:31 Addiction Medicine Provider Routine Consulting Provider: Addiction Covering Reason for consultation: etoh 10/02/24 08:32 Addiction Medicine Provider Stat Consulting Provider: Addiction Covering Reason for consultation: Wants to leave AMA - he has prior AMA, comes in with acute pancreatitis 2/2 Has provider been notified: No DS: Diagnosis Discharge Diagnosis (1) Pancreatitis: Status: Acute DS: Summary Hospital Course Hospital Course: PMH-history of alcoholic pancreatitis, opiate use disorder on Suboxone, mood disorder, hypertension severe epigastric abdominal pain secondary to acute pancreatitis Hepatic steatosis CBD dilation Patient who was admitted overnight for severe epigastric abdominal pain secondary to acute pancreatitis in the setting of AUD, who left AMA on 09/28/2024( admitted 09/27/2024) after being admitted for similar severe abdominal pain secondary to AUD induced alcoholic pancreatitis Patient was placed on CIWA protocol for which he was scoring 4, I had initiated the patient on phenobarb protocol for which he has received 2 doses. CTA/P-suggested improving pancreatitis, pancreatic and biliary ductal dilation without obstructive stone, and had undergone MRCP MRCP - resolving acute pancreatitis, intra or extrahepatic hepatic biliary ductal dilation with dilation of CBD (12 mm) and pancreatic duct, moderate dilation of pancreatic duct likely secondary to hepatic steatosis, however other malignant pathology can not be ruled out Patient was to complete phenobarb protocol for alcohol withdrawal Patient was supposed to get a GI consult or surgical consult for hepatic steatosis, however patient who had capacity at the time of evaluation was A&O x4 in decided to leave AMA the evening of 10/02/2024. Patient's bedside nurse was witness Status at Discharge Cognitive/behavioral status at discharge: Patient was A&O x4 Functional status at discharge: independent ambulation Overall status at discharge: patient is progressing back to baseline Time Attestation Total time managing care of this patient today: 45 mintues. Discharge Coordination Time (in mins): 45 Specific discharge activities: Patient advised not to drive any machinery Quality: Safe Use of Opioids Does Pt have an Active Cancer Diagnosis on the Problem List?: No Quality: Stroke Does the patient have a stroke diagnosis?: No Physical Exam Vital Signs: Vital Signs: Last Vital Signs Temp 97.8 F 10/02/24 15:24 Pulse 68 10/02/24 15:24 Resp 18 10/02/24 15:24 BP 164/82 H 10/02/24 15:24 Pulse Ox 95 10/02/24 15:24 O2 Del Method Room Air 10/02/24 15:24 BMI result Body Mass Index 25.7 Const: Other: Constitutional : Awake, interactive, not in distress Neck : Normal inspection, Supple Cardiovascular : RRR, no JVP, no lower extremity edema Respiratory : good bilateral air entry, no crackles, wheezes or rhonchi Gastrointestinal: soft, lax, Normal bowel sounds, no epigastric tenderness Skin : Warm, Dry Neurological : Alert & oriented x3, No focal deficit DS: Data Data Completed and Pending Completed studies during hospitalization [Text1]: Procedures Detoxification Services for Substance Abuse Treatment (11/06/22) Labs on day of discharge: Laboratory Results - last 24 hr 10/01/24 10/01/24 10/02/24 20:15 22:38 04:01 WBC 8.6 7.7 RBC 4.61 4.21 L Hgb 15.0 13.5 L Hct 40.8 L 37.8 L MCV 88.5 89.8 MCH 32.5 32.1 MCHC 36.8 H 35.7 RDW 11.7 11.6 Plt Count 202 180 MPV 9.8 10.0 Immature Gran % (Auto) 0.3 0.3 Neut % (Auto) 64.4 64.3 Lymph % (Auto) 21.3 18.8 L [place] % (Auto) 10.6 13.0 H Eos % (Auto) 2.7 3.0 Baso % (Auto) 0.7 0.6 Lymph # (Auto) 1.8 1.5 [place] # (Auto) 0.9 1.0 Eos # (Auto) 0.2 0.2 Baso # (Auto) 0.1 0.1 Abs Immat Gran (auto) 0.03 0.02 Absolute Neuts (auto) 5.5 5.0 Absolute Nucleated RBC 0.000 0.000 Nucleated RBC % (auto) 0.0 0.0 PT INR Sodium 137 137 Potassium 3.9 3.9 Chloride 99 102 Carbon Dioxide 28 25 Anion Gap 14 14 BUN 7 L 6 L Creatinine 0.88 0.77 Estim Creat Clear Calc 100.8 115.2 Estimated GFR > 60 > 60 Random Glucose 104 103 Fasting Glucose Calcium 9.4 D 8.7 D Magnesium Total Bilirubin 0.8 AST 58 H ALT 53 H Alkaline Phosphatase 71 Troponin I High Sens 5.2 Total Protein 7.6 Albumin 4.4 Triglycerides 127 Lipase 339 H Vitamin B12 Folate 10/02/24 10/02/24 09:03 13:03 WBC RBC Hgb Hct MCV MCH MCHC RDW Plt Count MPV Immature Gran % (Auto) Neut % (Auto) Lymph % (Auto) [place] % (Auto) Eos % (Auto) Baso % (Auto) Lymph # (Auto) [place] # (Auto) Eos # (Auto) Baso # (Auto) Abs Immat Gran (auto) Absolute Neuts (auto) Absolute Nucleated RBC Nucleated RBC % (auto) PT 12.9 H INR 1.1 Sodium 137 Potassium 3.9 Chloride 102 Carbon Dioxide 28 Anion Gap 11 L BUN 7 L Creatinine 0.79 Estim Creat Clear Calc 112.3 Estimated GFR > 60 Random Glucose Fasting Glucose 113 H Calcium 8.9 Magnesium 2.1 Total Bilirubin 0.9 AST 67 H ALT 52 H Alkaline Phosphatase 73 Troponin I High Sens Total Protein 7.2 Albumin 4.1 Triglycerides Lipase Vitamin B12 856 Folate 14.5 Discharge Plan Discharge Patient Disposition: Left Against Medical Advice Discharge Diagnosis: Acute pancreatitis secondary to alcohol use disorder Referrals: Sharon Hilton MD [Primary Care Provider, Medical] - 1 Week Referral Note: 1. Resolving acute pancreatitis. 2. Intra and extrahepatic biliary ductal dilatation with dilatation of the common bile duct and pancreatic duct. No intraluminal filling defects are identified to suggest choledocholithiasis. 3. Hepatic steatosis. 4. Possible cholelithiasis. Discharge Medications: No Action thiamine HCl (vitamin B1) 100 mg tablet 100 mg PO DAILY Qty: 90 0RF sennosides-docusate sodium [Stimulant Laxative Plus] 8.6-50 mg tablet 1 tab PO DAILY cyanocobalamin (vitamin B-12) 1,000 mcg/mL solution 1,000 mcg IM QMONTH folic acid 1 mg tablet 1 mg PO DAILY hydrocortisone 2.5 % cream 1 appl topical BID gabapentin 400 mg capsule 800 mg PO TID PRN (Reason: Alcohol Withdrawal) bupropion HCl 300 mg tablet extended release 24 hr 300 mg PO DAILY trazodone 100 mg tablet 100 mg PO BEDTIME Discharge Orders: Discharge Order (Routine); Ordered 10/02/24 Ordered By: Samaria Case Stand Alone Forms: Community Support Print Language: Togolese Activity Restrictions/Additional Instructions: Patient advised not to drive any machinery Visit Report Forms: SDC Instructions Care Plan Goals: Patient was supposed to finish phenobarb protocol for alcohol withdrawal Patient was supposed to get pain regimen for pancreatitis Patient was supposed to get a GI consult for hepatic steatosis and CBD dilation Patient however left AMA Health Concerns: Electrolyte abnormalities Hepatic steatosis Worsening withdrawal in the setting of chronic alcohol use disorder SOB Arrhythmias Plan of Treatment: Patient needs to follow up with PCP Patient needs to follow up/consult to GI physician for maintenance of hepatic steatosis Patient is adamant that he wants to go and leave AMA despite multiple reas surances and advised that we will treat his pain and withdrawal Patient said his PCP will follow-up the MRCP results and let him know if he has any alarming findings Patient did not want to continue withdrawal protocol Assessment: Patient needs to follow up with PCP Patient needs to follow up/consult to GI physician for maintenance of hepatic steatosis Patient is adamant that he wants to go and leave AMA despite multiple reassurances and advised that we will treat his pain and withdrawal Patient said his PCP will follow-up the MRCP results and let him know if he has any alarming findings Patient did not want to continue withdrawal protocol Discharge Date/Time: 10/02/24 16:17
--- NOTE | 2024-10-02 16:48 | HO.ADDICTCON ---
History of Present Illness Date of Service: 10/02/2024 Chief Complaint: Abd pain Reason for Consult: AUD Sources of Information: patient interviewed and chart reviewed HPI Narrative: Patient is a 59 year old male with history of AUD and pancreatitis, medically admitted with acute pancreatitis. Patient seen in room 353. He is awake, alert, pleasant and engaged in interview. He reports overall withdrawal sx are managed, however he is still experiencing moments of feeling hot and cold . He reports a long history of alcohol use and states an increase recently due to ongoing pain. History somewhat challenging to obtain as patient was tangential. He did share that he has been in remission from OUD for approx 10 years. He is prescribed Suboxone via the [facility], however he states he has not taken any suboxone in 5 days due to abdominal pain and feeling that pain medication would not as effective with buprenorphine on board. No opiate use for several years. Last alcohol containing drink 5 days ago. He shared that he has little to no supports. His father, who is in his 80's, is supposed to drive down to check on patient's dog, Guanaco. He reports his dog is all he has, and is tearful when talking about him. There was concern earlier in the morning about patient wanting to leave before completing treatment--made no mention of this when seen by t/w, and actually planning for care of his dog. Labs reviewed--elevated lipase. Review of Systems Constitutional: Reports as per HPI Gastrointestinal: Reports abdominal pain (no longer radiating to the back), Denies nausea and Denies vomiting Diagnostics Vital Signs (24Hr): Vital Signs - 24 hr 10/01/24 19:19 10/01/24 22:39 10/02/24 01:01 Temperature 97.5 F Pulse Rate 82 72 Respiratory Rate 18 18 16 Blood Pressure 171/123 H 197/96 H Pulse Oximetry 95 95 Oxygen Delivery Method Room Air Room Air 10/02/24 01:30 10/02/24 02:44 10/02/24 03:03 Temperature Pulse Rate 63 Respiratory Rate 16 20 Blood Pressure 155/95 H Pulse Oximetry Oxygen Delivery Method 10/02/24 06:07 10/02/24 06:45 10/02/24 08:00 Temperature 97.8 F 97.9 F Pulse Rate 59 71 Respiratory Rate 18 18 17 Blood Pressure 188/94 H 168/84 H Pulse Oximetry 97 95 Oxygen Delivery Method Room Air Room Air 10/02/24 15:24 Temperature 97.8 F Pulse Rate 68 Respiratory Rate 18 Blood Pressure 164/82 H Pulse Oximetry 95 Oxygen Delivery Method Room Air BMI result Body Mass Index 25.7 Labs 10/02/24 04:01 10/02/24 09:03 Labs: Laboratory Results - last 48 hr 10/01/24 10/01/24 10/02/24 20:15 22:38 04:01 WBC 8.6 7.7 RBC 4.61 4.21 L Hgb 15.0 13.5 L Hct 40.8 L 37.8 L MCV 88.5 89.8 MCH 32.5 32.1 MCHC 36.8 H 35.7 RDW 11.7 11.6 Plt Count 202 180 MPV 9.8 10.0 Immature Gran % (Auto) 0.3 0.3 Neut % (Auto) 64.4 64.3 Lymph % (Auto) 21.3 18.8 L Douglas % (Auto) 10.6 13.0 H Eos % (Auto) 2.7 3.0 Baso % (Auto) 0.7 0.6 Lymph # (Auto) 1.8 1.5 Douglas # (Auto) 0.9 1.0 Eos # (Auto) 0.2 0.2 Baso # (Auto) 0.1 0.1 Abs Immat Gran (auto) 0.03 0.02 Absolute Neuts (auto) 5.5 5.0 Absolute Nucleated RBC 0.000 0.000 Nucleated RBC % (auto) 0.0 0.0 PT INR Sodium 137 137 Potassium 3.9 3.9 Chloride 99 102 Carbon Dioxide 28 25 Anion Gap 14 14 BUN 7 L 6 L Creatinine 0.88 0.77 Estim Creat Clear Calc 100.8 115.2 Estimated GFR > 60 > 60 Random Glucose 104 103 Fasting Glucose Calcium 9.4 D 8.7 D Magnesium Total Bilirubin 0.8 AST 58 H ALT 53 H Alkaline Phosphatase 71 Troponin I High Sens 5.2 Total Protein 7.6 Albumin 4.4 Triglycerides 127 Lipase 339 H Vitamin B12 Folate 10/02/24 10/02/24 09:03 13:03 WBC RBC Hgb Hct MCV MCH MCHC RDW Plt Count MPV Immature Gran % (Auto) Neut % (Auto) Lymph % (Auto) Douglas % (Auto) Eos % (Auto) Baso % (Auto) Lymph # (Auto) Douglas # (Auto) Eos # (Auto) Baso # (Auto) Abs Immat Gran (auto) Absolute Neuts (auto) Absolute Nucleated RBC Nucleated RBC % (auto) PT 12.9 H INR 1.1 Sodium 137 Potassium 3.9 Chloride 102 Carbon Dioxide 28 Anion Gap 11 L BUN 7 L Creatinine 0.79 Estim Creat Clear Calc 112.3 Estimated GFR > 60 Random Glucose Fasting Glucose 113 H Calcium 8.9 Magnesium 2.1 Total Bilirubin 0.9 AST 67 H ALT 52 H Alkaline Phosphatase 73 Troponin I High Sens Total Protein 7.2 Albumin 4.1 Triglycerides Lipase Vitamin B12 856 Folate 14.5 Imaging Radiology Impressions: ITS Impressions Cholangiopancreatography MRI 10/02/24 14:41 IMPRESSION: 1. Resolving acute pancreatitis. 2. Intra and extrahepatic biliary ductal dilatation with dilatation of the common bile duct and pancreatic duct. No intraluminal filling defects are identified to suggest choledocholithiasis. 3. Hepatic steatosis. 4. Possible cholelithiasis. Electronically signed by: Patrick Welch MD 10/02/2024 03:47 PM EDT RP Mental Status Exam Mental Status Exam Level of Consciousness: Awake, Appropriate and Alert Patient Behavior: Appropriate, Talkative and Cooperative Affect Description: Appropriate and Labile Speech Pattern: Clear Thought Process: Intact Thought Content: positive for Circumstantial and positive for Tangential Judgement: Good Medications Allergies Allergies Allergy/AdvReac Type Severity Reaction Status Date / Time No Known Allergies Allergy Verified 10/01/24 19:23 Assessment & Plan Assessment & Plan (1) Alcohol use disorder: Status: Acute Code(s): F10.90 - Alcohol use, unspecified, uncomplicated Assessment and Plan: pheno taper in place industrial engineering professor to follow up with patient and discuss supports around AUD---however at the time of this note, patient has left, via self directed discharge (2) Opioid use disorder, severe, in sustained remission: Status: Acute Code(s): F11.21 - Opioid dependence, in remission Assessment and Plan: patient has not taken suboxone in several days--encouraged to discuss plan to d/c with provider prior to doing so. risk for overdose Total time managing care of this patient today _35___ minutes. [facility] Past Medical History Medical History (Updated 10/02/24 @ 16:50 by Tasha August CNP) Alcohol use disorder History of pancreatitis Alcohol use Buprenorphine dependence Chronic abdominal pain Surgical History Surgical History History of back surgery Social History Social History Household Members: None Household Members Other:: lives with dog Housing: Apartment Do you presently have visiting nurse or other home services: No Alcohol intake: current Alcohol intake frequency: a few times a month Alcohol type: beer and hard liquor Comment: Pt refusing bed alarms and seizure pads Patient Tobacco Use Status: Tobacco use Unknown Tobacco use type: Cigarette Smoked in Last 30 Days: No e-Cigarette/Vaping Use: Never Used Second Hand Smoke Exposure: No Use of substances other than those prescribed or required for medical reasons: No Substance Use Type: Marijuana and Other Currently Displaying Signs/Symptoms of Drug Intoxication Withdrawal: No Have you been hit, kicked, punched, or otherwise hurt by someone within the past year? If so, by whom?: No Do you feel safe in your current relationship?: No Current Relationship Is there a partner from a previous relationship who is making you feel unsafe now?: No Are you made to feel afraid or neglected: No Advance Directives: No Advance Directives Information Provided: No Do you have a plan to hurt others: No Plan Recently lost weight without trying: Yes How much weight loss: 2-13 pounds Eating poorly because of decreased appetite: Yes Nutrition screen score: 4 Nutrition Risks: Difficulty chewing service: No Current occupational status: unemployed
== END 2024-10-02 16:17 | disposition left against medical advice (07) | DRG 439 ==
LOC: HO.ED 10-02 01:33 → HO.EDOVER 10-02 03:05 → HO.S3 10-02 05:07
PROVIDERS: Physician Assistant; Admitting Provider Student in an Organized Health Care Education/Training Program; Emergency Provider Internal Medicine; PCP Pediatrics; Visit Provider Student in an Organized Health Care Education/Training Program
DX: K85.20 Alcohol induced acute pancreatitis without necrosis or infection (principal); F10.939 Alcohol use, unspecified with withdrawal, unspecified; F11.20 Opioid dependence, uncomplicated; F39 Unspecified mood [affective] disorder; K76.0 Fatty (change of) liver, not elsewhere classified; Z79.899 Other long term (current) drug therapy
CPT/HCPCS: 36415; 74177; 74181; 80048; 80053; 82607; 82746; 83690; 83735; 84425; 84478; 84484; 85025; 85610; 93005; 99285; J1171; J1650; J2270; J2405; J2560; J3360; J7120; Q9967

== ENCOUNTER → 2024-10-01 19:22 | Outpatient (BNV) | payer OTHER, SELFPAY | PROVIDERS: Admitting Provider Student in an Organized Health Care Education/Training Program; Emergency Provider Internal Medicine; PCP Pediatrics; Visit Provider Internal Medicine Cardiovascular Disease | DX: R94.31 Abnormal electrocardiogram [ECG] [EKG] (principal) | CPT/HCPCS: 93010 ==

== ENCOUNTER → 2024-10-01 22:11 | Outpatient (BNV) | payer OTHER, SELFPAY | PROVIDERS: Emergency Provider Internal Medicine; PCP Pediatrics; Visit Provider Student in an Organized Health Care Education/Training Program | DX: K85.80 Other acute pancreatitis without necrosis or infection (principal) | CPT/HCPCS: 99234; 99499 ==

== ENCOUNTER → 2024-10-02 01:36 | Outpatient (BNV) | payer OTHER, SELFPAY | PROVIDERS: Admitting Provider Student in an Organized Health Care Education/Training Program; Emergency Provider Internal Medicine; PCP Pediatrics; Visit Provider Nurse Practitioner Psychiatric/Mental Health | DX: F10.90 Alcohol use, unspecified, uncomplicated (principal); F11.21 Opioid dependence, in remission | CPT/HCPCS: 99222 ==

== ENCOUNTER → 2024-10-02 | Outpatient (BNV) | payer OTHER, SELFPAY | PROVIDERS: Emergency Provider Internal Medicine; PCP Pediatrics; Visit Provider Radiology Diagnostic Radiology | DX: K85.90 Acute pancreatitis without necrosis or infection, unspecified (principal); K83.8 Other specified diseases of biliary tract; K76.0 Fatty (change of) liver, not elsewhere classified | CPT/HCPCS: 74177; 74181 ==

== ENCOUNTER 2025-03-18 18:14 | Inpatient (IN) | payer OTHER, SELFPAY ==
--- NOTE | 2025-03-18 | ECG_ITS ---
Test Reason : chest pain Blood Pressure : */* mmHG Vent. Rate : 55 BPM Atrial Rate : 55 BPM P-R Int : 130 ms QRS Dur : 76 ms QT Int : 464 ms P-R-T Axes : 36 26 47 degrees QTcB Int : 443 ms Sinus bradycardia Otherwise normal ECG When compared with ECG of 01-Oct-2024 20:17, No significant change was found Referred By: Generic ED Physician Electronically Signed By: ALISSA MULLEN MD
--- NOTE | ~2025-03-18 | CT_ITS ---
CLINICAL HISTORY: pain CT abdomen and pelvis with contrast Comparison: CT/NV/SR - CT ABDOMEN PELVIS W IV CON - 10/02/24 00:01 EDT Findings: No consolidation or effusion. There is diffuse stranding around the pancreas. The gland enhances symmetrically. No peripancreatic fluid collection or hematoma. Common duct measures up to 10 mm, unchanged from prior. No intrahepatic biliary ductal dilatation. Gallbladder is unremarkable. Adrenal glands and kidneys are normal. Multiple calcifications are present in the spleen, evidence of previous granulomatous disease. There is diffuse fatty infiltration in the liver. Liver is enlarged. No bowel obstruction, pneumoperitoneum, or pneumatosis. Normal appendix. Urinary bladder and prostate gland are unremarkable. The bones are intact. Previous L3 through L5 posterior fusion. Unchanged mild anterolisthesis at L4-5. IMPRESSION: Interstitial edematous pancreatitis. Persistently dilated common bile duct, unchanged. This document has been electronically signed by: Nabeel Escamilla MD on 03/18/2025 22:38:05
[2025-03-18 18:28] VITALS: BP 200/83; PULSE 65; PULSE 70; RESP 18; TEMP 37.3; O2SAT 95; O2SAT 99; BMI 31.7
[2025-03-18 18:52] LABS: MANUAL DIFF FLAG NO
[2025-03-18 18:53] LABS: Hematocrit 45.4 % (42.0-52.0); Hemoglobin 16.3 g/dl (14.0-18.0); Imm Gran Abs Auto 0.03 X10*3/uL (0.00-0.03); Imm Gran Pct Auto 0.3 % (0.0-0.4); Lymphocytes Absolute Auto 0.8 X10*3/uL (1.2-4.9); Mean Corpuscular HGB Conc 35.9 g/dl (31.0-36.0); Mean Corpuscular Hemoglobin 32.0 pg (27.0-33.0); Mean Corpuscular Volume 89.0 fL (80.0-98.0); NRBC Abs Auto 0.000 X10*3/uL (0.0-0.012); NRBC Pct Auto 0.0 /100WBC (0.0-0.2); Platelet Count 200 X10*3/uL (160-400); Red Blood Count 5.10 X10*6/uL (4.60-5.80); White Blood Count 10.5 X10*3/uL (4.8-10.8)
[2025-03-18 19:11] LABS: Alanine Aminotransferase 44 U/L (0-40); Albumin Level 4.1 g/dL (3.5-5.0); Alkaline Phosphatase 81 U/L (39-117); Anion Gap 16 (12-20); Aspartate Amino Transferase 68 U/L (5-37); Blood Urea Nitrogen 14 mg/dL (9-16); Calcium 9.1 mg/dL (8.4-10.2); Carbon Dioxide 24 mmol/L (22-29); Chloride 104 mmol/L (96-108); Creatinine Clr Calc Pharmacy 94.1; Estimated Glomerular Filt Rate > 60; Magnesium 1.8 mg/dL (1.6-2.6); Potassium 4.0 mmol/L (3.3-5.1); Sodium 140 mmol/L (135-145); Total Protein 7.1 g/dL (6.5-8.0)
--- OUTSIDE RECORDS SUMMARY | 2025-03-18 19:12 | XMS_ITS | Encounter Summary ---
Author Organization [employer] Address [address] [place] [address] 7 [place] [address] Care Team Providers Care Outside Operator Name Role Phone Sharon Hilton MD Primary Care Provider [phone] Encounter Details Date Type Department Care Team ([facility] Contact Info) Description 03/25/2024 Orders Only [facility]S [address] [place], [place] [phone] Sharon Hilton MD [address] [place] [address] Social History Tobacco Use Types Packs/Day Years Used Date Smoking Tobacco: Never Passive Smoke Exposure: Never Smokeless Tobacco: Never Depression Answer Date Recorded Patient Health Questionnaire-9 Score 6 06/16/2023 Patient Health Questionnaire-9 Score 6 06/16/2023 Last PHQ-9: Questionnaire Data Not on file 0 06/16/2023 Housing Stability Answer Date Recorded What is your housing situation today? I have housing today, but I am worried about losing housing in the future 04/25/[address] you li ve. Do you have problems with any of the following? None of the above 04/25/2023 Food Insecurity Answer Date Recorded Within the past 12 months, y ou worried that your food would run out before you got money to buy more: Never True 04/25/2023 Within the past 12 months,th e food you bought just didn't last and you didn't have enough money to get more: Never True Transportation Answer Date Recorded In the past 12 months, has l ack of transportation kept you from medical appts, meetings, work or from getting things needed for daily living? No 04/25/2023 Utilities Answer Date Recorded In the past 12 months, has t he electric, gas, oil or water company threatened to shut off services in your home? No 04/25/2023 Depression Answer Date Recorded Patient Health Questionnaire-2 Score 2 06/16/2023 Sex and Gender Information Value Date Recorded Sex Assigned at Male 01/24/2022 10:17 AM EDT Legal Sex Male 10:17 AM EDT Gender Identity Male 01/24/2022 10:17 AM EDT Sexual Orientation Straight 01/24/2022 10 :17 AM EDT documented as of this encounter Plan of Treatment Upcoming Encounters Date Type Department Care Team (Late st Contact Info) Description 03/31/2025 11:00 AM EST Clinical Support [facility] MED & PEDS [address] [place] [address] 04/02/2025 11:00 AM EST Office Visit [facility]ED[facility] [address] [place] [address] Sharon Hilton MD [address] [place] [address] 04/28/2025 1:30 PM EST Office Visit [facility]ED[facility] [address] [place] [address] Jan Posada MD [address] [place] [address] documented as of this encounter Visit Diagnoses Not on filedocumented in this encounter Additional Health Concerns Assessment Noted Time PHQ-9 Depression Total Score: 6 06/16/19 24 10:51 AM EDT documented as of this encounter Care Teams Outside Operator Relationship Specialty Start Date End Date Sharon Hilton MD [address] [place] [address] PCP - General Family Medicine 03/27/18 documented as of this encounter
--- OUTSIDE RECORDS SUMMARY | 2025-03-18 19:12 | XMS_ITS | Encounter Summary ---
Author Organization [facility] Address [address] [place] [address] Phone Care Team Providers Care Rn Navigator Name Role Phone Pcp, Not Required Unavailable Unavailable Sharon Hilton MD Primary Care Provider [phone] Encounter Details Date Type Department Care Team (Late st Contact Info) Description 04/20/2017 Procedure [facility], Ct Scan - [address] [address] Social History Tobacco Use Types Packs/Day Years Used Date Smoking Tobacco: Never Smokeless Tobacco: Never Alcohol Use Standard Drinks/Week Comments Yes 0 (1 standard drink = 0.6 oz pur e alcohol) Sex and Gender Information Value Date Recorded Sex Assigned at Not on file Legal Sex Male 9:43 PM EDT Gender Identity Choose not to disclose 8 1:36 PM EST Sexual Orientation Choose not to disclose 2017 1:36 PM EST documented as of this encounter Plan of Treatment Not on file documented as of this encounter Visit Diagnoses Not on filedocumented in this encounter Care Teams Rn Navigator Relationship Specialty Start Date End Date Sharon Hilton MD [address] [place] [address] PCP - General Pediatrics 04/20/17 Pcp, Not Required 04/20/17 04/20/17 documented as of this encounter Additional Source Comments The information contained in this document represents components of the legal health record. It is not the complete legal health record.[facility]
--- OUTSIDE RECORDS SUMMARY | 2025-03-18 19:12 | XMS_ITS | Encounter Summary ---
Author Organization [employer] Address [address] [facility] 7 [place] [address] Care Team Providers Care Ell Tutor Name Role Phone Sharon Hilton MD Primary Care Provider [phone] Reason for Visit * Reason Comments Med Refill Encounter Details Date Type Department Care Team ([facility] st Contact Info) Description 03/18/2024 Refill [facility] [address] [place] [address] Sharon Hilton MD [address] [place] [address] Spinal stenosis of lumbar region with neurogenic claudication Social History Tobacco Use Types Packs/Day Years [...] Description 03/31/2025 11:00 AM EST Clinical Support [facility] MED & PEDS [address] [place] [address] 04/02/2025 11:00 AM EST Office Visit [facility] PED[facility] [address] [place] [address] Sharon Hilton MD [address] [place] [address] 04/28/2025 1:30 PM EST Office Visit [facility] PED[facility] [address] [place] [address] Jan Posada MD [address] [place] [address] documented as of this encounter Visit Diagnoses Diagnosis Spinal stenosis of lumbar region with neurogenic claudication documented in this encounter Additional Health Concerns Assessment Noted Time PHQ-9 Depression Total Score: 6 06/16/19 24 10:51 AM EDT documented as of this encounter Care Teams Ell Tutor Relationship Specialty Start Date End Date Sharon Hilton MD [address] [place] [address] PCP - General Family Medicine 03/27/18 documented as of this encounter
--- OUTSIDE RECORDS SUMMARY | 2025-03-18 19:12 | XMS_ITS | Encounter Summary ---
Author Organization [employer] Address [address] [facility] 7 [place] [address] Care Team Providers Care Chain Machine Operator Name Role Phone Sharon Hilton MD Primary Care Provider [phone] Reason for Visit * Reason Comments Med Refill Encounter Details Date Type Department Care Team ([facility] st Contact Info) Description 03/18/2024 Refill [facility] [address] [place] [address] Sharon Hilton MD [address] [place] [address] Spinal stenosis of lumbar region with neurogenic [...] Description 03/31/2025 11:00 AM EST Clinical Support [facility] MED & PEDS [address] [place] [address] 04/02/2025 11:00 AM EST Office Visit [facility] MED & PEDS [address] [place] [address] Sharon Hilton MD [address] [place] [address] 04/28/2025 1:30 PM EST Office Visit [facility] MED & PEDS [address] [place] [address] Jan Posada MD [address] [place] [address] documented as of this encounter Visit Diagnoses Diagnosis Spinal stenosis of lumbar region with neurogenic claudication documented in this encounter Additional Health Concerns Assessment Noted Time PHQ-9 Depression Total Score: 6 06/16/19 24 10:51 AM EDT documented as of this encounter Care Teams Chain Machine Operator Relationship Specialty Start Date End Date Sharon Hilton MD [address] [place] [address] PCP - General Family Medicine 03/27/18 documented as of this encounter
--- OUTSIDE RECORDS SUMMARY | 2025-03-18 19:12 | XMS_ITS | Encounter Summary ---
Author Organization [employer] Address [address] [facility] [address] [place] [address] Care Team Providers Care Performance Improvement Manager Name Role Phone Sharon Hilton MD Primary Care Provider [phone] Reason for Visit * Reason Onset Date Comments Referral 03/15/2024 Encounter Details Date Type Department Care Team ([facility] st Contact Info) Description 03/15/2024 Telephone [facility] MEDICINE [address] [place] [address] Sharon Hilton MD [address] [place] [address] Referral Social History Tobacco Use Types Packs/Day Years [...] AM EDT documented as of this encounter Miscellaneous Notes * Telephone Encounter - Antonietta Pinto RN - 03/15/2024 3:39 PM EST TC from pt requesting a referral be placed by PCP to [facility] in [place]. The pt has been going to physiatry at [facility] but has felt dissatisfied with the injections andcare he has been receiving there. The pt wants to try a new approach to his ongoing neck pain and would like to proceed with physical therapy. Pt informed that this message will be sent to PCP for review. * Telephone Encounter - Kathleen Saenz - 03/15/2024 11:14 AM EST Tc from pt requesting a referral for physical therapy for [facility] in [place] documented in this encounter Plan of Treatment Upcoming Encounters Date Type Department Care Team (Late st Contact Info) Description 03/31/2025 11:00 AM EST Clinical Support [facility] MED & PEDS [address] [place] [address] 04/02/2025 11:00 AM EST Office Visit [facility] MED & PEDS [address] [place] [address] Sharon Hilton MD [address] [place] [address] 04/28/2025 1:30 PM EST Office Visit [facility] MED & PEDS [address] [place] [address] Jan Posada MD [address] [place] [address] documented as of this encounter Visit Diagnoses Not on filedocumented in this encounter Additional Health Concerns Assessment Noted Time PHQ-9 Depression Total Score: 6 06/16/19 24 10:51 AM EDT documented as of this encounter Care Teams Performance Improvement Manager Relationship Specialty Start Date End Date Sharon Hilton MD [address] [place] [address] PCP - General Family Medicine 03/27/18 documented as of this encounter
--- OUTSIDE RECORDS SUMMARY | 2025-03-18 19:12 | XMS_ITS | Encounter Summary ---
Author Organization [employer] Address [address] [place] [address] Care Team Providers Care Terminal Supervisor Name Role Phone Sharon Hilton MD Primary Care Provider [phone] Reason for Visit * Reason Onset Date Comments Med Refill 02/19/2024 Encounter Details Date Type Department Care Team ([facility] Contact Info) Description 02/19/2024 Telephone [facility] MEDICINE [address] [place] [address] Sharon Hilton MD [address] [place] [address] Med Refill Social History Tobacco Use Types Packs/Day Years [...] encounter Miscellaneous Notes * Telephone Encounter - Kathleen Saenz - 02/19/2024 9:42 AM EST TC from pt requesting medication refill. Medications needing refill : oxyCODONE (Roxicodone) 5 MG immediate release [facility] documented in this encounter Plan of Treatment Upcoming Encounters Date Type Department Care Team (Late st Contact Info) Description 03/31/2025 11:00 AM EST Clinical Support [facility] MED & PEDS [address] [place] [address] 04/02/2025 11:00 AM EST Office Visit [facility] MED & PEDS [address] [place] [address] Sharon Hilton MD [address] [place] [address] 04/28/2025 1:30 PM EST Office Visit [facility] MED & PEDS [address] [place] [address] Jan Posada MD [address] [place] [address] documented as of this encounter Visit Diagnoses Not on filedocumented in this encounter Additional Health Concerns Assessment Noted Time PHQ-9 Depression Total Score: 6 06/16/19 24 10:51 AM EDT documented as of this encounter Care Teams Terminal Supervisor Relationship Specialty Start Date End Date Sharon Hilton MD [address] [place] [address] PCP - General Family Medicine 03/27/18 documented as of this encounter
--- OUTSIDE RECORDS SUMMARY | 2025-03-18 19:12 | XMS_ITS | Encounter Summary ---
Author Organization [employer] Address [address] [place] [address] Care Team Providers Care Fish Protector Name Role Phone Sharon Hilton MD Primary Care Provider [phone] Encounter Details Date Type Department Care Team (Late Contact Info) Description 01/30/2023 Abstract [facility] MEDICINE [address] [place] [address] Sharon Hilton MD [address] [place] [address] Social History Tobacco Use Types Packs/Day Years Used Date Smoking Tobacco: Never Smokeless Tobacco: Never Sex and Gender Information Value Date Recorded Sex Assigned at Male 01/24/2022 10:17 AM EDT Legal Sex Male 10:17 AM EDT Gender Identity Male 01/24/2022 10:17 AM EDT Sexual Orientation Straight 01/24/2022 10 :17 AM EDT documented as of this encounter Plan of Treatment Upcoming Encounters Date Type Department Care Team (Late Contact Info) Description 03/31/2025 11:00 AM EST Clinical Support [facility] MED & PEDS [address] [place] [address] 04/02/2025 11:00 AM EST Office Visit [facility] & PEDS [address] [place] [address] Sharon Hilton MD [address] [place] [address] 04/28/2025 1:30 PM EST Office Visit [facility] PEDS [address] [place], [place] [phone] Jan Posada MD [address] [place], [place] [phone] documented as of this encounter Procedures Procedure Name Priority Date/Time Associated Diagnosis Comments COLONOSCOPY Routine 02/03/2015 documented in this encounter Results * Colonoscopy (02/03/2015) Colonoscopy Normal Normal Narrative Jana Leon - 02/03/2015 Recommended 10 year follow up us Historical Provider HEALTH MAINTENANCE Final Result documented in this encounter Visit Diagnoses Not on filedocumented in this encounter Care Teams Fish Protector Relationship Specialty Start Date End Date Sharon Hilton MD [address] [place] [address] PCP - General Family Medicine 03/27/18 documented as of this encounter
--- OUTSIDE RECORDS SUMMARY | 2025-03-18 19:12 | XMS_ITS | Clinical Summary ---
Author Organization [facility] Address [address] [place] [phone] Phone Care Team Providers Care Soil Chemist Name Role Phone Sharon Hilton MD Primary Care Provider [phone] Allergies No known active allergies Medications ondansetron (ZOFRAN-ODT) 4 MG disintegrating tablet Take 1 tablet (4 mg total) by mouth every 8 (eight) hours as needed for nausea. 10 tablet 8 Active ondansetron (ZOFRAN-ODT) 4 MG disintegrating tablet Take 1 tablet (4 mg total) by mouth every 8 (eight) hours as needed for nausea. 4 tablet 8 Active Social History Tobacco Use Types Packs/Day Years Used Date Smoking Tobacco: Never Smokeless Tobacco: Never Alcohol Use Standard Drinks/Week Comments Yes 0 (1 standard drink = 0.6 oz pur e alcohol) Education Answer Date Recorded Are you interested in more education? Not on blaze e 07/22/2022 Are you concerned about learning? Not on file 07/22/2022 No 07/22/2022 No 07/22/2022 Digital Access Answer Date Recorded No 08/20/2022 No 08/20/2022 No 08/20/2022 Reliable internet access at home? Not on file 08/20/2022 Device with a working camera? Not on file Sex and Gender Information Value Date Recorded Sex Assigned at Not on file Legal Sex Male 9:43 PM EDT Gender Identity Choose not to disclose 8 1:36 PM EST Sexual Orientation Choose not to disclose 2017 1:36 PM EST Last Filed Vital Signs Vital Sign Reading Time Taken Comments Blood Pressure 129/63 04/20/2017 4:29 PM EST Pulse 78 04/20/2017 4:29 PM EST Temperature 36.8 C (98.2 F) 04/20/2017 4:29 PM EST Respiratory Rate 17 04/20/2017 4:29 PM EST Oxygen Saturation 98% 04/20/2017 2:15 PM EST Inhaled Oxygen Concentration - - Weight 88.9 kg (196 lb) 04/20/2017 10:45 AM EST Height 185.4 cm (6' 1 ) 04/20/2017 10:45 AM EST Body Mass Index 25.86 04/20/2017 10:45 AM EST Plan of Treatment Health Maintenance Due Date Last Done Comments Adult Td,Tdap Booster 1964 LIPID PANEL 1964 DEPRESSION SCREENING 1976 HEPATITIS C SCREENING 1982 HIV ONE-TIME SCREENING (18-6 5 YEARS) 1982 SMOKING STATUS SCREENING (On ce After 26 Yrs) 1990 COLOGUARD 2009 COLONOSCOPY 2009 COLORECTAL CANCER SCREENING 2009 FIT TEST 2009 FOBT 2009 SIGMOIDOSCOPY 2009 VIRTUAL COLONOSCOPY 2009 PNEUMOCOCCAL VACCINES (50+ years) (1 of 1 - PCV) 2014 ZOSTER VACCINES (1 of 2) 2014 INFLUENZA VACCINE (#1) 2024 0, 01/28/2019, 06/04/2018 COVID-19 VACCINE (2 - 2024-2 6 season) 2024 07/09/2020 RSV VACCINE (1 - 1-dose 75+ series) 06/15/2039 HEPATITIS A VACCINES Aged Out No long er eligible based on patient's age to complete this topic HIB VACCINES Aged Out No longer eligi ble based on patient's age to complete this topic MENINGOCOCCAL VACCINES (ACWY) Aged Out No longer eligible based on patient's age to complete this topic MENINGOCOCCAL VACCINES (B) Aged Out N o longer eligible based on patient's age to complete this topic Medical Devices Not on file Insurance MEDICARE REPLAC[place] [address] [address] [place] [address] [place] [address] [address] CARE MEDICARE REPLACEMENT CARE MEDICARE REPLACEMENT CARE MEDICARE REPLACEMENT CARE MEDICARE REPLACEMENT [facility] ONE CARE MEDICARE REPLACEMENT [facility] MEDICARE REPLACEMENT Care Teams Soil Chemist Relationship Specialty Start Date End Date Sharon Hilton MD [address] [place] [address] PCP - General Pediatrics 04/20/17 Additional Source Comments The information contained in this document represents components of the legal health record. It is not the complete legal health record.[facility]
--- OUTSIDE RECORDS SUMMARY | 2025-03-18 19:12 | XMS_ITS | Encounter Summary ---
Author Organization [employer] Address [address] [place] [address] [place] [address] Care Team Providers Care Jacquard Loom Card Changer Name Role Phone Sharon Hilton MD Primary Care Provider [phone] Reason for Visit * Reason Onset Date Comments Nurse Triage 11/11/2022 Encounter Details Date Type Department Care Team ([facility] st Contact Info) Description 11/11/2022 Telephone [facility] MED & PEDS [address] [place], [place] [phone] Sharon Hilton MD [address] [place] [address] Nurse Triage Social History Tobacco Use Types Packs/Day Years Used Date Smoking Tobacco: Never Smokeless Tobacco: Never Sex and Gender Information Value Date Recorded Sex Assigned at Male 01/24/2022 10:17 AM EDT Legal Sex Male 10:17 AM EDT Gender Identity Male 01/24/2022 10:17 AM EDT Sexual Orientation Straight 01/24/2022 10 :17 AM EDT documented as of this encounter Miscellaneous Notes * Telephone Encounter - Adrienne Sanchez RN - 11/11/2022 11:03 AM EDT Triage call Pt reports woke up yesterday morning with a pea sized purple area with black spot in the middle. Located on lower left abdomen around the waist area. Pt denies pain, itchiness or redness.Pt is advised to continue to observe area, clean with hydrogen peroxide, rinse with warm water , apply antibiotic ointment and cover with bandaid. Pt advised to come to [facility] open till 400pm today if would like provider to look at the area because Pt suspects could be a tick bite though no tick observed. Pt agrees with disposition and will decide if COC necessary. Protocol Used: Skin Lump or Localized Swelling (Adult) Protocol-Based Disposition: Home Care Positive Triage Question: * Small swelling or lump present < 1 week * All higher-acuity triage questions were negative Care Advice Discussed: * Reasons To Call Back - Fever occurs - Spreading redness occurs - Swelling becomes painful - Swelling persists over 1 week - You become worse * Telephone Encounter - Alta Ward - 11/11/2022 10:42 AM EDT Symptom: Skin Spot Outcome: Schedule an appointment to be seen within 3 days Reason: Caller denied all higher acuity questions The caller accepted this outcome documented in this encounter Plan of Treatment Upcoming Encounters Date Type Department Care Team (Late st Contact Info) Description 03/31/2025 11:00 AM EST Clinical Support [facility] MED & PEDS [address] [place] [address] 04/02/2025 11:00 AM EST Office Visit [facility] MED & PEDS [address] [place] [address] Sharon Hilton MD [address] [place] [address] 04/28/2025 1:30 PM EST Office Visit [facility] MED & PEDS [address] [place] [address] Jan Posada MD [address] [place] [phone] documented as of this encounter Visit Diagnoses Not on filedocumented in this encounter Care Teams Jacquard Loom Card Changer Relationship Specialty Start Date End Date Sharon Hilton MD [address] [place] [address] PCP - General Family Medicine 03/27/18 documented as of this encounter
--- OUTSIDE RECORDS SUMMARY | 2025-03-18 19:12 | XMS_ITS | Encounter Summary ---
Author Organization [employer] Address [address] [facility] 7 [place] [address] Care Team Providers Care Cps Team Lead Name Role Phone Sharon Hilton MD Primary Care Provider [phone] Reason for Visit * Reason Comments Med Refill Encounter Details Date Type Department Care Team ([facility] st Contact Info) Description 01/29/2024 Refill [facility] MEDICINE [address] [place] [address] Sharon Hilton MD [address] [place] [address] Nausea and vomiting, unspecified vomiting type Social History Tobacco Use Types Packs/Day Years [...] 11:00 AM EST Clinical Support [facility] MED & PEDS [address] [place] [address] 04/02/2025 11:00 AM EST Office Visit [facility] MED & PEDS [address] [place] [address] Sharon Hilton MD [address] [place] [address] 04/28/2025 1:30 PM EST Office Visit [facility] MED & PEDS [address] [place] [address] Jan Posada MD [address] [place] [address] documented as of this encounter Visit Diagnoses Diagnosis Nausea and vomiting, unspecified vomiting type documented in this encounter Additional Health Concerns Assessment Noted Time PHQ-9 Depression Total Score: 6 06/16/19 24 10:51 AM EDT documented as of this encounter Care Teams Cps Team Lead Relationship Specialty Start Date End Date Sharon Hilton MD [address] [place] [address] PCP - General Family Medicine 03/27/18 documented as of this encounter
--- OUTSIDE RECORDS SUMMARY | 2025-03-18 19:12 | XMS_ITS | Clinical Summary ---
Author Organization [facility] Prior to 08/24/[address] [place] [address] Care Team Providers Care Rubber Block Layer Name Role Phone Sharon Hilton MD Primary Care Provider [phone] Social History Tobacco Use Types Packs/Day Years [...] age to complete this topic Care Teams Rubber Block Layer Relationship Specialty Start Date End Date Sharon Hilton MD [address] [place] [address] PCP - General Pediatrics 04/14/16
--- OUTSIDE RECORDS SUMMARY | 2025-03-18 19:12 | XMS_ITS | Encounter Summary ---
Author Organization [employer] Address [address] [facility] 7 [place] [address] Care Team Providers Care Basting Marker Name Role Phone Sharon Hilton MD Primary Care Provider [phone] Reason for Visit * Reason Comments Med Refill Encounter Details Date Type Department Care Team ([facility] Contact Info) Description 09/22/2023 Refill [facility] MEDICINE [address] [place] [address] Ap Celis MD [address] [place] [address] Anxiety Social History Tobacco Use Types Packs/Day Years [...] 03/31/2025 11:00 AM EST Clinical Support [facility] MED & PEDS [address] [place] [address] 04/02/2025 11:00 AM EST Office Visit [facility] MED & PEDS [address] [place] [address] Sharon Hilton MD [address] [place] [address] 04/28/2025 1:30 PM EST Office Visit [facility] MED & PEDS [address] [place] [address] Jan Posada MD [address] [place] [address] documented as of this encounter Visit Diagnoses Diagnosis Anxiety Anxiety state, unspecified documented in this encounter Additional Health Concerns Assessment Noted Time PHQ-9 Depression Total Score: 6 06/16/19 24 10:51 AM EDT documented as of this encounter Care Teams Basting Marker Relationship Specialty Start Date End Date Sharon Hilton MD [address] [place] [address] PCP - General Family Medicine 03/27/18 documented as of this encounter
--- OUTSIDE RECORDS SUMMARY | 2025-03-18 19:12 | XMS_ITS | Encounter Summary ---
Author Organization [employer] Address [address] [place] [address] Care Team Providers Care Manager Mall Name Role Phone Sharon Hilton MD Primary Care Provider [phone] Encounter Details Date Type Department Care Team (Latest Contact Info) Description 11/09/2021 Abstract [facility] CONVERSIONS Dental, Provider, DDS Social History Tobacco Use Types Packs/Day Years [...] Upcoming Encounters Date Type Department Care Team ( st Contact Info) Description 03/31/2025 11:00 AM EST Clinical Support [facility] MED & PEDS [address] [place] [address] 04/02/2025 11:00 AM EST Office Visit [facility] MED & PEDS [address] [place] [address] Sharon Hilton MD [address] [place] [address] 04/28/2025 1:30 PM EST Office Visit [facility] MED & PEDS [address] [place] [address] Jan Posada MD [address] [place] [address] documented as of this encounter Visit Diagnoses Not on filedocumented in this encounter Care Teams Manager Mall Relationship Specialty Start Date End Date Sharon Hilton MD [address] [place] [address] PCP - General Family Medicine 03/27/18 documented as of this encounter
--- OUTSIDE RECORDS SUMMARY | 2025-03-18 19:12 | XMS_ITS | Encounter Summary ---
Author Organization [employer] Address [address] [facility] 7 [place] [address] Care Team Providers Care Handle Sander Operator Name Role Phone Sharon Hilton MD Primary Care Provider [phone] Reason for Visit * Reason Comments Med Refill Encounter Details Date Type Department Care Team ([facility] st Contact Info) Description 05/16/2024 Refill [facility] MED[facility]INE [address] [place] [address] Carlota Hawley MD [address] [place] [address] Social History Tobacco Use Types Packs/Day Years [...] 03/31/2025 11:00 AM EST Clinical Support [facility] MED & PEDS [address] [place] [address] 04/02/2025 11:00 AM EST Office Visit [facility] MED & PEDS [address] [place] [address] Sharon Hilton MD [address] [place] [address] 04/28/2025 1:30 PM EST Office Visit [facility] MED & PEDS [address] [place] [address] Jan Posada MD [address] [place] [address] documented as of this encounter Visit Diagnoses Not on filedocumented in this encounter Additional Health Concerns Assessment Noted Time PHQ-9 Depression Total Score: 6 06/16/19 24 10:51 AM EDT documented as of this encounter Care Teams Handle Sander Operator Relationship Specialty Start Date End Date Sharon Hilton MD [address] [place] [address] PCP - General Family Medicine 03/27/18 documented as of this encounter
--- OUTSIDE RECORDS SUMMARY | 2025-03-18 19:12 | XMS_ITS | Encounter Summary ---
Author Organization [employer] Address [address] [place] [address] Care Team Providers Care Institutional Asset Manager Name Role Phone Sharon Hilton MD Primary Care Provider [phone] Reason for Visit * Reason Onset Date Comments Appointment Request 06/30/2023 Encounter Details Date Type Department Care Team ([facility] Contact Info) Description 06/30/2023 Telephone [facility] MEDICINE [address] [place] [address] Sharon Hilton MD [address] [place] [address] Appointment Request Social History Tobacco Use Types Packs/Day Years [...] encounter Miscellaneous Notes * Telephone Encounter - Connie Bob - 06/30/2023 1:57 PM EDT Tc from pt requesting appt with PCP stated during last visit forget to discuss multiple concerns inregards back pain. documented in this encounter Plan of Treatment Upcoming Encounters Date Type Department Care Team (Late st Contact Info) Description 03/31/2025 11:00 AM EST Clinical Support [facility] MED & PEDS [address] [place] [address] 04/02/2025 11:00 AM EST Office Visit [facility] MED & PEDS [address] [place] [address] Sharon Hilton MD [address] [place] [address] 04/28/2025 1:30 PM EST Office Visit [facility] MED & PEDS [address] [place] [address] Jan Posada MD [address] [place] [phone] documented as of this encounter Visit Diagnoses Not on filedocumented in this encounter Additional Health Concerns Assessment Noted Time PHQ-9 Depression Total Score: 6 06/16/19 24 10:51 AM EDT documented as of this encounter Care Teams Institutional Asset Manager Relationship Specialty Start Date End Date Sharon Hilton MD [address] [place] [address] PCP - General Family Medicine 03/27/18 documented as of this encounter
--- OUTSIDE RECORDS SUMMARY | 2025-03-18 19:12 | XMS_ITS | Encounter Summary ---
Author Organization [employer] Address [address] [place] [address] [facility] [place] [address] Care Team Providers Care Regulatory Associate Name Role Phone Sharon Hilton MD Primary Care Provider [phone] Reason for Visit * Reason Comments Med Refill Encounter Details Date Type Department Care Team ([facility] Contact Info) Description 07/19/2023 Refill [facility] CHC MED & PEDS [address] [place], [place] [phone] Sharon Hilton MD [address] [place] [address] Social History Tobacco Use Types Packs/Day Years [...] Description 03/31/2025 11:00 AM EST Clinical Support [facility] MED & PEDS [address] [place] [address] 04/02/2025 11:00 AM EST Office Visit [facility] MED & PEDS [address] [place] [address] Sharon Hilton MD [address] [place] [address] 04/28/2025 1:30 PM EST Office Visit [facility] MED & PEDS [address] [place] [address] Jan Posada MD [address] [place] [address] documented as of this encounter Visit Diagnoses Not on filedocumented in this encounter Additional Health Concerns Assessment Noted Time PHQ-9 Depression Total Score: 6 06/16/19 24 10:51 AM EDT documented as of this encounter Care Teams Regulatory Associate Relationship Specialty Start Date End Date Sharon Hilton MD [address] [place] [address] PCP - General Family Medicine 03/27/18 documented as of this encounter
--- OUTSIDE RECORDS SUMMARY | 2025-03-18 19:12 | XMS_ITS | Clinical Summary ---
Author Organization [employer] Address [address] [place] [address] 7 [place] [address] Care Team Providers Care Wastewater Engineer Name Role Phone hSaron Hilton MD Primary Care Provider [phone] Allergies No known active allergies Medications * This document contains information received from the source organization and may not represent a complete record from that organization. famotidine (Pepcid) 20 MG tablet Take 1 tablet by mouth at bedtime. 022 Active pantoprazole (ProtoNix) 40 MG EC tablet Take 40 mg by mouth in the morning. 023 Active ondansetron ODT (Zofran-ODT) 4 MG disintegrating tabletIndications :Chronic pancreatitis, unspecified pancreatitis type (CMS/HCC) (HCC) DISSOLVE ONE TABLET ON TONGUE THEN SWALLOW EVERY 8 HOURS NEEDED 20 tablet 024 Active econazole nitrate 1 % cream Apply bid to face 30 g 2 024 Active Fluocinolone Acetonide Scalp ([place]-Smoothe/FS Scalp) 0.01 % oil Apply to scalp twice a week 118.28 mL 2 024 Active ketoconazole (NIZOral) 2 % shampooIndication s:Other seborrheic dermatitis APPLY TO DRY SCALP FOR 10 MINUTES, lather AND FOLLOWING with moisturizing shampoo TWICE A WEEK, USE DAILY as a face wash 120 mL 2 024 Active polyethylene glycol, PEG, 3350 (Glycolax, Miralax) powder Mix 1 cap full in 4 oz of juice or water and drink daily 1 g 1 024 Active buprenorphine-nal oxone (Suboxone) 8-2 MG SL tabletIndications :Opioid dependence, uncomplicated (CMS/HCC) (HCC) Place 1 tablet under the tongue Once per day. 28 tablet 1 024 Active buprenorphine-nal oxone (Suboxone) 4-1 MG per sublingual filmIndications:O pioid dependence, uncomplicated (CMS/HCC) (HCC) Place 1 Film under the tongue Once per day. 28 Film 1 024 Active ibuprofen 600 MG tablet TAKE ONE TABLET THREE TIMES DAILY WITH FOOD NEEDED 90 tablet 5 025 Active folic acid (Folvite) 1 MG tablet Take 1 tablet (1 mg) by mouth Once per day. 30 tablet 11 025 2025 Active buPROPion XL (Wellbutrin XL) 300 MG 24 hr tabletIndications :Depressive disorder TAKE ONE TABLET EVERY DAY 30 tablet 5 025 Active clobetasol (Temovate) 0.05 % ointment Apply to affected areas on scalp twice daily for 2 weeks, break for 1 week, then use only 1-2 times weekly as needed for flares. 025 Active traZODone (Desyrel) 100 MG tabletIndications :Anxiety TAKE ONE TABLET BY MOUTH AT BEDTIME 30 tablet 5 02/29/20 25 11:42 AM EST Active cyanocobalamin (Vitamin B-12) 1000 MCG/ML injectionIndicati ons:B12 deficiency Give 1 ml IM once a month 10 mL 025 Active hydrocortisone 2.5 % cream APPLY TOPICALLY TWICE A DAY 30 g 3 025 Active betamethasone valerate (Valisone) 0.1 % ointmentIndicatio ns:Seborrheic dermatitis Apply topically if needed in the morning and at bedtime (dryness). 45 g 2 03/07/20 25 1:39 PM EST 025 Active pregabalin (Lyrica) 150 MG capsuleIndication s:Spinal stenosis of lumbar region with neurogenic claudication Take 1 capsule (150 mg) by mouth 2 times daily. 60 capsule 3 03/07/20 25 1:39 PM EST 025 2025 Active Stimulant Laxative 8.6-50 MG tablet TAKE ONE TABLET ONCE DAILY 30 tablet 3 025 Active Buprenorphine HCl-Naloxone HCl (Suboxone) 8-2 MG SL filmIndications:O pioid dependence, uncomplicated (CMS/HCC) (HCC) Place 1 Film under the tongue 3 times daily. Do not start before March 03, 2025. 84 Film 1 03/07/20 25 2:00 PM EST 025 2025 Active ondansetron (Zofran) 4 MG tabletIndications :Nausea and vomiting, unspecified vomiting type TAKE ONE TABLET BY MOUTH EVERY 8 HOURS NEEDED FOR NAUSEA AND VOMITING 20 tablet 03/11/20 25 2:17 PM EST 025 Active Buprenorphine HCl-Naloxone HCl (Suboxone) 8-2 MG SL filmIndications:O pioid dependence, uncomplicated (CMS/HCC) (HCC) Place 1 Film under the tongue 3 times daily. Do not start before January 06, 2025. 84 Film 1 025 2024 Discontinued(R eorder (will not trigger notification to Pharmacy)) ondansetron (Zofran) 4 MG tabletIndications :Nausea and vomiting, unspecified vomiting type TAKE ONE TABLET BY MOUTH EVERY 8 HOURS NEEDED FOR NAUSEA AND VOMITING 20 tablet 025 2024 Discontinued ondansetron (Zofran) 4 MG tabletIndications :Nausea and vomiting, unspecified vomiting type TAKE ONE TABLET BY MOUTH EVERY 8 HOURS NEEDED FOR NAUSEA AND VOMITING 20 tablet 02/25/20 25 2:39 PM EST 025 2024 Discontinued Hospital, Clinic, or Other Facility Administered Medication Ordered Dose Route Frequency Start Date End Date Status cyanocobalamin (Vitamin B-12) injection 1,000 mcgIndications:B12 deficiency 1000 mcg IM Once 02/28/2025 02/28/2025 Ended Active Problems Problem Noted Date Diagnosed Date Acute appendicitis 03/03/2025 Alcohol abuse with withdrawal (CMS/HCC) 03/03/20 Alcohol use disorder 03/03/2025 Hematemesis of fresh blood 03/03/2025 Hypertriglyceridemia 03/03/2025 Alesha-Mendez tear 03/03/2025 Neck pain 02/23/2024 Lumbar stenosis with neurogenic claudication Degeneration of intervertebr al disc of lumbar region with discogenic back pain 11/24/2023 Overview (03/03/2025): Last Assessment & Plan: Mr. Franklin is [...] Cheilitis 11/03/2016 Tobacco use disorder, continuous 11/25/2011 Spinal stenosis of lumbar region 11/25/2011 Depression, recurrent 11/02/2011 Opioid type dependence, continuous (CMS/HCC) 05/2011 Encounters Date Type Department Care Team Description 03/10/2025 Refill [facility] [address] [place] [address] Sharon Hilton MD Nausea and vomiting, unspecified vomiting type 03/07/2025 1:00 PM EST Office Visit [facility] [address] [place] [address] Jan Posada MD Opioid type dependence, continuous (CMS/HCC) (HCC) (Primary Dx) 03/07/2025 Travel 03/04/2025 Telephone [facility] [address] [place] [address] Sharon Hilton MD Appointment Request 03/03/2025 Telephone [facility] [address] [place] [address] Sharon Hilton MD chart prep 03/03/2025 Telephone [facility] [address] [place] [phone] Manda Borges, ANGELA DNKA/Late Cancel 02/28/2025 11:15 AM EST Nurse Only [facility] [address] [place] [address] Patrizia Diaz, ANGELA B12 deficiency 02/28/2025 Telephone [facility] [address] [place] [phone] Patrizia Diaz, ANGELA Error (VOID this visit) 02/28/2025 Travel 02/24/2025 Refill [facility] [address] [place] [phone] Manda Borges, ANGELA Opioid dependence, uncomplicated (CMS/HCC) (HCC) 02/19/2025 Telephone [facility] [address] [place] [address] Sharon Hilton MD No Show 02/18/2025 Refill [facility] [address] [place] [phone] Sharon Hilton MD Nausea and vomiting, unspecified vomiting type 02/10/2025 Telephone [facility] [address] [place] [phone] Sharon Hilton MD Nurse Triage 01/31/2025 Refill [facility] [address] [place] [phone] Niesha Ozuna MD Nausea and vomiting, unspecified vomiting type 01/24/2025 11:00 AM EDT Nurse Only [facility] [address] [place] [address] Bebe Pearl RN B12 deficiency 01/24/2025 Travel 01/17/2025 Telephone [facility] [address] [place] [address] Sharon Hilton MD No Show 01/16/2025 Refill [facility] [address] [place] [phone] Sharon Hilton MD Nausea and vomiting, unspecified vomiting type 01/06/2025 2:30 PM EDT Clinical Support [facility] [address] [place] [address] Manda Borges RN Opioid type dependence, continuous ([facility]) ([facility]) (Primary Dx) 01/06/2025 Travel 01/05/2025 Refill [facility] [address] [place] [address] Sharon Hilton MD Nausea and vomiting, unspecified vomiting type 01/01/2025 Refill [facility] [address] [place] [address] Lorrie Mcclellan MD Opioid dependence, uncomplicated (CMS/[facility]) (HCC) 12/31/2024 Refill [facility] [address] [place] [phone] Manda Borges RN Opioid dependence, uncomplicated ([facility]) ([facility]) 12/26/2024 Refill [facility] [address] [place] [phone] Sharon Hilton MD Nausea and vomiting, unspecified vomiting type 12/23/2024 Refill [facility] [address] [place] [address] Sharon Hilton MD 12/20/2024 11:00 AM EDT Clinical Support [facility] [address] [place] [address] Bebe Pearl RN B12 deficiency 12/20/2024 Travel from Last 3 Months Immunizations Immunization Administration Dates Next Due Influenza Injectable Quadriv alant Preservative Free IIV4 MDCK 02/27/2021 Influenza injectable quadriv alent IIV4 with preservative 12/13/2016,04/06/2015 Influenza injectable quadriv alent preservative free 12/27/2022,01/10/2022,02/03/2020,2018,06/04/2018,03/09/2016 Influenza, IIV3, injectable 01/23/2014 Influenza, Split (incl. ana fied surface antigen) 01/23/2013,04/03/2012 Influenza, seasonal, injecta ble, preservative free 12/06/2023 Moderna Covid-19 Vaccine 12+ 02/27/2021,08/07/19 21,07/09/2020 Pfizer Covid-19 Vaccine 12+ Bivalent 01/12/2022 Tdap 03/09/2016 Zoster, Recombinant 04/18/2022,02/15/2022 Zoster, Unspecified 02/15/2022 Social History Tobacco Use Types Packs/Day Years Used Date Smoking Tobacco: Never Passive Smoke Exposure: Never Smokeless Tobacco: Never Tobacco Cessation:Counseling Given: Not Answered Depression Answer Date Recorded Patient Health Questionnaire-9 Score 8 06/20/2024 Patient Health Questionnaire-9 Score 8 06/20/2024 Last PHQ-9: Questionnaire Data Not on file 0 06/20/2024 Housing Stability Answer Date Recorded What is your housing situation today? I have rakelaida nolen 06/20/[address] you li ve. Do you have problems with any of the following? None of the above 06/20/2024 Food Insecurity Answer Date Recorded Within the past 12 months, y ou worried that your food would run out before you got money to buy more: Never True 06/20/2024 Within the past 12 months,th e food you bought just didn't last and you didn't have enough money to get more: Never True Transportation Answer Date Recorded In the past 12 months, has l ack of transportation kept you from medical appts, meetings, work or from getting things needed for daily living? No 06/20/2024 Utilities Answer Date Recorded In the past 12 months, has t he electric, gas, oil or water company threatened to shut off services in your home? No 06/20/2024 Depression Answer Date Recorded Patient Health Questionnaire-2 Score 3 06/20/2024 Internet Access Answer Date Recorded Internet Access Q1 Yes 06/20/2024 Internet Access Q2 Not on file 06/20/2024 Sex and Gender Information Value Date Recorded Sex Assigned at Male 01/24/2022 10:17 AM EDT Legal Sex Male 10:17 AM EDT Gender Identity Male 01/24/2022 10:17 AM EDT Sexual Orientation Straight 01/24/2022 10 :17 AM EDT Last Filed Vital Signs Vital Sign Reading Time Taken Comments Blood Pressure 132/84 11/28/2024 11:46 AM EDT Pulse 68 11/28/2024 11:46 AM EDT Temperature 36.9 C (98.4 F) 11/28/2024 11:46 AM EDT Respiratory Rate 16 11/28/2024 11:46 AM EDT Oxygen Saturation 94% 06/20/2024 2:26 PM EDT Inhaled Oxygen Concentration - - Weight 86.5 kg (190 lb 9.6 oz) 11/28/2024 11:46 AM EDT Height 181.6 cm (5' 11.5 ) 11/28/2024 11:46 AM E DT Body Mass Index 26.21 11/28/2024 11:46 AM EDT Plan of Treatment Upcoming Encounters Date Type Department Care Team (Late st Contact Info) Description 03/31/2025 11:00 AM EST Clinical Support [facility] [address] [place] [address] 04/02/2025 11:00 AM EST Office Visit [facility] [address] [place] [address] Sharon Hilton MD [address] [place] [address] 04/28/2025 1:30 PM EST Office Visit [facility] [address] [place] [address] Jan Posada MD [address] [place] [phone] Health Maintenance Due Date Last Done Comments CT Colonography 1964 Dental Oral Exam 1964 Dental Prophylaxis 1964 Dental X-Ray: Bitewings 1964 Dental X-Ray: Full Mouth 1964 FIT 1964 Lipid Panel 1964 Sigmoidoscopy 1964 Hepatitis A Vaccines (1 of 2 - Risk 2-dose series) 06/15/1983 Pneumococcal Vaccine: 50+ Years (1 of 2 - PCV) 06/15/1983 RSV Patients and Patients Aged 60 years or older (1 - Risk 50-74 years 1-dose series) 2014 Hepatitis B Vaccines (1 of 3 - Risk 3-dose series) 2024 COVID-19 Vaccine ( season) 2024 01/12/2022, 02/27/2021, 08/06/2020, Additional history exists Influenza Vaccine (#1) 2024 , 12/06/2023, 12/27/2022, Additional history exists Colonoscopy 02/03/2025 02/03/2015 Alcohol/Substance Use Screening 06/20/2025 06/20/2024 Depression Screening 06/20/2025 06/20/2024, 06/21/19 Disability Screening 06/20/2025 06/20/2024 SDOH Screening 06/20/2025 06/20/2024 Tobacco Screening 08/14/2025 08/14/2024 FOBT 08/17/2025 08/17/2024 DTaP/Tdap/Td Vaccines (2 - Td or Tdap) 03/09/2026 03/09/2016 Colorectal Cancer Screening 08/18/2027 FIT DNA/Cologuard 08/18/2027 08/17/2024 HIV Screening Completed 09/21/2021 Hepatitis C Screening Completed 02/15/2022, 022 Zoster Vaccines Completed 04/18/2022, 01/26, 02/15/2022 HIB Vaccines Aged Out No longer [...] patient's age to complete this topic Meningococcal Vaccine Aged Out No nicolas tj eligible based on patient's age to complete this topic RSV under 20 months Aged Out No longe r eligible based on patient's age to complete this topic Rotavirus Vaccines Aged Out No longer eligible based on patient's age to complete this topic Goals Goal Patient Goal Type Associated Problems Recent Progress Patient-Stated? Author Talk with provider about taper General No change( 025 4:18 PM EDT) Yes Manda Borges ANGELA Investigate other options for coping with pain. General On track(01/07/20 4:18 PM EDT) Yes Manda Borges RN Procedures Procedure Name Priority Date/Time Associated Diagnosis Comments POCT NILSA-14 URINE DRUG SCREEN Routine 03/07/2025 1:09 PM EST Opioid type dependence, continuous (CMS/HCC) (HCC) AMB REFERRAL TO ORTHOPAEDIC SURGERY Routine 02/06/2025 Neck pain, chronic POCT NILSA-14 URINE DRUG SCREEN Routine 01/06/2025 2:39 PM EDT Opioid type dependence, continuous (CMS/HCC) (HCC) LAB COLOGUARD COLON CANCER SCREEN Routine 08/17/2024 12:01 AM EDT Screening for colon cancer ZZZ HISTORICAL HEPATITIS C AB W/REFL TO HCV RNA, QN, PCR Routine 02/15/2022 10:17 AM EST HIV 1/2 ANTIGEN/ANTIBODY, FOURTH GENERATION W/RFL Routine 09/21/2021 11:41 AM EDT HM COLONOSCOPY Routine 02/03/2015 from Last 3 Months or Most Recently Relevant to Health Maintenance Results * (ABNORMAL) POCT NILSA-14 Urine Drug Screen (03/07/2025 1:09 PM EST) Only the most recent of2 resultswithin the time period is included. THC Positive(A) Negative Cocaine Screen, Urine Negative Negative Opiate Screen, Urine Negative Negative Methamphetamine Screen Urine Negative Negative Amphetamine Screen, Urine Negative Negative Benzodiazepines Screen, Urine Negative Negative Barbiturate Screen, Urine Positive(A) Negative Methadone Screen, Urine Negative Negative Buprenophine Screen, Urine Positive(A) Negative TCA, Urine Negative Negative MDMA Urine Negative Negative ng/mL Oxycodone Screen, Urine Negative Negative Phencyclidine (PCP), Urine Negative Negative Fentanyl, Urine Negative Negative Urine Urine specimen obtained by clean catch procedure / Unknown 03/07/2025 1:09 PM EST Jan Posada MD POINT OF CARE TEST ENTER/EDIT OR DERABLES Final Result * Referral to Orthopaedic Surgery (02/06/2025) Sharon Hilton MD OUTPATIENT REFERRAL ORDERABLE S Edited Result - Final * Cologuard?? colon cancer screening (08/17/2024 12:01 AM EDT) Cologuard Result Negative Negative 08/23/19 5:14 AM EDT [facility] (CLIA #:[id number]) Comment: The Cologuard (TM) test was performed on this specimen. NEGATIVE TEST RESULT. A negative Cologuard result indicates a low likelihood that a colorectal cancer (CRC) or advanced adenoma (adenomatous polyps with more advanced pre-malignant features) is present. The chance that a person with a negative Cologuard test has a colorectal cancer is less than 1 in 1500 (negative predictive value >99.9%) or has an advanced adenoma is less than 5.3% (negative predictive value 94.7%). These data are based on a prospective cross-sectional study of 10,000 individuals at average risk for colorectal cancer who were screened with both Cologuard and colonoscopy. (Teri Yepez et al, N Engl J Med 2014;370(14):1286- 1297) The normal value (reference range) for this assay is negative. COLOGUARD RE-SCREENING RECOMMENDATION: Periodic colorectal cancer screening is an important part of preventive healthcare for asymptomatic individuals at average risk for colorectal cancer. Following a negative Cologuard result, the [place] [employer] Society and U.S. Multi-Society Task Force screening guidelines recommend a Cologuard re-screening interval of 3 years. References: [place] [employer] Guideline for Colorectal Cancer Screening: https://www.cancer.org/cancer/dkozy-fnuvoh-swncfg/tqbyfassj-udbwdkwwk-hmmybyo/ac s-rec ommendations.html.; Victor M PUCKETT, Rikki VIVAS, Guerrero RANKIN, Colorectal Cancer Screening: Recommendations for Physicians and Patients from the U.S. Multi-Society Task Force on Colorectal Cancer Screening , Am J Gastroenterology 2017; 112:5043-1670. TEST DESCRIPTION: Composite algorithmic analysis of stool DNA-biomarkers with hemoglobin immunoassay. Quantitative values of individual biomarkers are not reportable and are not associated with individual biomarker result reference ranges. Cologuard is intended for colorectal cancer screening of adults of either sex, 45 years or older, who are at average-risk for colorectal cancer (CRC). Cologuard has been approved for use by the U.S. FDA. The performance of Cologuard was established in a cross sectional study of average-risk adults aged 50-84. Cologuard performance in patients ages 45 to 49 years was estimated by sub-group analysis of near-age groups. Colonoscopies performed for a positive result may find as the most clinically significant lesion: colorectal cancer [4.0%], advanced adenoma (including sessile serrated polyps greater than or equal to 1cm diameter) [20%] or non- advanced adenoma [31%]; or no colorectal neoplasia [45%]. These estimates are derived from a prospective cross-sectional screening study of 10,000 individuals at average risk for colorectal cancer who were screened with both Cologuard and colonoscopy. (Teri Armenta al, N Engl J Med 2014;370(14):5403-9718.) Cologuard may produce a false negative or false positive result (no colorectal cancer or precancerous polyp present at colonoscopy follow up). A negative Cologuard test result does not guarantee the absence of CRC or advanced adenoma (pre-cancer). The current Cologuard screening interval is every 3 years. ([place] [employer] Society and U.S. Multi-Society Task Force). Cologuard performance data in a 10,000 patient pivotal study using colonoscopy as the reference method can be accessed at the following location: www.[employer]/results. Additional description of the Cologuard test process, warnings and precautions can be found at www.[employer].com. Stool specimen (specimen) 08/17/2024 12:01 AM EDT 08/18/2024 10:27 PM EDT us Sharon Hilton MD LAB MOLECULAR DIAGNOSTICS ORD ERABLES Final Result [facility] (CLIA #:[id number]) [address] [place] [address], * HEPATITIS C AB W/REFL TO HCV RNA, QN, PCR (02/15/2022 10:17 AM EST) HEPATITIS C ANTIBODY NON-REACTI VE NON-REACT [facility] CONVERTED LEGACY LABS INDEX 0.03 <1.00 CONVERTED LEGACY LABS Comment: HCV antibody was non-reactive. There is no laboratory evidence of HCV infection. In most cases, no further action is required. However, if recent HCV exposure is suspected, a test for HCV RNA (test code 41751) is suggested. For additional information please refer to http://[employer].F2G/faq/CRA05r2 (This link is being provided for informational/ educational purposes only.) 02/15/2022 10:1 7 AM EST Sharon Hilton MD HISTORICAL/NON ORDERABLE LABS Final Result CONVERTED LEGACY LABS * HIV 1/2 ANTIGEN/ANTIBODY,FOURTH GENERATION W/RFL (09/21/2021 11:41 AM EDT) HIV-1/2 ANTIGEN AND ANTIBODIES, 4TH GENERATION W/ REFLEX NON-REACT [facility] NON-REACT [facility] Comment: HIV-1 antigen and HIV-1/HIV-2 antibodies were not detected. There is no laboratory evidence of HIV infection. PLEASE NOTE: This information has been disclosed to you from records whose confidentiality may be protected by state law. If your state requires such protection, then the state law prohibits you from making any further disclosure of the information without the specific written consent of the person to whom it pertains, or as otherwise permitted by law. A general authorization for the release of medical or other information is NOT sufficient for this purpose. For additional information please refer to http://[employer].F2G/faq/VRE810 (This link is being provided for informational/ educational purposes only.) The performance of this assay has not been clinically validated in patients less than 2 years old. 09/21/2021 11:4 1 AM EDT Jan Posada MD LAB BLOOD ORDERABLES Final Resul t [facility] [address] [id number] * Colonoscopy (02/03/2015) Colonoscopy Normal Normal Narrative Jana Leon - 02/03/2015 Recommended 10 year follow up Historical Provider HEALTH MAINTENANCE Final Result from Last 3 Months or Most Recently Relevant to Health Maintenance Insurance [facility] < [address] [facility] Care Teams Wastewater Engineer Relationship Specialty Start Date End Date Sharon Hilton MD [address] [place] [phone] PCP - General Family Medicine 03/27/18
--- OUTSIDE RECORDS SUMMARY | 2025-03-18 19:12 | XMS_ITS | Encounter Summary ---
Author Organization [employer] Address [address] [facility] [address] [place] [address] Care Team Providers Care Master Plumber Name Role Phone Sharon Hilton MD Primary Care Provider [phone] Encounter Details Date Type Department Care Team ([facility] Contact Info) Description 01/29/2024 Telephone [facility] [address] [place] [address] Sharon Hilton MD [address] [place], [place] [phone] Social History Tobacco Use Types Packs/Day Years [...] encounter Miscellaneous Notes * Telephone Encounter - Jayleen Washington - 01/29/2024 2:40 PM EST error documented in this encounter Plan of Treatment Upcoming Encounters Date Type Department Care Team (Late st Contact Info) Description 03/31/2025 11:00 AM EST Clinical Support [facility] [address] [place] [address] 04/02/2025 11:00 AM EST Office Visit [facility] [address] [place] [address] Sharon Hilton MD [address] [place] [address] 04/28/2025 1:30 PM EST Office Visit [facility] [address] [place] [address] Jan Posada MD [address] [place] [phone] documented as of this encounter Visit Diagnoses Not on filedocumented in this encounter Additional Health Concerns Assessment Noted Time PHQ-9 Depression Total Score: 6 06/16/19 24 10:51 AM EDT documented as of this encounter Care Teams Master Plumber Relationship Specialty Start Date End Date Sharon Hilton MD [address] [place] [address] PCP - General Family Medicine 03/27/18 documented as of this encounter
--- OUTSIDE RECORDS SUMMARY | 2025-03-18 19:12 | XMS_ITS | Encounter Summary ---
Author Organization [employer] Address [address] [place] [address] Care Team Providers Care Polygraph Examiner Name Role Phone Sharon Hilton MD Primary Care Provider [phone] Reason for Visit * Reason Onset Date Comments Med Refill 02/12/2024 Encounter Details Date Type Department Care Team ([facility] Contact Info) Description 02/12/2024 Telephone [facility] MEDICINE [address] [place] [address] Sharon Hilton MD [address] [place] [address] Med Refill Social History Tobacco Use Types [...] encounter Miscellaneous Notes * Telephone Encounter - Aj Escobar - 02/12/2024 9:11 AM EST TC from pt requesting medication refill. Medications needing refill : oxyCODONE (Roxicodone) 5 MG immediate release tablet To be sent to: [facility] - [address] documented in this encounter Plan of Treatment Upcoming Encounters Date Type Department Care Team ([facility] st Contact Info) Description 03/31/2025 11:00 AM EST Clinical Support [facility] MED & PEDS [address] [place] [address] 04/02/2025 11:00 AM EST Office Visit [facility] MED & PEDS [address] [place] [address] Sharon Hilton MD [address] [place] [address] 04/28/2025 1:30 PM EST Office Visit [facility] MED & PEDS [address] [place] [address] Jan Posada MD [address] [place] [address] documented as of this encounter Visit Diagnoses Not on filedocumented in this encounter Additional Health Concerns Assessment Noted Time PHQ-9 Depression Total Score: 6 06/16/19 24 10:51 AM EDT documented as of this encounter Care Teams Polygraph Examiner Relationship Specialty Start Date End Date Sharon Hilton MD [address] [place] [address] PCP - General Family Medicine 03/27/18 documented as of this encounter
--- OUTSIDE RECORDS SUMMARY | 2025-03-18 19:12 | XMS_ITS | Encounter Summary ---
Author Organization [employer] Address 75 [facility] 7t [place] [address] Care Team Providers Care Signal Technician Name Role Phone Sharon Hilton MD Primary Care Provider [phone] Encounter Details Date Type Department Care Team ([facility] Contact Info) Description 01/02/2024 Orders Only [facility] CHC MED & PEDS [address] [place], [place] [phone] Provider, MD Kamar Social History Tobacco Use Types Packs/Day Years [...] Description 03/31/2025 11:00 AM EST Clinical Support [facility] MED & PEDS [address] [place] [address] 04/02/2025 11:00 AM EST Office Visit [facility] MED & PEDS [address] [place] [address] Sharon Hilton MD [address] [place] [address] 04/28/2025 1:30 PM EST Office Visit [facility] MED & PEDS [address] [place] [address] Jan Posada MD [address] [place] [address] documented as of this encounter Procedures Procedure Name Priority Date/Time Associated Diagnosis Comments XR LUMBAR SPINE 2-3 VIEWS Routine 01/01/2024 10:15 AM EDT documented in this encounter Results * XR Lumbar Spine 2-3 Views (01/01/2024 10:15 AM EDT) Anatomical Region Laterality Modality Spine, L-spine Radiographic Shreya ging us Historical Provider MD SCHREIBER XR PROCEDURES Final R esult documented in this encounter Visit Diagnoses Not on filedocumented in this encounter Additional Health Concerns Assessment Noted Time PHQ-9 Depression Total Score: 6 06/16/19 24 10:51 AM EDT documented as of this encounter Care Teams Signal Technician Relationship Specialty Start Date End Date Sharon Hilton MD [address] [place] [address] PCP - General Family Medicine 03/27/18 documented as of this encounter
--- OUTSIDE RECORDS SUMMARY | 2025-03-18 19:12 | XMS_ITS | Encounter Summary ---
Author Organization [employer] Address [address] [place] [address] Care Team Providers Care Inside Wirer Name Role Phone Sharon Hilton MD Primary Care Provider [phone] Encounter Details Date Type Department Care Team (Latest Contact Info) Description 07/25/2018 Abstract [facility] CONVERSIONS Dental, Provider, DDS Social History Tobacco [...] 03/31/2025 11:00 AM EST Clinical Support [facility] MED & PEDS [address] [place] [address] 04/02/2025 11:00 AM EST Office Visit [facility] MED & PEDS [address] [place] [address] Sharon Hilton MD 505 [place] [address] 04/28/2025 1:30 PM EST Office Visit [facility] MED & PEDS [address] [place] [address] Jan Posada MD [address] [place] [address] documented as of this encounter Visit Diagnoses Not on filedocumented in this encounter Care Teams Inside Wirer Relationship Specialty Start Date End Date Sharon Hilton MD [address] [place] [address] PCP - General Family Medicine 03/27/18 documented as of this encounter
--- OUTSIDE RECORDS SUMMARY | 2025-03-18 19:12 | XMS_ITS | Encounter Summary ---
Author Organization [employer] Address [address] [place] [address] [facility] [place] [address] Care Team Providers Care Chair Mechanic Name Role Phone Sharon Hilton MD Primary Care Provider [phone] Reason for Visit * Reason Onset Date Comments Medication Question 02/26/2024 Appointment Request 02/26/2024 Encounter Details Date Type Department Care Team ([facility] Contact Info) Description 02/26/2024 Telephone [facility] MED & PEDS [address] [place] [address] Sharon Hilton MD [address] [place] [address] Medication Question; Appointment Request Social History Tobacco Use Types [...] encounter Miscellaneous Notes * Telephone Encounter - Leigh Parsons - 02/26/2024 3:54 PM EST Tc from pt requesting a call back in regards to post -op appt after surgery , pt is also requestingXRAY orders. Please contact at [phone] * Telephone Encounter - Cyrus Galindo - 02/26/2024 1:29 PM EST TC from pt states received a missed call . Unsure if from a nurse. * Telephone Encounter - Alta Ward - 02/26/2024 10:23 AM EST Tc from pt requesting a call back to go over his medication and schedule an appt. documented in this encounter Plan of Treatment Upcoming Encounters Date Type Department Care Team ([facility] st Contact Info) Description 03/31/2025 11:00 AM EST Clinical Support [facility] MED & PEDS [address] [place] [address] 04/02/2025 11:00 AM EST Office Visit [facility] MED & PEDS [address] [place] [address] Sharon Hilton MD [address] [place] [address] 04/28/2025 1:30 PM EST Office Visit [facility] CHC MED & PEDS [address] [place], [place] [phone] Jan Posada MD [address] [place] [address] documented as of this encounter Visit Diagnoses Diagnosis Spinal stenosis of lumbar region with neurogenic claudication documented in this encounter Additional Health Concerns Assessment Noted Time PHQ-9 Depression Total Score: 6 06/16/19 24 10:51 AM EDT documented as of this encounter Care Teams Chair Mechanic Relationship Specialty Start Date End Date Sharon Hilton MD [address] [place] [address] PCP - General Family Medicine 03/27/18 documented as of this encounter
--- OUTSIDE RECORDS SUMMARY | 2025-03-18 19:12 | XMS_ITS | Encounter Summary ---
Author Organization [employer] Address [address] [place] [address] Care Team Providers Care Shop Foreman Name Role Phone Sharon Hilton MD Primary Care Provider Encounter Details Date Type Department Care Team (Latest Contact Info) Description 12/24/2020 Abstract [facility] CONVERSIONS Dental, Provider, DDS Social History [...] Description 03/31/2025 11:00 AM EST Clinical Support [facility] MED & PEDS [address] [place] [address] 04/02/2025 11:00 AM EST Office Visit [facility] MED & PEDS [address] [place] [address] Sharon Hilton MD [address] [place] [address] 04/28/2025 1:30 PM EST Office Visit [facility] MED & PEDS [address] [place] [address] Jan Posada MD [address] [place] [address] documented as of this encounter Visit Diagnoses Not on filedocumented in this encounter Care Teams Shop Foreman Relationship Specialty Start Date End Date Sharon Hilton MD [address] [place] [address] PCP - General Family Medicine 03/27/18 documented as of this encounter
--- OUTSIDE RECORDS SUMMARY | 2025-03-18 19:12 | XMS_ITS | Encounter Summary ---
Author Organization [employer] Address [address] [place] [address] [facility] [place] [address] Care Team Providers Care Cash Teller Name Role Phone Sharon Hilton MD Primary Care Provider [phone] Reason for Visit * Reason Comments Med Refill Encounter Details Date Type Department Care Team ([facility] Contact Info) Description 04/05/2024 Refill [facility] MED [facility] PEDS [address] [place], [place] [phone] Sharon Hilton MD [address] [place] [address] Social History Tobacco Use Types Packs/Day Years [...] 03/31/2025 11:00 AM EST Clinical Support [facility] MED & PEDS [address] [place] [address] 04/02/2025 11:00 AM EST Office Visit [facility] MED & PEDS [address] [place] [address] Sharon Hilton MD [address] [place] [address] 04/28/2025 1:30 PM EST Office Visit [facility] MED & PEDS [address] [place] [address] Jan Posada MD [address] [place] [address] documented as of this encounter Visit Diagnoses Not on filedocumented in this encounter Additional Health Concerns Assessment Noted Time PHQ-9 Depression Total Score: 6 06/16/19 24 10:51 AM EDT documented as of this encounter Care Teams Cash Teller Relationship Specialty Start Date End Date Sharon Hilton MD [address] [place] [address] PCP - General Family Medicine 03/27/18 documented as of this encounter
--- OUTSIDE RECORDS SUMMARY | 2025-03-18 19:12 | XMS_ITS | Encounter Summary ---
Author Organization [employer] Address [address] [place] [address] 7 [place] [address] Care Team Providers Care Registered Respiratory Therapist Name Role Phone Sharon Hilton MD Primary Care Provider [phone] Reason for Visit * Reason Comments Med Refill Encounter Details Date Type Department Care Team ([facility] Contact Info) Description 01/01/2025 Refill [facility] MEDICINE [address] [place], [place] [phone] Lorrie Mcclellan MD [address] [place], [place] [phone] Opioid dependence, uncomplicated (CMS/HCC) ([facility]) Social History Tobacco Use Types Packs/Day Years Used Date Smoking Tobacco: Never Passive Smoke Exposure: Never Smokeless Tobacco: Never Depression Answer Date Recorded Patient Health Questionnaire-9 Score 8 06/20/2024 Patient Health Questionnaire-9 Score 8 06/20/2024 Last PHQ-9: Questionnaire Data Not on file 0 06/20/2024 Housing Stability Answer Date Recorded What is your housing situation today? I have rakel nolen 06/20/[address] you [...] 03/31/2025 11:00 AM EST Clinical Support [facility] MED & PEDS [address] [place] [address] 04/02/2025 11:00 AM EST Office [facility] MED & PEDS [address] [place] [address] Sharon Hilton MD [address] [place] [address] 04/28/2025 1:30 PM EST Office [facility] MED & PEDS [address] [place] [address] Jan Posada MD [address] [place] [address] documented as of this encounter Goals Goal Patient Goal Type Associated Problems Recent Progress Patient-Stated? Author Talk with provider about taper General No change( 025 4:18 PM EDT) Yes Manda Borges RN Investigate other options for coping with pain. General On track(01/07/20 25 4:18 PM EDT) Yes Manda Borges RN documented as of this encounter Visit Diagnoses Diagnosis Opioid dependence, uncomplicated (CMS/HCC) (HCC) documented in this encounter Additional Health Concerns Assessment Noted Time PHQ-9 Depression Total Score: 8 06/21/19 25 2:54 PM EDT documented as of this encounter Care Teams Registered Respiratory Therapist Relationship Specialty Start Date End Date Sharon Hilton MD [address] [place] [address] PCP - General Family Medicine 03/27/18 documented as of this encounter
--- OUTSIDE RECORDS SUMMARY | 2025-03-18 19:12 | XMS_ITS | Encounter Summary ---
Author Organization [employer] Address 75 [facility] [place] [address] Care Team Providers Care Oven Tender Name Role Phone Sharon Hilton MD Primary Care Provider [phone] Reason for Visit * Reason Onset Date Comments callback requested 02/09/2024 Encounter Details Date Type Department Care Team ([facility] Contact Info) Description 02/09/2024 Telephone [facility] MEDICINE [address] [place] [address] Sharon Hilton MD [address] [place] [address] callback requested Social History Tobacco Use Types Packs/Day Years [...] encounter Miscellaneous Notes * Telephone Encounter - Wing Will RN - 02/09/2024 3:33 PM EST Spoke to Brittaney at pharmacy about the Roxicodone, she stated insurance will not allow it to be released until tomorrow so pt cannot berry picker medication until Monday. Alternate is to send 10 mg and instruct pt to take 1/2 tablet every 6 hrs. However pt is on suboxone and PMH of opioid use. Spoke to Dr. Denis who said for the pt to wait until Monday. Called pt to relay decision to PCP. Unable to reach, left message for pt to call back. * Telephone Encounter - Kathleen Saenz - 02/09/2024 2:50 PM EST Tc from pt requesting a callback on status on oxyCODONE (Roxicodone) 5 MG immediate release tablet.Pt agree to message from RN on taking 1/2 tab pt will like to know when will it be at pharmacy. Callback [phone] documented in this encounter Plan of Treatment Upcoming Encounters Date Type Department Care Team (Late st Contact Info) Description 03/31/2025 11:00 AM EST Clinical Support [facility] MED & PEDS [address] [place] [address] 04/02/2025 11:00 AM EST Office Visit [facility] MED & PEDS [address] [place] [address] Sharon Hilton MD [address] [place] [address] 04/28/2025 1:30 PM EST Office Visit [facility] MED & PEDS [address] [place] [address] Jan Posada MD [address] [place] [address] documented as of this encounter Visit Diagnoses Not on filedocumented in this encounter Additional Health Concerns Assessment Noted Time PHQ-9 Depression Total Score: 6 06/16/19 24 10:51 AM EDT documented as of this encounter Care Teams Oven Tender Relationship Specialty Start Date End Date Sharon Hilton MD [address] [place] [address] PCP - General Family Medicine 03/27/18 documented as of this encounter
--- OUTSIDE RECORDS SUMMARY | 2025-03-18 19:12 | XMS_ITS | Encounter Summary ---
Author Organization [employer] Address 75 [facility] 7 [place] [address] Care Team Providers Care Foundation Drill Operator Helper Name Role Phone Sharon Hilton MD Primary Care Provider [phone] Reason for Visit * Reason Comments Med Refill Encounter Details Date Type Department Care Team ([facility] st Contact Info) Description 01/13/2024 Refill [facility] MEDICINE [address] [place] [address] Sharon Hilton MD [address] [place] [address] Nausea and vomiting, unspecified vomiting type Social [...] [facility] MED & PEDS [address] [place] [address] 04/02/2025 11:00 AM EST Office Visit [facility] MED & PEDS [address] [place] [address] Sharon Hilton MD [address] [place] [address] 04/28/2025 1:30 PM EST Office Visit [facility] MED & PEDS [address] [place] [address] Jan Posada MD [address] [place] [address] documented as of this encounter Visit Diagnoses Diagnosis Nausea and vomiting, unspecified vomiting type documented in this encounter Additional Health Concerns Assessment Noted Time PHQ-9 Depression Total Score: 6 06/16/19 24 10:51 AM EDT documented as of this encounter Care Teams Foundation Drill Operator Helper Relationship Specialty Start Date End Date Sharon Hilton MD [address] [place] [address] PCP - General Family Medicine 03/27/18 documented as of this encounter
--- OUTSIDE RECORDS SUMMARY | 2025-03-18 19:12 | XMS_ITS | Encounter Summary ---
Author Organization [employer] Address [address] [place] [address] Care Team Providers Care Ekg/Ecg Technician Name Role Phone Sharon Hilton MD Primary Care Provider [phone] Encounter Details Date Type Department Care Team (Late Contact Info) Description 04/07/2022 Abstract [facility] ADULT DENTAL [address] [place] [address] Camden Cheney DDS [address] [place] [address] Social History Tobacco Use Types Packs/Day Years [...] [facility] [address] [place] [address] 04/02/2025 11:00 AM EST Office Visit [facility] MED & PEDS [address] [place] [address] Sharon Hilton MD [address] [place] [address] 04/28/2025 1:30 PM EST Office Visit [facility] MED & PEDS [address] [place] [address] Jan Psoada MD [address] [place] [address] documented as of this encounter Procedures Procedure Name Priority Date/Time Associated Diagnosis Comments 31,30 PARTIAL DENTURE - RESIN Routine 04/07/2022 12:00 AM EST 3,4,13,14,15 PARTIAL DENTURE - RESIN Routine 04/07/2022 12:00 AM EST 19 PONTIC - PORCELAIN/CERAMIC Routine 04/07/2022 12:00 AM EST 18 ABUTMENT SUPPORTED PORCELAIN/CERAMIC CROWN Routine 04/07/2022 12:00 AM EST 20 ABUTMENT SUPPORTED PORCELAIN/CERAMIC CROWN Routine 04/07/2022 12:00 AM EST 29 MO COMPOSITE FILLING Routine 04/07/2022 12:00 AM EST 12 COMPOSITE FILLING Routine 04/07/2022 12:00 AM EST 2 B(V) COMPOSITE FILLING Routine 04/07/2022 12:00 AM EST 6 DI COMPOSITE FILLING Routine 04/07/2022 12:00 AM EST 5 B COMPOSITE FILLING Routine 04/07/2022 12:00 AM EST 2 LO AMALGAM FILLING Routine 04/07/2022 12:00 AM EST documented in this encounter Visit Diagnoses Not on filedocumented in this encounter Care Teams Ekg/Ecg Technician Relationship Specialty Start Date End Date Sharon Hilton MD [address] [place] [address] PCP - General Family Medicine 03/27/18 documented as of this encounter
--- OUTSIDE RECORDS SUMMARY | 2025-03-18 19:12 | XMS_ITS | Encounter Summary ---
Author Organization [employer] Address 75 [facility] 7 [place] [address] Care Team Providers Care Construction Rigger Name Role Phone Sharon Hilton MD Primary Care Provider Reason for Visit * Reason Comments Med Refill Encounter Details Date Type Department Care Team ([facility] Contact Info) Description 01/05/2025 Refill [facility] MEDICINE [address] [place] [address] Sharon Hilton MD [address] [place] [address] Nausea and vomiting, unspecified vomiting type Social [...] Upcoming Encounters Date Type Department Care Team ([facility] st Contact Info) Description 03/31/2025 11:00 AM EST Clinical Support [facility] MED & PEDS [address] [place] [address] 04/02/2025 11:00 AM EST Office Visit [facility] MED & PEDS [address] [place] [address] Sharon Hilton MD [address] [place] [address] 04/28/2025 1:30 PM EST Office Visit [facility] MED & PEDS [address] [place] [address] Jan Posada MD [address] [place] [address] documented as of this encounter Goals Goal Patient Goal Type Associated Problems Recent Progress Patient-Stated? Author Talk with provider about taper General No change( 4:18 PM EDT) Yes Manda Borges RN Investigate other options for coping with pain. General On track(01/07/20 4:18 PM EDT) Yes Manda Borges RN documented as of this encounter Visit Diagnoses Diagnosis Nausea and vomiting, unspecified vomiting type documented in this encounter Additional Health Concerns Assessment Noted Time PHQ-9 Depression Total Score: 8 03/27/20 25 2:54 PM EDT documented as of this encounter Care Teams Construction Rigger Relationship Specialty Start Date End Date Sharon Hilton MD [address] [place] [address] PCP - General Family Medicine 03/27/18 documented as of this encounter
--- OUTSIDE RECORDS SUMMARY | 2025-03-18 19:12 | XMS_ITS | Data Portability ---
Author Organization [facility] Address [address] [place] [address] Care Team Providers Care Change Management Administrator Name Role Phone HIM CCA OTHER Unavailable OTHER Assessment Encounter Date Assessment Date Assessment LastModified by Organization Details LastModified Time 07/28/2023 07/28/2023 I provided real -time medical direction via phone for this encounter and was available for additional phone-based assistance as needed. I have reviewed and agree with the Assessment and Plan as documented by the Barrel Turner. Patient given the opportunity to ask questions. Our service contacted for an assessment of: ? tick bite As per above, patient had the pictures associated with this visit and then found ticks crawling on him but not attached. States the middle section was red then became a grayling and then filled into a blood blister. Not painful. Denies h/o Lyme disease. Per specialist employee labor relations on the scene, GODDARD, see up loaded [...] doxycycline hyclate 100 mg capsule 2023 024 [facility], [address] [place] [address], [place], [place], [id number], 15:11:03 Patient TargetsNo targets recorded. Patient InstructionsNo [...] Recorded Heart rate Respiratory rate Oxygen saturation Body temperature Systolic And Diastolic Provider Name and Address Organization Details Last Updated DateTime 4 86 /min 16 /min 98 % 97.3 [degF] 150/94 mm[Hg] Not Available [facility] - production 4 20:42:53 Social History None recorded. Functional Status None recorded. Mental Status None recorded. Family History Nothing Reported. Medical History No medical history recorded. Past Encounters Encounter ID Performer Location Encounter Start Date Encounter Closed Date Diagnosis/Indication Diagnosis SNOMED-CT Code Diagnosis ICD10 Code Diagnosis IMO Codes Diagnosis Note [id number] Petty iFnch MD Main - [facility] [address] [place] [phone] 07/28/2023 20:42:40 07/26/2024 11:14:24 Bite of tick [id number] W57.XXXA Health Concerns Section Related Observation LastModified by Organization Detai ls LastModified Time None Recorded Concern Status LastModified by Organization Details LastModified Time None Recorded Advance Directives Directive None Recorded Payers Insurance Date Sequence Insurance Name Policy Number Policy Siu Covered Member ID Siu Member ID Guarantor Name 07/26/2024 1 [facility] - DOS ON OR AFTER 2022 - DUAL ELIGIBLE - CORRECTION OPTIONS AND ONE CARE (MEDICARE REPLACEMENT/ADV ANTAGE - HMO) Josh Franklin [id number] Josh Franklin Notes Date Note Type Note [...] ...................... ...................... ...................... ...................... ...................... ...................... ......... Barrel Turner Note From Glenn Corbett: Dispatched to the [...] pt. denied any symptoms. pt. vitals assessed. [facility] contacted and photos sent with vitals. pt. denied any fever, pain, tenderness, chest pain, dizziness, blurred vision, headache, abd pain, nvd. [facility] noted the potential for lyme disease and [...] ......... Disposition: Fulfilled Petty Finch MD [address] [facility],[address], [place], [address], RAS[facility] - [employer] 07/28/2023 20:56:59
--- OUTSIDE RECORDS SUMMARY | 2025-03-18 19:12 | XMS_ITS | Encounter Summary ---
Author Organization [employer] Address [address] [facility] [address] [place] [address] Care Team Providers Care Air Conditioning Sheet Metal Installer Name Role Phone Sharon Hilton MD Primary Care Provider [phone] Reason for Visit * Reason Onset Date Comments callback requested 02/21/2024 Encounter Details Date Type Department Care Team ([facility] Contact Info) Description 02/21/2024 Telephone [facility] [address] [place] [address] Sharon Hilton MD [address] [place], [place] [phone] callback requested Social History Tobacco Use Types [...] * Telephone Encounter - Kathleen Saenz - 02/21/2024 1:03 PM EST Tc from pt requesting a callback from PCP due to needing an appointment soon due to pt inform he has a situation going on (no further info discussed) . Callback number [phone] documented in this encounter Plan of Treatment Upcoming Encounters Date Type Department Care Team (Late st Contact Info) Description 03/31/2025 11:00 AM EST Clinical Support [facility] [address] [place] [address] 04/02/2025 11:00 AM EST Office Visit [facility] [address] [place] [address] Sharon Hilton MD [address] [place] [address] 04/28/2025 1:30 PM EST Office Visit [facility] [address] [place] [address] Jan Posada MD [address] [place] [phone] documented as of this encounter Visit Diagnoses Not on filedocumented in this encounter Additional Health Concerns Assessment Noted Time PHQ-9 Depression Total Score: 6 06/16/19 24 10:51 AM EDT documented as of this encounter Care Teams Air Conditioning Sheet Metal Installer Relationship Specialty Start Date End Date Sharon Hilton MD [address] [place] [id number] PCP - General Family Medicine 03/27/18 documented as of this encounter
--- OUTSIDE RECORDS SUMMARY | 2025-03-18 19:13 | XMS_ITS | Encounter Summary ---
Author Organization [employer] Address [address] [facility] [place] [address] Care Team Providers Care Sweeper Brush Maker Machine Name Role Phone Sharon Hilton MD Primary Care Provider [phone] Reason for Visit * Reason Onset Date Comments Referral 11/16/2023 Encounter Details Date Type Department Care Team ([facility] st Contact Info) Description 11/16/2023 Telephone [facility] [address] [place] [address] Sharon Hilton MD [address] [place] [address] Referral Social History Tobacco Use Types Packs/Day [...] encounter Miscellaneous Notes * Telephone Encounter - Simon Nava - 11/16/2023 3:23 PM EDT Tc from pt stating he would like to cancel radiologist referral stating he would just like to follow up with his surgeon. If any questions you can contact pt at [phone]. documented in this encounter Plan of Treatment Upcoming Encounters Date Type Department Care Team (Late st Contact Info) Description 03/31/2025 11:00 AM EST Clinical Support [facility] [address] [place] [address] 04/02/2025 11:00 AM EST Office Visit [facility] [address] [place] [address] Sharon Hilton MD [address] [place] [address] 04/28/2025 1:30 PM EST Office Visit [facility] [address] [place] [address] Jan Posada MD [address] [place] [phone] documented as of this encounter Visit Diagnoses Not on filedocumented in this encounter Additional Health Concerns Assessment Noted Time PHQ-9 Depression Total Score: 6 06/16/19 24 10:51 AM EDT documented as of this encounter Care Teams Sweeper Brush Maker Machine Relationship Specialty Start Date End Date Sharon Hilton MD [address] [place] [id number] PCP - General Family Medicine 03/27/18 documented as of this encounter
--- OUTSIDE RECORDS SUMMARY | 2025-03-18 19:13 | XMS_ITS | Encounter Summary ---
Author Organization [employer] Address [address] [place] [address] Care Team Providers Care Can Striper Name Role Phone Sharon Hilton MD Primary Care Provider [phone] Reason for Visit * Reason Onset Date Comments Med Refill 09/27/2023 Encounter Details Date Type Department Care Team ([facility] Contact Info) Description 09/27/2023 Telephone [facility] [address] [place] [address] Sharon Hilton MD [address] [place] [address] Med Refill Social History Tobacco Use Types [...] encounter Miscellaneous Notes * Telephone Encounter - Charline Gore LPN - 09/27/2023 10:43 AM EDT Medication pended to PCP. * Telephone Encounter - Connie Bob - 09/27/2023 10:03 AM EDT TC from pt requesting medication refill. Medications needing refill : ondansetron (Zofran) 4 MG tablet To be sent to: [facility] - [address] Pt is requesting refills on the medication. documented in this encounter Plan of Treatment Upcoming Encounters Date Type Department Care Team ([facility] st Contact Info) Description 03/31/2025 11:00 AM EST Clinical Support [facility] [address] [place] [address] 04/02/2025 11:00 AM EST Office Visit [facility] [address] [place] [address] Sharon Hilton MD [address] [place] [address] 04/28/2025 1:30 PM EST Office Visit [facility] [address] [place] [address] Jan Posada MD [address] [place] [address] documented as of this encounter Visit Diagnoses Not on filedocumented in this encounter Additional Health Concerns Assessment Noted Time PHQ-9 Depression Total Score: 6 06/16/19 24 10:51 AM EDT documented as of this encounter Care Teams Can Striper Relationship Specialty Start Date End Date Sharon Hilton MD [address] [place] [address] PCP - General Family Medicine 03/27/18 documented as of this encounter
[2025-03-18 19:18] LABS: Troponin-I High Sensitivity 3.2 ng/L (<3.5-35.0)
[2025-03-18 19:24] LABS: Lipase 395 U/L (8-78)
--- NOTE | 2025-03-18 20:03 | ED_ITS ---
HPI - General Adult General Chief complaint: Abdominal Pain Stated complaint: abd pain, chest pain, vomiting x10 hours Time Seen by Provider: 03/18/25 19:27 Source: patient, RN notes reviewed and old records reviewed Mode of arrival: EMS Limitations: no limitations History of Present Illness ED Provider: Kristal HPI narrative: 59-year-old male with a past medical history significant for alcohol use disorder, chronic pancreatitis, opiate dependence, chronic abdominal pain presents for evaluation of upper abdominal pain with nausea and vomiting. the patient reports that he continues to drink alcohol, about 5 days drinks per day. He states in his last drink was around 4:00 a.m. this morning. The patient was admitted here in September for similar complaints in his found to have acute on chronic pancreatitis. He reports he has had severe upper abdominal pain for the last 10 hours pain He also feels as though he has an alcohol withdrawal yesterday he reports he had fevers and chills but did not document a fever. No other complaints or concerns at this time Related Data Home Medications ?Medication ?Instructions ?Recorded ?Confirmed bupropion HCl 300 mg 24 hr tablet, 300 mg PO DAILY 03/19/25 extended release trazodone 100 mg tablet 100 mg PO BEDTIME 12/09/21 1 05/20/24 cyanocobalamin (vitamin B-12) 1,000 mcg IM QMONTH 08/1803/19/25 1,000 mcg/mL injection solution folic acid 1 mg tablet 1 mg PO DAILY 09/28/2403/19 sennosides 8.6 mg-docusate sodium 1 tab PO DAILY PRN C onstipation 09/28/24 03/19/25 50 mg tablet (Stimulant Laxative Plus) betamethasone valerate 0.1 % 1 appl topical BID PRN Dr watts Skin 03/19/25 03/19/25 topical ointment buprenorphine 8 mg-naloxone 2 mg 1 film sublingual TID 03/19/25 03/19/25 sublingual film ketoconazole 2 % shampoo [address]EFR PRN Dr watts Scalp 03/19/25 03/19/25 ondansetron HCl 4 mg tablet 4 mg PO Q8H PRN nausea/vom iting 03/19/25 03/19/25 pregabalin 150 mg capsule 150 mg PO BID 03/19/2503/19 Previous Rx's ?Medication ?Instructions ?Recorded amlodipine 2.5 mg tablet 2.5 mg PO DAILY #90 tabs blood pressure monitor (Blood #1 ea 03/20/25 Pressure Kit) Allergies Allergy/AdvReac Type Severity Reaction Status Date / Time morphine Allergy Hives Verified 03/18/25 20:15 Review of Systems 2 Constitutional: Constitutional: Denies chills, Denies fever(s) and Denies headache(s) Eyes: Eyes: Denies blurry vision ENT: Denies vertigo, Denies dizziness and Denies headache(s) Cardiovascular: Cardiovascular: Denies chest pain and Denies dyspnea on exertion Respiratory: Respiratory: Denies cough and Denies dyspnea on exertion Gastrointestinal: Gastrointestinal: Reports abdominal pain, Denies melena, Denies hematochezia, Denies coffee ground emesis, Reports nausea and Reports vomiting Integumentary/Breasts: Skin/Breast: Denies rash Neurologic: Denies vertigo, Denies dizziness and Denies headache(s) [facility] Past Medical History Medical History (Updated 03/20/25 @ 09:51 by Freida White MD) Hypertension Alcohol use disorder History of pancreatitis Alcohol use Buprenorphine dependence Chronic abdominal pain Surgical History History of back surgery Social History Social History Household Members: None Household Members Other:: lives with dog Housing: Apartment Do you presently have visiting nurse or other home services: No Alcohol intake: current Alcohol intake frequency: a few times a month Alcohol type: beer and hard liquor Comment: Pt refusing bed alarms and seizure pads Patient Tobacco Use Status: Former Tobacco user Tobacco use type: Cigarette e-Cigarette/Vaping Use: Never Used Second Hand Smoke Exposure: No Substance Use Type: Marijuana and Other service: No Current occupational status: unemployed Physical Exam ED Vital Signs: Vital Signs - 24 hr 03/18/25 18:28 03/18/25 20:05 03/18/25 20:05 Temperature 99.1 F Pulse Rate 65 73 Respiratory Rate 18 20 15 Blood Pressure 200/83 H 193/90 H Pulse Oximetry 95 98 Oxygen Delivery Method Room Air Room Air 03/18/25 21:28 Temperature Pulse Rate Respiratory Rate 14 Blood Pressure Pulse Oximetry Oxygen Delivery Method BMI result Body Mass Index 31.7 Const Other: the patient appears uncomfortable, but nontoxic appearing General: healthy appearing, alert and awake; No comfortable Nutritional Appearance: well nourished Orientation/consciousness: patient oriented x3 HENMT Head: Yes normocephalic and Yes atraumatic Throat: Yes posterior oropharynx normal Eyes Eyelids: Yes eyelids normal Conjunctivae: conjunctivae normal Sclerae: sclerae normal Corneas: corneas normal Pupils: Equal, round and reactive pupils present EOM: EOMs intact bilaterally Neck Neck: Yes full ROM Resp Effort & Inspection: normal respiratory effort, able to speak in complete sentences and not labored Cardio Rate: regular rate Rhythm: regular rhythm GI Inspection: No distended Palpation (GI): Soft to palpation, not firm, Tenderness to palpation present (GI) in the epigastrum, in the LUQ and in the RUQ; Chow's sign negative, no guarding and not rigid Auscultation: normoactive bowel sounds Skin General skin exam: elasticity normal Neuro General: patient oriented x3 Cranial nerves: Yes CN's II-XII intact bilaterally, Yes Equal, round and reactive pupils present and Yes Bilaterally intact EOM present Cognition (Neuro): normal cognition Extrem Other: Moving all extremities well without any obvious deformities Course Reevaluation(s) Reevaluation #1: patient had some erythema / urticaria at the IV injection site immediately after being administered morphine. I did check his records and he has been given both Zofran and morphine IV at this facility in the past without issue. However we will give some IV Benadryl to counteract of the likely allergic reaction. Time: 20:14 Medications Administered Discontinued Medications Generic Name Dose Route Start Last Admin Trade Name Freq PRN Reason Stop Dose Admin Amlodipine Besylate 2.5 mg 03/20/25 09:00 03/20/25 08:02 Amlodipine Besylate 2.5 Mg Tablet PO 2.5 mg DAILY JUAN Administration Protocol Buprenorphine/Naloxone 1 film 03/19/25 15:00 03/20/25 08:04 Buprenorphine/Naloxone 8/2 Mg Film SUBLINGUAL 1 film TID JUAN Administration Bupropion HCl 300 mg 03/19/25 15:00 03/20/25 08:02 Bupropion Hcl Xl 300 Mg Tab.Er.24h PO 300 mg DAILY JUAN Administration Diphenhydramine HCl 50 mg 03/18/25 20:14 03/18/25 20:14 Diphenhydramine Hcl 50 Mg/Ml Vial IVPUSH 03/18/25 20:15 50 mg ONCE ONE Administration Enoxaparin Sodium 40 mg 03/18/25 23:30 03/19/25 23:42 Enoxaparin Sodium 40 Mg/0.4 Ml Syringe SUBCUT 40 mg Q24H JUAN Administration Hydromorphone HCl 1 mg 03/18/25 20:33 03/18/25 21:28 Hydromorphone Hcl 1 Mg/Ml Syringe IVPUSH 03/18/25 20:34 1 mg ONCE ONE Administration Protocol Hydromorphone HCl 1 mg 03/19/25 00:13 03/20/25 06:40 Hydromorphone Hcl 1 Mg/Ml Syringe IVPUSH 1 mg Q3H PRN Administration Pain, Severe (Pain Scale 7-10) Protocol Lactated Ringer's 1,000 mls @ 999 mls/hr 03/18/25 19:45 03/18/25 22:43 Lr IV 03/18/25 20:45 Infused .Q1H1M JUAN Infusion Lactated Ringer's 1,000 mls @ 125 mls/hr 03/18/25 23:30 03/20/25 07:51 Lr IVCONT 125 mls/hr .Q8H JUAN Administration Thiamine HCl 100 mg/ Sodium 101 mls @ 202 mls/hr 03/19/25 09:00 03/20/25 08:46 Chloride IV Infused DAILY JUAN Infusion Folic Acid 1 mg/ Sodium 50.2 mls @ 100.4 mls/hr 03/19/25 09:00 03/20/25 09:24 Chloride IV Infused DAILY JUAN Infusion Iohexol 85 ml 03/18/25 21:56 03/18/25 21:57 Iohexol 350 Mg/Ml 100 Ml Infus..Btl IV 03/18/25 21:57 85 ml ONCE ONE Administration Morphine Sulfate 4 mg 03/18/25 19:33 03/18/25 20:05 Morphine Sulfate 4 Mg/Ml Cartridge IVPUSH 03/18/25 19:34 4 mg ONCE ONE Administration Protocol Ondansetron HCl 4 mg 03/18/25 19:33 03/18/25 20:04 Ondansetron Hcl 4 Mg/2 Ml Vial IVPUSH 03/18/25 19:34 4 mg ONCE ONE Administration Ondansetron HCl 4 mg 03/18/25 23:16 03/20/25 03:46 Ondansetron Hcl 4 Mg/2 Ml Vial IVPUSH 4 mg Q8H PRN Administration Nausea and Vomiting Pantoprazole Sodium 40 mg 03/19/25 16:30 03/20/25 06:40 Pantoprazole Sodium 40 Mg/10 Ml Vial IVPUSH 40 mg BID@0630,1630 JUAN Administration Phenobarbital 60 mg 03/19/25 09:00 03/20/25 08:02 Phenobarbital 30 Mg Tablet PO 03/20/25 21:01 60 mg BID JUNA Administration Protocol Phenobarbital Sodium 320 mg 03/18/25 20:00 03/18/25 20:04 Phenobarbital Sodium 130 Mg/Ml Im Once IM 03/18/25 20:01 320 mg ONCE ONE Administration Protocol Phenobarbital Sodium 240 mg 03/18/25 23:00 03/19/25 02:28 Phenobarbital Sodium 130 Mg/Ml Vial Im Q3hx2 IM 03/19/25 02:01 240 mg Q3H JUAN Administration Protocol Phenobarbital Sodium 130 mg 03/19/25 14:49 03/19/25 15:03 Phenobarbital Sodium 130 Mg/Ml Vial IM 03/19/25 14:50 130 mg ONCE ONE Administration Senna 17.2 mg 03/19/25 21:00 03/19/25 20:30 Sennosides 8.6 Mg Tablet PO Not Given [facility] Sodium Chloride 3 ml 03/19/25 00:00 03/20/25 08:03 0.9 % Sodium Chloride Flush 3 Ml Syringe IVFLUSH 3 ml QSHIFT JUAN Administration Medical Decision Making Medical Decision Making MDM Narrative: 59-year-old male presents for evaluation of upper abdominal pain. He has a long history of alcohol dependence and acute on chronic pancreatitis. His presentation is quite similar to pancreatitis. He is quite uncomfortable, he is hypertensive as high as 200 systolic. We will treat his symptoms with IV fluids, Zofran, morphine and phenobarbital for withdrawal. We will get a CT scan of the abdomen pelvis. His ethanol level is undetectable and therefore he does likely have some degree of withdrawal. His lipase is elevated to 395. Differential Diagnosis Differential Diagnoses: The differential diagnosis associated with the presentation includes acute pancreatitis Chronic pancreatitis Gastritis Alcoholic gastritis Acute alcohol intoxication Acute alcohol withdrawal Chronic abdominal pain Admission/Observation Consideration of admission/observation: Escalation of care including admission/observation considered Lab Data MDM Lab Attestation statement: I reviewed the patient's lab results. no significant leukocytosis or anemia. Normal platelet count. No electrolyte abnormalities warranting intervention. 03/19/25 04:55 03/19/25 04:55 Labs: Lab Results 03/18/25 Range/Units 18:48 WBC 10.5 (4.8-10.8) X10*3/uL RBC 5.10 D (4.60-5.80) X10*6/uL Hgb 16.3 D (14.0-18.0) g/dl Hct 45.4 D (42.0-52.0) % MCV 89.0 (80.0-98.0) fL MCH 32.0 (27.0-33.0) pg MCHC 35.9 (31.0-36.0) g/dl RDW 11.6 (11.0-16.0) % Plt Count 200 (160-400) X10*3/uL MPV 9.6 (9.4-12.4) fL Immature Gran % (Auto) 0.3 (0.0-0.4) % Neut % (Auto) 86.9 H (45-73) % Lymph % (Auto) 7.9 L (20-40) % [place] % (Auto) 4.4 (2-11) % Eos % (Auto) 0.1 (0-4) % Baso % (Auto) 0.4 (0-2) % Lymph # (Auto) 0.8 L (1.2-4.9) X10*3/uL [place] # (Auto) 0.5 (0.1-1.2) X10*3/uL Eos # (Auto) 0.0 (0.0-0.4) X10*3/uL Baso # (Auto) 0.0 (0.0-0.2) X10*3/uL Abs Immat Gran (auto) 0.03 (0.00-0.03) X10*3/uL Absolute Neuts (auto) 9.2 H (2.0-8.3) x10*3/uL Absolute Nucleated RBC 0.000 (0.0-0.012) X10*3/uL Nucleated RBC % (auto) 0.0 (0.0-0.2) /100WBC Sodium 140 (135-145) mmol/L Potassium 4.0 (3.3-5.1) mmol/L Chloride 104 (96-108) mmol/L Carbon Dioxide 24 (22-29) mmol/L Anion Gap 16 (12-20) BUN 14 (9-16) mg/dL Creatinine 1.08 (0.5-1.4) mg/dL Estim Creat Clear Calc 94.1 Estimated GFR > 60 Random Glucose 145 H (60-115) mg/dL Calcium 9.1 (8.4-10.2) mg/dL Magnesium 1.8 (1.6-2.6) mg/dL Total Bilirubin 1.1 H (0.0-1.0) mg/dL AST 68 H (5-37) U/L ALT 44 H (0-40) U/L Alkaline Phosphatase 81 (39-117) U/L Troponin I High Sens 3.2 (<3.5-35.0) ng/L Total Protein 7.1 (6.5-8.0) g/dL Albumin 4.1 (3.5-5.0) g/dL Lipase 395 H (8-78) U/L Ethyl Alcohol < 10 mg/dL Radiology Impression Discussion of test interpretation with radiology: I have reviewed the radiologist's reading. Radiologist Impression: Findings: No consolidation or effusion. There is diffuse stranding around the pancreas. The gland enhances symmetrically. No peripancreatic fluid collection or hematoma. Common duct measures up to 10 mm, unchanged from prior. No intrahepatic biliary ductal dilatation. Gallbladder is unremarkable. Adrenal glands and kidneys are normal. Multiple calcifications are present in the spleen, evidence of previous granulomatous disease. There is diffuse fatty infiltration in the liver. Liver is enlarged. No bowel obstruction, pneumoperitoneum, or pneumatosis. Normal appendix. Urinary bladder and prostate gland are unremarkable. The bones are intact. Previous L3 through L5 posterior fusion. Unchanged mild anterolisthesis at L4-5. IMPRESSION: Interstitial edematous pancreatitis. Persistently dilated common bile duct, unchanged. This document has been electronically signed by: Nabeel Escamilla MD on 03/18/2025 22:38:05 Discharge Plan Discharge Clinical Impression: Pancreatitis Qualifiers: Chronicity: acute Pancreatitis type: other Acute pancreatitis complication: u nspecified Qualified Code(s): K85.80 - Other acute pancreatitis without necrosis or infection Patient Disposition: Admitted As Inpatient Interventions: Admission Worksheet (ED) Last Done: 03/19/25 16:00 Discharge Date/Time: 03/19/25 16:34
[2025-03-18] MEDS: PHENobarbitaL sodium 130 MG/ML IM ONCE 320 MG IM (20:04)
[2025-03-18 20:05] VITALS: BP 193/90; PULSE 73; RESP 15; RESP 20; O2SAT 98
[2025-03-18] MEDS: Lactated Ringers 1,000 ML 999 ML IV (20:06)
--- NOTE | 2025-03-18 20:26 | PC.NURSE ---
PT administered IV morphine in R arm and began complaining of pain/burning above his IV site. PT then began breaking out in hives above his IV site. FLAVIO Morales notified and came to bedside. PT medicated per MAY with benadryl, morphine added to AX list. VSS, no acute signs of distress. Respirations even and unlabored. Seizure precautions placed.
[2025-03-18 21:28] VITALS: RESP 14
[2025-03-18] MEDS: iohexoL 350 MG/ML 100 ML INFUS..BTL 85 ML IV (21:57)
[2025-03-18 23:19] VITALS: BP 148/80; PULSE 80; RESP 14; TEMP 36.8; O2SAT 94
--- NOTE | 2025-03-18 23:20 | PM.IMHP ---
History of Present Illness Date of Service: 03/18/25 Attending physician on admission: Calvin Wilkinson Chief Complaint: N/V, etoh use Pt is a 59yo male with PMH pancreatitis, alcohol abuse, acute appendicitis, hypertriglyceridemia, substance use disorder previously on Suboxone, hypertension and mood disorder presents to the hospital with complaints of upper abdominal pain with persistent nausea and vomiting. Patient states he has been drinking 6-10 60 proof nips per day for an extensive period of time. Patient was seen at [facility] a few weeks prior and patient stated he would never go back there as they did not help him with his withdrawal symptoms. Patient was started on phenobarbital per request in this ED. Patient also diagnosed with acute pancreatitis via CT scan, lipase 395. Patient does live with depression but states he is not suicidal. Patient does have a plan to return to AA meetings and quit using alcohol. Patient has not been on naltrexone in the past. Patient states he is willing to speak with the addictions about options for intervention. Patient does have history of leaving AMA back in September of 2024. CT of the abdomen done in the ED notes interstitial edematous pancreatitis without peripancreatic fluid collection or hematoma. Patient has known common duct dilatation of 10 mn, unchanged from previous study. Review of Systems Review of Systems: Patient currently denies any chest pain, shortness of breath at rest or with exertion. Patient reports intermittent continued nausea but no vomiting. Abdominal pain is intense especially in the mid upper epigastric area. Patient denies any unusual weight loss. Patient denies any headaches, stroke or seizure related to alcohol withdrawal. Yes all other systems are reviewed and are negative [facility] Medical History (Updated 03/19/25 @ 00:10 by DAYTON Paz) Hypertension Alcohol use disorder History of pancreatitis Alcohol use Buprenorphine dependence Chronic abdominal pain Cognitive capacity: Alert and orientated x3 Functional capacity: independent ambulation Surgical History History of back surgery Social History Household Members: None Household Members Other:: lives with dog Housing: Apartment Do you presently have visiting nurse or other home services: No Alcohol intake: current Alcohol intake frequency: a few times a month Alcohol type: beer and hard liquor Comment: Pt refusing bed alarms and seizure pads Patient Tobacco Use Status: Tobacco use Unknown Tobacco use type: Cigarette e-Cigarette/Vaping Use: Never Used Second Hand Smoke Exposure: No Substance Use Type: Marijuana and Other Advance Directives: No Advance Directives Information Provided: No Do you have a plan to hurt others: No Plan Nutrition Risks: No Nutritional Risk service: No Current occupational status: unemployed Meds Allergies Allergy/AdvReac Type Severity Reaction Status Date / Time morphine Allergy Hives Verified 03/18/25 20:15 Active Medications: Current Medications Acetaminophen (Acetaminophen 325 Mg Tablet) 650 mg PO Q6H PRN PRN Reason: Pain, Mild 1-3,fever,headache Albuterol/Ipratropium (Albuterol/Iprat 2.5/0.5mg 3 Ml Ampul.Neb) 3 ml INHALE Q4H PRN PRN Reason: Shortness of Breath/Wheezing Calcium Carbonate (Calcium Carbonate 750 Mg Tab.Chew) 750 mg PO Q4H PRN PRN Reason: Heartburn Enoxaparin Sodium (Enoxaparin Sodium 40 Mg/0.4 Ml Syringe) 40 mg SUBCUT Q24H JUAN Lactated Ringer's (Lr) 1,000 mls @ 125 mls/hr IVCONT .Q8H JUAN Magnesium Hydroxide (Milk Of Magnesia 30 Ml Oral.Susp) 30 ml PO DAILY PRN PRN Reason: Constipation Melatonin (Melatonin 3 Mg Tablet) 6 mg PO BEDTIME PRN PRN Reason: Insomnia Ondansetron HCl (Ondansetron Hcl 4 Mg/2 Ml Vial) 4 mg IVPUSH Q8H PRN PRN Reason: Nausea and Vomiting Pharmacy Consult (Consult Rx Etoh Phenob Im/Po) 1 each MISCELLANE ONCE PRN; Protocol PRN Reason: Consult order Phenobarbital (Phenobarbital 30 Mg Tablet) 60 mg PO BID JUAN; Protocol Stop: 03/20/25 21:01 Phenobarbital (Phenobarbital 30 Mg Tablet) 30 mg PO BID JUAN; Protocol Stop: 03/22/25 21:01 Phenobarbital (Phenobarbital 30 Mg Tablet) 30 mg PO DAILY JUAN; Protocol Stop: 03/24/25 09:01 Phenobarbital Sodium (Phenobarbital Sodium 130 Mg/Ml Vial Im Q3hx2) 240 mg IM Q3H JUAN; Protocol Stop: 03/19/25 02:01 Polyethylene Glycol (Polyethylene Glycol 3350 17 Gm Powd.Pack) 17 gm PO DAILY PRN PRN Reason: Constipation Senna (Sennosides 8.6 Mg Tablet) 17.2 mg PO BEDTIME JUAN Sodium Chloride (0.9 % Sodium Chloride Flush 3 Ml Syringe) 3 ml IVFLUSH QSHIFT JUAN Home Medications ?Medication ?Instructions ?Recorded ?Confirmed ?Last Taken ?Type bupropion HCl 300 mg 24 hr tablet, 300 mg PO DAILY 12/09/21 10/02/24 11/05/22 History extended release gabapentin 400 mg capsule 800 mg PO TID PRN Alcohol 12/09/21 10/02/24 11/05/22 History Withdrawal trazodone 100 mg tablet 100 mg PO BEDTIME 12/09/21 10/02/24 11/05/22 History cyanocobalamin (vitamin B-12) 1,000 mcg IM QMONTH 09/28/24 10/02/24 Unknown History 1,000 mcg/mL injection solution folic acid 1 mg tablet 1 mg PO DAILY 09/28/24 10/02/24 Unknown History hydrocortisone 2.5 % topical cream 1 appl topical BID 09/28/24 10/02/24 Unknown History sennosides 8.6 mg-docusate sodium 1 tab PO DAILY 09/28/24 10/02/24 Unknown History 50 mg tablet (Stimulant Laxative Plus) Physical Exam Vital Signs and Narrative: Vital Signs: Last Vital Signs Temp 99.1 F 03/18/25 18:28 Pulse 73 03/18/25 20:05 Resp 14 03/18/25 21:28 BP 193/90 H 03/18/25 20:05 Pulse Ox 98 03/18/25 20:05 O2 Del Method Room Air 03/18/25 20:05 BMI result Body Mass Index 31.7 Alert and orientated X3, able to give good history. Neuro: CN II-X11 intact, no deficits, visual acuity intact EYES: PERRLA, EOM intact, sclerae nonicteric, conjunctiva pink ENT: hearing intact, no issues with swallowing, uvula midline, lips moist, nares patent no epistaxis Cardiac: S1 S2 RRR, no murmur, no JVD, no edema in Lower ext Pulmonary: lungs clear to auscultation B Abdominal: BS active in all 4 quadrants, noted guarding, moderate tenderness upper epigastric area MSK: strength 5/5 upper and lower extremities : no CVA tenderness no bladder distension Extremities: no edema in lower extremities, PT and DP pulses palpable +2 Psych: mood depressed, judgement and insight good Skin: No new rashes or lesion Results Labs 03/19/25 04:55 03/19/25 04:55 Labs: Laboratory Results - last 24 hr 03/18/25 18:48 MCV 89.0 MCH 32.0 MCHC 35.9 RDW 11.6 Plt Count 200 MPV 9.6 Immature Gran % (Auto) 0.3 Neut % (Auto) 86.9 H Lymph % (Auto) 7.9 L Dillon % (Auto) 4.4 Eos % (Auto) 0.1 Baso % (Auto) 0.4 Lymph # (Auto) 0.8 L Dillon # (Auto) 0.5 Eos # (Auto) 0.0 Baso # (Auto) 0.0 Abs Immat Gran (auto) 0.03 Absolute Neuts (auto) 9.2 H Absolute Nucleated RBC 0.000 Nucleated RBC % (auto) 0.0 Anion Gap 16 Estim Creat Clear Calc 94.1 Estimated GFR > 60 Random Glucose 145 H Calcium 9.1 Magnesium 1.8 Total Bilirubin 1.1 H AST 68 H ALT 44 H Alkaline Phosphatase 81 Troponin I High Sens 3.2 Total Protein 7.1 Albumin 4.1 Lipase 395 H Ethyl Alcohol < 10 ECG Attestation: I personally reviewed and interpreted this ECG as follows: (Sinus Tahir heart rate 55 with a QTC of 443 and a IA of 130 no ischemic changes) Prior ECG tracings: available for review Imaging Radiologist's Impressions: CT abdomen and pelvis IMPRESSION: Interstitial edematous pancreatitis. Persistently dilated common bile duct, unchanged. Assessment and Plan (1) Pancreatitis: Qualifiers: Acute pancreatitis complication: unspecified Chronicity: acute Pancreatitis type: other Qualified Code(s): K85.80 - Other acute pancreatitis without necrosis or infection Status: Acute (2) Alcohol use disorder: Status: Acute Plan Pt is a 59yo male with PMH pancreatitis, alcohol abuse, acute appendicitis, hypertriglyceridemia, substance use disorder previously on Suboxone, hypertension and mood disorder presents to the hospital with complaints of upper abdominal pain with persistent nausea and vomiting. Patient states he has been drinking 6-10 60 proof nips per day for an extensive period of time. Patient being admitted for acute pancreatitis related to alcohol use disorder. Acute pancreatitis Patient currently NPO IV fluids continue Dilaudid for pain Lipase 395, continue to trend No evidence of necrosis or abscess on CT scan Alcohol use disorder CIWA protocol initiated Patient currently on phenobarbital Addictions consulted Thiamine and folic acid ordered Patient does have history of leaving AMA LFTs stable AST 68, ALT 44, total bilirubin 1.1 Hypertension Patient has noted trend of hypertension over the last 6-7 months Starting patient on 5 of amlodipine daily Low-sodium diet Depression Patient will continue bupropion Trazodone at HS Patient denies any SI or HI or hallucinations Patient deferred need for psychiatric consultation Patient currently living alone with his dog on disability, does not want to speak to case management DVT prophylaxis: Lovenox Med rec pending Full code status Patient require at least a 2 midnight stay for phenobarbital intervention for alcohol withdrawal and IV fluids for acute pancreatitis with possible expert consultation as needed. Quality Stroke Does the patient have a stroke diagnosis?: No Reason for No Anti-thrombotic by Day Two: N/A - Med Ordered VTE Prior VTE?: No VTE Risk Level:: Medical - moderate - high VTE Device Contraindication: N/A - Device Ordered VTE Drug Contraindication: N/A - Med Ordered
[2025-03-18] MEDS: PHENobarbitaL sodium 130 MG/ML VIAL IM Q3Hx2 240 MG IM (23:27)
[2025-03-19] VITALS (11 sets, daily range): BP systolic 151–191; BP diastolic 71–96; PULSE 54–73; RESP 11–22; TEMP 36.4–36.7; O2SAT 94–98
[2025-03-19] MEDS: Lactated Ringers 1,000 ML 125 ML IVCONT ×4 (00:22→23:41)
[2025-03-19] MEDS: PHENobarbitaL sodium 130 MG/ML VIAL IM Q3Hx2 240 MG IM (02:28)
[2025-03-19 05:01] LABS: MANUAL DIFF FLAG NO
[2025-03-19 05:03] LABS: Hematocrit 39.5 % (42.0-52.0); Hemoglobin 13.9 g/dl (14.0-18.0); Imm Gran Abs Auto 0.04 X10*3/uL (0.00-0.03); Imm Gran Pct Auto 0.4 % (0.0-0.4); Lymphocytes Absolute Auto 1.8 X10*3/uL (1.2-4.9); Mean Corpuscular HGB Conc 35.2 g/dl (31.0-36.0); Mean Corpuscular Hemoglobin 31.7 pg (27.0-33.0); Mean Corpuscular Volume 90.2 fL (80.0-98.0); NRBC Abs Auto 0.000 X10*3/uL (0.0-0.012); NRBC Pct Auto 0.0 /100WBC (0.0-0.2); Platelet Count 157 X10*3/uL (160-400); Red Blood Count 4.38 X10*6/uL (4.60-5.80); White Blood Count 10.5 X10*3/uL (4.8-10.8)
[2025-03-19 05:16] LABS: Alanine Aminotransferase 42 U/L (0-40); Albumin Level 3.3 g/dL (3.5-5.0); Alkaline Phosphatase 66 U/L (39-117); Anion Gap 12 (12-20); Aspartate Amino Transferase 76 U/L (5-37); Blood Urea Nitrogen 10 mg/dL (9-16); Calcium 8.3 mg/dL (8.4-10.2); Carbon Dioxide 25 mmol/L (22-29); Chloride 106 mmol/L (96-108); Creatinine Clr Calc Pharmacy 104.7; Estimated Glomerular Filt Rate > 60; Lipase 299 U/L (8-78); Potassium 3.7 mmol/L (3.3-5.1); Sodium 139 mmol/L (135-145); Total Protein 5.9 g/dL (6.5-8.0)
[2025-03-19 07:39] LABS: Resp Syncy Virus RNA Qual PCR NEGATIVE (Negative); SARS COV2 PCR INHOUSE NEGATIVE (Negative)
--- NOTE | 2025-03-19 08:02 | PC.NURSE ---
Care of Pt assumed at change of shift (0700.) Pt resting quietly with light off. Pt offered blanket to which he declined. NAD noted. IV folic acid administered and Pt advised he will be getting additional medications within the hour. Pt inquired about room status and is informed that he will be notified once a room assignment is given. Pt offers no complaints at this time and continues to rest quietly.
[2025-03-19] MEDS: Thiamine HCL 100 MG in 0.9 % Sodium Chloride 100 ML 202 MG IV (08:31)
--- NOTE | 2025-03-19 12:40 | MHC.CM.PN ---
IMM was addressed with Patient. Patient lives alone in an apartment and obtains hi Suboxone from [facility]. Home/resume said services is Patient's goal and CM has initiated and will follow for dc planning. PCP is Dr. Sharon Hilton and Patient will need assist with transport at dc.
--- NOTE | 2025-03-19 12:48 | MHC.CM.PN ---
IMM was addressed with Patient. Patient lives in a house with her Son/HCP/Tanmay and her and she uses a walker. Patient is active with [facility] and home/resume said services is the goal. CM has initiated and will follow for dc planning. PCP is Dr. Vu Ye and Son will transport at dc.
--- NOTE | 2025-03-19 13:03 | PHA.MEDREC ---
Addendum entered by Sd Lackey PharmD 03/19/25 13:17: reviewed Original Note: Pharmacy Consult ? Medication Reconciliation Pharmacy has completed the medication reconciliation. Spoke with pt and he confirmed his medications. Pt confirmed he is taking his Suboxone 8-2mg films QD-BID instead of TID due to it being easier for the pt; kept in med rec TID since pt been filling it like that and Dr not aware pt taking like this, he confirmed he is taking Vitamin B-12 once a month and believes he is due for that next week and he takes Ketoconazole shampoo 3xw as needed for dry scalp now.
--- NOTE | 2025-03-19 14:51 | HO.PM.IMPN ---
Subjective Subjective Date of Service: 03/19/25 Interval History: Acute pancreatitis, alcohol withdrawal Review of Systems Patient is still tremulous, anxious Has some abdominal pain Physical Exam Exam: Exam: Appearance: Alert.? Oriented X3.? Anxious and tremulous cvs: rrr, [id number]. res: clear to auscultation ,no rhonchii or wheezing abd: no rebound or guarding ,epigastric discomfort, bs present. ext pulses present , no cyanosis neuro: axo3 , nonfocal. Vital Signs: Vital Signs: Last Vital Signs Temp 97.6 F 03/19/25 12:21 Pulse 70 03/19/25 12:21 Resp 11 L 03/19/25 12:21 BP 181/92 H 03/19/25 12:21 Pulse Ox 98 03/19/25 12:21 O2 Del Method Room Air 03/19/25 12:21 BMI result Body Mass Index 31.7 Objective Data Active Medications Acetaminophen (Acetaminophen 325 Mg Tablet) 650 mg PO Q6H PRN PRN Reason: Pain, Mild 1-3,fever,headache Albuterol/Ipratropium (Albuterol/Iprat 2.5/0.5mg 3 Ml Ampul.Neb) 3 ml INHALE Q4H PRN PRN Reason: Shortness of Breath/Wheezing Buprenorphine/Naloxone (Buprenorphine/Naloxone 8/2 Mg Film) 1 film SUBLINGUAL TID JUAN Bupropion HCl (Bupropion Hcl Xl 300 Mg Tab.Er.24h) 300 mg PO DAILY JUAN Calcium Carbonate (Calcium Carbonate 750 Mg Tab.Chew) 750 mg PO Q4H PRN PRN Reason: Heartburn Cyanocobalamin (Vitamin B12) (Cyanocobalamin (Vitamin B-12) 1,000 Mcg/Ml Vial) 1,000 mcg IM QMONTH [facility] Enoxaparin Sodium (Enoxaparin Sodium 40 Mg/0.4 Ml Syringe) 40 mg SUBCUT Q24H JUAN Last Admin: 03/19/25 00:17 Dose: 40 mg Documented By: DAVY Hydromorphone HCl (Hydromorphone Hcl 1 Mg/Ml Syringe) 1 mg IVPUSH Q3H PRN; Protocol PRN Reason: Pain, Severe (Pain Scale 7-10) Last Admin: 03/19/25 11:59 Dose: 1 mg Documented By: KATIE Lactated Ringer's (Lr) 1,000 mls @ 125 mls/hr IVCONT .Q8H JUAN Last Admin: 03/19/25 08:30 Dose: 125 mls/hr Documented By: KATIE Thiamine HCl 100 mg/ Sodium (Chloride) 101 mls @ 202 mls/hr IV DAILY JUAN Last Infusion: 03/19/25 09:08 Dose: Infused Documented By: KATIE Folic Acid 1 mg/ Sodium (Chloride) 50.2 mls @ 100.4 mls/hr IV DAILY [facility] Last Infusion: 03/19/25 08:28 Dose: Infused Documented By: KATIE Ketoconazole (Ketoconazole 2 % Shampoo 120 Ml Btl) 1 appl TOPICAL MOWEFR PRN; Protocol PRN Reason: Dry Scalp Magnesium Hydroxide (Milk Of Magnesia 30 Ml Oral.Susp) 30 ml PO DAILY PRN PRN Reason: Constipation Melatonin (Melatonin 3 Mg Tablet) 6 mg PO BEDTIME PRN PRN Reason: Insomnia Ondansetron HCl (Ondansetron Hcl 4 Mg/2 Ml Vial) 4 mg IVPUSH Q8H PRN PRN Reason: Nausea and Vomiting Last Admin: 03/19/25 08:35 Dose: 4 mg Documented By: KATIE Pharmacy Consult (Consult Rx Etoh Phenob Im/Po) 1 each MISCELLANE ONCE PRN; Protocol PRN Reason: Consult order Phenobarbital (Phenobarbital 30 Mg Tablet) 60 mg PO BID [facility]; Protocol Stop: 03/20/25 21:01 Last Admin: 03/19/25 08:32 Dose: 60 mg Documented By: KATIE Phenobarbital (Phenobarbital 30 Mg Tablet) 30 mg PO BID [facility]; Protocol Stop: 03/22/25 21:01 Phenobarbital (Phenobarbital 30 Mg Tablet) 30 mg PO DAILY [facility]; Protocol Stop: 03/24/25 09:01 Phenobarbital Sodium (Phenobarbital Sodium 130 Mg/Ml Vial) 130 mg IM ONCE ONE Stop: 03/19/25 14:50 Polyethylene Glycol (Polyethylene Glycol 3350 17 Gm Powd.Pack) 17 gm PO DAILY PRN PRN Reason: Constipation Senna (Sennosides 8.6 Mg Tablet) 17.2 mg PO BEDTIME [facility] Sodium Chloride (0.9 % Sodium Chloride Flush 3 Ml Syringe) 3 ml IVFLUSH QSHIFT [facility] Last Admin: 03/19/25 08:00 Dose: Not Given Documented By: KATIE Non-Admin Reason: IV Running Triamcinolone Acetonide (Triamcinolone Acet 0.1 % Oint 15 Gm Tube) 1 appl TOPICAL BID PRN PRN Reason: Dry Skin Labs 03/19/25 04:55 03/19/25 04:55 Labs: Laboratory Results - last 24 hr 03/18/25 03/19/25 03/19/25 18:48 04:55 06:58 MCV 89.0 90.2 MCH 32.0 31.7 MCHC 35.9 35.2 RDW 11.6 11.8 Plt Count 200 157 L MPV 9.6 9.8 Immature Gran % (Auto) 0.3 0.4 Neut % (Auto) 86.9 H 74.3 H Lymph % (Auto) 7.9 L 16.7 L Dixie % (Auto) 4.4 8.0 Eos % (Auto) 0.1 0.3 Baso % (Auto) 0.4 0.3 Lymph # (Auto) 0.8 L 1.8 Dixie # (Auto) 0.5 0.8 Eos # (Auto) 0.0 0.0 Baso # (Auto) 0.0 0.0 Abs Immat Gran (auto) 0.03 0.04 H Absolute Neuts (auto) 9.2 H 7.8 Absolute Nucleated RBC 0.000 0.000 Nucleated RBC % (auto) 0.0 0.0 Anion Gap 16 12 Estim Creat Clear Calc 94.1 104.7 Estimated GFR > 60 > 60 Random Glucose 145 H 116 H Calcium 9.1 8.3 L D Magnesium 1.8 Total Bilirubin 1.1 H 1.2 H AST 68 H 76 H ALT 44 H 42 H Alkaline Phosphatase 81 66 Troponin I High Sens 3.2 Total Protein 7.1 5.9 L Albumin 4.1 3.3 L Lipase 395 H 299 H Ethyl Alcohol < 10 Influenza Type A (PCR) NEGATIVE Influenza Type B (PCR) NEGATIVE RSV RNA Qual (PCR) NEGATIVE SARS-CoV-2 RNA (RT-PCR) NEGATIVE Assessment and Plan (1) Pancreatitis: Status: Acute Plan 59yo male with PMH pancreatitis, alcohol abuse, acute appendicitis, hypertriglyceridemia, substance use disorder previously on Suboxone, hypertension and mood disorder presents to the hospital with complaints of upper abdominal pain with persistent nausea and vomiting. Patient states he has been drinking 6-10 60 proof nips per day for an extensive period of time. Patient being admitted for acute pancreatitis related to alcohol use disorder. Acute pancreatitis ct abd:Interstitial edematous pancreatitis. Persistently dilated common bile duct, unchanged. abd pain similar plan: clear liquid diet IV fluids continue,ppi.Dilaudid for pain Alcohol use disorder CIWA protocol initiated Patient currently on phenobarbital,added extra pheno. Addictions consulted Thiamine and folic acid ordered Hypertension Patient has noted trend of hypertension over the last 6-7 months Starting patient on 5 of amlodipine daily Low-sodium diet Depression Patient will continue bupropion. substance use disorder previously on Suboxone DVT prophylaxis: Lovenox ongoing need for stay for phenobarbital intervention for alcohol withdrawal and IV fluids for acute pancreatitis, ciwa moniter ,renal function/electrolytic monitering Quality Stroke Does the patient have a stroke diagnosis?: No Reason for No Anti-thrombotic by Day Two: N/A - Med Ordered VTE Prior VTE?: No VTE Risk Level:: Medical - moderate - high VTE Device Contraindication: N/A - Device Ordered VTE Drug Contraindication: N/A - Med Ordered
[2025-03-19] MEDS: buPROPion HCl XL 300 MG TAB.ER.24H PO (15:09)
[2025-03-20 03:15] VITALS: BP 198/93; PULSE 58; RESP 16; TEMP 36.4; O2SAT 96
[2025-03-20] MEDS: 0.9 % Sodium Chloride Flush 3 ML SYRINGE IVFLUSH ×2 (03:35→08:03)
[2025-03-20 06:40] VITALS: RESP 18
[2025-03-20 07:06] VITALS: BP 170/78; PULSE 63; RESP 16; TEMP 36.6; O2SAT 95
[2025-03-20] MEDS: Lactated Ringers 1,000 ML 125 ML IVCONT (07:51)
[2025-03-20] MEDS: buPROPion HCl XL 300 MG TAB.ER.24H PO (08:02)
[2025-03-20] MEDS: Thiamine HCL 100 MG in 0.9 % Sodium Chloride 100 ML 202 MG IV (08:02)
--- NOTE | 2025-03-20 09:40 | PM.DS ---
DS: Providers Provider Date of admission: 03/18/25 23:17 Date of discharge: 03/20/25 Primary care physician: Sharon Hilton MD Consults: 03/18/25 23:19 Addiction Medicine Provider Routine Consulting Provider: Addiction Covering Reason for consultation: etoh abuse acute pancreatitis Has provider been notified: No Attending physician on discharge: Freida White Discharging clinician: Freida White DS: Diagnosis Discharge Diagnosis (1) Pancreatitis: Status: Acute DS: Summary Hospital Course Hospital Course: hpi:59yo male with PMH pancreatitis, alcohol abuse, acute appendicitis, hypertriglyceridemia, substance use disorder previously on Suboxone, hypertension and mood disorder presents to the hospital with complaints of upper abdominal pain with persistent nausea and vomiting. Patient states he has been drinking 6-10 60 proof nips per day for an extensive period of time. Patient was seen at [facility] a few weeks prior and patient stated he would never go back there as they did not help him with his withdrawal symptoms. Patient was started on phenobarbital per request in this ED. Patient also diagnosed with acute pancreatitis via CT scan, lipase 395. Patient does live with depression but states he is not suicidal. Patient does have a plan to return to AA meetings and quit using alcohol. Patient has not been on naltrexone in the past. Patient states he is willing to speak with the addictions about options for intervention. Patient does have history of leaving AMA back in September of 2024. CT of the abdomen done in the ED notes interstitial edematous pancreatitis without peripancreatic fluid collection or hematoma. Patient has known common duct dilatation of 10 mn, unchanged from previous study. hospital course :59yo male with PMH pancreatitis, alcohol abuse, acute appendicitis, hypertriglyceridemia, substance use disorder previously on Suboxone, hypertension and mood disorder presents to the hospital with complaints of upper abdominal pain with persistent nausea and vomiting: Patient was admitted for acute pancreatitis, CT abdominal imaging showed acute interstitial pancreatitis-started on IV fluid and IV pain medications, PPIs, in addition patient was also started on phenobarb protocol for alcohol withdrawals-subsequently patient decided to leave against medical advice is CIWA scale is still fluctuating. In addition also abdominal pain did not improve significantly yet-patient and sister leave against medical advice-he is alert oriented x3, understands the risk of leaving against medical advice including worsening of pancreatitis, abdominal pain and complication of pancreatitis and alcohol withdrawal and seizure and including -he still wants to leave against medical advice. He understand above and able to say back to us. In addition patient was given amlodipine for blood pressure elevation. Lifestyle modification recommended including abstain from alcohol. Above management discussed with the patient detail length he understand , total time spent 50 minute. Time Attestation Total time managing care of this patient today: 50 mintues. Discharge Coordination Time (in mins): 50 minute Quality: Safe Use of Opioids Does Pt have an Active Cancer Diagnosis on the Problem List?: No Quality: Stroke Does the patient have a stroke diagnosis?: No Physical Exam Exam: Exam: Refused Vital Signs: Vital Signs: Last Vital Signs Temp 97.9 F 03/20/25 07:06 Pulse 63 03/20/25 07:06 Resp 16 03/20/25 07:06 BP 170/78 H 03/20/25 07:06 Pulse Ox 95 03/20/25 07:06 O2 Del Method Room Air 03/20/25 07:06 BMI result Body Mass Index 31.7 DS: Data Data Completed and Pending Completed studies during hospitalization [Text1]: Procedures Detoxification Services for Substance Abuse Treatment (10/02/24) Imaging Chest x-ray: My impression: ct abd:Interstitial edematous pancreatitis. Persistently dilated common bile duct, unchanged. Discharge Plan Discharge Anticipated Discharge Date/Time: 03/20/25 09:38 Patient Disposition: Left Against Medical Advice Discharge Diagnosis: Alcohol withdrawals,htn Referrals: Sharon Hilton MD [Primary Care Provider, Medical] - 1 Week Discharge Medications: New amlodipine 2.5 mg Tablet 2.5 mg PO DAILY Qty: 90 0RF Protocol: Hold for SBP< HOLD for SBP < : 90 (DME) blood pressure monitor [Blood Pressure Kit] Kit See Rx Instructions .Route Qty: 1 0RF Rx Instructions: As directed Continued betamethasone valerate 0.1 % ointment 1 appl topical BID PRN (Reason: Dry Skin) ketoconazole 2 % shampoo 1 appl TOPICAL MOWEFR MDD 10 Minutes PRN (Reason: Dry Scalp) ondansetron HCl 4 mg tablet 4 mg PO Q8H PRN (Reason: nausea/vomiting) pregabalin 150 mg capsule 150 mg PO BID buprenorphine-naloxone 8-2 mg film 1 film sublingual TID sennosides-docusate sodium [Stimulant Laxative Plus] 8.6-50 mg tablet 1 tab PO DAILY PRN (Reason: Constipation) cyanocobalamin (vitamin B-12) 1,000 mcg/mL solution 1,000 mcg IM QMONTH folic acid 1 mg tablet 1 mg PO DAILY bupropion HCl 300 mg tablet extended release 24 hr 300 mg PO DAILY trazodone 100 mg tablet 100 mg PO BEDTIME Discharge Orders: Discharge Order (Routine); Ordered 03/20/25 Ordered By: Freida White Diet: Advance to usual diet Activity on Discharge: As tolerated Print Language: Georgian Care Plan Goals: left ama ,risk explainedd in detail Health Concerns: left ama Plan of Treatment: left ama Assessment: left ama Patient Instructions: Pancreatitis (ED) Discharge Date/Time: 03/20/25 10:00
--- NOTE | 2025-03-20 09:42 | MHC.CM.PN ---
Patient has left AMA.
== END 2025-03-20 10:00 | disposition left against medical advice (07) | DRG 439 ==
LOC: HO.ED 20:21 → HO.EDOVER 23:20 → HO.IMC 03-19 15:38
PROVIDERS: Physician Assistant; Admitting Provider Nurse Practitioner Family; Emergency Provider Emergency Medicine; PCP Pediatrics; Visit Provider Internal Medicine
DX: K85.80 Other acute pancreatitis without necrosis or infection (principal); F10.239 Alcohol dependence with withdrawal, unspecified; F11.20 Opioid dependence, uncomplicated; E78.1 Pure hyperglyceridemia; I10 Essential (primary) hypertension; F32.A Depression, unspecified; Z20.822 Contact with and (suspected) exposure to COVID-19; Z87.891 Personal history of nicotine dependence; Z79.899 Other long term (current) drug therapy
CPT/HCPCS: 36415; 74177; 80053; 80307; 83690; 83735; 84484; 85025; 87637; 93005; 99285; J1171; J1200; J1650; J1808; J2270; J2405; J2470; J2560; J3411; J7120; Q9967

== ENCOUNTER → 2025-03-18 18:40 | Outpatient (BNV) | payer OTHER, SELFPAY | PROVIDERS: Admitting Provider Nurse Practitioner Family; Emergency Provider Emergency Medicine; PCP Pediatrics; Visit Provider Internal Medicine Cardiovascular Disease | DX: R00.1 Bradycardia, unspecified (principal) | CPT/HCPCS: 93010 ==

== ENCOUNTER → 2025-03-18 19:33 | Outpatient (BNV) | payer OTHER, SELFPAY | PROVIDERS: Emergency Provider Emergency Medicine; PCP Pediatrics; Visit Provider Radiology Diagnostic Radiology | DX: K86.1 Other chronic pancreatitis (principal); K83.8 Other specified diseases of biliary tract | CPT/HCPCS: 74177 ==

== ENCOUNTER → 2025-03-18 23:17 | Outpatient (BNV) | payer OTHER, SELFPAY | PROVIDERS: Admitting Provider Nurse Practitioner Family; Emergency Provider Emergency Medicine; PCP Pediatrics; Visit Provider Nurse Practitioner Family | DX: K85.80 Other acute pancreatitis without necrosis or infection (principal); F10.930 Alcohol use, unspecified with withdrawal, uncomplicated; Z53.29 Procedure and treatment not carried out because of patient's decision for other reasons | CPT/HCPCS: 99223; 99232; 99239 ==